=== PATIENT | female | born 1970 | race Caucasian/White ===

== ENCOUNTER 2020-04-10 09:51 | Observation (INO) | payer OTHER, SELFPAY ==
[2020-04-10] VITALS (22 sets, daily range): BP systolic 90–115; BP diastolic 65–93; PULSE 82–98; RESP 13–25; TEMP 36.5–37; O2SAT 92–99; BMI 32.5
--- NOTE | ~2020-04-10 | MR_ITS ---
EXAMINATION: MR brain/brain stem wo con DATE: 04/11/2020 10:01 INDICATION: Dizziness. TECHNIQUE: Magnetic resonance imaging (MRI) of the brain and brainstem was performed without intraven ous contrast. Sequences included sagittal and axial T1-weighted FSE, axial diffusion-weighted FS EPI, axial T2*-weighted GRE, axial T2-weighted FLAIR Propeller, and axial T2-weighted Propeller. Apparent diffusion coefficient (ADC) maps were created. COMPARISON: Head CT 04/10/2020 FINDINGS: There are scattered areas of nonspecific increased T2-weighted signal intensity in the cere bral white matter, which is within normal limits for the patient's age. There is no intracranial hemo rrhage, acute infarction, or abnormal intracranial mass lesion. The ventricles are normal in size. Th e orbits are normal. The paranasal sinuses are clear. The mastoid air cells are normal. IMPRESSION: 1. Normal brain. Reviewed, dictated and finalized at location A. IMPRESSION: 1. Normal brain.
--- NOTE | ~2020-04-10 | CT_ITS ---
EXAMINATION: CT brain wo con EXAM DATE: 04/10/2020 11:26 INDICATION: Dizziness. Nausea and vomiting. TECHNIQUE: Spiral CT of the head was performed without contrast. Axial, coronal and sagittal images were reviewed. The dose-length product (DLP) for this examination was 605.33 mGy-cm. The exposure w as tailored according to patient size, and iterative reconstruction (ASIR) was used as additional dos e reduction technique. Comparison is made to prior examination from 12/28/2014. FINDINGS: There is no acute intraparenchymal hemorrhage. No evidence of intraparenchymal brain mass lesion. No evidence of acute infarction. There is no mass effect or midline shift. The ventricles are normal in size. There are no extra-axial collections. There are no acute calvarial fractures. T he orbits are unremarkable. Soft tissue is unremarkable. The visualized sinuses and mastoid air selena ls are well aerated. IMPRESSION: 1. No acute intracranial findings. Reviewed, dictated and finalized at location A.
--- NOTE | ~2020-04-10 | US_ITS ---
EXAMINATION: US carotid duplex BI DATE: 04/11/2020 11:11 INDICATION: Vertigo TECHNIQUE: Grayscale, color Doppler, and pulsed Doppler images of the cervical carotid arteries were obtained. The degree of vessel stenosis is placed in one of the following categories: normal, <50%, 5 0-69%, >=70% but less than near-occlusion, near-occlusion, or total occlusion. Note that percent sten osis relative to normal distal artery lumen diameter is indirectly measured from velocity measurement s as described by Jamie, et al. Radiology 2003; 229:340-346. Notes: Normal: Peak systolic velocity <125 centimeters/sec and no plaque <50%. Peak systolic velocity <125 ( EDV <40; ICA/CCA PSV ratio <2.0; used these factors only a tandem lesions or low cardiac output or co ntralateral disease) 50-69 %: PSV 125-230 (EDV 40-100; ratio 2-4) >= 70% but less than near occlusion: PSV greater than 230 (EDV > 100; ratio> 4.0) Near Occlusion: PSV that is variable; markedly narrowed lumen Occlusion: Absent flow on color/spectral Doppler and no lumen on lan scale. COMPARISON: None. FINDINGS: RIGHT: The right common carotid artery (CCA) peak systolic velocity (PSV) is 109 cm/s. The right internal ca rotid artery (ICA) PSV is 59 cm/s. The right ICA end-diastolic velocity (EDV) is 16 cm/s. The right I CA/CCA PSV ratio is 0.5. The external carotid artery (ECA) PSV is 105 cm/s. There is antegrade flow i n the right vertebral artery. LEFT: The left CCA PSV is 114 cm/s. The left ICA PSV is 137 cm/s. The left ICA EDV is 30 cm/s. The left ICA /CCA PSV ratio is 1.2. The ECA PSV is 93 cm/s. There is antegrade flow in the left vertebral artery. IMPRESSION: 1. Less than 50% stenosis in the right internal carotid artery by sonographic criteria. 2. 50-69% stenosis in the left internal carotid artery by sonographic criteria. Reviewed, dictated and finalized at location A. IMPRESSION: 1. Less than 50% stenosis in the right internal carotid artery by sonographic c riteria. 2. 50-69% stenosis in the left internal carotid artery by sonographic criteria.
--- NOTE | 2020-04-10 10:36 | ECG_ITS ---
Measurements Intervals [place] Rate: 86 P: 44 OH: 183 QRS: 36 QRSD: 108 T: 15 QT: 385 QTc: 462 Interpretive Statements SINUS RHYTHM POSSIBLE LEFT ATRIAL ENLARGEMENT INCOMPLETE RIGHT BUNDLE BRANCH BLOCK BORDERLINE T WAVE ABNORMALITY- ANT/INF LEADS BASELINE ARTIFACT- I, III, AVL BORDERLINE ECG Electronically Signed On 04-10-2020 10:43:58 CDT by Tony Man D.O.
--- NOTE | 2020-04-10 10:47 | PC.NURSE ---
Pt asked if she could take her medications for epilepsy as she had vomited immediately after taking them this am. Explained as pt had just c/o nausea to wait until nausea had subsided and the physician could examine.
--- NOTE | 2020-04-10 10:52 | PC.NURSE ---
Pt heard to be wretching violently in room. On arrival, asked pt if she took her medications and she said she was trying to. Medications and water moved out of patients' reach and patient again told not to take anything po until nausea had passed and permission from [facility]. Dr. Hatch at bedside for exam.
[2020-04-10 10:53] LABS: Basophils Percent Auto 0.7 % (0.2-1.2); Eosinophils Percent Auto 0.9 % (0-4.4); Hematocrit 38.3 % (37.0-47.0); Hemoglobin 13.1 g/dL (12.0-15.0); Immature Granulocyte Absolute 0.02 K/mm3 (0.00-0.031); Immature Granulocyte Percent A 0.4 % (0-0.5); Lymphocytes Absolute Auto 0.87 K/mm3 (0.9-3.2); Lymphocytes Percent Auto 19.1 % (18.3-44.2); Mean Corpuscular HGB Conc 34.2 g/dl (32-36); Mean Corpuscular Hemoglobin 35.4 pg (26-34); Mean Corpuscular Volume 103.5 fl (80-100); Mean Platelet Volume 9.4 fl (7.4-10.4); Monocytes Absolute Auto 0.4 K/mm3 (0.1-0.6); Monocytes Percent Auto 8.1 % (2.6-8.5); Neutrophils Absolute Auto 3.2 K/mm3 (1.3-6.7); Neutrophils Percent Auto 70.8 % (45.5-73.1); Platelet Count Result 265 k/mm3 (150-375); Red Cell Distribution Width 13.5 % (11.5-14.5); White Blood Count 4.6 K/mm3 (4.5-10.0)
[2020-04-10 11:04] LABS: Blood Urea Nitrogen 14 mg/dL (7-17); Calcium 7.9 mg/dL (8.4-10.2); Carbon Dioxide 27 mmol/L (22-30); Chloride 104 mmol/L (98-107); Estimated CRCL calculation 122 ml/min; Estimated Glomerular Filt Rate > 60; Glucose 109 mg/dL (65-105); Sodium 136 mmol/L (137-145)
[2020-04-10] MEDS: PROMETHAZINE HCL 25 MG/ML AMPUL 12.5 MG IV PUSH (11:12)
[2020-04-10] MEDS: SODIUM CHLORIDE 0.9% IV 1,000 ML 999 ML IV CONT (11:13)
[2020-04-10] MEDS: LORAZEPAM INJ 2 MG/ML VIAL 0.5 MG IV PUSH (11:14)
--- NOTE | 2020-04-10 11:43 | PC.NURSE ---
Pt sleeping soundly on stretcher, arouses to shaking patient. Pt not able to safely participate in orthostatic readings at this time.
[2020-04-10] MEDS: LACTATED RINGERS 1,000 ML 999 ML IV CONT (13:04)
[2020-04-10 13:06] LABS: Add Urine Microscopic? YES; Appearance Urine Clear (Clear); Bilirubin Urine Negative (Negative); Blood Urine Negative (Negative); Color Urine Yellow (Yellow); Glucose Urine UA Negative (Negative); Ketones Urine Negative (Negative); Leukocyte Esterase Ur Negative LEU/UL (Negative); Mucus Urine Rare /lpf; Nitrate Urine Positive (Negative); Protein Urine Negative (Negative); RBC Urine 0-2 /hpf (0-2); Specific Grav Ur 1.016 (1.001-1.035); Squamous Epithelial Cell Urine Occasional /hpf (Few); Urobilinogen Urine Negative mg/dL (<2.0); WBC Urine 0-3 /hpf
--- NOTE | 2020-04-10 13:49 | PC.NURSE ---
States is feeling a little better at present. Appears more alert than prior assessments. IVF continue to infuse.
--- NOTE | 2020-04-10 13:52 | ED.DIZZY ---
HPI - Dizziness General Chief Complaint: Dizziness Stated Complaint: N/V Time Seen by Provider: 04/10/20 10:47 Source: patient Mode of arrival: EMS History of Present Illness HPI Narrative: This patient is a 49 year old female who presents with c/o dizziness. PAtient states she woke up this morning with dizziness. She states she has had this dizziness in the past but it has never been this severe. She describes her dizziness as spinning and it is associated with nausea, vomiting. She denies headaches, sinus drainage, ear ache or fever. She denies focal weakness. She does report double vision. She was given zofran 8 mg IV by EMS. She continues to have severe nausea, vomiting and dizziness. She also attempted to take her vertigo medication but she had emesis. MD elicited complaint: dizziness Pertinent past history: inner ear problems Related Data Home Medications Medication Instructions Recorded Confirmed cetirizine 10 mg PO DAILY 04/10/20 04/10/20 citalopram [Celexa] 40 mg PO DAILY 04/10/20 04/10/20 lamotrigine [Lamictal] 200 mg PO QID 04/10/20 04/10/20 levetiracetam [Keppra] 750 mg PO BID 04/10/20 04/10/20 lorazepam 0.5 mg PO BID PRN 04/10/20 04/10/20 primidone [Mysoline] 1.5 mg PO BID 04/10/20 04/10/20 Allergies Allergy/AdvReac Type Severity Reaction Status Date / Time divalproex sodium Allergy Unknown Unknown Verified 04/10/20 10:18 phenytoin Allergy Unknown Other Verified 04/10/20 10:18 Review of Systems Review of Systems: All systems reviewed & are unremarkable except as noted in HPI and below Constitutional: Constitutional: Denies chills and Denies fever(s) Eyes: Eyes: Reports diplopia ENT: Reports dizziness, Denies epistaxis and Denies nasal congestion Cardiovascular: Cardiovascular: Denies chest pain, Denies rapid heart rate and Denies radiating jaw, neck or arm pain Respiratory: Respiratory: Denies cough and Denies dyspnea Gastrointestinal: Gastrointestinal: Denies abdominal pain, Reports nausea and Reports vomiting Neurologic: Reports vertigo, Reports dizziness, Denies syncope, Denies headache(s), Denies focal weakness and Denies numbness [facility] Past Medical History Medical History (Updated 04/10/20 @ 19:49 by Isha Hatch MD) Generalized anxiety disorder Seizure disorder Patient is on Keppra and primidone Traumatic brain injury Causing seizure disorder at the age of 14 Vertigo Surgical History Surgical History (Updated 04/10/20 @ 19:21 by Joana Lawler NP) No history of previous surgery Family History Family History (Updated 04/10/20 @ 19:26 by Joana Lawler NP) Sibling Gunshot wound Mother Cancer Father Diabetes mellitus Atrial fibrillation Hyperlipidemia Social History Social History Years smoked: 33 Smoking status: Current every day smoker Tobacco type: cigarettes Alcohol intake: current Drinks per week: 6 Substance use: never Gender identity (if verbalized by the patient): Female Spiritual care concerns: No Exam Const: General: alert Orientation/consciousness: patient oriented x3 Other: patient is actively vomiting HENMT: Head: normocephalic and atraumatic Ears: hearing grossly normal bilaterally, external ears normal and TM's normal bilaterally General nose exam: Normal external nose present and Normal nares present Face and sinus: face symmetric Mouth: Yes Normal oral and palatal mucosa present, Yes lip normal and Yes oropharynx normal Eyes: Conjunctivae: conjunctivae normal Sclera: sclerae normal Pupils: Equal, round and reactive pupils present EOM: EOMs intact bilaterally Chest: Chest palpation & inspection: normal inspection of the chest Resp: Effort & Inspection: normal respiratory effort Auscultation: clear to auscultation bilaterally Cardio: Rate: regular rate Rhythm: regular rhythm Heart sounds: no murmurs GI: Inspection: non-distended Auscultation: normal bowel sounds Other: nontender Skin:
--- NOTE | 2020-04-10 15:00 | PC.NURSE ---
Call to [facility]nd medical, nurse unavailable and will call back. Pt eating turkey box.
--- NOTE | 2020-04-10 15:01 | PC.NURSE ---
Pt was assisted to BR via SUYAPA Slater per wheelchair. Pt denies increase in dizziness.
[2020-04-10] MEDS: MECLIZINE HCL 12.5 MG TABLET PO ×2 (17:27→20:10)
[2020-04-10] MEDS: LACTATED RINGERS 1,000 ML 125 ML IV CONT (17:36)
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
[2020-04-10] MEDS: lamoTRIgine 100 MG TABLET 200 MG PO (20:10)
[2020-04-10] MEDS: PRIMIDONE 250 MG TABLET PO (22:21)
[2020-04-10] MEDS: PRIMIDONE 125 MG TABLET PO (22:21)
[2020-04-11] VITALS (11 sets, daily range): BP systolic 106–128; BP diastolic 70–91; PULSE 80–96; RESP 15–22; TEMP 36.4–36.8; O2SAT 95
--- NOTE | 2020-04-11 | ECHO_ITS ---
Patient Info Name: Kaylie Hughes Age: 49 years : 1970 Gender: Female Ht: 64 in Wt: 190 lbs BSA: 2.01 m2 HR: 82 bpm BP: 128 / 79 mmHg Heart Rhythm: Sinus Rhythm Technical Quality: Good Exam Date: 04/11/2020 10:41 AM Exam Location: [facility] Pulmonary Patient Status: Inpatient Admit Date: 04/10/2020 Staff Ordering Physician: Joana Lawler NP [employer]: Roque Pérez RDCS Attending Provider: Tamar Diaz PA-C Referring Physician: Bucky BACH; Exam Type: CA echo doppler color flow Study Info Indications R42 - Dizziness and giddiness Complete two-dimensional, color flow and Doppler transthoracic echocardiogram is performed. History/Risk Factors Dizziness. Summary 1. Left ventricular systolic function is normal, estimated at 55-60%. 2. The left ventricular diastolic function is normal. 3. There is no increased left ventricular wall thickness. 4. Right atrial chamber dimension is upper limits of normal. 5. There is trace mitral valve regurgitation. 6. Unable to estimate PA systolic pressure due to poor spectral resolution of tricuspid regurgitant jet velocity. 7. There is trace tricuspid valve regurgitation. Left Ventricle Left ventricular chamber dimension is normal. Left ventricular systolic function is normal, estimated at 55-60%. There is no increased left ventricular wall thickness. The left ventricular diastolic function is normal. Right Ventricle Right ventricular chamber dimension is normal. Right ventricular systolic function is normal. Left Atria Left atrial chamber dimension is normal. Right Atria Right atrial chamber dimension is upper limits of normal. Aortic Valve The aortic valve is not well visualized. There is no aortic valve stenosis. There is no aortic valve regurgitation. Pulmonic Valve The pulmonic valve is not well visualized. There is trace pulmonic regurgitation. Mitral Valve The mitral valve has normal leaflets. There is trace mitral valve regurgitation. Tricuspid Valve The tricuspid valve leaflets are normal. There is trace tricuspid valve regurgitation. Unable to estimate PA systolic pressure due to poor spectral resolution of tricuspid regurgitant jet velocity. Pericardium/Pleural The pericardium appears normal. There is no pericardial effusion. Inferior Vena Cava Normal inferior vena cava with >50% collapse upon inspiration consistent with normal right atrial pressure, 5 mmHg. Aorta The aortic root size at the sinus of Valsalva is normal. Left Ventricular Outflow Tract Name Value Normal LVOT 2D LVOT Diameter 1.9 cm LVOT Doppler LVOT Peak Gradient 6 mmHg LVOT Mean Gradient 3 mmHg LVOT VTI 25 cm LVOT VTI/AV VTI Ratio 0.8 LVOT Stroke Volume 71 ml LVOT CO 5.5 l/min LVOT CI 2.7 l/min/m2 Mitral Valve Name
[2020-04-11] MEDS: LACTATED RINGERS 1,000 ML 125 ML IV CONT (02:02)
[2020-04-11 05:23] LABS: Basophils Percent Auto 0.7 % (0.2-1.2); Eosinophils Absolute Auto 0.1 K/mm3 (0-0.3); Eosinophils Percent Auto 1.1 % (0-4.4); Hematocrit 39.4 % (37.0-47.0); Hemoglobin 13.3 g/dL (12.0-15.0); Immature Granulocyte Absolute 0.01 K/mm3 (0.00-0.031); Immature Granulocyte Percent A 0.2 % (0-0.5); Lymphocytes Absolute Auto 1.38 K/mm3 (0.9-3.2); Mean Corpuscular HGB Conc 33.8 g/dl (32-36); Mean Corpuscular Hemoglobin 35.4 pg (26-34); Mean Corpuscular Volume 104.8 fl (80-100); Mean Platelet Volume 9.4 fl (7.4-10.4); Monocytes Absolute Auto 0.5 K/mm3 (0.1-0.6); Monocytes Percent Auto 10.1 % (2.6-8.5); Neutrophils Absolute Auto 2.5 K/mm3 (1.3-6.7); Neutrophils Percent Auto 56.9 % (45.5-73.1); Platelet Count Result 267 k/mm3 (150-375); Red Blood Count 3.76 M/mm3 (4.2-5.4); Red Cell Distribution Width 13.5 % (11.5-14.5); White Blood Count 4.5 K/mm3 (4.5-10.0)
[2020-04-11] MEDS: LORAZEPAM 0.5 MG TABLET PO (05:31)
[2020-04-11 05:37] LABS: CRP < 0.5 mg/dL (<1.0); Magnesium 1.9 mg/dL (1.6-2.3)
[2020-04-11] MEDS: levETIRAcetam 250 MG TABLET 750 MG PO (08:03)
[2020-04-11] MEDS: PRIMIDONE 250 MG TABLET PO (08:04)
[2020-04-11] MEDS: MECLIZINE HCL 12.5 MG TABLET PO ×2 (08:04→13:24)
[2020-04-11] MEDS: lamoTRIgine 100 MG TABLET 200 MG PO ×2 (08:04→13:24)
[2020-04-11] MEDS: PRIMIDONE 125 MG TABLET PO (08:04)
[2020-04-11] MEDS: CITALOPRAM HYDROBROMIDE 20 MG TABLET 40 MG PO (08:04)
--- NOTE | 2020-04-11 10:34 | PC.NURSE ---
Found patient walking in the hallway after she returned from radiology. Instructed patient that she is a fall risk and needs to call for assistance to get out of bed. She states Oh but I feel fine, yet complains of dizziness. Will continue to monitor, and the bed alarm will remain.
--- NOTE | 2020-04-11 12:09 | PC.NURSE ---
Patient is upset and stating I don't know what meds you gave me this morning but they weren't right, you didn't give me something. During 0900 medication administration, medication names and doses were read to the patient and she stated she understood. I reviewed each medication again and compared them with her medication bag from home. Patient states she takes Lamictal TID not QID as prescribed and written on the medication bottle. I explained to the patient that she should take her medication as prescribed and not change doses. Patient is agreeable.
--- NOTE | 2020-04-11 13:42 | PC.NURSE ---
Pt called to use the restroom. RAILROAD CAR CLEANER found the patient already in the bathroom. Instructed patient to call and wait for staff to assist her to the bathroom. Pt agreeable. Will continue to monitor.
[2020-04-11 14:07] LABS: Alanine Aminotransferase 15 U/L (4-35); Alkaline Phosphatase 74 U/L (38-126); Aspartate Amino Transferase 41 U/L (14-36); Bilirubin,Total 0.4 mg/dL (0.2-1.3); Blood Urea Nitrogen 10 mg/dL (7-17); Carbon Dioxide 29 mmol/L (22-30); Chloride 104 mmol/L (98-107); Cholesterol 222 mg/dL (0-200); Estimated CRCL calculation 103 ml/min; Estimated Glomerular Filt Rate > 60; Glucose 113 mg/dL (65-105); HDL Direct 95 mg/dL; Potassium 3.8 mmol/L (3.4-5.0); Sodium 138 mmol/L (137-145); Triglycerides 239 mg/dL (<150)
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
[2020-04-11 14:18] LABS: LDL Cholesterol Direct 115 mg/dL
--- NOTE | 2020-04-11 14:55 | PM.DS ---
DS: Admitting Diagnosis Admitting Diagnosis Admitting Diagnosis: Dizziness and giddiness DS: Discharge Diagnosis Discharge Diagnosis (1) Vertigo: Code(s): R42 - Dizziness and giddiness Status: Chronic Assessment and Plan: Patient presented with sudden dizziness upon waking up prior to arrival. Normal orthostatic blood pressures She had a CT of the brain which was negative. MRI of the brain showed normal aging brain She did have carotid ultrasound which showed moderate left-sided carotid stenosis 50-69%, right has less than 50% stenosis. She has been walking around without any issues today. She denies any dizziness at this time. Neurology evaluated the patient and states that she has right vestibular neuronitis with her rightward nystagmus. Will continue meclizine as needed, instructed her to drink plenty of fluids, and follow-up with her primary care provider for further evaluation Patient understands and agrees with the plan all questions answered. (2) Intractable nausea and vomiting: Code(s): R11.2 - Nausea with vomiting, unspecified Status: Acute Assessment and Plan: Resolved at this time with treatment of her vertigo. Will give her some oral Zofran as needed for nausea. (3) Generalized anxiety disorder: Code(s): F41.1 - Generalized anxiety disorder Status: Chronic Assessment and Plan: Continue with her lorazepam. (4) Seizure disorder: Code(s): G40.909 - Epilepsy, unspecified, not intractable, without status epilepticus Status: Chronic Assessment and Plan: Her lamotrigine and Keppra levels are currently pending. Will have her continue her home medications as prescribed, Lamictal, Keppra and primidone. She will follow-up with Dr. Harris as an outpatient for further evaluation and adjustments to her medications if necessary. (5) Left carotid stenosis: Code(s): I65.22 - Occlusion and stenosis of left carotid artery Status: Acute Assessment and Plan: She did have carotid ultrasound which showed moderate left-sided carotid stenosis 50-69%, right has less than 50% stenosis. At this time will have the patient start a baby aspirin 81 mg a day and atorvastatin 40 mg a day to try and prevent further stenosis of her carotids. Will have her follow-up with her primary care provider for further evaluation (6) Hyperlipidemia: Code(s): E78.5 - Hyperlipidemia, unspecified Status: Acute Assessment and Plan: Her cholesterol was checked but it was not fasting and could be slightly inaccurate. Her triglycerides were elevated at 239, total cholesterol was elevated at 222, her LDL was 115 but now that we know she has carotid stenosis her LDL needs to be less than 70 for better control, her HDL is 95 and normal. I will start her on atorvastatin 40 mg for better cholesterol control Will have the patient followed her primary care provider within 1 week for further evaluation and she will need to recheck her fasting lipid panel in 3 months. DS: Summary Hospital Course Reason for hospitalization: Patient is a 49-year-old woman with a history of TBI and seizure disorder, who presented to the emergency room with dizziness and associated nausea and vomiting. Initial vitals showed temperature of 98.6?, blood pressure 115/93, heart rate 89, respiratory rate 13, oxygen saturation 95% on room air. Initial labs showed normal CBC with differential, BMP showed slight hyponatremia 136, otherwise normal. Urinalysis showed positive nitrates but otherwise negative. She is not having any urinary symptoms. CT head showed no acute intracranial findings. Patient was admitted i
[2020-04-13 10:41] LABS: Levetiracetam Keppra 12.7 mcg/mL (12.0-46.0)
[2020-04-14 00:25] LABS: Lamotrigine Lamictal 12.1 mcg/mL (4.0-18.0)
== END 2020-04-11 15:54 | disposition home or self-care (01) ==
LOC: ANHED 13:59 → ANH2MED 16:54
PROVIDERS: Nurse Practitioner; Admitting Provider Family Medicine; Emergency Provider General Practice; Visit Provider Physician Assistant
DX: H81.21 Vestibular neuronitis, right ear (principal); R11.2 Nausea with vomiting, unspecified; F41.1 Generalized anxiety disorder; G40.909 Epilepsy, unspecified, not intractable, without status epilepticus; I65.22 Occlusion and stenosis of left carotid artery; E78.5 Hyperlipidemia, unspecified; F17.210 Nicotine dependence, cigarettes, uncomplicated; Z79.899 Other long term (current) drug therapy; Z87.820 Personal history of traumatic brain injury; Z88.8 Allergy status to other drugs, medicaments and biological substances
CPT/HCPCS: 36415; 51701; 70450; 70551; 80048; 80053; 80061; 80175; 80177; 81001; 81025; 83605; 83735; 84443; 85025; 86140; 93005; 93306; 93880; 96360; 96361; 96374; 96375; 99285; A9270; G0378; G0379; J2060; J2550; J7030; J7120

== ENCOUNTER 2020-04-25 09:00 | Observation (INO) | payer OTHER, SELFPAY ==
[2020-04-25] VITALS (13 sets, daily range): BP systolic 92–135; BP diastolic 51–89; PULSE 74–93; RESP 16–20; TEMP 35.9–36.9; O2SAT 95–100; BMI 27.4; BMI 30.1
--- NOTE | ~2020-04-25 | XR_ITS ---
EXAMINATION: XR chest 1V portable 04/25/2020 09:59 INDICATION: Chest pain after fall. Seizures. PROCEDURE: AP portable chest COMPARISON: Comparison to multiple prior studies sequentially, with oldest reviewed study dated 02/2015. FINDINGS: The lungs are clear. The cardiomediastinal silhouette is within normal limits. There are no pleural effusions. There is no pneumothorax suspected. IMPRESSION: 1: NO ACUTE CARDIOPULMONARY DISEASE. Reviewed, dictated and finalized at location A.
--- NOTE | ~2020-04-25 | CT_ITS ---
EXAMINATION: CT brain wo con DATE: 04/25/2020 09:41 INDICATION: Seizure. Recent falls. Confusion. TECHNIQUE: Computed tomography (CT) of the head was performed without intravenous contrast. Sagittal and coronal reconstructions were performed. The mA was adjusted according to patient size. Iterative reconstruction technique was employed. The dose-length product was 605.33 mGy-cm. COMPARISON: Brain MR dated 04/11/2020 FINDINGS: No fracture. No acute intracranial hemorrhage, acute infarction or abnormal extra axial fluid collect ion. Ventricles are normal and symmetric. No mass/mass effect. The orbits, paranasal sinuses and mast oid air cells are normal. IMPRESSION: 1. Normal head CT. Reviewed, dictated and finalized at location A. IMPRESSION: 1. Normal head CT.
--- NOTE | 2020-04-25 09:11 | ECG_ITS ---
Measurements Intervals [place] Rate: 86 P: 47 AK: 169 QRS: 44 QRSD: 102 T: 29 QT: 369 QTc: 442 Interpretive Statements SINUS RHYTHM POSSIBLE LEFT ATRIAL ENLARGEMENT INCOMPLETE RIGHT BUNDLE BRANCH BLOCK BASELINE WANDER- V2 BORDERLINE ECG Electronically Signed On 04-25-2020 9:19:17 CDT by Tony Man D.O.
[2020-04-25] MEDS: SODIUM CHLORIDE 0.9% IV 1,000 ML 999 ML IV CONT (09:22)
--- NOTE | 2020-04-25 09:25 | ED.SEIZURE ---
HPI - Seizure General Chief Complaint: Seizure Stated Complaint: SEIZURES/FALLS Source: RN notes reviewed and old records reviewed History of Present Illness HPI Narrative: Patient presents to emergency department from home via EMS for seizures. Patient states that she has been having intermittent seizures over the past week. She states that she will have twitching and jerking of her extremities which are consistent with her previous her seizures. She states she is followed by Dr. Head for her seizures. She states she has been taking her seizure medication as prescribed which includes primidone and Keppra. Patient also states that she has been having intermittent dizziness with difficulty ambulating and frequent falls secondary to her recurrent seizures.. Patient states she was admitted to the hospital last week for vertigo. She denies any fevers or chills headache chest pain shortness of breath numbness or tingling in extremities or any other symptoms of concern Seizure History: Yes (epilepsy) Related Data Home Medications Medication Instructions Recorded Confirmed cetirizine 10 mg PO DAILY 04/10/20 04/10/20 citalopram [Celexa] 40 mg PO DAILY 04/10/20 04/10/20 lamotrigine [Lamictal] 200 mg PO QID 04/10/20 04/10/20 levetiracetam [Keppra] 750 mg PO BID 04/10/20 04/10/20 lorazepam 0.5 mg PO BID PRN 04/10/20 04/10/20 primidone [Mysoline] See Rx Instructions .ROUTE .COMPLEX 04/10/20 04/10/20 Allergies Allergy/AdvReac Type Severity Reaction Status Date / Time divalproex sodium Allergy Unknown Unknown Verified 04/10/20 10:18 phenytoin Allergy Unknown Other Verified 04/10/20 10:18 Review of Systems Review of Systems: Narrative: Gen.: Denies fevers or chills Eyes: Denies eye pain or visual change ENT: Denies congestion Respiratory: Denies shortness of breath or cough CV: Denies chest pain or palpitations GI: Denies abdominal pain nausea, emesis or diarrhea denies burning, urgency, frequency or hematuria Musculoskeletal: Denies back pain or muscle pain Neuro: See HPI Skin: Denies rash Except as documented, all other systems reviewed and negative PMFSH Past Medical History Medical History Generalized anxiety disorder Seizure disorder Patient is on Keppra and primidone Traumatic brain injury Causing seizure disorder at the age of 14 Vertigo Surgical History Surgical History (Updated 04/10/20 @ 19:21 by Joana Lawler NP) No history of previous surgery Family History Family History (Updated 04/10/20 @ 19:26 by Joana Lawler NP) Sibling Gunshot wound Mother Cancer Father Diabetes mellitus Atrial fibrillation Hyperlipidemia Social History Social History Years smoked: 33 Smoking status: Current every day smoker Tobacco type: cigarettes Alcohol intake: current Drinks per week: 6 Substance use: never Gender identity (if verbalized by the patient): Female Spiritual care concerns: No Exam Narrative: Exam Narrative: APPEARANCE: No acute distress, nontoxic, resting in bed HEENT: Normocephalic, atraumatic, OMM, TMs clear bilaterally EYES: PERRL, EOMI NECK: Supple, nontender, full range of motion without pain, no meningismus RESPIRATORY: No respiratory distress, clear to auscultation bilaterally with no rhonchi wheezing or rales CARDIOVASCULAR: RRR s murmur ABDOMINAL: Soft, nontender, nondistended MUSCULOSKELETAL: Moves all extremities. No clubbing, cyanosis or edema. Intermittent ecchymosis over the bilateral upper and lower extremities in different phases of healing NEURO: A and O ?3, following commands, speech normal, cranial nerves II through XII grossly intact,muscle strength 5 out of 5 bilateral upper and lower extremities SKIN:: Warm, dry. Normal Color PSYCHIATRIC: Normal affect/mood Course Course Emergency Course: Discussed with Dr. Harris for neurology. Agrees
--- NOTE | 2020-04-25 09:32 | PC.NURSE ---
unable to draw labs patient went to CT
[2020-04-25 10:01] LABS: Basophils Percent Auto 0.9 % (0.2-1.2); Eosinophils Absolute Auto 0.1 K/mm3 (0-0.3); Eosinophils Percent Auto 1.9 % (0-4.4); Hematocrit 41.9 % (37.0-47.0); Hemoglobin 14.2 g/dL (12.0-15.0); Immature Granulocyte Absolute 0.01 K/mm3 (0.00-0.031); Immature Granulocyte Percent A 0.3 % (0-0.5); Lymphocytes Absolute Auto 1.21 K/mm3 (0.9-3.2); Lymphocytes Percent Auto 37.8 % (18.3-44.2); Mean Corpuscular HGB Conc 33.9 g/dl (32-36); Mean Corpuscular Hemoglobin 35.6 pg (26-34); Mean Platelet Volume 9.7 fl (7.4-10.4); Monocytes Absolute Auto 0.3 K/mm3 (0.1-0.6); Monocytes Percent Auto 10.6 % (2.6-8.5); Neutrophils Absolute Auto 1.6 K/mm3 (1.3-6.7); Neutrophils Percent Auto 48.5 % (45.5-73.1); Platelet Count Result 246 k/mm3 (150-375); Red Blood Count 3.99 M/mm3 (4.2-5.4); Red Cell Distribution Width 13.4 % (11.5-14.5); White Blood Count 3.2 K/mm3 (4.5-10.0)
[2020-04-25 10:12] LABS: Prothrombin Time 13.3 Seconds (11.1-14.7)
[2020-04-25 10:13] LABS: Partial Thromboplastin Time 30.2 SECONDS (22.3-36.8)
[2020-04-25 10:14] LABS: Alanine Aminotransferase 41 U/L (4-35); Albumin Level 4.2 g/dL (3.5-5.1); Alkaline Phosphatase 143 U/L (38-126); Aspartate Amino Transferase 75 U/L (14-36); Bilirubin,Total 0.5 mg/dL (0.2-1.3); Blood Urea Nitrogen 5 mg/dL (7-17); Calcium 8.3 mg/dL (8.4-10.2); Carbon Dioxide 27 mmol/L (22-30); Chloride 105 mmol/L (98-107); Estimated CRCL calculation 82 ml/min; Estimated Glomerular Filt Rate > 60; Glucose 93 mg/dL (65-105); Potassium 3.7 mmol/L (3.4-5.0); Sodium 136 mmol/L (137-145)
[2020-04-25 10:20] LABS: Ethanol < 10 mg/dL (<10)
[2020-04-25 10:23] LABS: Add Urine Microscopic? YES; Appearance Urine Clear (Clear); Bacteria Urine Trace /hpf; Bilirubin Urine Negative (Negative); Blood Urine Negative (Negative); Color Urine Yellow (Yellow); Glucose Urine UA Negative (Negative); Ketones Urine Negative (Negative); Leukocyte Esterase Ur 1+ LEU/UL (Negative); Mucus Urine Rare /lpf; Nitrate Urine Positive (Negative); Protein Urine Negative (Negative); Squamous Epithelial Cell Urine Moderate /hpf (Few); Urobilinogen Urine Negative mg/dL (<2.0)
[2020-04-25 10:26] LABS: Troponin I < 0.012 ng/mL (0.000-0.034)
[2020-04-25 10:36] LABS: Amphetamine Screen Urine Negative (Negative); Barbiturate Screen Urine Positive (Negative); Benzodiazepines Screen Urine Negative (Negative); Cannabinoid Screen Urine Negative (Negative); Cocaine Screen Urine Negative (Negative); Methadone Screen Urine Negative (Negative); Opiate Screen Urine Negative (Negative); Phencyclidine Screen Urine Negative (Negative)
--- NOTE | 2020-04-25 11:57 | PC.NURSE ---
1148 pt took her home meds okayed by dr mariscal [id number] Nurse to Nurse pt report given
--- NOTE | 2020-04-25 12:56 | PM.IMHP ---
H&P: HPI History of Present Illness Chief complaint: seizure recurrent/frequent falls Narrative: Kaylie Hughes is a 50 year old female who presents with multiple complains, she states that she keeps getting dizzy when she moves around, she also refers having seizures, no LOC, she explains that she feels that her extremities shake that is when she thinks she is having a seizure. She also refers an unsteady gait , occasional vision changes, difficulty finding words. She also refers nausea and vomiting, no abdominal pain, no urinary symptoms, no fever, diarrhea or constipation. Denies chest pain. Review of Systems Review of Systems: All systems reviewed & are unremarkable except as noted in HPI and below PMFSH Past Medical History Medical History Generalized anxiety disorder Seizure disorder Patient is on Keppra and primidone Traumatic brain injury Causing seizure disorder at the age of 14 Vertigo Surgical History Surgical History No history of previous surgery Family History Family History Sibling Gunshot wound Mother Cancer Father Diabetes mellitus Atrial fibrillation Hyperlipidemia Social History Social History Years smoked: 33 Smoking status: Current every day smoker Tobacco type: cigarettes Alcohol intake: current Drinks per week: 2 Substance use: never Gender identity (if verbalized by the patient): Female Spiritual care concerns: No Meds Home Medications and Allergies Home Medications Medication Instructions Recorded Confirmed Type cetirizine 10 mg PO DAILY 04/10/20 04/25/20 History citalopram [Celexa] 40 mg PO DAILY 04/10/20 04/25/20 History lamotrigine [Lamictal] 200 mg PO QID 04/10/20 04/25/20 History levetiracetam [Keppra] 750 mg PO BID 04/10/20 04/25/20 History lorazepam 0.5 mg PO BID PRN 04/10/20 04/25/20 History primidone [Mysoline] See Rx Instructions .ROUTE .COMPLEX 04/10/20 04/25/20 History aspirin 81 mg PO DAILY #30 tablet 04/11/20 04/25/20 Rx atorvastatin 40 mg PO HS 30 Days #30 tablet 04/11/20 04/25/20 Rx meclizine 12.5 mg PO QID #30 tablet 04/11/20 04/25/20 Rx ondansetron HCl [Zofran] 4 mg PO Q8H PRN #10 tablet 04/11/20 04/25/20 Rx fluticasone propionate [Allergy 1 spray INTRANASAL BID 04/25/20 04/25/20 History Relief (fluticasone)] Allergies Allergy/AdvReac Type Severity Reaction Status Date / Time divalproex sodium Allergy Unknown Unknown Verified 04/25/20 13:05 phenytoin Allergy Unknown Other Verified 04/25/20 13:05 Vital Signs Vital Signs - 24 hr 04/25/20 08:59 04/25/20 09:06 04/25/20 09:32 Temperature 98.4 F Pulse Rate 93 88 80 Respiratory Rate 18 Blood Pressure 135/83 125/80 Pulse Oximetry 98 04/25/20 09:33 04/25/20 10:17 04/25/20 11:20 Temperature Pulse Rate 91 79 79 Respiratory Rate 18 20 Blood Pressure 135/85 134/88 121/87 Pulse Oximetry 95 98 04/25/20 12:27 Temperature Pulse Rate 80 Respiratory Rate 20 Blood Pressure Pulse Oximetry 98 Exam Const: General: no acute distress Eyes: Pupils: Equal, round and reactive pupils present EOM: Nystagmus present (Left eye horizontal nystagmus) Neck: Neck: supple and no JVD Resp: Effort & Inspection: normal respiratory effort Auscultation: clear to auscultation bilaterally Cardio: Rate: regular rate Rhythm: regular rhythm Other: No bradycardia ro tachycardia GI: GI Palp: Yes Soft to palpation Percussion: Yes normal to percussion Auscultation: normal bowel sounds Skin: General skin exam: normal color Other: Small ecchymosis over her legs Neuro: Cranial nerves: Yes Nystagmus present Cognition (Neuro): normal cognition Speech: normal speech Sensory Exam: normal sensation Other: No focal deficits Extrem: General: no
--- NOTE | 2020-04-25 13:05 | ADMGEN ---
This patient, Kaylie Hughes, was admitted to Medical Room 345-01. Patient/family oriented to hospital policies and general routines including ID bracelet, bed and alarms, visiting hours, pain management, procedures, bathroom and other care routines, personal items, smoking policy, room service/diet, and visiting hours. Valuables list has been completed. Information on how to activate the Rapid Response Team has been discussed. Patient/Family are encouraged to report perceived risks to care and to ask questions if they do not understand what they are told or what they should do.
--- NOTE | 2020-04-25 13:05 | PC.NURSE ---
Patient not entirely sure of medication allergies. States it was from her teens.
[2020-04-25] MEDS: CITALOPRAM HYDROBROMIDE 20 MG TABLET 40 MG PO (16:58)
[2020-04-25] MEDS: FLUTICASONE PROPIONATE 0.05% NA SPR 16 GM BTL (*BKC) 1 SPRAY NASAL (16:59)
[2020-04-25] MEDS: lamoTRIgine 100 MG TABLET 200 MG PO ×2 (16:59→20:05)
--- NOTE | 2020-04-25 17:03 | PC.NURSE ---
Patient does not want primidone until night time med pass.
[2020-04-25] MEDS: levETIRAcetam 250 MG TABLET 750 MG PO (20:04)
[2020-04-25] MEDS: ATORVASTATIN 40 MG TABLET PO (20:04)
[2020-04-25] MEDS: PRIMIDONE 125 MG TABLET PO (20:05)
[2020-04-25] MEDS: PRIMIDONE 250 MG TABLET BY MOUTH (20:05)
[2020-04-26] VITALS: PULSE 79
[2020-04-26 04:00] VITALS: PULSE 73
[2020-04-26 05:38] VITALS: BP 108/63; PULSE 71; RESP 16; TEMP 36.7; O2SAT 96
[2020-04-26 06:13] LABS: Basophils Percent Auto 1.1 % (0.2-1.2); Eosinophils Absolute Auto 0.1 K/mm3 (0-0.3); Eosinophils Percent Auto 1.9 % (0-4.4); Hematocrit 40.7 % (37.0-47.0); Hemoglobin 13.5 g/dL (12.0-15.0); Immature Granulocyte Absolute 0.01 K/mm3 (0.00-0.031); Immature Granulocyte Percent A 0.3 % (0-0.5); Lymphocytes Absolute Auto 1.51 K/mm3 (0.9-3.2); Lymphocytes Percent Auto 40.7 % (18.3-44.2); Mean Corpuscular HGB Conc 33.2 g/dl (32-36); Mean Corpuscular Hemoglobin 35.1 pg (26-34); Mean Corpuscular Volume 105.7 fl (80-100); Mean Platelet Volume 9.6 fl (7.4-10.4); Monocytes Absolute Auto 0.5 K/mm3 (0.1-0.6); Monocytes Percent Auto 12.4 % (2.6-8.5); Neutrophils Absolute Auto 1.6 K/mm3 (1.3-6.7); Neutrophils Percent Auto 43.6 % (45.5-73.1); Platelet Count Result 235 k/mm3 (150-375); Red Blood Count 3.85 M/mm3 (4.2-5.4); Red Cell Distribution Width 13.2 % (11.5-14.5); White Blood Count 3.7 K/mm3 (4.5-10.0)
[2020-04-26 06:25] LABS: Alanine Aminotransferase 36 U/L (4-35); Albumin Level 3.8 g/dL (3.5-5.1); Alkaline Phosphatase 125 U/L (38-126); Aspartate Amino Transferase 84 U/L (14-36); Bilirubin,Total 0.4 mg/dL (0.2-1.3); Blood Urea Nitrogen 7 mg/dL (7-17); Calcium 8.2 mg/dL (8.4-10.2); Carbon Dioxide 28 mmol/L (22-30); Chloride 105 mmol/L (98-107); Estimated CRCL calculation 98 ml/min; Estimated Glomerular Filt Rate > 60; Glucose 93 mg/dL (65-105); Potassium 3.7 mmol/L (3.4-5.0); Sodium 135 mmol/L (137-145)
--- NOTE | 2020-04-26 08:00 | NEURO_ITS ---
TEST: ELECTROENCEPHALOGRAM DIAGNOSIS: SEIZURE PATIENT NUMBER: [id number] EEG NUMBER: [id number] RECORDING DATE: 04/26/20 CLINICAL HISTORY: Patient reports she has been having vertigo for couple of weeks and medication for it has been making her shake and feel funny. She has history of epilepsy. Patient reported to the Electroencephalographer that she felt like she was having ?little seizures? throughout the tracing. CONDITION OF RECORDING: Awake, drowsy and sleep EEG DESCRIPTION: Basic resting occipital frequency consists of small amount of poorly organized low voltage 8-9hz alpha mixed with low to medium voltage 5-7hz theta particularly during drowsiness. Bilateral symmetrical sleep activity is seen during sleep. Multiple muscle and movement artifacts are noted. Hyperventilation and photic stimulation were not done. Nonparoxysmal. Nonfocal. Nonlateralizing. IMPRESSION: Probably normal record but considering excessive amount of theta activity during drowsiness the possibility of seizure cannot be diffidently ruled out. Clinical correlation recommended. [facility]
[2020-04-26 08:01] VITALS: PULSE 76
[2020-04-26] MEDS: FLUTICASONE PROPIONATE 0.05% NA SPR 16 GM BTL (*BKC) 1 SPRAY NASAL (09:27)
[2020-04-26] MEDS: ENOXAPARIN 40 MG/0.4 ML SYRINGE SUB-Q (09:27)
[2020-04-26] MEDS: levETIRAcetam 250 MG TABLET 750 MG PO (09:28)
[2020-04-26] MEDS: ASPIRIN 81 MG ENTERIC TABLET PO (09:28)
[2020-04-26] MEDS: PRIMIDONE 250 MG TABLET BY MOUTH (09:28)
[2020-04-26] MEDS: PRIMIDONE 125 MG TABLET PO (09:29)
[2020-04-26] MEDS: lamoTRIgine 100 MG TABLET 200 MG PO (09:29)
[2020-04-26] MEDS: CITALOPRAM HYDROBROMIDE 20 MG TABLET 40 MG PO (09:29)
--- NOTE | 2020-04-26 10:42 | PM.DS ---
DS: Admitting Diagnosis Admitting Diagnosis Admitting Diagnosis: Epilepsy, unspecified, not intractable, without status epilepticus DS: Discharge Diagnosis Discharge Diagnosis (1) Seizure disorder: Code(s): G40.909 - Epilepsy, unspecified, not intractable, without status epilepticus Status: Chronic (2) Generalized anxiety disorder: Code(s): F41.1 - Generalized anxiety disorder Status: Chronic (3) Vertigo: Code(s): R42 - Dizziness and giddiness Status: Chronic (4) Left carotid stenosis: Code(s): I65.22 - Occlusion and stenosis of left carotid artery Status: Chronic (5) Hyperlipidemia: Code(s): E78.5 - Hyperlipidemia, unspecified Status: Acute (6) Falls frequently: Code(s): R29.6 - Repeated falls Status: Acute (7) Polypharmacy: Code(s): Z79.899 - Other usp (current) drug therapy Status: Acute DS: Summary Hospital Course Reason for hospitalization: Possible seizure, frequent falls Hospital Course: 50 yo who presented with several complains, questionable seizures and frequent calls. She was seen by neurology and had an EEG ( final reading still pending) . She did not have any seizure activity while in the hospital. It is not clear wether or not she is having pseudoseizures. I spoke with Dr. Harris from neurology, he is ok with her going home, no changes on her seizure medications. Of notice she had a mild elevation of her liver enzymes. Her enzymes will be followed as outpatient by neurology and if going up they might consider modifying or stopping her lamotrigine, as of now Dr. Harris did not recommend to change the dose. Some of her multiple complains could be due to polypharmacy, I discussed this with the patient. She was advised to stop the citerizine, zofran and meclizine. At this time she denies vertigo, nausea or any other related symptoms. For her generalized anxiety disorder she might benefit from behavioral therapy, should continue her citalopram. Status at Discharge Functional status at discharge: independent ambulation Overall status at discharge: patient is back to baseline Time Spent with Patient Time attestation: Total time spent providing and/or coordinating discharge services: Time spent: Greater than 30 minutes Exam Const: General: comfortable and no acute distress Eyes: Pupils: Equal, round and reactive pupils present Neck: Neck: supple and no JVD Resp: Effort & Inspection: normal respiratory effort Auscultation: clear to auscultation bilaterally Cardio: Rate: regular rate Rhythm: regular rhythm GI: GI Palp: Yes Soft to palpation Auscultation: normal bowel sounds Skin: General skin exam: normal color and no rashes or lesions noted Neuro: Motor exam (neuro): 5/5 motor strength present throughout and Normal motor muscle tone present throughout Sensory Exam: normal sensation Extrem: General: normal to inspection Psych: Affect: Anxious affect present DS: Data Data Completed and Pending Labs on day of discharge: Labs from last 24 hours 04/26/20 04/26/20 04/25/20 05:54 05:54 09:54 WBC 3.7 L RBC 3.85 L Hgb 13.5 Hct 40.7 MCV 105.7 H MCH 35.1 H MCHC 33.2 RDW 13.2 Plt Count 235 MPV 9.6 Immature Gran % (Auto) 0.3 Neut % (Auto) 43.6 L Lymph % (Auto) 40.7 [place] % (Auto) 12.4 H Eos % (Auto) 1.9 Baso % (Auto) 1.1 Lymph # (Auto) 1.51 [place] # (Auto) 0.5 Eos # (Auto) 0.1 Baso # (Auto) 0.0 Abs Immat Gran (auto) 0.01 Absolute Neuts (auto) 1.6 Absolute Nucleated RBC 0.0 Nucleated RBC % 0.0 Sodium 135 L Potassium 3.7 Chloride 105 Carbon Dioxide 28 BUN 7 Creatinine 0.60 L Estim Creat Clear Calc 98 Estimated GFR > 60 Glucose 93 Calcium 8.2 L Total Bilirubin 0.4 AST 84 H ALT 36 H Alkaline Phosphatase 125 Total Protein 7.0 Albumin 3.8 Vitamin B12 477.0 Discharge P
--- NOTE | 2020-04-26 15:09 | CONS_ITS ---
DATE OF CONSULTATION: HISTORY OF PRESENT ILLNESS: A 50-year-old right-handed female has been admitted to the hospital through the emergency room for the complaints of recurrent seizure and recurrent fall. In addition to the complaint of unsteady gait, she also carries the ongoing diagnosis of generalized anxiety disorder, seizure disorder, for which she has been taking Keppra and primidone, in addition to history of traumatic brain injury at the age of 14, resulting in the seizure disorder. She has history of smoking, years 33. Current alcohol drinker, never substance abuse. MEDICATIONS: At the time of admission to the hospital, she has been takin. Cetirizine 10 mg daily. 2. Citalopram 40 mg daily. 3. Lamotrigine 200 mg q.i.d. 4. Keppra 750 mg b.i.d. 5. Lorazepam p.r.n. 6. Primidone. 7. Aspirin 81 mg daily. 8. Atorvastatin 40 mg h.s. 9. Meclizine 12.5 q.i.d. 10. Zofran 4 mg q.8 hours p.r.n. 11. Fluticasone nasal spray. ALLERGIES: ON INITIAL EVALUATION, IT WAS DOCUMENTED THAT SHE IS ALLERGIC TO DIVALPROEX AND ALSO PHENYTOIN. PHYSICAL EXAMINATION: VITAL SIGNS: Stable with temp of 98.4, pulse 93, respirations 18, blood pressure 135/83. GENERAL: Examination revealed her to be awake, alert, cooperative, in no obvious acute distress. HEENT: Head normocephalic with no cranial bruit. Ear, nose, throat examination normal. NECK: Supple with no cervical bruit. No thyromegaly. No lymphadenopathy. HEART: Regular with no murmur. LUNGS: Clear to auscultation. ABDOMEN: Soft with no organomegaly. NEUROLOGICAL: She was awake, alert, and oriented x3. Speech not dysphasic, not dysarthric, not dysphonic. Pupils round, regular. Robert of vision full. Extraocular movements full. Face symmetrical. Tongue midline. Motor examination revealed her to have normal strength and reflexes were symmetrical. Plantars downgoing. There was no evidence of gross sensory or cerebellar deficit. LABORATORY DATA: Initial evaluation includes a CBC with WBC 3.2, hemoglobin 14.2, platelet count 246. Normal basic metabolic panel, troponin less than 0.012. Hepatic enzymes elevated with AST 75, ALT 41, alkaline phos 143, albumin 4.2. UA negative. The patient had been in the hospital in March also with the same complaint of vertigo, dizziness and generalized anxiety disorder, in addition to history of the seizure disorder. At that time, she was found to have occlusion and stenosis of the left carotid artery for which she was suggested to follow up with the primary care physician. At this stage, she is being discharged with instruction to return to the office for the followup in the office so further recommendation can be made. She needs to have the anticonvulsant adjusted, for which she needs to come to the office. RONEN WATSON M.D. [facility] D [place] MT: Araceli
== END 2020-04-26 12:10 | disposition home or self-care (01) ==
LOC: ANHED 11:35 → ANH3MED 11:48
PROVIDERS: Admitting Provider Internal Medicine; Emergency Provider Emergency Medicine; Visit Provider Hospitalist
DX: G40.909 Epilepsy, unspecified, not intractable, without status epilepticus (principal); F41.1 Generalized anxiety disorder; R42 Dizziness and giddiness; I65.22 Occlusion and stenosis of left carotid artery; E78.5 Hyperlipidemia, unspecified; R29.6 Repeated falls; R74.8 Abnormal levels of other serum enzymes; F17.210 Nicotine dependence, cigarettes, uncomplicated; Z79.899 Other long term (current) drug therapy; Z87.820 Personal history of traumatic brain injury
CPT/HCPCS: 36415; 70450; 71045; 80053; 80307; 81001; 81025; 82607; 84484; 85025; 85610; 85730; 93005; 95816; 96361; 96365; 96372; 97161; 99285; A9270; G0378; J0696; J1650; J7030

== ENCOUNTER 2020-07-14 06:57 | Emergency (ER) | payer OTHER, SELFPAY ==
--- NOTE | ~2020-07-14 | XR_ITS ---
EXAMINATION: XR ankle LT min 3V, XR tibia fibula LT 2V, XR foot LT min 3V EXAM DATE: 07/14/2020 07:41 INDICATION: Initial encounter following injury, with pain of the left foot, ankle, tibia/fibula. TECHNIQUE: Left foot dorsoplantar, lateral and oblique projections obtained and reviewed. Left ankle frontal, lateral and oblique projections obtained and reviewed. Frontal and lateral projections lef t tibia and fibula. There are no prior studies for comparison. FINDINGS: Left metatarsal bones unremarkable. There is acute closed posttraumatic transverse fractur e through the mid aspect of the left malleolus, fracture fragment measuring about 1.5 cm in length fr om the tip of the fibula. There is about 3 mm lateral displacement. The medial aspect of the mortise relationship appears to be intact. This injury will likely need orthopedic surgical fixation. There i s overlying soft tissue swelling. There is also acute closed posttraumatic oblique fracture through the shaft of the left 5th metatarsa l bone with about 3 mm of displacement. Minimal comminution. No angulation. There is overlying soft t issue swelling. This will also likely need orthopedic intervention. The diaphyses of the tibia and f ibula are unremarkable and there is no evidence of knee joint effusion. IMPRESSION: 1. Transverse fracture through mid aspect of left malleolus, mild lateral displacement. 2. Left 5th metatarsal shaft fracture, mild displacement. 3. Orthopedic consult. Reviewed, dictated and finalized at location A. IMPRESSION: 1. Transverse fracture through mid aspect of left malleolus, mild lateral disp lacement. 2. Left 5th metatarsal shaft fracture, mild displacement. 3. Orthopedic consult. IMPRESSION: 1. Transverse fracture through mid aspect of left malleolus, mild lateral disp lacement. 2. Left 5th metatarsal shaft fracture, mild displacement. 3. Orthopedic consult.
[2020-07-14 06:57] VITALS: BP 119/81; PULSE 104; RESP 20; TEMP 36.9; O2SAT 97
--- NOTE | 2020-07-14 07:22 | ED.LOWEXIN ---
HPI - Extremity Injury (Lower) General Chief Complaint: Extremity Injury, Lower Stated Complaint: fall, foot and ankle pain Time Seen by Provider: 07/14/20 07:01 Source: RN notes reviewed History of Present Illness HPI Narrative: Patient presents emergency department via EMS for left ankle pain. Patient states that approximately 3:00 yesterday she tripped and fell spraining her left ankle. Patient states that since that time she is had increased swelling and bruising in the left lateral ankle going down into her foot. She notes diffuse pain across the lateral ankle and foot up into the lower leg. Patient denies any numbness or tingling or any other symptoms. States she is taken no pain medication this morning Related Data Home Medications Medication Instructions Recorded Confirmed citalopram [Celexa] 40 mg PO DAILY 04/10/20 04/25/20 lamotrigine [Lamictal] 200 mg PO QID 04/10/20 04/25/20 levetiracetam [Keppra] 750 mg PO BID 04/10/20 04/25/20 lorazepam 0.5 mg PO BID PRN 04/10/20 04/25/20 primidone [Mysoline] See Rx Instructions .ROUTE .COMPLEX 04/10/20 04/25/20 fluticasone propionate [Allergy 1 spray INTRANASAL BID 04/25/20 04/25/20 Relief (fluticasone)] Allergies Allergy/AdvReac Type Severity Reaction Status Date / Time divalproex sodium Allergy Unknown Unknown Verified 07/14/20 07:18 phenytoin Allergy Unknown Other Verified 07/14/20 07:18 Review of Systems Review of Systems: Narrative: Gen.: Denies fevers or chills Musculoskeletal: See HPI Neuro: Denies numbness, tingling, weakness Skin: Denies rash Endo: Denies DM PMFSH Past Medical History Medical History Generalized anxiety disorder Seizure disorder Patient is on Keppra and primidone Traumatic brain injury Causing seizure disorder at the age of 14 Vertigo Social History Social History Years smoked: 33 Smoking status: Current every day smoker Tobacco type: cigarettes Alcohol intake: current Drinks per week: 2 Substance use: never Gender identity (if verbalized by the patient): Female Spiritual care concerns: No Exam Narrative: Exam Narrative: APPEARANCE: No acute distress, nontoxic, resting in bed Eyes: EOMI HEENT: Normocephalic, atraumatic, RESPIRATORY: No respiratory distress MUSCULOSKELETAl: Tender palpation of the left lateral ankle with swelling and ecchymosis present tender to palpation of the base of the fifth metatarsal as well as the proximal left fibula, no tenderness over the anterior medial ankle, dorsalis pedis pulse 2+, neurovascular intact NEURO: Awake and alert. Following commands, speech normal, no focal deficits SKIN:: Warm, dry. Normal Color no rash or lesions Course Course Emergency Course: Discussed Dr. Ace presentation work-up. Agrees with plan for posterior short leg splint with discharge and follow-up as an outpatient Discussed with patient results of workup and diagnosis. Discussed need for follow-up with primary care, proper use of medication, and reasons to return to the emergency department. Patient understands and agrees to current treatment plan Vital Signs Vital signs: Vital Signs Temperature 98.5 F 07/14/20 06:57 Pulse Rate 104 H 07/14/20 06:57 Respiratory Rate 07/14/20 06:57 Blood Pressure 119/81 07/14/20 06:57 Pulse Oximetry 97 07/14/20 06:57 Temperature 98.5 F 07/14/20 06:57 Pulse Rate 104 H 07/14/20 06:57 Respiratory Rate 20 07/14/20 06:57 Blood Pressure 119/81 07/14/20 06:57 Pulse Oximetry 97 07/14/20 06:57 Procedures Orthopedic Splinting/Casting Injury #1: Additional Comments: A posterior short leg splint was placed by ED histopathology technician. The patient was examined pre-and post procedure by myself with normal neurovascular exam MDM - Extremity Injury (Lower) Imaging Data Radiologist's impression: ITS Impressions Ankle X-Ray
[2020-07-14] MEDS: IBUPROFEN 600 MG TABLET PO (08:53)
[2020-07-14 10:30] VITALS: BP 120/76; PULSE 89; RESP 18; O2SAT 98
== END 2020-07-14 10:31 | disposition home or self-care (01) ==
PROVIDERS: Emergency Provider Emergency Medicine; PCP Nurse Practitioner Family
DX: S82.62XA Displaced fracture of lateral malleolus of left fibula, initial encounter for closed fracture (principal); S92.352A Displaced fracture of fifth metatarsal bone, left foot, initial encounter for closed fracture; F41.1 Generalized anxiety disorder; F17.210 Nicotine dependence, cigarettes, uncomplicated; G40.802 Other epilepsy, not intractable, without status epilepticus; W01.0XXA Fall on same level from slipping, tripping and stumbling without subsequent striking against object, initial encounter
CPT/HCPCS: 29515; 73590; 73610; 73630; 99284; A9270

== ENCOUNTER 2020-10-24 10:44 | Outpatient (CLI) | payer OTHER, SELFPAY ==
--- NOTE | ~2020-10-24 | MR_ITS ---
EXAMINATION: MR shoulder RT wo con DATE: 10/24/2020 11:39 INDICATION: Right shoulder pain TECHNIQUE: Magnetic resonance imaging (MRI) of the right shoulder was performed without intravenous c ontrast. Sequences included axial PD-weighted FS FSE, coronal oblique PD-weighted FS FSE, coronal obl ique T2-weighted FS FSE, sagittal PD-weighted FS FSE, and sagittal T1-weighted SE. COMPARISON: None. FINDINGS: Coracoacromial arch: The acromion undersurface is curved in morphology (type I-II). The coracoacromial ligament is normal. Mild acromioclavicular osteoarthritis. Rotator cuff: Mild supraspinatus tendinopathy without discrete tear. The infraspinatus, teres minor and subscapular is tendons are normal. Normal rotator cuff muscle bulk and signal. Biceps tendon, glenoid labrum and glenohumeral cartilage: Long head of the biceps tendon is normal. Superior, anterior to posterior tear of the glenoid labrum (SLAP tear) beginning at the 12:00 position and extending posteriorly to at least the 11:00 position, likely to the 10:00 position associated with a 10 x 3 x 4 mm paralabral cyst positioned along the 10 :00-11:00 position of the labrum. Glenohumeral cartilage is normal. Fluid: Physiologic amount of fluid in the glenohumeral joint and biceps tendon sheath. No loose osteochondra l bodies. Small amount of fluid in the subacromial/subdeltoid bursa consistent with mild bursitis. Bones: Normal marrow signal with no fracture or pathologic marrow replacing process. IMPRESSION: 1. SLAP tear with associated para labral cyst at the superior to posterior superior glenoid labrum. L ine 2. Mild supraspinatus tendinopathy without discrete tear. Reviewed, dictated and finalized at location A. DINGS PAINTER IMPRESSION: 1. SLAP tear with associated para labral cyst at the superior to posterior supe rior glenoid labrum. Line 2. Mild supraspinatus tendinopathy without discrete tear.
== END 2020-10-24 10:45 | disposition home or self-care (01) ==
PROVIDERS: PCP Nurse Practitioner Family; Visit Provider Nurse Practitioner Family
DX: S43.431A Superior glenoid labrum lesion of right shoulder, initial encounter (principal); X58.XXXA Exposure to other specified factors, initial encounter
CPT/HCPCS: 73221

== ENCOUNTER 2021-02-02 08:38 | Emergency (ER) | payer OTHER, SELFPAY ==
--- NOTE | ~2021-02-02 | XR_ITS ---
EXAMINATION: XR foot LT min 3V DATE: 02/02/2021 09:02 INDICATION: Left foot injury and pain. TECHNIQUE: 4 views of left foot were obtained. COMPARISON: Left foot radiographs 07/14/2020 FINDINGS: There is moderate hallux valgus. There is an avulsion fracture of medial base of first prox imal phalanx with 2 mm distraction. There is an old healed fracture of diaphysis of fifth metatarsal. There is worsened flattening of head of second metatarsal, consistent with osteonecrosis (Freiberg's infraction). There is mild osteoarthritis of first metatarsophalangeal joint. IMPRESSION: 1. Acute avulsion fracture of medial base of fifth proximal phalanx. 2. Worsened flattening of head of second metatarsal, consistent with osteonecrosis (Freiberg's infrac tion). 3. Moderate hallux valgus. 4. Mild osteoarthritis of first metatarsophalangeal joint. Reviewed, dictated and finalized at location A. IMPRESSION: 1. Acute avulsion fracture of medial base of fifth proximal phalanx. 2. Worsened flattening of head of second metatarsal, consistent with osteonecro sis (Freiberg's infraction). 3. Moderate hallux valgus. 4. Mild osteoarthritis of first metatarsophalangeal joint.
--- NOTE | ~2021-02-02 | XR_ITS ---
EXAMINATION: XR ankle LT min 3V DATE: 02/02/2021 09:02 INDICATION: Left foot injury and pain. TECHNIQUE: 4 views of left ankle were obtained. COMPARISON: Left ankle radiographs 07/14/2020 FINDINGS: There is an acute fracture of medial base of first proximal phalanx. There is a healed frac ture of lateral malleolus. The ankle joint space is normal. There is ankle soft tissue swelling. IMPRESSION: 1. Acute fracture of medial base of first proximal phalanx. Reviewed, dictated and finalized at location A.
[2021-02-02 08:37] VITALS: BP 133/94; PULSE 100; RESP 20; TEMP 36.7; O2SAT 98
[2021-02-02] MEDS: MORPHINE SULFATE (*CRX) 4 MG/ML INJ IV PUSH (08:59)
--- NOTE | 2021-02-02 09:35 | ED.LOWEXIN ---
HPI - Extremity Injury (Lower) General Chief Complaint: Extremity Injury, Lower Stated Complaint: FALL, ankle injury Time Seen by Provider: 02/02/21 08:41 History of Present Illness HPI Narrative: Patient is a 50-year-old female who presents ER with left great toe pain and ankle pain. Patient suffers from vertigo and last night had an episode that caused her to fall forwards. She had sudden onset of pain. Reports that she is unable to bear weight today. She has significant bruising across the base of her first toe. No numbness or tingling. Did not strike her head or lose consciousness last night when she fell. Related Data Home Medications Medication Instructions Recorded Confirmed citalopram [Celexa] 40 mg PO DAILY 04/10/20 10/10/20 lamotrigine [Lamictal] 200 mg PO QID 04/10/20 10/10/20 levetiracetam [Keppra] 750 mg PO BID 04/10/20 10/10/20 lorazepam 0.5 mg PO BID PRN 04/10/20 10/10/20 primidone [Mysoline] See Rx Instructions .ROUTE .COMPLEX 04/10/20 10/10/20 fluticasone propionate [Allergy 1 spray INTRANASAL BID 04/25/20 10/10/20 Relief (fluticasone)] cetirizine PO 07/19/20 10/10/20 Allergies Allergy/AdvReac Type Severity Reaction Status Date / Time divalproex sodium Allergy Unknown Unknown Verified 01/04/21 09:30 phenytoin Allergy Unknown Other Verified 01/04/21 09:30 Review of Systems ENT: Reports dizziness Musculoskeletal: Musculoskeletal: Reports arthralgias and Reports joint swelling Neurologic: Denies syncope, Denies focal weakness and Denies numbness [facility] Past Medical History Medical History (Updated 02/02/21 @ 09:44 by Ricardo Charlton MD) Anxiety Arthritis Depression Dizziness Generalized anxiety disorder Rotator cuff tendonitis Seasonal allergies Seizure disorder Patient is on Keppra and primidone Shortness of breath SLAP tear of shoulder Traumatic brain injury Causing seizure disorder at the age of 14 Trochanteric bursitis, right hip Urinary frequency Vertigo Vision abnormalities Surgical History Surgical History No history of previous surgery Family History Family History Sibling Gunshot wound Mother Malignant neoplasm Father Diabetes mellitus Atrial fibrillation Hyperlipidemia Other Arthritis Hypertension Social History Social History Smoking packs per day: 0.5 Smoking cigarettes per day: 10.0 Years smoked: 20 Smoking pack-years: 10.00 Smoking status: Current every day smoker Tobacco type: cigarettes Alcohol intake: current Drinks per week: 2 Substance use: never Gender identity (if verbalized by the patient): Female Spiritual care concerns: No Exam Narrative: Exam Narrative: GENERAL: Well-appearing, well-nourished, and in no acute distress. HEAD: Normocephalic, atraumatic. HEART: Regular rate and rhythm. No murmur heard. Normal peripheral pulses. ABDOMEN: Soft, nontender, nondistended. EXTREMITIES: Focused exam of the left foot reveal his bruising and swelling at the first MTP with limited range of motion at the toe due to pain. Sensation intact. Normal dorsalis pedis and posterior tibial pulses. Mild tenderness over the base of the left lateral malleolus without swelling or evidence of injury. SKIN: Warm, dry, no rash. NEURO: No focal deficits. Alert and oriented x3. PSYCH: Normal mood and affect. Course Course Emergency Course: Patient informed of results. Discussed with Dr. Yao who feels patient can use any hard soled shoe with crutches. Patient reports she seen Dr. Ace in the past and she may use them. Will provide her with both phone numbers. Vital Signs Vital signs: Vital Signs Temperature 98.1 F 02/02/21 08:37 Pulse Rate 100 02/02/21 08:37 Respiratory Rate 20 02/02/21 08:37 Blood Pressure 133/94 H 02/02/21 08:37 Pulse Oximetry 98 02/02/21 08:37
[2021-02-02 10:20] VITALS: BP 124/70; PULSE 98; RESP 12; O2SAT 99
== END 2021-02-02 10:25 | disposition home or self-care (01) ==
PROVIDERS: Emergency Provider Emergency Medicine; PCP Nurse Practitioner Family
DX: S92.412A Displaced fracture of proximal phalanx of left great toe, initial encounter for closed fracture (principal); F32.9 Major depressive disorder, single episode, unspecified; F41.1 Generalized anxiety disorder; F17.210 Nicotine dependence, cigarettes, uncomplicated; M19.072 Primary osteoarthritis, left ankle and foot; M20.12 Hallux valgus (acquired), left foot; R93.6 Abnormal findings on diagnostic imaging of limbs; W18.39XA Other fall on same level, initial encounter
CPT/HCPCS: 73610; 73630; 96374; 99284; J2270

== ENCOUNTER 2021-07-02 22:47 | Emergency (ER) | payer OTHER, SELFPAY ==
[2021-07-02 22:50] VITALS: BP 125/85; PULSE 77; RESP 13; TEMP 36.7; O2SAT 100
--- NOTE | 2021-07-02 23:07 | PC.NURSE ---
patient eloped at this time. PD notified.
--- NOTE | 2021-07-02 23:08 | PC.NURSE ---
This RN was notified that the patient ran out of the er. This RN attempted to locate the patient. Patient observed running across the parking lot toward [facility]. Charge nurse called flaco lara. they will send a chief of police to look for patient.
--- NOTE | 2021-07-02 23:15 | ECG_ITS ---
Measurements Intervals [place] Rate: 75 P: 53 MA: 185 QRS: 47 QRSD: 103 T: 44 QT: 403 QTc: 450 Interpretive Statements SINUS RHYTHM INCOMPLETE RIGHT BUNDLE BRANCH BLOCK BORDERLINE T WAVE ABNORMALITY- ANTERIOR LEADS BASELINE WANDER- I, II, V3-V6 BORDERLINE ECG Electronically Signed On 07-03-2021 5:24:51 CDT by Tony Man D.O.
--- NOTE | 2021-07-02 23:20 | PC.NURSE ---
pt returned to ED by PD at this time.
--- NOTE | 2021-07-02 23:38 | ED.GENADULT ---
HPI - General Adult General Chief complaint: Psychiatric Symptoms <Chris Morelos MD - Last Filed: 07/03/21 07:21> Stated complaint: etoh si <Chris Morelos MD - Last Filed: 07/03/21 07:21> Time Seen by Provider: 07/02/21 22:59 <Chris Morelos MD - Last Filed: 07/03/21 07:21> History of Present Illness HPI narrative: Patient 51-year-old female presents the emergency department with chief complaint of needs mental health evaluation. Patient reports that she had a rough day at work and had a few drinks and was having a discussion with one of her friends and had made some comments that she says were in a joking contact but reported that she possibly wanted to harm herself. The patient states that she then was leaving her stepbrother's house and made a U-turn on the street and was pulled over by the police department. The patient was brought to the emergency department for a mental health evaluation currently the patient reports that she is not having active suicidal or homicidal thoughts patient does report that she has been out of her antidepressant for about 3 days and reports that she had a few drinks this evening. The patient reports she has no plan to harm herself, the patient reports she has not tried to harm herself in the past. <Chris Morelos MD - Last Filed: 07/03/21 07:21> Related Data Home medications: Home Medications Medication Instructions Recorded Confirmed levetiracetam [Keppra] 750 mg PO BID 04/10/20 05/02/21 lorazepam 0.5 mg PO BID PRN 04/10/20 05/02/21 fluticasone propionate [Allergy 1 spray INTRANASAL BID 04/25/20 05/02/21 Relief (fluticasone)] cetirizine PO 07/19/20 05/02/21 alprazolam 0.5 mg tablet 0.5 mg PO QHS PRN 05/02/21 05/02/21 <Chris Morelos MD - Last Filed: 07/03/21 07:21> Allergies/adverse reactions: Allergies Allergy/AdvReac Type Severity Reaction Status Date / Time divalproex sodium Allergy Unknown Unknown Verified 07/02/21 23:26 phenytoin Allergy Unknown Other Verified 07/02/21 23:26 <Chris Morelos MD - Last Filed: 07/03/21 07:21> Review of Systems Review of Systems: A 10 system review of systems was completed on the patient and is negative except for what is stated in the HPI. Nursing and ancillary documentation was reviewed. <Chris Morelos MD - Last Filed: 07/03/21 07:21> PMFSH Past Medical History Medical History: Medical History Anxiety Arthritis Depression Dizziness Generalized anxiety disorder Labral tear of right hip joint Left shoulder pain Right hip pain Rotator cuff tendonitis Rotator cuff tendonitis Seasonal allergies Seizure disorder Patient is on Keppra and primidone Shortness of breath SLAP tear of shoulder Strain of hip flexor Toe fracture, left Traumatic brain injury Causing seizure disorder at the age of 14 Trochanteric bursitis, right hip Urinary frequency Vertigo Vision abnormalities <Chris Morelos MD - Last Filed: 07/03/21 07:21> Surgical History Surgical History: Surgical History No history of previous surgery <Chris Morelos MD - Last Filed: 07/03/21 07:21> Family History Family History: Family History Sibling Gunshot wound Mother Malignant neoplasm Father Diabetes mellitus Atrial fibrillation Hyperlipidemia Other Arthritis Hypertension <Chris Morelos MD - Last Filed: 07/03/21 07:21> Social History Social History: Social History Smoking packs per day: 0.5 Smoking cigarettes per day: 10.0 Years smoked: 20 Smoking pack-years: 10.00 Smoking status: Current every day smoker Tobacco type: cigarettes Alcohol i
[2021-07-03 00:04] LABS: Basophils Absolute Auto 0.1 K/mm3 (0.0-0.1); Eosinophils Absolute Auto 0.1 K/mm3 (0-0.3); Eosinophils Percent Auto 1.2 % (0-4.4); Hematocrit 44.6 % (37.0-47.0); Hemoglobin 14.9 g/dL (12.0-15.0); Immature Granulocyte Absolute 0.02 K/mm3 (0.00-0.031); Immature Granulocyte Percent A 0.4 % (0-0.5); Lymphocytes Absolute Auto 2.38 K/mm3 (0.9-3.2); Lymphocytes Percent Auto 46.7 % (18.3-44.2); Mean Corpuscular HGB Conc 33.4 g/dl (32-36); Mean Corpuscular Hemoglobin 34.3 pg (26-34); Mean Corpuscular Volume 102.5 fl (80-100); Mean Platelet Volume 9.6 fl (7.4-10.4); Monocytes Absolute Auto 0.5 K/mm3 (0.1-0.6); Monocytes Percent Auto 9.2 % (2.6-8.5); Neutrophils Absolute Auto 2.1 K/mm3 (1.3-6.7); Neutrophils Percent Auto 41.5 % (45.5-73.1); Platelet Count Result 274 k/mm3 (150-375); Red Blood Count 4.35 M/mm3 (4.2-5.4); Red Cell Distribution Width 13.5 % (11.5-14.5); White Blood Count 5.1 K/mm3 (4.5-10.0)
[2021-07-03 00:24] LABS: Alanine Aminotransferase 62 U/L (4-35); Albumin Level 4.8 g/dL (3.5-5.1); Alkaline Phosphatase 142 U/L (38-126); Anion Gap 4 mmol/L (8-16); Aspartate Amino Transferase 127 U/L (14-36); Bilirubin,Total 0.7 mg/dL (0.2-1.3); Blood Urea Nitrogen 12 mg/dL (7-17); Calcium 9.7 mg/dL (8.4-10.2); Carbon Dioxide 34 mmol/L (22-30); Chloride 99 mmol/L (98-107); Estimated CRCL calculation 93 ml/min; Estimated Glomerular Filt Rate > 60; Glucose 86 mg/dL (65-110); Potassium 4.1 mmol/L (3.4-5.0); Sodium 137 mmol/L (137-145)
[2021-07-03 00:29] LABS: Salicylate < 1.0 mg/dL (2-20)
[2021-07-03 00:34] LABS: Acetaminophen < 10 ug/mL (10-30); Ethanol 222 mg/dL (<10)
--- NOTE | 2021-07-03 02:31 | PC.NURSE ---
pt yelling out stating why is she still here. told pt that she had to sober up before crisis could evaluate her. pt concerned about her epilepsy medication. told her I would ask Dr. Morelos. EDP said that was fine. pt is resting at this time and will give pt medicine we she wakes up. pt not able to give us a urine sample at this time.
[2021-07-03 06:12] VITALS: BP 100/71; PULSE 75; RESP 16; O2SAT 99
[2021-07-03 06:49] LABS: Ethanol 65 mg/dL (<10)
[2021-07-03 06:52] LABS: Amphetamine Screen Urine Negative (Negative); Barbiturate Screen Urine Positive (Negative); Benzodiazepines Screen Urine Negative (Negative); Cannabinoid Screen Urine Negative (Negative); Cocaine Screen Urine Negative (Negative); Methadone Screen Urine Negative (Negative); Opiate Screen Urine Negative (Negative); Phencyclidine Screen Urine Negative (Negative)
[2021-07-03 06:53] LABS: Add Urine Microscopic? YES; Appearance Urine Cloudy (Clear); Bilirubin Urine Negative (Negative); Blood Urine 3+ (Negative); Color Urine Yellow (Yellow); Glucose Urine UA Negative (Negative); Ketones Urine Negative (Negative); Leukocyte Esterase Ur Negative LEU/UL (Negative); Mucus Urine Rare /lpf; Nitrate Urine Negative (Negative); Protein Urine 1+ mg/dL (Negative); RBC Urine 0-2 /hpf (0-2); Specific Grav Ur 1.016 (1.001-1.035); Squamous Epithelial Cell Urine Many /hpf (Few); Urobilinogen Urine Negative mg/dL (<2.0)
[2021-07-03] MEDS: lamoTRIgine 100 MG TABLET 200 MG PO (09:32)
[2021-07-03] MEDS: levETIRAcetam Tablet 250 MG, levETIRAcetam Tablet 500 MG 750 MG PO (09:33)
[2021-07-03 10:05] VITALS: BP 114/88; PULSE 84; RESP 16; O2SAT 100
[2021-07-03] MEDS: PRIMIDONE 250 MG TABLET 375 MG PO (10:50)
[2021-07-03] MEDS: CITALOPRAM HYDROBROMIDE 20 MG TABLET 40 MG PO (10:51)
== END 2021-07-03 02:31 | disposition home or self-care (01) ==
PROVIDERS: Emergency Medicine; Emergency Provider Emergency Medicine; PCP Nurse Practitioner Family
DX: F32.9 Major depressive disorder, single episode, unspecified (principal); F10.920 Alcohol use, unspecified with intoxication, uncomplicated; G40.909 Epilepsy, unspecified, not intractable, without status epilepticus; F41.1 Generalized anxiety disorder; Z87.820 Personal history of traumatic brain injury; F17.210 Nicotine dependence, cigarettes, uncomplicated; Y90.7 Blood alcohol level of 200-239 mg/100 ml; I45.10 Unspecified right bundle-branch block; R94.31 Abnormal electrocardiogram [ECG] [EKG]
CPT/HCPCS: 36415; 80053; 80307; 81001; 81025; 84443; 85025; 87077; 87086; 87088; 87186; 93005; 99284; A9270

== ENCOUNTER 2022-01-14 13:45 | Emergency (ER) | payer OTHER, SELFPAY ==
[2022-01-14] VITALS (10 sets, daily range): BP systolic 103–138; BP diastolic 62–91; PULSE 75–82; RESP 15–20; TEMP 36.6; O2SAT 96–100
--- NOTE | ~2022-01-14 | XR_ITS ---
EXAMINATION: XR chest 2V EXAM DATE: 01/14/2022 14:17 INDICATION: chest pain . TECHNIQUE: Frontal and lateral projections of the chest obtained and reviewed. Comparison is made to prior examination from 04/25/2020. FINDINGS: The lungs are clear. There are no pleural effusions. The cardiomediastinal silhouette is within normal limits. There is no pneumothorax suspected. The bones and soft tissues are unremarkab le. IMPRESSION: No acute cardiopulmonary findings. Reviewed, dictated and finalized at location B. HOLOGICAL OPERATIONS
--- NOTE | 2022-01-14 13:48 | ECG_ITS ---
Measurements Intervals [place] Rate: 82 P: 47 [place]: 173 QRS: 30 QRSD: 99 T: 12 QT: 378 QTc: 443 Interpretive Statements SINUS RHYTHM INCOMPLETE RIGHT BUNDLE BRANCH BLOCK BORDERLINE T WAVE ABNORMALITY- ANTERIOR LEADS BASELINE ARTIFACT- I, II, III, AVR, AVL, AVF BORDERLINE ECG Electronically Signed On 01-14-2022 14:27:51 DRAWING INSTRUCTOR by Tony Man D.O.
[2022-01-14 14:04] LABS: Basophils Percent Auto 0.5 % (0.2-1.2); Eosinophils Absolute Auto 0.1 K/mm3 (0-0.3); Eosinophils Percent Auto 0.9 % (0-4.4); Hematocrit 41.6 % (37.0-47.0); Hemoglobin 14.2 g/dL (12.0-15.0); Immature Granulocyte Absolute 0.01 K/mm3 (0.00-0.031); Immature Granulocyte Percent A 0.2 % (0-0.5); Lymphocytes Absolute Auto 2.04 K/mm3 (0.9-3.2); Lymphocytes Percent Auto 35.1 % (18.3-44.2); Mean Corpuscular HGB Conc 34.1 g/dl (32-36); Mean Corpuscular Hemoglobin 35.1 pg (26-34); Mean Platelet Volume 9.5 fl (7.4-10.4); Monocytes Absolute Auto 0.7 K/mm3 (0.1-0.6); Neutrophils Percent Auto 51.3 % (45.5-73.1); Platelet Count Result 232 k/mm3 (150-375); Red Blood Count 4.04 M/mm3 (4.2-5.4); Red Cell Distribution Width 13.3 % (11.5-14.5); White Blood Count 5.8 K/mm3 (4.5-10.0)
[2022-01-14 14:16] LABS: Alanine Aminotransferase 24 U/L (4-35); Albumin Level 4.6 g/dL (3.5-5.1); Alkaline Phosphatase 113 U/L (38-126); Anion Gap 5 mmol/L (8-16); Aspartate Amino Transferase 47 U/L (14-36); Bilirubin,Total 0.5 mg/dL (0.2-1.3); Blood Urea Nitrogen 14 mg/dL (7-17); Carbon Dioxide 27 mmol/L (22-30); Chloride 100 mmol/L (98-107); Estimated CRCL calculation 99 ml/min; Estimated Glomerular Filt Rate > 60; Glucose 95 mg/dL (65-110); Lipase 365 U/L (23-300); Potassium 3.3 mmol/L (3.4-5.0); Sodium 132 mmol/L (137-145)
[2022-01-14 14:17] LABS: Prothrombin Time 12.4 Seconds (11.1-14.7)
[2022-01-14 14:18] LABS: Partial Thromboplastin Time 30.4 SECONDS (22.3-36.8)
[2022-01-14 14:28] LABS: Troponin I < 0.012 ng/mL (0.000-0.034)
[2022-01-14] MEDS: ASPIRIN 81 MG CHEWABLE TABLET 324 MG PO (14:40)
--- NOTE | 2022-01-14 14:47 | PC.NURSE ---
Pt given 3 tabs baby aspirin by ems en route to ED. Pt given 1 tab 81mg aspirin for complete dose of 324mg.
[2022-01-14] MEDS: LORazepam INJ (*CRX) 2 MG/ML VIAL 1 MG IV PUSH (16:27)
--- NOTE | 2022-01-14 16:57 | ED.CHESTPAIN ---
HPI - Chest Pain General Chief Complaint: Chest Pain Stated Complaint: chest pain Time Seen by Provider: 01/14/22 15:25 Source: patient and RN notes reviewed History of Present Illness HPI narrative: 51-year-old female presenting the emergency department for evaluation of intermittent chest pain. Patient states she has been under increased life stresses as of recently. Patient denies any prior history of coronary disease. Patient does have a history of high cholesterol and hypertension. Patient states that she has had increased life stresses due to her daughter. Patient did have a stressful event this morning and when she was at work she did have onset of chest pain. Patient describes the pain as in her anterior chest. Patient had 2 episodes of intense chest pain. Patient did call EMS and was treated with nitro. Patient states that the nitro did not affect her pain at all. On initial evaluation patient states that she does have some anxiety currently but is denying any chest pain at this time. Patient was very tearful when describing her life stresses. Patient declined to speak to a crisis counselor. Related Data Home Medications Medication Instructions Recorded Confirmed lorazepam 0.5 mg PO BID PRN 04/10/20 05/02/21 fluticasone propionate [Allergy 1 spray INTRANASAL BID 04/25/20 05/02/21 Relief (fluticasone)] cetirizine PO 07/19/20 05/02/21 alprazolam 0.5 mg tablet 0.5 mg PO QHS PRN 05/02/21 05/02/21 Allergies Allergy/AdvReac Type Severity Reaction Status Date / Time divalproex sodium Allergy Unknown Unknown Verified 07/02/21 23:26 phenytoin Allergy Unknown Other Verified 07/02/21 23:26 Review of Systems Review of Systems: CONSTITUTIONAL: Denies fever, chills, or sweats. EYES: Denies visual changes, redness, or discharge. ENT: Denies rhinorrhea, congestion, sore throat, or otalgia. CARDIOVASCULAR: Chest pain currently resolved RESPIRATORY: Denies cough or dyspnea. GASTROINTESTINAL: Denies abdominal pain, nausea, vomiting, or diarrhea. GENITOURINARY: Denies dysuria or hematuria. SKIN: Denies rash or itching. MUSCULOSKELETAL: Denies back pain, joint pain, or myalgia. NEUROLOGIC: Denies headache, numbness, or weakness. PSYCHIATRIC: Does report increased life stresses related to family, does report anxiety PMFSH Past Medical History Medical History Anxiety Arthritis Depression Dizziness Generalized anxiety disorder Labral tear of right hip joint Left shoulder pain Right hip pain Rotator cuff tendonitis Rotator cuff tendonitis Seasonal allergies Seizure disorder Patient is on Keppra and primidone Shortness of breath SLAP tear of shoulder Strain of hip flexor Toe fracture, left Traumatic brain injury Causing seizure disorder at the age of 14 Trochanteric bursitis, right hip Urinary frequency Vertigo Vision abnormalities Surgical History Surgical History No history of previous surgery Family History Family History Sibling Gunshot wound Mother Malignant neoplasm Father Diabetes mellitus Atrial fibrillation Hyperlipidemia Other Arthritis Hypertension Social History Social History Smoking packs per day: 0.5 Smoking cigarettes per day: 10.0 Years smoked: 20 Smoking pack-years: 10.00 Smoking status: Current every day smoker Tobacco type: cigarettes Alcohol intake: current Drinks per week: 2 Substance use: never Substance use type: does not use Gender identity (if verbalized by the patient): Female Spiritual care concerns: No Exam Narrative: APPEARANCE: Well appearing, no pain, no distress, well-nourished. HEAD: normocephalic, atraumatic. EYES: PERRLA/EOMI, conjunctivae clear. NOSE: Normal no drainage RESPIRATORY:
[2022-01-14 17:11] LABS: Troponin I < 0.012 ng/mL (0.000-0.034)
== END 2022-01-14 17:40 | disposition home or self-care (01) ==
PROVIDERS: Emergency Medicine; Emergency Provider Emergency Medicine; PCP Nurse Practitioner Family
DX: R07.9 Chest pain, unspecified (principal); E78.00 Pure hypercholesterolemia, unspecified; I10 Essential (primary) hypertension; F32.A Depression, unspecified; F41.1 Generalized anxiety disorder; G40.909 Epilepsy, unspecified, not intractable, without status epilepticus; Z87.820 Personal history of traumatic brain injury; F17.210 Nicotine dependence, cigarettes, uncomplicated; I45.10 Unspecified right bundle-branch block; R94.31 Abnormal electrocardiogram [ECG] [EKG]
CPT/HCPCS: 36415; 71046; 80053; 83690; 84484; 85025; 85610; 85730; 93005; 96374; 99284; A9270; J2060

== ENCOUNTER 2022-04-03 10:04 | Emergency (ER) | payer OTHER, SELFPAY ==
--- NOTE | ~2022-04-03 | XR_ITS ---
XR wrist LT min 3V 04/03/2022 10:57 Indication: Left wrist pain after fall Procedure: 4 views left wrist Comparison: No prior studies for comparison. Findings: There is an oblique lucency proximal aspect of the fourth metacarpal without definite corti chris disruption, likely benign vascular channel. Correlate for point tenderness. Mild osteoarthritis of the first carpometacarpal joint. Normal mineralization. No significant soft ti ssue abnormality. Impression: 1: Oblique lucency base of the fourth metacarpal, likely normal variant. Correlate for point tenderne ss. If there is concern for subtle nondisplaced fracture at this location, consider correlation with CT. Reviewed, dictated and finalized at location A. Impression: 1: Oblique lucency base of the fourth metacarpal, likely normal variant. Correl ate for point tenderness. If there is concern for subtle nondisplaced fracture at this location, consider correlation with CT.
--- NOTE | ~2022-04-03 | XR_ITS ---
EXAMINATION: XR hand LT min 3V DATE: 04/03/2022 10:56 INDICATION: Left hand pain. Fall. TECHNIQUE: 3 views of left hand were obtained. COMPARISON: None. FINDINGS: Bone alignment is normal. No acute fracture. There is mild osteoarthritis of first carpomet acarpal joint, first metacarpophalangeal joint, and first interphalangeal joint. There is an old heal ed fracture of fourth distal phalanx with malunion and mild posttraumatic osteoarthritis. There is mi ld osteoarthritis of fifth distal interphalangeal joint. IMPRESSION: 1. Polyarticular osteoarthritis. Reviewed, dictated and finalized at location B.
--- NOTE | ~2022-04-03 | XR_ITS ---
[[id number] ] INDICATION: Left rib pain after fall TECHNIQUE: Frontal projection of the upper left ribs, frontal projection of the lower left ribs, obli que projection of all the left ribs, frontal inspiratory chest x-ray for interpretation. FINDINGS: There are no displaced rib fractures identified. There are no soft tissue abnormality see n. The lungs are clear. IMPRESSION: 1:No acute displaced rib fractures. Reviewed, dictated and finalized at location A.
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
[2022-04-03 10:34] VITALS: BP 139/89; PULSE 97; RESP 18; TEMP 36.4; O2SAT 96
== END 2022-04-03 11:30 | disposition home or self-care (01) ==
PROVIDERS: Emergency Provider Registered Nurse; PCP Nurse Practitioner Family
DX: S63.92XA Sprain of unspecified part of left wrist and hand, initial encounter (principal); S66.912A Strain of unspecified muscle, fascia and tendon at wrist and hand level, left hand, initial encounter; W19.XXXA Unspecified fall, initial encounter; S20.212A Contusion of left front wall of thorax, initial encounter; F17.210 Nicotine dependence, cigarettes, uncomplicated; G40.909 Epilepsy, unspecified, not intractable, without status epilepticus; F32.A Depression, unspecified; F41.1 Generalized anxiety disorder
CPT/HCPCS: 71101; 73110; 73130; 99214; G0463

== ENCOUNTER 2022-04-05 08:34 | Emergency (ER) | payer OTHER, SELFPAY ==
[2022-04-05] VITALS (17 sets, daily range): BP systolic 117–150; BP diastolic 79–112; PULSE 75–89; RESP 10–28; TEMP 36.8; O2SAT 89–97
--- NOTE | ~2022-04-05 | CT_ITS ---
EXAMINATION: CT chest abdomen pelvis w con DATE: 04/05/2022 09:42 INDICATION: Left rib and abdominal pain post fall 3 days prior. TECHNIQUE: Computed tomography (CT) of the chest, abdomen, and pelvis was performed with 75 mL Omnipa que-300 intravenous contrast. Automated exposure control and iterative reconstruction technique were employed. The dose-length product was 609.51 mGy-cm. COMPARISON: None FINDINGS: CHEST CT: Acute nondisplaced anterior left fourth and fifth and minimally displaced left anterolateral sixth, s eventh and eighth rib fractures. Age-indeterminate nondisplaced anterior right fourth rib fracture. V marizol small left pleural effusion. No pneumothorax. Mild dependent atelectasis in the bilateral lower l obes. No pneumonia or pulmonary edema. Heart size is normal. No pericardial effusion. Thoracic aorta is normal in caliber with no dissection. No pathologically enlarged thoracic lymphadenopathy. ABDOMEN/PELVIS CT: Liver, gallbladder, spleen, pancreas and bilateral adrenal glands are normal. Bilateral nonobstructin g 3 mm stones at the lower pole of the left kidney and interpolar region of the right kidney. No uret eral stones or hydronephrosis. Bowels including the appendix are normal. Bladder, uterus and bilatera l adnexa are unremarkable. No free intraperitoneal gas or fluid. No pathologically enlarged abdominal or pelvic lymphadenopathy. Mild to moderate lumbar spondylosis. No acute osseous abnormality in the spine or pelvis. IMPRESSION: 1. Acute left fourth-eighth rib fractures and age-indeterminate right anterior fourth rib fracture. 2. Small left pleural effusion. No pneumothorax. 3. No acute intra-abdominal/pelvic process. 4. Nonobstructing bilateral nephrolithiasis. Reviewed, dictated and finalized at location A.
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
[2022-04-05 08:53] LABS: Basophils Absolute Auto 0.1 K/mm3 (0.0-0.1); Basophils Percent Auto 1.1 % (0.2-1.2); Eosinophils Absolute Auto 0.1 K/mm3 (0-0.3); Hematocrit 48.4 % (37.0-47.0); Hemoglobin 15.6 g/dL (12.0-15.0); Immature Granulocyte Absolute 0.01 K/mm3 (0.00-0.031); Immature Granulocyte Percent A 0.2 % (0-0.5); Lymphocytes Absolute Auto 1.76 K/mm3 (0.9-3.2); Lymphocytes Percent Auto 38.4 % (18.3-44.2); Mean Corpuscular HGB Conc 32.2 g/dl (32-36); Mean Corpuscular Hemoglobin 34.1 pg (26-34); Mean Corpuscular Volume 105.7 fl (80-100); Mean Platelet Volume 9.7 fl (7.4-10.4); Monocytes Absolute Auto 0.6 K/mm3 (0.1-0.6); Monocytes Percent Auto 13.8 % (2.6-8.5); Neutrophils Percent Auto 44.5 % (45.5-73.1); Platelet Count Result 234 k/mm3 (150-375); Red Blood Count 4.58 M/mm3 (4.2-5.4); Red Cell Distribution Width 13.9 % (11.5-14.5); White Blood Count 4.6 K/mm3 (4.5-10.0)
[2022-04-05] MEDS: SODIUM CHLORIDE 0.9% IV 1,000 ML 999 ML IV CONT (08:57)
[2022-04-05] MEDS: HYDROmorphone HCL INJ (*CRX) 1 MG/ML SYR 0.5 MG IV PUSH ×2 (08:57→11:15)
[2022-04-05] MEDS: ONDANSETRON INJ 4 MG/2 ML VIAL IV PUSH (08:58)
[2022-04-05 09:01] LABS: Alanine Aminotransferase 32 U/L (6-35); Alkaline Phosphatase 197 U/L (38-126); Anion Gap 7 mmol/L (8-16); Aspartate Amino Transferase 139 U/L (14-36); Bilirubin,Total 0.6 mg/dL (0.2-1.3); Blood Urea Nitrogen 6 mg/dL (7-17); Calcium 9.5 mg/dL (8.4-10.2); Carbon Dioxide 28 mmol/L (22-30); Chloride 100 mmol/L (98-107); Estimated Glomerular Filt Rate > 60; Glucose 150 mg/dL (65-110); Lipase 252 U/L (23-300); Sodium 135 mmol/L (137-145)
[2022-04-05 09:31] LABS: Add Urine Microscopic? YES; Appearance Urine Slightly Cloudy (Clear); Bilirubin Urine Negative (Negative); Blood Urine Negative (Negative); Color Urine Yellow (Yellow); Glucose Urine UA Negative (Negative); Ketones Urine Negative (Negative); Leukocyte Esterase Ur 1+ LEU/UL (Negative); Nitrate Urine Negative (Negative); Protein Urine Negative (Negative); Specific Grav Ur 1.015 (1.001-1.035); Urobilinogen Urine 0.2 mg/dL (<2.0)
--- NOTE | 2022-04-05 09:41 | PC.NURSE ---
Called to room. Pt asking if she is going to get any pain med. When nurse tells her she got some already pt asks if she can have a larger dose.
[2022-04-05 09:42] LABS: Mucus Urine Rare /lpf; RBC Urine 0-2 /hpf (0-2); Squamous Epithelial Cell Urine Few /hpf (Few)
== END 2022-04-05 11:49 | disposition home or self-care (01) ==
PROVIDERS: Emergency Provider Emergency Medicine; PCP Nurse Practitioner Family
DX: S22.42XA Multiple fractures of ribs, left side, initial encounter for closed fracture (principal); G40.909 Epilepsy, unspecified, not intractable, without status epilepticus; M19.90 Unspecified osteoarthritis, unspecified site; F32.A Depression, unspecified; F41.1 Generalized anxiety disorder; Z87.820 Personal history of traumatic brain injury; F17.210 Nicotine dependence, cigarettes, uncomplicated; N20.0 Calculus of kidney; W01.198A Fall on same level from slipping, tripping and stumbling with subsequent striking against other object, initial encounter
CPT/HCPCS: 36415; 71260; 74177; 80053; 81001; 81025; 83690; 85025; 87086; 87088; 96361; 96374; 96375; 96376; 99284; J1170; J2405; J7030; Q9967

== ENCOUNTER 2022-04-06 04:19 | Emergency (ER) | payer OTHER, SELFPAY ==
[2022-04-06 04:22] VITALS: BP 115/56; PULSE 117; RESP 28; TEMP 36.6; O2SAT 92
[2022-04-06 05:13] LABS: Basophils Percent Auto 0.5 % (0.2-1.2); Eosinophils Percent Auto 0.2 % (0-4.4); Immature Granulocyte Absolute 0.01 K/mm3 (0.00-0.031); Immature Granulocyte Percent A 0.2 % (0-0.5); Lymphocytes Absolute Auto 0.65 K/mm3 (0.9-3.2); Mean Corpuscular HGB Conc 33.3 g/dl (32-36); Mean Corpuscular Hemoglobin 34.3 pg (26-34); Mean Platelet Volume 10.1 fl (7.4-10.4); Monocytes Absolute Auto 0.5 K/mm3 (0.1-0.6); Monocytes Percent Auto 12.8 % (2.6-8.5); Neutrophils Absolute Auto 2.9 K/mm3 (1.3-6.7); Neutrophils Percent Auto 70.3 % (45.5-73.1); Platelet Count Result 222 k/mm3 (150-375); Red Blood Count 4.37 M/mm3 (4.2-5.4); Red Cell Distribution Width 13.7 % (11.5-14.5); White Blood Count 4.1 K/mm3 (4.5-10.0)
[2022-04-06 05:22] LABS: Alanine Aminotransferase 25 U/L (6-35); Albumin Level 4.8 g/dL (3.5-5.1); Alkaline Phosphatase 179 U/L (38-126); Anion Gap 6 mmol/L (8-16); Aspartate Amino Transferase 82 U/L (14-36); Bilirubin,Total 0.4 mg/dL (0.2-1.3); Blood Urea Nitrogen 8 mg/dL (7-17); Calcium 9.7 mg/dL (8.4-10.2); Carbon Dioxide 31 mmol/L (22-30); Chloride 96 mmol/L (98-107); Estimated CRCL calculation 113 ml/min; Estimated Glomerular Filt Rate > 60; Glucose 134 mg/dL (65-110); Potassium 3.7 mmol/L (3.4-5.0); Sodium 133 mmol/L (137-145)
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
[2022-04-06 05:59] VITALS: BP 115/75; PULSE 82; RESP 16; O2SAT 96
== END 2022-04-06 06:20 | disposition home or self-care (01) ==
PROVIDERS: Emergency Provider Emergency Medicine; PCP Nurse Practitioner Family
DX: G40.909 Epilepsy, unspecified, not intractable, without status epilepticus (principal); M19.90 Unspecified osteoarthritis, unspecified site; F32.A Depression, unspecified; F41.1 Generalized anxiety disorder; Z87.820 Personal history of traumatic brain injury; F17.210 Nicotine dependence, cigarettes, uncomplicated
CPT/HCPCS: 36415; 80053; 85025; 99283

== ENCOUNTER 2022-04-23 18:29 | Emergency (ER) | payer OTHER, SELFPAY ==
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
[2022-04-23 18:31] VITALS: BP 116/83; PULSE 108; RESP 20; TEMP 37.1; O2SAT 94
--- NOTE | 2022-04-23 18:43 | PC.NURSE ---
Aubrey Redd and Lt. Riojas present at this time. patient refused blood work to office
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
--- NOTE | 2022-04-23 20:12 | PC.NURSE ---
tickets given to patient with discharge instructions.
--- NOTE | 2022-04-23 20:31 | PC.NURSE ---
patient's son notified and will be coming to pick patient up
== END 2022-04-23 21:28 | disposition home or self-care (01) ==
PROVIDERS: Emergency Provider Emergency Medicine; PCP Nurse Practitioner Family
DX: F10.129 Alcohol abuse with intoxication, unspecified (principal); F32.A Depression, unspecified; F41.1 Generalized anxiety disorder; Y90.9 Presence of alcohol in blood, level not specified; G40.909 Epilepsy, unspecified, not intractable, without status epilepticus; Z87.820 Personal history of traumatic brain injury; F17.210 Nicotine dependence, cigarettes, uncomplicated; V43.02XA Car driver injured in collision with other type car in nontraffic accident, initial encounter
CPT/HCPCS: 70450; 71045; 72125; 99284

== ENCOUNTER 2022-06-09 07:47 | Emergency (ER) | payer OTHER, SELFPAY ==
--- NOTE | ~2022-06-09 | XR_ITS ---
EXAMINATION: XR chest 2V 06/09/2022 08:20 INDICATION: Cough and chest pain. Shortness of breath. PROCEDURE: 2 view chest COMPARISON: Comparison to multiple prior studies sequentially, with oldest reviewed study dated 12/02. FINDINGS: The lungs are clear. The cardiomediastinal silhouette is within normal limits. There are no pleural effusions. There is no pneumothorax suspected. IMPRESSION: 1: NO ACUTE CARDIOPULMONARY DISEASE. Reviewed, dictated and finalized at location A.
[2022-06-09 07:51] VITALS: BP 135/103; PULSE 92; RESP 18; TEMP 36.5; O2SAT 99
--- NOTE | 2022-06-09 08:04 | ED.URI ---
HPI - URI/Sore Throat General Chief Complaint: Upper Respiratory Infection Stated Complaint: COUGH FOR 2 WEEKS Time Seen by Provider: 06/09/22 07:50 History of Present Illness HPI Narrative: 52-year-old female who was diagnosed with COVID 2 weeks ago presents because she is still having a lingering cough, she states that the cough wakes her up sometimes from sleep, it did improve after her doctor gave her a course of steroids and medication that she cannot recall, she is symptoms come back after she was off steroids. No swelling in her legs, no prior history of blood clots, she does have some pain in her left ribs with deep breaths because they were broken. She has otherwise not taking any medication including any cough medication and pain medication at home. Related Data Home Medications Medication Instructions Recorded Confirmed atorvastatin 40 mg tablet 40 mg PO DAILY 04/03/22 04/03/22 cetirizine 10 mg tablet 10 mg PO DAILY 04/03/22 04/03/22 citalopram 40 mg tablet 40 mg PO DAILY 04/03/22 04/03/22 lamotrigine 200 mg tablet 200 mg PO QID 04/03/22 04/03/22 levetiracetam 750 mg tablet 750 mg PO BID 04/03/22 04/03/22 omeprazole 40 mg capsule,delayed 40 mg PO DAILY 04/03/22 04/03/22 release primidone 250 mg tablet 375 mg PO DAILY 04/03/22 04/03/22 Allergies Allergy/AdvReac Type Severity Reaction Status Date / Time divalproex sodium Allergy Unknown Unknown Verified 04/05/22 08:58 phenytoin Allergy Unknown Other Verified 04/05/22 08:58 Review of Systems Review of Systems: CONST: No fever. HEENT: No sore throat C/V: Left rib pain with coughing RESP: Cough GI: No abdominal pain : No dysuria. M/S: No lower extremity pain or swelling SKIN: No rash. NEURO: [No headache or focal numbness or weakness] PSYCH: [No depression] [facility] Past Medical History Medical History Anxiety Arthritis Depression Dizziness Generalized anxiety disorder Labral tear of right hip joint Left shoulder pain Right hip pain Rotator cuff tendonitis Rotator cuff tendonitis Seasonal allergies Seizure disorder Patient is on Keppra and primidone Shortness of breath SLAP tear of shoulder Strain of hip flexor Toe fracture, left Traumatic brain injury Causing seizure disorder at the age of 14 Trochanteric bursitis, right hip Urinary frequency Vertigo Vision abnormalities Surgical History Surgical History H/O left knee surgery Family History Family History Sibling Gunshot wound Mother Malignant neoplasm Father Diabetes mellitus Atrial fibrillation Hyperlipidemia Other Arthritis Hypertension Social History Social History Smoking packs per day: 0.5 Smoking cigarettes per day: 10.0 Years smoked: 20 Smoking pack-years: 10.00 Smoking status: Current every day smoker Tobacco type: cigarettes Alcohol intake: current Drinks per week: 2 Substance use: never Substance use type: does not use Gender identity (if verbalized by the patient): Female Spiritual care concerns: No Exam Narrative: EXAMINATION OF ORGAN SYSTEMS/BODY AREAS: Constitutional: Vital signs per nursing GENERAL: Resting comfortably in the bed HEAD: Normal with no signs of head trauma. EYES: EOMI, conjunctiva normal ENT: Hearing grossly intact LUNGS: Nonlabored breathing. Prolonged end expiratory phase HEART: [Regular rate and rhythm] ABD: [Soft], [nontender to palpation] EXT: Normal range of motion, negative Homans' sign, no swelling of his lower extremities SKIN: [No rashes or lesions.] NEURO: [Alert and oriented x 3. No gross focal sensory or strength deficits.] PSYCH: Normal affect Course Vital Signs Vital signs: Vital Signs Temperature 97.7 F 06/09/22 07:51 Pulse Rate 92 06/09/22 07:51 Respiratory Rate 18 /
[2022-06-09] MEDS: ALBUTEROL SULFATE (*SP) INHALER 4 PUFF INHALATION (08:06)
[2022-06-09] MEDS: predniSONE 20 MG TABLET 40 MG PO (08:30)
[2022-06-09] MEDS: IBUPROFEN 400 MG TABLET PO (08:31)
[2022-06-09] MEDS: BENZONATATE 100 MG CAPSULE PO (08:31)
== END 2022-06-09 09:13 | disposition home or self-care (01) ==
PROVIDERS: Emergency Provider Emergency Medicine; PCP Nurse Practitioner Family
DX: U07.1 COVID-19 (principal); J20.8 Acute bronchitis due to other specified organisms; M19.90 Unspecified osteoarthritis, unspecified site; G40.909 Epilepsy, unspecified, not intractable, without status epilepticus; Z87.820 Personal history of traumatic brain injury; F17.210 Nicotine dependence, cigarettes, uncomplicated
CPT/HCPCS: 71046; 99283; A9270; J7512

== ENCOUNTER 2022-06-15 12:59 | Emergency (ER) | payer OTHER, SELFPAY ==
--- NOTE | ~2022-06-15 | XR_ITS ---
EXAMINATION: XR chest 2V DATE: 06/15/2022 13:40 INDICATION: Cough post-COVID TECHNIQUE: PA and lateral views of the chest were obtained. COMPARISON: Chest radiograph dated 06/09/2022 FINDINGS: The lungs remain clear with no focal airspace opacities, pulmonary edema, pleural effusion or pneumot horax. The cardiomediastinal silhouette is normal. Visualized bones and soft tissues are unremarkable . IMPRESSION: 1. No acute cardiopulmonary disease. Reviewed, dictated and finalized at location A.
--- NOTE | ~2022-06-15 | XR_ITS ---
EXAMINATION: XR knee LT min 4V DATE: 06/15/2022 13:44 INDICATION: Woke up with left knee pain TECHNIQUE: Anteroposterior, 2 oblique and crosstable lateral views of the left knee were obtained COMPARISON: None. FINDINGS: Alignment is normal. No fracture. Joint spaces appear normal on nonweightbearing imaging. No joint e ffusion/layering lipohemarthrosis. Soft tissues are unremarkable. IMPRESSION: 1. Negative left knee radiographs. Reviewed, dictated and finalized at location A.
[2022-06-15 13:07] VITALS: BP 125/83; PULSE 109; RESP 20; TEMP 36.8; O2SAT 95
--- NOTE | 2022-06-15 13:14 | ED.URI ---
HPI - URI/Sore Throat General Chief Complaint: Upper Respiratory Infection Stated Complaint: Cough, Lt Knee Pain History of Present Illness HPI Narrative: Corrine Hughes is a 52 yo femlae PMH of high cholesterol, seasonal allergies, bipolar disorder, seizure disorder, GERD, comes to [facility] with complaints of left knee pain that just started this morning when she woke up and continual coughing. She was diagnosed with COVID at the emergency room on 06/10 and was given prednisone and Tessalon Perles and albuterol inhaler there. She states she has been unable to sleep because of the constant coughing even though she has used cough lozenges or and has been drinking plenty of fluids and warm soup Related Data Home Medications Medication Instructions Recorded Confirmed atorvastatin 40 mg tablet 40 mg PO DAILY 04/03/22 06/15/22 cetirizine 10 mg tablet 10 mg PO DAILY 04/03/22 06/15/22 citalopram 40 mg tablet 40 mg PO DAILY 04/03/22 06/15/22 lamotrigine 200 mg tablet 200 mg PO QID 04/03/22 06/15/22 levetiracetam 750 mg tablet 750 mg PO BID 04/03/22 06/15/22 omeprazole 40 mg capsule,delayed 40 mg PO DAILY 04/03/22 06/15/22 release primidone 250 mg tablet 375 mg PO DAILY 04/03/22 06/15/22 Allergies Allergy/AdvReac Type Severity Reaction Status Date / Time divalproex sodium Allergy Unknown Unknown Verified 06/15/22 13:05 phenytoin Allergy Unknown Other Verified 06/15/22 13:05 Review of Systems Review of Systems: CONSTITUTIONAL: Denies fever, chills, sweats. EYES: Denies visual changes, redness, discharge. ENT: Denies rhinorrhea, feels congestion, sore throat, otalgia. CARDIOVASCULAR: Denies chest pain, palpitations, edema. RESPIRATORY: Denies dyspnea, wheezing, has cough GASTROINTESTINAL: Denies abdominal pain, nausea, vomiting, diarrhea. GENITOURINARY: Denies dysuria, hematuria, abnormal discharge SKIN: Denies rash or itching. NEUROLOGIC: Denies numbness, or focal weakness. PSYCHIATRIC: Denies anxiety or depression. Left knee pain PMFSH Past Medical History Medical History Anxiety Arthritis Depression Dizziness Generalized anxiety disorder Labral tear of right hip joint Left shoulder pain Right hip pain Rotator cuff tendonitis Rotator cuff tendonitis Seasonal allergies Seizure disorder Patient is on Keppra and primidone Shortness of breath SLAP tear of shoulder Strain of hip flexor Toe fracture, left Traumatic brain injury Causing seizure disorder at the age of 14 Trochanteric bursitis, right hip Urinary frequency Vertigo Vision abnormalities Surgical History Surgical History H/O left knee surgery Family History Family History Sibling Gunshot wound Mother Malignant neoplasm Father Diabetes mellitus Atrial fibrillation Hyperlipidemia Other Arthritis Hypertension Social History Social History Smoking packs per day: 0.5 Smoking cigarettes per day: 10.0 Years smoked: 20 Smoking pack-years: 10.00 Smoking status: Current every day smoker Tobacco type: cigarettes Alcohol intake: current Drinks per week: 2 Substance use: never Substance use type: does not use Gender identity (if verbalized by the patient): Female Spiritual care concerns: No Comments At time of signature, I agree with nursing past medical, surgical, social and family history. There is no relevant family history pertinent to the presenting complaint. Exam Narrative: GENERAL: This is a well-nourished, well-developed patient, in mild distress. HEAD: normocephalic, atraumatic. EYES: Sclera clear/white. Vision is grossly intact. EARS: External ears normal, . Hearing grossly intact. NOSE: External nose normal without nasal discharge, nares without redness, no rhinorrhea. THRO
[2022-06-15] MEDS: FAMOTIDINE 20 MG TABLET PO (13:57)
[2022-06-15] MEDS: ONDANSETRON HCL ODT 4 MG TABLET PO (13:57)
== END 2022-06-15 14:16 | disposition home or self-care (01) ==
PROVIDERS: Emergency Provider Nurse Practitioner; PCP Nurse Practitioner Family
DX: R05.3 Chronic cough (principal); U09.9 Post COVID-19 condition, unspecified; M25.562 Pain in left knee; F17.210 Nicotine dependence, cigarettes, uncomplicated; G40.909 Epilepsy, unspecified, not intractable, without status epilepticus; Z87.820 Personal history of traumatic brain injury; F41.9 Anxiety disorder, unspecified; F32.A Depression, unspecified
CPT/HCPCS: 71046; 73564; 99214; A9270; G0463

== ENCOUNTER 2022-09-08 10:04 | Emergency (ER) | payer OTHER, SELFPAY ==
--- NOTE | ~2022-09-08 | XR_ITS ---
EXAMINATION: XR knee RT min 4V DATE: 09/08/2022 11:00 INDICATION: Posterior right knee pain post fall TECHNIQUE: Anteroposterior, 2 oblique and crosstable lateral views of the right knee were obtained COMPARISON: None. FINDINGS: Alignment is normal. No fracture. Spaces appear normal on nonweightbearing imaging. No joint effusio n/layering lipohemarthrosis. Soft tissues are unremarkable. IMPRESSION: 1. No right knee joint effusion or acute osseous abnormality. Reviewed, dictated and finalized at location A.
--- NOTE | ~2022-09-08 | XR_ITS ---
EXAMINATION: XR lumbar spine 2-3V DATE: 09/08/2022 11:01 INDICATION: Low back pain radiating to the right post fall 2 days prior TECHNIQUE: Anteroposterior and lateral views of the lumbar spine, and cone-down lateral view of the l umbosacral junction were obtained. COMPARISON: CT abdomen and pelvis dated 04/05/2022 FINDINGS: Minimal lumbar levocurvature. 3 mm retrolisthesis L5 on S1. Vertebral body heights are normal. No fra ctures identified. Mild disc height loss with degenerative endplate changes at L2-L3, L3-L4, T8-T9 an d T9-T10. Mild polyarticular osteoarthritis at the lumbar facet and bilateral hip and sacroiliac join ts. Visualized posterior lung bases are clear with no pleural effusions. IMPRESSION: 1. Mild lumbar spondylosis. No evident acute osseous abnormality. Reviewed, dictated and finalized at location A.
[2022-09-08 10:21] VITALS: BP 121/74; PULSE 90; RESP 20; TEMP 36.7; O2SAT 100
--- NOTE | 2022-09-08 10:27 | ED.UPPEXIN ---
HPI - Extremity Injury (Upper) General Chief Complaint: Extremity Injury, Upper Stated Complaint: rt knee/elbow/hip inj Time Seen by Provider: 09/08/22 10:27 Source: patient Mode of arrival: ambulatory Limitations: no limitations History of Present Illness HPI narrative: 52-year-old female presents with complaint of right groin, right knee pain. He reports this is working with states she slipped on wet floor that was popped by another employee. Reports that her co-worker helped her get up. After falling she continued to work as she is experiencing alot of pain. 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 She is ambulatory with steady gait. Has not taken any pain medication prior to arrival. Denies hitting head. noLOC. all systems reviewed and negative except as noted above. Related Data Home Medications Medication Instructions Recorded Confirmed atorvastatin 40 mg tablet 40 mg PO DAILY 04/03/22 09/08/22 cetirizine 10 mg tablet 10 mg PO DAILY 04/03/22 09/08/22 citalopram 40 mg tablet 40 mg PO DAILY 04/03/22 09/08/22 lamotrigine 200 mg tablet 200 mg PO QID 04/03/22 09/08/22 levetiracetam 750 mg tablet 750 mg PO BID 04/03/22 09/08/22 omeprazole 40 mg capsule,delayed 40 mg PO DAILY 04/03/22 09/08/22 release primidone 250 mg tablet 375 mg PO DAILY 04/03/22 09/08/22 Allergies Allergy/AdvReac Type Severity Reaction Status Date / Time divalproex sodium Allergy Unknown Unknown Verified 09/10/22 06:02 phenytoin Allergy Unknown Other Verified 09/10/22 06:02 Review of Systems Review of Systems: CONSTITUTIONAL: Denies fever, chills, or sweats. EYES: Denies visual changes, redness, or discharge. ENT: Denies rhinorrhea, congestion, sore throat, or otalgia. CARDIOVASCULAR: Denies chest pain, palpitations, or edema. RESPIRATORY: Denies cough or dyspnea. GASTROINTESTINAL: Denies abdominal pain, nausea, vomiting, or diarrhea. GENITOURINARY: Denies dysuria or hematuria. SKIN: Denies rash or itching. MUSCULOSKELETAL: Reports right groin, right knee, lower back and right shoulder pain. NEUROLOGIC: Denies headache, numbness, or weakness. PSYCHIATRIC: Denies anxiety or depression. All other systems reviewed are negative, except as documented in HPI. [facility] Past Medical History Medical History Anxiety Arthritis Depression Dizziness Generalized anxiety disorder Labral tear of right hip joint Left shoulder pain Right hip pain Rotator cuff tendonitis Rotator cuff tendonitis Seasonal allergies Seizure disorder Patient is on Keppra and primidone Shortness of breath SLAP tear of shoulder Strain of hip flexor Toe fracture, left Traumatic brain injury Causing seizure disorder at the age of 14 Trochanteric bursitis, right hip Urinary frequency Vertigo Vision abnormalities Surgical History Surgical History H/O left knee surgery Family History Family History Sibling Gunshot wound Mother Malignant neoplasm Father Diabetes mellitus Atrial fibrillation Hyperlipidemia Other Arthritis Hypertension Social History Social History Smoking packs per day: 0.5 Smoking cigarettes per day: 10.0 Years smoked: 20 Smoking pack-years: 10.00 Smoking status: Current every day smoker Tobacco type: cigarettes Alcohol intake: current Drinks per week: 2 Substance use: never Substance use type: does not use Gender identity (if verbalized by the patient): Female Spiritual care concerns: No Comments At time of signature, agree with nursing past medical, surgical, social and family history. There is no relevant family history pertinent to the presenting complaint. Exam Narrative: GENERAL: This is a well-nourished, well-developed patient, in no apparent distress. HEAD: normocephalic, a
== END 2022-09-08 11:30 | disposition home or self-care (01) ==
PROVIDERS: Emergency Provider Nurse Practitioner Family; PCP Nurse Practitioner Family
DX: S39.011A Strain of muscle, fascia and tendon of abdomen, initial encounter (principal); S39.012A Strain of muscle, fascia and tendon of lower back, initial encounter; S46.911A Strain of unspecified muscle, fascia and tendon at shoulder and upper arm level, right arm, initial encounter; W01.0XXA Fall on same level from slipping, tripping and stumbling without subsequent striking against object, initial encounter; Y99.0 Civilian activity done for income or pay; M19.90 Unspecified osteoarthritis, unspecified site; G40.909 Epilepsy, unspecified, not intractable, without status epilepticus; F17.210 Nicotine dependence, cigarettes, uncomplicated; F32.A Depression, unspecified; F41.1 Generalized anxiety disorder
CPT/HCPCS: 72100; 73564; 99214; G0463

== ENCOUNTER 2022-09-10 05:55 | Emergency (ER) | payer OTHER, SELFPAY ==
--- NOTE | ~2022-09-10 | XR_ITS ---
EXAMINATION: XR knee RT min 4V DATE: 09/10/2022 07:43 INDICATION: Generalized right knee pain post fall TECHNIQUE: Anteroposterior, 2 oblique and crosstable lateral views of the right knee were obtained COMPARISON: 09/08/2022 FINDINGS: Alignment is normal. No fracture.. Joint spaces appear normal but joint space could be underestimate d nonweightbearing imaging. No joint effusion/layering lipohemarthrosis. Soft tissues are unremarkabl e. IMPRESSION: 1. Negative right knee radiographs. Reviewed, dictated and finalized at location A.
[2022-09-10 06:02] VITALS: BP 126/85; PULSE 83; RESP 16; TEMP 35.9; O2SAT 98
--- NOTE | 2022-09-10 07:23 | ED.GENADULT ---
HPI - General Adult General Chief complaint: Extremity Injury, Lower Stated complaint: right knee pain Time Seen by Provider: 09/10/22 07:06 History of Present Illness HPI narrative: 52-year-old female presenting to the emergency department for evaluation of right knee pain. Patient had a knee injury at the and did have outpatient x-rays. Patient states she was getting out of bed this morning and had increased knee pain. Patient feels that she does have a tendon injury. Patient states that her knee is [id number] . Patient does have follow-up with Dr. Ace. Patient was informed that she would not be able to get an MRI in the emergency department. This would need to be done through her outpatient physicians. Related Data Home Medications Medication Instructions Recorded Confirmed atorvastatin 40 mg tablet 40 mg PO DAILY 04/03/22 09/08/22 cetirizine 10 mg tablet 10 mg PO DAILY 04/03/22 09/08/22 citalopram 40 mg tablet 40 mg PO DAILY 04/03/22 09/08/22 lamotrigine 200 mg tablet 200 mg PO QID 04/03/22 09/08/22 levetiracetam 750 mg tablet 750 mg PO BID 04/03/22 09/08/22 omeprazole 40 mg capsule,delayed 40 mg PO DAILY 04/03/22 09/08/22 release primidone 250 mg tablet 375 mg PO DAILY 04/03/22 09/08/22 Allergies Allergy/AdvReac Type Severity Reaction Status Date / Time divalproex sodium Allergy Unknown Unknown Verified 09/10/22 06:02 phenytoin Allergy Unknown Other Verified 09/10/22 06:02 Review of Systems Review of Systems: CONSTITUTIONAL: Denies fever, chills, or sweats. EYES: Denies visual changes, redness, or discharge. ENT: Denies rhinorrhea, congestion, sore throat, or otalgia. CARDIOVASCULAR: Denies chest pain, palpitations, or edema. RESPIRATORY: Denies cough or dyspnea. GASTROINTESTINAL: Denies abdominal pain, nausea, vomiting, or diarrhea. GENITOURINARY: Denies dysuria or hematuria. SKIN: Denies rash or itching. MUSCULOSKELETAL: Right knee injury NEUROLOGIC: Denies headache, numbness, or weakness. [facility] Past Medical History Medical History Anxiety Arthritis Depression Dizziness Generalized anxiety disorder Labral tear of right hip joint Left shoulder pain Right hip pain Rotator cuff tendonitis Rotator cuff tendonitis Seasonal allergies Seizure disorder Patient is on Keppra and primidone Shortness of breath SLAP tear of shoulder Strain of hip flexor Toe fracture, left Traumatic brain injury Causing seizure disorder at the age of 14 Trochanteric bursitis, right hip Urinary frequency Vertigo Vision abnormalities Surgical History Surgical History H/O left knee surgery Family History Family History Sibling Gunshot wound Mother Malignant neoplasm Father Diabetes mellitus Atrial fibrillation Hyperlipidemia Other Arthritis Hypertension Social History Social History Smoking packs per day: 0.5 Smoking cigarettes per day: 10.0 Years smoked: 20 Smoking pack-years: 10.00 Smoking status: Current every day smoker Tobacco type: cigarettes Alcohol intake: current Drinks per week: 2 Substance use: never Substance use type: does not use Gender identity (if verbalized by the patient): Female Spiritual care concerns: No Exam Narrative: APPEARANCE: Well appearing, no pain, no distress, well-nourished. HEAD: normocephalic, atraumatic. EYES: PERRLA/EOMI, conjunctivae clear. NOSE: Normal no drainage NECK: Supple. No adenopathy, no masses. RESPIRATORY: Airway patent, respirations nonlabored. Clear to auscultation bilaterally, no rales, rhonchi, wheezing. CARDIOVASCULAR: Regular rate and rhythm without murmurs rubs or gallops. ABDOMINAL: Soft, nontender, nondistended, normal bowel sounds MUSCULOSKELETAL: Normal range of motion of the affe
[2022-09-10] MEDS: ACETAMINOPHEN 325 MG TABLET 650 MG PO (08:05)
== END 2022-09-10 08:29 | disposition home or self-care (01) ==
PROVIDERS: Emergency Provider Emergency Medicine; PCP Nurse Practitioner Family
DX: S89.91XA Unspecified injury of right lower leg, initial encounter (principal); G40.901 Epilepsy, unspecified, not intractable, with status epilepticus; F32.A Depression, unspecified; F41.1 Generalized anxiety disorder; M19.90 Unspecified osteoarthritis, unspecified site; F17.210 Nicotine dependence, cigarettes, uncomplicated; Z87.820 Personal history of traumatic brain injury; X58.XXXA Exposure to other specified factors, initial encounter
CPT/HCPCS: 73564; 99283; A9270

== ENCOUNTER 2022-09-17 12:32 | Emergency (ER) | payer OTHER, SELFPAY ==
[2022-09-17 12:44] VITALS: BP 129/85; PULSE 96; RESP 20; TEMP 36.6; O2SAT 97
--- NOTE | 2022-09-17 12:55 | ED.URI ---
HPI - URI/Sore Throat General Chief Complaint: Upper Respiratory Infection Stated Complaint: Cough Time Seen by Provider: 09/17/22 12:55 Source: patient and RN notes reviewed Mode of arrival: ambulatory Limitations: no limitations History of Present Illness HPI Narrative: 52-year-old female presents with concern for 5 day history of cough, fatigue, intermittent shortness of. She denies fever. Reports body aches. She reports nasal congestion, rhinorrhea and sore throat. She denies taking any medications for her symptoms. MD elicited complaint: cough Related Data Home Medications Medication Instructions Recorded Confirmed atorvastatin 40 mg tablet 40 mg PO DAILY 04/03/22 09/08/22 cetirizine 10 mg tablet 10 mg PO DAILY 04/03/22 09/08/22 citalopram 40 mg tablet 40 mg PO DAILY 04/03/22 09/08/22 lamotrigine 200 mg tablet 200 mg PO QID 04/03/22 09/08/22 levetiracetam 750 mg tablet 750 mg PO BID 04/03/22 09/08/22 omeprazole 40 mg capsule,delayed 40 mg PO DAILY 04/03/22 09/08/22 release primidone 250 mg tablet 375 mg PO DAILY 04/03/22 09/08/22 Allergies Allergy/AdvReac Type Severity Reaction Status Date / Time divalproex sodium Allergy Unknown Unknown Verified 09/17/22 12:47 phenytoin Allergy Unknown Other Verified 09/17/22 12:47 Review of Systems Review of Systems: CONSTITUTIONAL: Reports malaise, fatigue EYES: Denies visual changes, redness, or discharge. ENT: Reports rhinorrhea, congestion, and sore throat. CARDIOVASCULAR: Denies chest pain, palpitations, or edema. RESPIRATORY: Reports cough. Reports occasional dyspnea. GASTROINTESTINAL: Denies abdominal pain, nausea, vomiting, diarrhea SKIN: Denies rash or itching. MUSCULOSKELETAL: Reports myalgia. NEUROLOGIC: Denies headache. All systems reviewed & are unremarkable except as noted in HPI and below PMFSH Past Medical History Medical History Anxiety Arthritis Depression Dizziness Generalized anxiety disorder Labral tear of right hip joint Left shoulder pain Right hip pain Rotator cuff tendonitis Rotator cuff tendonitis Seasonal allergies Seizure disorder Patient is on Keppra and primidone Shortness of breath SLAP tear of shoulder Strain of hip flexor Toe fracture, left Traumatic brain injury Causing seizure disorder at the age of 14 Trochanteric bursitis, right hip Urinary frequency Vertigo Vision abnormalities Surgical History Surgical History H/O left knee surgery Family History Family History Sibling Gunshot wound Mother Malignant neoplasm Father Diabetes mellitus Atrial fibrillation Hyperlipidemia Other Arthritis Hypertension Social History Social History Smoking packs per day: 0.5 Smoking cigarettes per day: 10.0 Years smoked: 20 Smoking pack-years: 10.00 Smoking status: Current every day smoker Tobacco type: cigarettes Alcohol intake: current Drinks per week: 2 Substance use: never Substance use type: does not use Gender identity (if verbalized by the patient): Female Spiritual care concerns: No Comments At time of signature, agree with nursing past medical, surgical, social and family history. There is no relevant family history pertinent to the presenting complaint Exam Narrative: GENERAL: Nontoxic-appearing and in no acute distress. HEAD: Normocephalic EYES: PERRLA, conjunctivae clear ENT: Nares clear, clear discharge. Mucous membranes moist. TM pearly lan with sharp light reflex bilaterally; no tragal tenderness. Oropharynx erythematous without lesions. Tonsils not enlarged and without exudate, no drooling, no hoarseness, no trismus, uvula midline. NECK: Supple. No lymphadenopathy CHEST: Clear to auscultation, breath sounds equal. No wheezing, rhonchi, rales, or s
== END 2022-09-17 13:25 | disposition home or self-care (01) ==
PROVIDERS: Emergency Provider Nurse Practitioner; PCP Nurse Practitioner Family
DX: B34.9 Viral infection, unspecified (principal); Z20.822 Contact with and (suspected) exposure to COVID-19; F17.219 Nicotine dependence, cigarettes, with unspecified nicotine-induced disorders; M19.90 Unspecified osteoarthritis, unspecified site; G40.909 Epilepsy, unspecified, not intractable, without status epilepticus; F41.9 Anxiety disorder, unspecified; F32.A Depression, unspecified
CPT/HCPCS: 87081; 87426; 87804; 87880; 99213; C9803; G0463

== ENCOUNTER 2022-12-09 11:21 | Emergency (ER) | payer OTHER, SELFPAY ==
--- NOTE | ~2022-12-09 | XR_ITS ---
Left Shoulder Technique: AP and scapular Y views were obtained. Clinical History: Pain Findings: No fracture or dislocation is seen. Osseous alignment is anatomic. The glenohumeral and acr omioclavicular joint spaces are preserved. Soft tissues are unremarkable. Impression: Unremarkable left shoulder radiographs. Reviewed, dictated and finalized at [facility]. STICS SPECIALIST Impression: Unremarkable left shoulder radiographs.
[2022-12-09 11:38] VITALS: BP 147/94; PULSE 89; RESP 16; TEMP 36.6; O2SAT 98
[2022-12-09] MEDS: CYCLOBENZAPRINE HCL 10 MG TABLET PO (13:10)
--- NOTE | 2022-12-09 13:20 | ED.GENADULT ---
HPI - General Adult General Chief complaint: Extremity Injury, Upper Stated complaint: left shoulder injury Time Seen by Provider: 12/09/22 12:25 History of Present Illness HPI narrative: This 52 year old female patient presents to the ER with complaints of rolling out of bed two nights ago and landing on her left shoulder. She has had pain ever since that is made worse by movement. She has taken one dose of Ibuprofen without any relief of her symptoms. She states she occasionally has some tingling in her fingers but otherwise no other complaints. Onset (ago): day(s) (2) Location: upper extremity (left shoulder) Radiation: non-radiation Severity: moderate Quality: aching Relieving factors: none Exacerbating factors: movement Associated symptoms: other (occasional tingling in the left hand.) Related Data Home Medications Medication Instructions Recorded Confirmed atorvastatin 40 mg tablet 40 mg PO DAILY 04/03/22 09/08/22 cetirizine 10 mg tablet 10 mg PO DAILY 04/03/22 09/08/22 citalopram 40 mg tablet 40 mg PO DAILY 04/03/22 09/08/22 lamotrigine 200 mg tablet 200 mg PO QID 04/03/22 09/08/22 levetiracetam 750 mg tablet 750 mg PO BID 04/03/22 09/08/22 omeprazole 40 mg capsule,delayed 40 mg PO DAILY 04/03/22 09/08/22 release primidone 250 mg tablet 375 mg PO DAILY 04/03/22 09/08/22 Allergies Allergy/AdvReac Type Severity Reaction Status Date / Time divalproex sodium Allergy Unknown Unknown Verified 09/17/22 12:47 phenytoin Allergy Unknown Other Verified 09/17/22 12:47 Review of Systems Review of Systems: All systems reviewed & are unremarkable except as noted in HPI and below PMFSH Past Medical History Medical History Anxiety Arthritis Depression Dizziness Generalized anxiety disorder Labral tear of right hip joint Left shoulder pain Right hip pain Rotator cuff tendonitis Rotator cuff tendonitis Seasonal allergies Seizure disorder Patient is on Keppra and primidone Shortness of breath SLAP tear of shoulder Strain of hip flexor Toe fracture, left Traumatic brain injury Causing seizure disorder at the age of 14 Trochanteric bursitis, right hip Urinary frequency Vertigo Vision abnormalities Surgical History Surgical History H/O left knee surgery Family History Family History Sibling Gunshot wound Mother Malignant neoplasm Father Diabetes mellitus Atrial fibrillation Hyperlipidemia Other Arthritis Hypertension Social History Social History Smoking packs per day: 0.5 Smoking cigarettes per day: 10.0 Years smoked: 20 Smoking pack-years: 10.00 Smoking status: Current every day smoker Tobacco type: cigarettes Alcohol intake: current Drinks per week: 2 Substance use: never Substance use type: does not use Gender identity (if verbalized by the patient): Female Spiritual care concerns: No Exam Const: General: healthy appearing and no acute distress Nutritional Appearance: well nourished Orientation/consciousness: patient oriented x3 Limitations: no limitations HENMT: Head: normal to inspection Mouth: Yes Normal oral and palatal mucosa present Eyes: Conjunctivae: conjunctivae normal Neck: Neck: normal visual inspection and no lymphadenopathy Other: moves in a supple manner. Chest: Other: non tender Resp: Effort & Inspection: normal respiratory effort Auscultation: clear to auscultation bilaterally Cardio: Rate: regular rate Rhythm: regular rhythm Heart sounds: no murmurs GI: Inspection: non-distended GI Palp: Yes Soft to palpation and No Tenderness to palpation present (GI) Auscultation: normal bowel sounds Back/Spine/Pelvis: Back: no CVA tenderness Skin: General skin exam: normal color Rashes: no rashe
== END 2022-12-09 13:32 | disposition home or self-care (01) ==
PROVIDERS: Emergency Provider Nurse Practitioner Adult Health; PCP Orthopaedic Surgery
DX: S49.92XA Unspecified injury of left shoulder and upper arm, initial encounter (principal); G40.909 Epilepsy, unspecified, not intractable, without status epilepticus; M19.90 Unspecified osteoarthritis, unspecified site; F41.1 Generalized anxiety disorder; F32.A Depression, unspecified; Z87.820 Personal history of traumatic brain injury; F17.210 Nicotine dependence, cigarettes, uncomplicated; W06.XXXA Fall from bed, initial encounter
CPT/HCPCS: 73030; 96372; 99283; A4565; A9270; J1100

== ENCOUNTER 2023-01-30 17:01 | Observation (INO) | payer OTHER, SELFPAY ==
[2023-01-30] VITALS (15 sets, daily range): BP systolic 115–134; BP diastolic 71–101; PULSE 83–105; RESP 13–27; TEMP 36.9–37.2; O2SAT 95–98
--- NOTE | ~2023-01-30 | CT_ITS ---
EXAMINATION: CT brain wo con DATE: 01/30/2023 18:00 INDICATION: Altered mental status. TECHNIQUE: Computed tomography (CT) of the head was performed without intravenous contrast. The dose- length product was 1059.33 mGy-cm. Automated exposure control and iterative reconstruction technique were employed. COMPARISON: CT dated 04/23/2022 FINDINGS: Brain parenchymal volume is normal for age. No ventriculomegaly or midline shift. Basilar c isterns are patent. No acute intracranial hemorrhage, infarction, mass or mass effect. Paranasal sinu ses and mastoids are pneumatized. No depressed skull fractures. IMPRESSION: 1. No acute intracranial abnormality. Reviewed, dictated and finalized at location A.
--- NOTE | ~2023-01-30 | MR_ITS ---
EXAMINATION: MR brain/brain stem wo/w con DATE: 01/31/2023 11:07 INDICATION: Altered mental status. Ataxia. TECHNIQUE: Magnetic resonance imaging (MRI) of the brain and brainstem was performed without and with 17 mL MultiHance intravenous contrast. COMPARISON: Brain MRI 04/11/2020, head CT 01/30/2023 FINDINGS: There is no intracranial hemorrhage, acute infarction, or abnormal intracranial mass lesion . There are a few scattered areas of nonspecific increased T2-weighted signal intensity in the cerebr al white matter, which is within normal limits for the patient's age. The ventricles are normal in si ze. The paranasal sinuses are clear. The orbits are normal. The mastoid air cells are normal. IMPRESSION: 1. Normal brain. Reviewed, dictated and finalized at location A. IMPRESSION: 1. Normal brain.
[2023-01-30 17:16] LABS: Glucose Point of Care 165 mg/dl (65-105)
--- NOTE | 2023-01-30 17:33 | ECG_ITS ---
Measurements Intervals [place] Rate: 94 P: 63 WI: 160 QRS: 45 QRSD: 100 T: 40 QT: 374 QTc: 469 Interpretive Statements SINUS RHYTHM INCOMPLETE RIGHT BUNDLE BRANCH BLOCK NONSPECIFIC T-WAVE ABNORMALITY- ANTERIOR LEADS BORDERLINE ECG COMPARED TO ECG 01/14/2022 13:54:00 NO SIGNIFICANT CHANGES Electronically Signed On 01-30-2023 21:22:10 CDT by Tony Man D.O.
--- NOTE | 2023-01-30 17:46 | ED.AMS ---
HPI - Altered Mental Status General Chief Complaint: Altered Mental Status <Lucy Vance PA-C - Last Filed: 01/31/23 03:05> Stated Complaint: hurting everywhere <Lucy Vance PA-C - Last Filed: 01/31/23 03:05> Time Seen by Provider: 01/30/23 17:32 <DIMITRY Merchant Last Filed: 01/31/23 03:05> Source: patient and old records reviewed <DIMITRY Merchant Last Filed: 01/31/23 03:05> Mode of arrival: ambulatory <DIMITRY Merchant Last Filed: 01/31/23 03:05> Limitations: clinical condition <DIMITRY Merchant Last Filed: 01/31/23 03:05> History of Present Illness HPI narrative: Patient is a 52-year-old female who presents to the ED with report of altered mental status. Patient was dropped off at the hospital by a friend. Patient reports over the last 2 to 3 weeks, she has had intermittent episodes of difficulty ambulating, issues with her speech and vision, and twitching of her muscles. She states her entire body and muscles will twitch and tighten. She also complains of her brain hurting and feeling like it is being squeezed. Patient is unable to describe her symptoms any further. She seems to become very frustrated when trying to explain her symptoms. She states the episodes occur at random. Patient does have history of seizure disorder and takes Keppra and primidone. She is also on Lamotrigine. She sees Dr. Harris. She denies missing any doses of her medications. Patient does also have history of anxiety. She reports having vomiting associated with panic attacks. She denies any weakness, recent fevers, cough or cold symptoms, abdominal pain, chest pain, difficulty breathing. Patient seems convinced that her brain is controlling the rest of her body and speech. She does not believe she is having seizures. She has expressed concern for diabetes and brain cancer. Blood sugar was checked upon arrival to be 168. Patient admits to smoking half a pack a day, occasional ETOH use, no daily drinking. Denies any other drugs. <DIMITRY Merchant Last Filed: 01/31/23 03:05> Related Data Home Medications: Home Medications Medication Instructions Recorded Confirmed atorvastatin 40 mg tablet 40 mg PO QHS 04/03/22 01/31/23 cetirizine 10 mg tablet 10 mg PO DAILY 04/03/22 01/31/23 citalopram 40 mg tablet 40 mg PO DAILY 04/03/22 01/31/23 lamotrigine 200 mg tablet 200 mg PO BID 04/03/22 01/31/23 levetiracetam 750 mg tablet 750 mg PO BID 04/03/22 01/31/23 omeprazole 40 mg capsule,delayed 40 mg PO DAILY 04/03/22 01/31/23 release primidone 250 mg tablet 375 mg PO BID 04/03/22 01/31/23 <DIMITRY Merchant Last Filed: 01/31/23 03:05> Allergies/Adverse Reactions: Allergies Allergy/AdvReac Type Severity Reaction Status Date / Time divalproex sodium Allergy Unknown Unknown Verified 01/30/23 18:31 phenytoin Allergy Unknown Other Verified 01/30/23 18:31 <DIMITRY Merchant Last Filed: 01/31/23 03:05> Review of Systems Review of Systems: CONSTITUTIONAL: Denies fever, chills, or sweats. EYES: See HPI. ENT: Denies rhinorrhea, congestion, sore throat. CARDIOVASCULAR: Denies chest pain, palpitations, or edema. RESPIRATORY: Denies cough or dyspnea. GASTROINTESTINAL: See HPI. GENITOURINARY: Denies dysuria or hematuria. MUSCULOSKELETAL: See HPI. NEUROLOGIC: See HPI. PSYCHIATRIC: See HPI. <DIMITRY Merchant Last Filed: 01/31/23 03:05> All systems reviewed & are unremarkable except as noted in HPI and below <DIMITRY Merchant Last Filed: 01/31/23 03:05> PMFSH Past Medical History Medical History: Medical History Anxiety Arthritis Depression Dizziness Generalized anxiety disorder Labral tear of right hip joint Left shoulder pain Right hip pain Rotator cuff tendonitis Rotator cuff tendonitis Seasonal allergies Seiz
[2023-01-30 18:07] LABS: Basophils Absolute Auto 0.1 K/mm3 (0.0-0.1); Basophils Percent Auto 1.1 % (0.2-1.2); Eosinophils Percent Auto 0.9 % (0-4.4); Hematocrit 42.3 % (37.0-47.0); Hemoglobin 14.8 g/dL (12.0-15.0); Immature Granulocyte Absolute 0.01 K/mm3 (0.00-0.031); Immature Granulocyte Percent A 0.2 % (0-0.5); Mean Corpuscular Hemoglobin 34.4 pg (26-34); Mean Corpuscular Volume 98.4 fl (80-100); Mean Platelet Volume 9.9 fl (7.4-10.4); Monocytes Absolute Auto 0.6 K/mm3 (0.1-0.6); Monocytes Percent Auto 13.7 % (2.6-8.5); Neutrophils Absolute Auto 2.3 K/mm3 (1.3-6.7); Neutrophils Percent Auto 51.1 % (45.5-73.1); Platelet Count Result 215 k/mm3 (150-375); Red Cell Distribution Width 13.1 % (11.5-14.5); White Blood Count 4.5 K/mm3 (4.5-10.0)
[2023-01-30] MEDS: levETIRAcetam 1000MG/NACL100ML 1,000 MG/100 ML BAG 400 MG IVPB (18:11)
[2023-01-30] MEDS: SODIUM CHLORIDE 0.9% IV 1,000 ML 999 ML IV CONT ×2 (18:11→19:52)
[2023-01-30 18:18] LABS: Acetaminophen < 10 ug/mL (10-30); Ethanol < 10 mg/dL (<10); Salicylate < 1.0 mg/dL (2-20)
[2023-01-30 18:23] LABS: Lactic Acid Reflex 3.2 mmol/L (0.7-2.0)
[2023-01-30 18:29] LABS: Alanine Aminotransferase 44 U/L (6-35); Albumin Level 4.5 g/dL (3.5-5.1); Alkaline Phosphatase 134 U/L (38-126); Anion Gap 7 mmol/L (8-16); Aspartate Amino Transferase 159 U/L (14-36); Bilirubin,Total 0.6 mg/dL (0.2-1.3); Blood Urea Nitrogen 7 mg/dL (7-17); Calcium 8.7 mg/dL (8.4-10.2); Carbon Dioxide 27 mmol/L (22-30); Chloride 100 mmol/L (98-107); Estimated Glomerular Filt Rate > 60; Glucose 118 mg/dL (65-110); Potassium 3.4 mmol/L (3.4-5.0); Sodium 134 mmol/L (137-145)
[2023-01-30] MEDS: LORazepam INJ (*CRX) 2 MG/ML VIAL 1 MG IV PUSH (18:34)
[2023-01-30 18:59] LABS: Thyroid Stimulating Hormone 0.623 uIU/mL (0.465-4.680)
[2023-01-30 19:06] LABS: Appearance Urine Cloudy (Clear); Bacteria Urine 4+ /hpf; Bilirubin Urine Negative (Negative); Blood Urine Negative (Negative); Color Urine Yellow (Yellow); Glucose Urine UA Negative (Negative); Ketones Urine Negative (Negative); Leukocyte Esterase Ur 2+ LEU/UL (Negative); Nitrate Urine Negative (Negative); Non Pathogenic Casts 0-2; Protein Urine Negative (Negative); RBC Urine 0-2 /hpf (0-2); Specific Grav Ur 1.012 (1.001-1.035); Squamous Epithelial Cell Urine Few /hpf (Few); Urobilinogen Urine 0.2 mg/dL (<2.0); WBC Urine 21-50 /hpf
[2023-01-30 19:10] LABS: Creatine Kinase 61 U/L (30-135)
[2023-01-30 19:10] LABS: Add Urine Microscopic? YES
[2023-01-30 19:26] LABS: Amphetamine Screen Urine Negative (Negative); Barbiturate Screen Urine Positive (Negative); Benzodiazepines Screen Urine Negative (Negative); Cannabinoid Screen Urine Negative (Negative); Cocaine Screen Urine Negative (Negative); Methadone Screen Urine Negative (Negative); Opiate Screen Urine Negative (Negative); Phencyclidine Screen Urine Negative (Negative)
[2023-01-30 19:42] LABS: Hepatitis B Surface Antigen Negative (Negative)
[2023-01-30 19:47] LABS: HAV RESULT Negative (Negative); Hepatitis B Core IgM Result Negative (Negative)
[2023-01-30 19:59] LABS: Hepatitis C Virus Antibody Negative (Negative)
[2023-01-30 20:05] LABS: Influenza A QL RT-PCR Negative (Negative); Influenza B QL RT-PCR Negative (Negative); SARS-CoV-2 RNA PCR Negative
[2023-01-30 21:12] LABS: Reflex Lactic Acid Yes or No Add Lactic
[2023-01-31] VITALS (8 sets, daily range): BP systolic 103–131; BP diastolic 36–80; PULSE 77–95; RESP 14–18; TEMP 36.1–36.6; O2SAT 95–99; BMI 31.3
--- NOTE | 2023-01-31 04:38 | PC.NURSE ---
Pt admitted to 332-1 from ER at 2353 Pt alert, cooperative, disheveled , lives with 13 year old daughter. States has a job. High school graduate. Applied tele monitor- SR , explained plan of care, fall/safety precautions. Pt states took meds she is supposed to take ,but now is out of the meds. Pt with difficulty following conversation. Forgot she was on the heart monitor after being told 2 hours earlier. Instructed to call for help, need assistance to ambulate. Pt witnessed getting out of the bed, stated, I didn't know I had to call. This nurse walked pt to the bathroom, unsteady, Told to pull cord on wall when done. This nurse waited outside pt room. Pt walked out bathroom without using call light. When ambulated down the cuenca, pt states has double vision. Pt states muscles twitching, and brain hurts. States fell out of bed during the night at home. Tolerated food and liquids at bedside. No coughing, choking. Instructed on MRI of brain in morning. Bed alarm business transformation consultant light reviewed
--- NOTE | 2023-01-31 09:02 | PM.IMHP ---
H&P: HPI History of Present Illness Date/Time: 01/31/23 09:02 Chief Complaint: Ataxia and vision changes Narrative: 52yo female with seizure and TATYANA here for feeling off balance and diplopia. Patient states that she developed double vision with difficulty walking over the past few months. She has not had any falls. She states her head shakes when she walks. New medications are cetirizine and atorvastatin that was started 1 year ago. She drinks 4 alcoholic drinks per week. She denies drug use. She smokes cigarettes at half a pack a day. No new vuig-ydu-luewvyq medications. She denies any fever or chills. She has occasional night sweats but was told this is from perimenopause. Periods are irregular. She has been having a headache associated with the above symptoms over the past few months but headache was much worse yesterday. She does state that she fell out of bed 3 weeks ago but this is not uncommon for the patient. She injured her left shoulder. She does have left hand tingling that she notices when she wakes up but this is been going on for years. No weakness in her arms or legs. No odynophagia or dysphagia. She has chronic tinnitus. No chest pain or palpitations. She has a cough but is related to smoking she states. She does have some shortness of breath when she is active but this resolves when she keeps going . She does have chronic joint pain including hips, knees and ankles. No nausea or vomiting. No diarrhea or constipation issues. No dysuria or hematuria. She has chronic low back and lower abdominal pain. She does not drive. No seizures. She has not missed any doses of her medications. She does have TATYANA with panic attacks frequently (not able to quantify). Overall, the history she provides is extremely vague. Patient was dropped off at the hospital by a friend. In the ED, blood pressure slightly elevated 132/101 the pulse 105. COVID and influenza were negative. Lactic acid was 3.2 but on repeat was normal. Head CT showed no acute findings. EKG reviewed personally which shows incomplete right bundle-branch block and nonspecific T-wave changes but no significant change from prior EKG 1 year ago. CBC was essentially normal. Sodium was 134 and glucose 165 otherwise basic metabolic panels normal. LFTs are elevated with an AST 159 and ALT of 44. LFTs have been noted to be elevated in the past. TSH is normal. Urinalysis was cloudy with 2+ leukocyte esterase and 4+ bacteria. Urine drug screen was positive for barbiturates. Hepatitis panel was negative. She was given a dose of IV Keppra and IV Ativan. She given 1 dose of Rocephin and IV fluids. She was admitted for further care. Review of Systems Review of Systems: All systems reviewed & are unremarkable except as noted in HPI and below PMFSH Past Medical History Medical History Anxiety Arthritis Depression Dizziness Generalized anxiety disorder Labral tear of right hip joint Left shoulder pain Right hip pain Rotator cuff tendonitis Rotator cuff tendonitis Seasonal allergies Seizure disorder Patient is on Keppra and primidone Shortness of breath SLAP tear of shoulder Strain of hip flexor Toe fracture, left Traumatic brain injury Causing seizure disorder at the age of 14 Trochanteric bursitis, right hip Urinary frequency Vertigo Vision abnormalities Surgical History Surgical History H/O left knee surgery Family History Family History Sibling Gunshot wound Mother Malignant neoplasm Father Diabetes mellitus Atrial fibrillation Hyperlipidemia Other Arthritis Hypertension Social History Social History (Updated 01/31/23 @ 09:15 by Chris Wheeler MD) Social History: Lives at home with her 13-year-old daughter. She is single. She is a full code. She nominates
[2023-01-31 10:16] LABS: Hemoglobin A1C 5.1 % (<5.7); SPREG INTERNAL CONTROL Positive; Serum Qual hCG Negative
[2023-01-31 10:17] LABS: Alanine Aminotransferase 37 U/L (6-35); Albumin Level 4.1 g/dL (3.5-5.1); Alkaline Phosphatase 111 U/L (38-126); Anion Gap 8 mmol/L (8-16); Aspartate Amino Transferase 126 U/L (14-36); Bilirubin,Total 0.5 mg/dL (0.2-1.3); Blood Urea Nitrogen 6 mg/dL (7-17); Calcium 8.2 mg/dL (8.4-10.2); Carbon Dioxide 24 mmol/L (22-30); Chloride 105 mmol/L (98-107); Estimated CRCL calculation 116 ml/min; Estimated Glomerular Filt Rate > 60; Glucose 118 mg/dL (65-110); Potassium 3.5 mmol/L (3.4-5.0); Sodium 137 mmol/L (137-145)
[2023-01-31] MEDS: lamoTRIgine 100 MG TABLET 200 MG PO (10:22)
[2023-01-31] MEDS: CITALOPRAM HYDROBROMIDE 20 MG TABLET 40 MG PO (10:22)
[2023-01-31] MEDS: FOLIC ACID 1 MG TABLET PO (10:23)
[2023-01-31] MEDS: PANTOPRAZOLE 40 MG TABLET PO (10:23)
[2023-01-31] MEDS: levETIRAcetam 250 MG TABLET 750 MG PO (10:23)
[2023-01-31] MEDS: PRIMIDONE 250 MG TABLET PO (10:23)
[2023-01-31] MEDS: PRIMIDONE 125 MG TABLET PO (10:23)
[2023-01-31] MEDS: THIAMINE HCL 100 MG TABLET PO (10:23)
--- NOTE | 2023-01-31 10:36 | WPDNEURCNPN ---
Assessment and Plan Assessment and plan (1) Altered mental status: Qualifiers: Altered mental status type: unspecified Qualified Code(s): R41.82 - Altered mental status, unspecified Code(s): R41.82 - Altered mental status, unspecified Status: Acute (2) History of seizure disorder: Code(s): Z86.69 - Personal history of other diseases of the nervous system and sense organs Status: Acute (3) Generalized anxiety disorder: Code(s): F41.1 - Generalized anxiety disorder Status: Chronic Plan Kaylie Hughes is a 52 year old female with a history of TBI resulting in seizures, anxiety, depression presenting due to concerns of unsteadiness, episodes of shaking, and changes in mental status. MRI of the brain is normal. 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 She is under stress due to family issues. - No changes to seizure-medications indicated. - Follow-up with Dr. Harris Consult date: 01/31/23 Reason for consult: Encephalopathy HPI: Kaylie Hughes is a 52 year old female with a history of TBI resulting in seizures, anxiety, depression presenting due to concerns of unsteadiness, episodes of shaking, and changes in mental status. For the past 2-3 weeks, patient reports that her balance has been off and she has been having double vision and changes in her speech. She also reports twitching movements of her muscles, but does note that this is different that her typical seizures. Patient was brought to [place] ED yesterday for evaluation. CT head was normal. UA concerning for UTI. UDS was positive for barbiturates but patient is on primidone. She was given a dose of ativan and loading dose of Keppra in the ED. She was given fluids and also started on Rocephin for possible UTI. Per ED note, patient was able to successfully walk to and from the bathroom, as her symptoms seemed to somewhat improve. For her seizures she follows with Dr. Harris and takes Keppra 750mg BID, Primidone 375mg daily, and Lamictal 200mg BID. She reports good compliance with her medications. Based on Dr. Harris's office visit notes, seizures seem to be overall well-controlled. Patient mentioned her last true seizure was in 2019. She described the recent twitching as full body shaking, involving both sides of her body, but with complete preservation of awareness. She has complete recollection of these episodes. Patient has a lot of stressors at baseline. She has other non-specific complaints such as feeling like her body is being torn on the inside when she stands up. She is convinced that there is something new going on with her brain that is causing a disconnect between her brain and the rest of her body. Patient does not drive. MRI brain done this morning which is normal. Review of Systems Constitutional: Constitutional: Reports no additional constitutional complaints Eyes: Eyes: Reports blurry vision ENT: Reports system reviewed and no additional complaints, except as documented Cardiovascular: Cardiovascular: Reports chest pain Respiratory: Respiratory: Reports dyspnea Gastrointestinal: Gastrointestinal: Reports abdominal pain Genitourinary: Genitourinary: Reports no additional female genitourinary complaints Musculoskeletal: Musculoskeletal: Reports arthralgias Integumentary/Breasts: Skin/Breast: Reports system reviewed and no additional complaints, except as docu Neurologic: Reports as per HPI Psychiatric: Psychiatric: Reports anxiety and Reports depression [facility] Past Medical History Medical History Anxiety Arthritis Depression Dizziness Generalized anxiety disorder Labral tear of right hip joint Left shoulder pain Right hip pain Rotator cuff tendonitis Rotator cuff tendonitis Seasonal allergies Seizure disorder Patient is on Keppra and primidone Shortness of breath SLAP tear of shoulder Strain of hip
[2023-01-31 11:20] LABS: Folic Acid 11.8 ng/mL (2.76->20)
--- NOTE | 2023-01-31 12:20 | PC.NURSE ---
Spoke with ultrasound and keeping patient NPO until ultrasound is complete
--- NOTE | 2023-01-31 15:50 | PM.DS ---
DS: Admitting Diagnosis Discharge Date 01/31/23 Admitting Diagnosis Ataxia and vision changes DS: Discharge Diagnosis Discharge Diagnosis (1) Ataxia: Code(s): R27.0 - Ataxia, unspecified Status: Acute (2) Lactic acid increased: Code(s): E87.20 - Acidosis, unspecified Status: Acute (3) UTI (urinary tract infection): Qualifiers: Hematuria presence: without hematuria Urinary tract infection type: acute cystitis Qualified Code(s): N30.00 - Acute cystitis without hematuria Code(s): N39.0 - Urinary tract infection, site not specified Status: Acute (4) LFT elevation: Code(s): R79.89 - Other specified abnormal findings of blood chemistry Status: Acute (5) Hyperglycemia: Code(s): R73.9 - Hyperglycemia, unspecified Status: Acute (6) Seizure disorder: Code(s): G40.909 - Epilepsy, unspecified, not intractable, without status epilepticus Status: Chronic (7) Generalized anxiety disorder: Code(s): F41.1 - Generalized anxiety disorder Status: Chronic (8) Tobacco abuse: Code(s): Z72.0 - Tobacco use Status: Acute DS: Summary Hospital Course Reason for hospitalization: 52yo female with seizure and TATYANA here for feeling off balance and diplopia.? Please see H&P for details. Hospital Course: Patient was admitted to medical floor on telemetry. CT of the brain showed no acute findings. MRI brain also showing no acute findings. TSH, B12 and folate were normal. Urine test negative. Lactic acid level increased but felt related to poor sampling. Repeat was normal. A1c 5.1. LFTs elevated but this has been noted before. Repeat levels trended down. Hepatitis panelw as negative. She was educated but abstain from alcohol and tobacco use. Neurology consulted but felt the patient's symptoms were non-neurologic and more likely related to stress. Discussed at length about techniques of stress relief. She overall did well and was able to be discharged home on 01/31/23. Status at Discharge Cognitive/behavioral status at discharge: stable Time Spent with Patient Time attestation: Total time spent providing and/or coordinating discharge services: 45 minutes Time spent: Greater than 30 minutes Exam Narrative: AF 97.0 108/72 81 16 95% ra Gen - well-nourished, well-developed female in no acute respiratory distress who is nontoxic-appearing lying semi recumbent in bed HEENT - normocephalic. Atraumatic. Pupils equal round and reactive. Extraocular motions intact. Sclera clear and anicteric. Nares patent. Oropharynx was clear. No oral lesions. Moist mucous membranes. Tongue was midline. Palate sawyer symmetrically. No facial asymmetry. Neck - neck was supple. No dominant adenopathy, thyromegaly or masses. 2+ carotid upstrokes without bruits. Chest - lungs are clear to auscultation bilaterally. No wheezes or crackles. Breast exam was deferred. CV - heart was regular rate and rhythm. S1-S2. No murmurs gallops or rubs. Abd - abdomen was soft. Nontender. Nondistended. Positive bowel sounds. No organomegaly or masses. Ext - no clubbing, cyanosis or edema. 2+ DP pulses bilaterally. Neuro - patient is alert and oriented. Strength is 5/5 in both upper and lower extremities. Cranial nerves 2-12 are intact. Speech is clear. Difficulty with finger->nose bilaterally with overshooting. Heel->garcia okay. Rapid alternating movements poor with right hand. Able to heel and toe walk. Mildly ataxic when walking to the door. Psych - anxious mood and affect. Skin - warm and dry. No rashes noted. DS: Data Data Completed and Pending Labs on day of discharge: Labs from last 24 hours 01/31/23 01/31/23 01/31/23 09:42 09:42 09:42 WBC RBC Hgb Hct MCV MCH MCHC RDW Plt Count MPV Immature Gran % (Auto) Neut % (Auto) Lymph % (Auto) [place] % (Auto) Eos % (Auto) Bas
[2023-02-01 13:22] LABS: Rapid Plasma Reagin Non-Reactive (NonReactive)
== END 2023-01-31 16:30 | disposition home or self-care (01) ==
LOC: ANHED 17:56 → ANH3MEDSUR 01-31 03:04
PROVIDERS: Admitting Provider Internal Medicine; Emergency Provider Physician Assistant; Visit Provider Internal Medicine
DX: R41.82 Altered mental status, unspecified (principal); R27.0 Ataxia, unspecified; R47.9 Unspecified speech disturbances; H53.9 Unspecified visual disturbance; M19.90 Unspecified osteoarthritis, unspecified site; Z20.822 Contact with and (suspected) exposure to COVID-19; G40.909 Epilepsy, unspecified, not intractable, without status epilepticus; I45.10 Unspecified right bundle-branch block; R00.0 Tachycardia, unspecified; R06.02 Shortness of breath; G89.29 Other chronic pain; M54.50 Low back pain, unspecified; R10.9 Unspecified abdominal pain; F41.9 Anxiety disorder, unspecified; F32.A Depression, unspecified; R73.9 Hyperglycemia, unspecified; F10.90 Alcohol use, unspecified, uncomplicated; Y90.0 Blood alcohol level of less than 20 mg/100 ml; F17.210 Nicotine dependence, cigarettes, uncomplicated; Z87.820 Personal history of traumatic brain injury; Z79.899 Other long term (current) drug therapy; Z82.61 Family history of arthritis
CPT/HCPCS: 36415; 70450; 70553; 80053; 80074; 80307; 81001; 82550; 82607; 82746; 82948; 83036; 83605; 84443; 84703; 85025; 86592; 87086; 87147; 87181; 87186; 87636; 93005; 96361; 96365; 96366; 96367; 96375; 99285; A9270; A9577; G0378; G0379; J0696; J1953; J2060; J7030

== ENCOUNTER 2023-02-06 13:55 | Emergency (ER) | payer OTHER, SELFPAY ==
--- NOTE | ~2023-02-06 | XR_ITS ---
EXAMINATION: XR foot RT min 3V DATE: 02/06/2023 14:25 INDICATION: Right foot pain, initial encounter TECHNIQUE: Dorsoplantar, lateral, and 2 oblique views of the right foot were obtained. COMPARISON: 08/12/2017 FINDINGS: There is an acute fracture of the medial cuneiform. Surgical changes are noted in the dista l aspect of the first metatarsal and the first proximal phalanx. The joint spaces are normal. There i s soft tissue swelling of the midfoot. No additional acute osseous abnormality is identified. IMPRESSION: 1. Acute fracture of the medial cuneiform. Reviewed, dictated and finalized at location L.
--- NOTE | 2023-02-06 14:16 | ED.LOWEXIN ---
HPI - Extremity Injury (Lower) General Chief Complaint: Extremity Injury, Lower Stated Complaint: fall - RIGHT foot pain Time Seen by Provider: 02/06/23 13:56 History of Present Illness HPI Narrative: Patient is a 52-year-old female here via EMS for evaluation of right foot pain after a fall yesterday. Patient states that she was walking in her household in the dark when she tripped on a rug, falling forward and striking her knee and foot against the ground. Patient has been unable to bear weight on the foot since the accident. She did not attempt any medicine for pain at home. Received 8 mg of morphine IV by EMS which did improve her pain. She denies any numbness or tingling in the foot. No head injury or loss of consciousness. Related Data Home Medications Medication Instructions Recorded Confirmed atorvastatin 40 mg tablet 40 mg PO QHS 04/03/22 01/31/23 cetirizine 10 mg tablet 10 mg PO DAILY 04/03/22 01/31/23 citalopram 40 mg tablet 40 mg PO DAILY 04/03/22 01/31/23 lamotrigine 200 mg tablet 200 mg PO BID 04/03/22 01/31/23 levetiracetam 750 mg tablet 750 mg PO BID 04/03/22 01/31/23 omeprazole 40 mg capsule,delayed 40 mg PO DAILY 04/03/22 01/31/23 release primidone 250 mg tablet 375 mg PO BID 04/03/22 01/31/23 Allergies Allergy/AdvReac Type Severity Reaction Status Date / Time divalproex sodium Allergy Unknown Unknown Verified 01/30/23 18:31 phenytoin Allergy Unknown Other Verified 01/30/23 18:31 Review of Systems Review of Systems: Gen.: Denies fevers or chills Eyes: Denies eye pain or visual change ENT: Denies congestion Respiratory: Denies shortness of breath or cough CV: Denies chest pain or palpitations GI: Denies abdominal pain nausea, emesis or diarrhea denies burning, urgency, frequency or hematuria Musculoskeletal: Reports right foot pain Neuro: Denies numbness, tingling, weakness or focal weakness Skin: Denies rash Except as documented, all other systems reviewed and negative PMFSH Past Medical History Medical History Anxiety Arthritis Depression Dizziness Generalized anxiety disorder Labral tear of right hip joint Left shoulder pain Right hip pain Rotator cuff tendonitis Rotator cuff tendonitis Seasonal allergies Seizure disorder Patient is on Keppra and primidone Shortness of breath SLAP tear of shoulder Strain of hip flexor Toe fracture, left Traumatic brain injury Causing seizure disorder at the age of 14 Trochanteric bursitis, right hip Urinary frequency Vertigo Vision abnormalities Surgical History Surgical History H/O left knee surgery Family History Family History Sibling Gunshot wound Mother Malignant neoplasm Father Diabetes mellitus Atrial fibrillation Hyperlipidemia Other Arthritis Hypertension Social History Social History Social History: Lives at home with her 13-year-old daughter. She is single. She is a full code. She nominates her son Efraín to be the individual who would make medical decisions for her if she is unable. Smoking packs per day: 0.50 Smoking cigarettes per day: 10.0 Years smoked: 30 Smoking pack-years: 15.00 Smoking status: Current every day smoker Tobacco type: cigarettes Second hand tobacco smoke exposure: No Alcohol intake: current Drinks per week: 2 Substance use: never Substance use type: does not use Lack of Transportation: No Lack of Food: Never True Current Housing: I Have Housing Concerned About Future Housing: No Difficulty Paying Gas/Electric Bills: No Difficulty Paying for Meds: No Currently Unemployed: No Education: High School Diploma/GED Difficulty w/ Childcare or Family Care: No Gender identity (if verbalized by the patient): Female Spiritual
[2023-02-06 15:00] VITALS: BP 124/80; PULSE 94; RESP 14; TEMP 37.1; O2SAT 94
[2023-02-06] MEDS: KETOROLAC 30 MG/ML VIAL (*BKC) (15:00)
[2023-02-06 15:27] VITALS: BP 116/76; PULSE 80; RESP 12; O2SAT 98
[2023-02-06 16:01] VITALS: BP 116/80; PULSE 80; RESP 12; O2SAT 98
--- NOTE | 2023-02-06 16:01 | PC.NURSE ---
Pt. given crutches. Pt. refused to give return demonstration stating she already knows how to use crutches and has some at home.
== END 2023-02-06 16:02 | disposition home or self-care (01) ==
PROVIDERS: Emergency Provider Physician Assistant; PCP Nurse Practitioner Family
DX: S92.241A Displaced fracture of medial cuneiform of right foot, initial encounter for closed fracture (principal); F17.210 Nicotine dependence, cigarettes, uncomplicated; F41.9 Anxiety disorder, unspecified; M19.90 Unspecified osteoarthritis, unspecified site; F32.A Depression, unspecified; W01.0XXA Fall on same level from slipping, tripping and stumbling without subsequent striking against object, initial encounter
CPT/HCPCS: 29515; 73562; 73630; 96374; 99284; J1885

== ENCOUNTER 2023-02-12 02:04 | Emergency (ER) | payer OTHER, SELFPAY ==
--- NOTE | ~2023-02-12 | XR_ITS ---
Right foot Technique: AP, oblique, and lateral views were obtained. Clinical History: Pain COMPARISON: 02/06/2023 Findings:. Noted is an oblique, essentially nondisplaced fracture of the medial cuneiform. Stable pos toperative changes of the first metatarsal and first proximal phalanx.. Joint spaces are preserved wi thout erosive or degenerative change. Soft tissues are unremarkable. Impression: Oblique, nondisplaced fracture of the medial cuneiform, unchanged from recent prior exam. Stable postoperative changes of the first metatarsal and first proximal phalanx. Reviewed, dictated and finalized at location . Impression: Oblique, nondisplaced fracture of the medial cuneiform, unchanged from recent p rior exam. Stable postoperative changes of the first metatarsal and first proximal phalanx .
[2023-02-12 02:08] VITALS: BP 132/80; PULSE 90; RESP 16; TEMP 36.4; O2SAT 98
--- NOTE | 2023-02-12 03:14 | ED.GENADULT ---
HPI - General Adult General Chief complaint: Extremity Injury, Lower Stated complaint: right foot pain Time Seen by Provider: 02/12/23 03:07 History of Present Illness HPI narrative: Patient 52-year-old female who presents the emergency department with chief complaint of right foot pain the patient was seen in the emergency department recently diagnosed with a midfoot fracture. The patient took off her splint and placed a old walking boot on but then subsequently took it off and came to the emergency department without the boot on patient reports the pain is worse with walking reports that she has an appointment at 9:30 AM with her primary care provider to make sure that she has a referral to cardiology Related Data Home Medications Medication Instructions Recorded Confirmed atorvastatin 40 mg tablet 40 mg PO QHS 04/03/22 01/31/23 cetirizine 10 mg tablet 10 mg PO DAILY 04/03/22 01/31/23 citalopram 40 mg tablet 40 mg PO DAILY 04/03/22 01/31/23 lamotrigine 200 mg tablet 200 mg PO BID 04/03/22 01/31/23 levetiracetam 750 mg tablet 750 mg PO BID 04/03/22 01/31/23 omeprazole 40 mg capsule,delayed 40 mg PO DAILY 04/03/22 01/31/23 release primidone 250 mg tablet 375 mg PO BID 04/03/22 01/31/23 Allergies Allergy/AdvReac Type Severity Reaction Status Date / Time divalproex sodium Allergy Unknown Unknown Verified 02/12/23 02:12 phenytoin Allergy Unknown Other Verified 02/12/23 02:12 Review of Systems Review of Systems: A 10 system review of systems was completed on the patient and is negative except for what is stated in the HPI. Nursing and ancillary documentation was reviewed. [facility] Past Medical History Medical History Anxiety Arthritis Depression Dizziness Generalized anxiety disorder Labral tear of right hip joint Left shoulder pain Right hip pain Rotator cuff tendonitis Rotator cuff tendonitis Seasonal allergies Seizure disorder Patient is on Keppra and primidone Shortness of breath SLAP tear of shoulder Strain of hip flexor Toe fracture, left Traumatic brain injury Causing seizure disorder at the age of 14 Trochanteric bursitis, right hip Urinary frequency Vertigo Vision abnormalities Surgical History Surgical History H/O left knee surgery Family History Family History Sibling Gunshot wound Mother Malignant neoplasm Father Diabetes mellitus Atrial fibrillation Hyperlipidemia Other Arthritis Hypertension Social History Social History Social History: Lives at home with her 13-year-old daughter. She is single. She is a full code. She nominates her son Efraín to be the individual who would make medical decisions for her if she is unable. Smoking packs per day: 0.50 Smoking cigarettes per day: 10.0 Years smoked: 30 Smoking pack-years: 15.00 Smoking status: Current every day smoker Tobacco type: cigarettes Second hand tobacco smoke exposure: No Alcohol intake: current Drinks per week: 2 Substance use: never Substance use type: does not use Lack of Transportation: No Lack of Food: Never True Current Housing: I Have Housing Concerned About Future Housing: No Difficulty Paying Gas/Electric Bills: No Difficulty Paying for Meds: No Currently Unemployed: No Education: High School Diploma/GED Difficulty w/ Childcare or Family Care: No Gender identity (if verbalized by the patient): Female Spiritual care concerns: No Exam Narrative: GENERAL: Well-appearing, well-nourished, and in no acute distress. HEAD: Normocephalic, atraumatic. EYES: PERRLA and EOMI. ENT: Nares clear, no rhinorrhea or epistaxis. Mucous membranes moist. NECK: Supple. CHEST: Clear to auscultation. No respiratory distress. HEAR
[2023-02-12] MEDS: HYDROcodone/acetaminophen (*CRX) 5-325 MG TABLET 1 TAB PO (03:32)
--- NOTE | 2023-02-12 05:19 | PC.NURSE ---
short leg posterior splint placed to right leg, checked by dr. mccoy
[2023-02-12 05:20] VITALS: PULSE 73; RESP 18; O2SAT 97
== END 2023-02-12 05:21 | disposition home or self-care (01) ==
LOC: ANHED 04:05
PROVIDERS: Emergency Provider Emergency Medicine; PCP Nurse Practitioner Family
DX: S92.241D Displaced fracture of medial cuneiform of right foot, subsequent encounter for fracture with routine healing (principal); F17.210 Nicotine dependence, cigarettes, uncomplicated; X58.XXXD Exposure to other specified factors, subsequent encounter
CPT/HCPCS: 29515; 73630; 99283; A9270

== ENCOUNTER 2023-02-24 03:30 | Emergency (ER) | payer OTHER, SELFPAY ==
--- NOTE | ~2023-02-24 | XR_ITS ---
Clinical Indication: Cough PA and lateral views of the chest: Comparison: 06/15/2022 Findings: The lungs are clear, without evidence of focal consolidation or pleural effusion. Cardiome diastinal silhouette is within normal limits. Bones and soft tissues are unremarkable. Impression: Normal chest. Reviewed, dictated and finalized at location . Impression: Normal chest.
[2023-02-24 03:28] VITALS: BP 118/94; PULSE 85; RESP 18; TEMP 36.7; O2SAT 97
[2023-02-24 04:25] LABS: Influenza A QL RT-PCR Negative (Negative); Influenza B QL RT-PCR Negative (Negative); SARS-CoV-2 RNA PCR Negative
[2023-02-24] MEDS: guaiFENesin/DEXTROMETHORPHAN 10 ML UDC PO (05:00)
[2023-02-24] MEDS: IBUPROFEN 400 MG TABLET 800 MG PO (05:01)
[2023-02-24] MEDS: ACETAMINOPHEN 500 MG TABLET 1000 MG PO (05:02)
--- NOTE | 2023-02-24 05:24 | ED.GENADULT ---
HPI - General Adult General Chief complaint: Upper Respiratory Infection Stated complaint: cough Time Seen by Provider: 02/24/23 03:39 History of Present Illness HPI narrative: This is a 52-year-old female presenting ED with a chief complaint of URI symptoms times days. Patient says this started with sore throat and headache. Now she is having subjective fevers, nausea and congestion. Her main complaint is a persistent cough. She has been using an inhaler. She has also taken some unnamed cough medicine. Patient is here seeking symptomatic relief of her cough and cold symptoms. She has taken amoxicillin for a UTI. Related Data Home Medications Medication Instructions Recorded Confirmed atorvastatin 40 mg tablet 40 mg PO QHS 04/03/22 02/17/23 cetirizine 10 mg tablet 10 mg PO DAILY 04/03/22 02/17/23 citalopram 40 mg tablet 40 mg PO DAILY 04/03/22 02/17/23 lamotrigine 200 mg tablet 200 mg PO BID 04/03/22 02/17/23 levetiracetam 750 mg tablet 750 mg PO BID 04/03/22 02/17/23 omeprazole 40 mg capsule,delayed 40 mg PO DAILY 04/03/22 02/17/23 release primidone 250 mg tablet 375 mg PO BID 04/03/22 02/17/23 Allergies Allergy/AdvReac Type Severity Reaction Status Date / Time divalproex sodium Allergy Unknown Unknown Verified 02/17/23 08:36 phenytoin Allergy Unknown Other Verified 02/17/23 08:36 [facility] Past Medical History Medical History (Updated 02/24/23 @ 05:34 by Zuhair Mahoney MD) Anxiety Arthritis Depression Dizziness Fracture of medial cuneiform (~02/05/23) Generalized anxiety disorder Labral tear of right hip joint Left shoulder pain Right hip pain Rotator cuff tendonitis Rotator cuff tendonitis Seasonal allergies Seizure disorder Patient is on Keppra and primidone Shortness of breath SLAP tear of shoulder Strain of hip flexor Toe fracture, left Traumatic brain injury Causing seizure disorder at the age of 14 Trochanteric bursitis, right hip Urinary frequency Vertigo Vision abnormalities Surgical History Surgical History H/O left knee surgery Family History Family History Sibling Gunshot wound Mother Malignant neoplasm Father Diabetes mellitus Atrial fibrillation Hyperlipidemia Other Arthritis Hypertension Social History Social History (Updated 02/17/23 @ 08:41 by Holly Gambino MA) Social History: Lives at home with her 13-year-old daughter. She is single. She is a full code. She nominates her son Efraín to be the individual who would make medical decisions for her if she is unable. Smoking packs per day: 0.50 Smoking cigarettes per day: 10.0 Years smoked: 30 Smoking pack-years: 15.00 Smoking status: Current every day smoker Tobacco type: cigarettes Second hand tobacco smoke exposure: No Alcohol intake: current Drinks per week: 2 Substance use: never Substance use type: does not use Lack of Transportation: YES Lack of Food: Sometimes True Current Housing: I Have Housing Concerned About Future Housing: No Difficulty Paying Gas/Electric Bills: YES Difficulty Paying for Meds: No Currently Unemployed: No Education: High School Diploma/GED Difficulty w/ Childcare or Family Care: No Gender identity (if verbalized by the patient): Female Spiritual care concerns: No Exam Narrative: APPEARANCE: No apparent distress. Head: atraumatic. EYES: EOMI, NOSE: Atraumatic NECK: Trachea midline RESPIRATORY: No increased rate of breathing, scattered expiratory wheezing, 100% on RA, Speaking in full sentences CARDIOVASCULAR: RRR, no peripheral edema ABDOMINAL: Non-distended MUSCULOSKELETAl: No obvious deformities NEURO: Alert. Moving 4/4 extremities SKIN:: Warm, dry. Normal color PSYCHIATRIC: Normal affect Course Vital Signs Vital signs: Vital Signs Temperature 98.0 F 02/24/23 03:28 Pulse Rate 8
[2023-02-24] MEDS: ALBUTEROL SULFATE NEB 2.5 MG/3 ML INH 5 MG INHALATION (05:36)
[2023-02-24] MEDS: IPRATROPIUM BR 0.02% INH SOLN 0.5 MG/2.5 ML VIAL 10 MG INHALATION (05:37)
[2023-02-24 05:41] VITALS: BP 104/75; PULSE 76; RESP 16; O2SAT 93
[2023-02-24 05:42] VITALS: PULSE 74; RESP 18
[2023-02-24 05:54] VITALS: PULSE 74; RESP 18
[2023-02-24 06:50] VITALS: BP 117/82; PULSE 88; RESP 18; O2SAT 96
== END 2023-02-24 06:52 | disposition home or self-care (01) ==
PROVIDERS: Emergency Provider Emergency Medicine; PCP Nurse Practitioner Family
DX: J40 Bronchitis, not specified as acute or chronic (principal); Z20.822 Contact with and (suspected) exposure to COVID-19; F17.210 Nicotine dependence, cigarettes, uncomplicated; M19.90 Unspecified osteoarthritis, unspecified site; F41.9 Anxiety disorder, unspecified; F32.A Depression, unspecified
CPT/HCPCS: 71046; 87636; 94640; 99283; A9270

== ENCOUNTER 2023-02-27 18:07 | Emergency (ER) | payer OTHER, SELFPAY ==
[2023-02-27] VITALS (14 sets, daily range): BP systolic 120; BP diastolic 75; PULSE 85–107; RESP 18–20; TEMP 36.8; O2SAT 92–100
--- NOTE | ~2023-02-27 | XR_ITS ---
EXAMINATION: XR chest 2V DATE: 02/27/2023 20:05 INDICATION: Cough and shortness of breath TECHNIQUE: Frontal and lateral views of the chest are obtained COMPARISON: 02/24/2023 FINDINGS: The lungs are free of acute opacities. No pleural effusion or pneumothorax. The cardiomedia stinal silhouette is normal. There is mild thoracic spondylosis. IMPRESSION: 1. No acute cardiopulmonary abnormality. Reviewed, dictated and finalized at location F.
[2023-02-27 20:18] LABS: Influenza A QL RT-PCR Negative (Negative); Influenza B QL RT-PCR Negative (Negative); RSV RNA, RT-PCR Negative (Negative); SARS-CoV-2 RNA PCR Negative
--- NOTE | 2023-02-27 21:37 | PC.NURSE ---
EDP at bedside to assess pt.
[2023-02-27] MEDS: KETOROLAC (*BKC) 60 MG/2 ML VIAL IM (21:57)
[2023-02-27] MEDS: LEVALBUTEROL NEB 1.25 MG/3 ML 2.5 MG INHALATION (22:05)
[2023-02-27] MEDS: IPRATROPIUM BR 0.02% INH SOLN 0.5 MG/2.5 ML VIAL 1.5 MG INHALATION (22:05)
--- NOTE | 2023-02-27 22:08 | PC.NURSE ---
RT at bedside to administer ordered breathing treatment.
[2023-02-27] MEDS: LORATADINE 10 MG TABLET PO (22:16)
--- NOTE | 2023-02-27 22:53 | ED.URI ---
HPI - URI/Sore Throat General Chief Complaint: Upper Respiratory Infection Stated Complaint: cough, hx bronchitis Time Seen by Provider: 02/27/23 20:49 Source: patient and old records reviewed Mode of arrival: EMS Limitations: no limitations History of Present Illness HPI Narrative: Patient is a 52-year-old female who presented to the ED via EMS with report of cough. Patient reports having a persistent dry cough for the last 2 weeks. She states the cough is so severe at times that she cannot sleep. She does also report having a headache and pain along her left-sided rib cage with coughing. Denies any recent fever, congestion, rhinorrhea, sore throat, nausea, vomiting, chest pain at rest, difficulty breathing. Patient was seen in the ED here 2 days ago and diagnosed with bronchitis. Given Rxs for inhaler, ibuprofen, tylenol, and cough medicine. Patient denies improvement. She did not fill her inhaler. She has not followed with her doctor. She also mentions she has a new cat that she may be allergic to and stopped taking her cetirizine 1 week ago. Related Data Home Medications Medication Instructions Recorded Confirmed atorvastatin 40 mg tablet 40 mg PO QHS 04/03/22 02/17/23 cetirizine 10 mg tablet 10 mg PO DAILY 04/03/22 02/17/23 citalopram 40 mg tablet 40 mg PO DAILY 04/03/22 02/17/23 lamotrigine 200 mg tablet 200 mg PO BID 04/03/22 02/17/23 levetiracetam 750 mg tablet 750 mg PO BID 04/03/22 02/17/23 omeprazole 40 mg capsule,delayed 40 mg PO DAILY 04/03/22 02/17/23 release primidone 250 mg tablet 375 mg PO BID 04/03/22 02/17/23 Allergies Allergy/AdvReac Type Severity Reaction Status Date / Time divalproex sodium Allergy Unknown Unknown Verified 02/27/23 20:25 phenytoin Allergy Unknown Other Verified 02/27/23 20:25 Review of Systems Review of Systems: CONSTITUTIONAL: Denies fever, chills, or sweats. ENT: Denies rhinorrhea, congestion, sore throat, or otalgia. CARDIOVASCULAR: Denies chest pain, palpitations, or edema. RESPIRATORY: See HPI. GASTROINTESTINAL: Denies abdominal pain, nausea, vomiting, or diarrhea. GENITOURINARY: Denies dysuria or hematuria. SKIN: Denies rash or itching. MUSCULOSKELETAL: See HPI. NEUROLOGIC: See HPI. All systems reviewed & are unremarkable except as noted in HPI and below PMFSH Past Medical History Medical History Anxiety Arthritis Depression Dizziness Fracture of medial cuneiform (~02/05/23) Generalized anxiety disorder Labral tear of right hip joint Left shoulder pain Right hip pain Rotator cuff tendonitis Rotator cuff tendonitis Seasonal allergies Seizure disorder Patient is on Keppra and primidone Shortness of breath SLAP tear of shoulder Strain of hip flexor Toe fracture, left Traumatic brain injury Causing seizure disorder at the age of 14 Trochanteric bursitis, right hip Urinary frequency Vertigo Vision abnormalities Surgical History Surgical History H/O left knee surgery Family History Family History Sibling Gunshot wound Mother Malignant neoplasm Father Diabetes mellitus Atrial fibrillation Hyperlipidemia Other Arthritis Hypertension Social History Social History Social History: Lives at home with her 13-year-old daughter. She is single. She is a full code. She nominates her son Efraín to be the individual who would make medical decisions for her if she is unable. Smoking packs per day: 0.50 Smoking cigarettes per day: 10.0 Years smoked: 30 Smoking pack-years: 15.00 Smoking status: Current every day smoker Tobacco type: cigarettes Second hand tobacco smoke exposure: No Alcohol intake: current Drinks per week: 2 Substance use: never Substance use type: does not use Lack of Transp
== END 2023-02-27 23:33 | disposition home or self-care (01) ==
PROVIDERS: Emergency Medicine; Emergency Provider Physician Assistant; PCP Nurse Practitioner Family
DX: J40 Bronchitis, not specified as acute or chronic (principal); J06.9 Acute upper respiratory infection, unspecified; Z20.822 Contact with and (suspected) exposure to COVID-19; G40.909 Epilepsy, unspecified, not intractable, without status epilepticus; F32.A Depression, unspecified; F41.1 Generalized anxiety disorder; M19.90 Unspecified osteoarthritis, unspecified site; F17.210 Nicotine dependence, cigarettes, uncomplicated; Z87.820 Personal history of traumatic brain injury
CPT/HCPCS: 71046; 87637; 94640; 96372; 99283; A9270; J1885

== ENCOUNTER 2023-05-03 08:17 | Emergency (ER) | payer OTHER, SELFPAY ==
[2023-05-03] VITALS (11 sets, daily range): BP systolic 127–141; BP diastolic 72–88; PULSE 72–86; RESP 11–25; TEMP 36.5; O2SAT 95–100
--- NOTE | ~2023-05-03 | XR_ITS ---
XR chest 2V DATE: 05/03/2023 08:47 INDICATION: Shortness of breath TECHNIQUE: PA and lateral views COMPARISON: February 27, 2023 2 view chest FINDINGS: Normal heart size. Mild aortic tortuosity. No hilar or mediastinal enlargement. No pulmonar y infiltrate or consolidation, pleural effusion or pulmonary vascular congestion or pneumothorax is d etected. IMPRESSION: No active cardiac pulmonary disease Reviewed, dictated and finalized at location A.
--- NOTE | 2023-05-03 08:31 | ECG_ITS ---
Measurements Intervals [place] Rate: 82 P: 43 IA: 178 QRS: 36 QRSD: 102 T: 39 QT: 375 QTc: 439 Interpretive Statements SINUS RHYTHM POSSIBLE LEFT ATRIAL ENLARGEMENT [-0.1mV P-WAVE IN V1/V2] INCOMPLETE RIGHT BUNDLE BRANCH BLOCK [90+ ms QRS DURATION, TERMINAL R IN V1/V2, 40+ ms S IN I/aVL/V4/V5/V6] ABNORMAL ECG COMPARED TO ECG 01/30/2023 18:18:50 NO SIGNIFICANT CHANGES Electronically Signed On 05-03-2023 9:17:52 CDT by Kenyon Brown M.D.
--- NOTE | 2023-05-03 08:35 | ED.GENADULT ---
HPI - General Adult General Chief complaint: Shortness of Breath/Dyspnea Stated complaint: SOB Time Seen by Provider: 05/03/23 08:29 History of Present Illness HPI narrative: 53-year-old female presented to the emergency department for evaluation of right paraspinal back pain that is worsened with deep inspiration. Patient reports that approximately 8:00 this morning she was laughing when she had worsening of her pain. Patient states it feels like she has a shrunken lung on that side, patient has no prior history of pneumothorax. Related Data Home Medications Medication Instructions Recorded Confirmed atorvastatin 40 mg tablet 40 mg PO QHS 04/03/22 02/17/23 cetirizine 10 mg tablet 10 mg PO DAILY 04/03/22 02/17/23 citalopram 40 mg tablet 40 mg PO DAILY 04/03/22 02/17/23 lamotrigine 200 mg tablet 200 mg PO BID 04/03/22 02/17/23 omeprazole 40 mg capsule,delayed 40 mg PO DAILY 04/03/22 02/17/23 release Allergies Allergy/AdvReac Type Severity Reaction Status Date / Time divalproex sodium Allergy Unknown Unknown Verified 04/23/23 13:41 phenytoin Allergy Unknown Other Verified 04/23/23 13:41 Review of Systems Review of Systems: All systems reviewed & are unremarkable except as noted in HPI and below PMFSH Past Medical History Medical History Anxiety Arthritis Depression Dizziness Fracture of medial cuneiform bone of right foot (~02/05/23) Generalized anxiety disorder Labral tear of right hip joint Left shoulder pain Right hip pain Rotator cuff tendonitis Rotator cuff tendonitis Seasonal allergies Seizure disorder Patient is on Keppra and primidone Shortness of breath SLAP tear of shoulder Strain of hip flexor Toe fracture, left Traumatic brain injury Causing seizure disorder at the age of 14 Trochanteric bursitis, right hip Urinary frequency Vertigo Vision abnormalities Surgical History Surgical History H/O left knee surgery Family History Family History Sibling Gunshot wound Mother Malignant neoplasm Father Diabetes mellitus Atrial fibrillation Hyperlipidemia Other Arthritis Hypertension Social History Social History Social History: Lives at home with her 13-year-old daughter. She is single. She is a full code. She nominates her son Efraín to be the individual who would make medical decisions for her if she is unable. Smoking packs per day: 0.50 Smoking cigarettes per day: 10.0 Years smoked: 30 Smoking pack-years: 15.00 Smoking status: Current every day smoker Tobacco type: cigarettes Second hand tobacco smoke exposure: No Alcohol intake: current Drinks per week: 2 Substance use: never Substance use type: does not use Lack of Transportation: YES Lack of Food: Sometimes True Current Housing: I Have Housing Concerned About Future Housing: No Difficulty Paying Gas/Electric Bills: YES Difficulty Paying for Meds: No Currently Unemployed: No Education: High School Diploma/GED Difficulty w/ Childcare or Family Care: No Gender identity (if verbalized by the patient): Female Spiritual care concerns: No Exam Narrative: APPEARANCE: Well appearing, no pain, no distress, well-nourished. HEAD: normocephalic, atraumatic. EYES: PERRLA/EOMI, conjunctivae clear. NOSE: Normal no drainage NECK: Supple. No adenopathy, no masses. RESPIRATORY: Airway patent, respirations nonlabored. Clear to auscultation bilaterally, no rales, rhonchi, wheezing. CARDIOVASCULAR: Regular rate and rhythm without murmurs rubs or gallops. ABDOMINAL: Soft, nontender, nondistended, normal bowel sounds MUSCULOSKELETAL: Reproducible muscular right-sided thoracic paraspinal tenderness NEURO: Alert. Cranial nerves II through XII intact. Good gait. Good coordination SK
[2023-05-03 08:57] LABS: Basophils Absolute Auto 0.1 K/mm3 (0.0-0.1); Eosinophils Absolute Auto 0.1 K/mm3 (0-0.3); Eosinophils Percent Auto 1.2 % (0-4.4); Hematocrit 43.3 % (37.0-47.0); Hemoglobin 14.4 g/dL (12.0-15.0); Lymphocytes Absolute Auto 1.58 K/mm3 (0.9-3.2); Lymphocytes Percent Auto 31.4 % (18.3-44.2); Mean Corpuscular HGB Conc 33.3 g/dl (32-36); Mean Corpuscular Hemoglobin 34.4 pg (26-34); Mean Corpuscular Volume 103.6 fl (80-100); Mean Platelet Volume 9.9 fl (7.4-10.4); Monocytes Absolute Auto 0.5 K/mm3 (0.1-0.6); Monocytes Percent Auto 10.7 % (2.6-8.5); Neutrophils Absolute Auto 2.8 K/mm3 (1.3-6.7); Neutrophils Percent Auto 55.7 % (45.5-73.1); Platelet Count Result 289 k/mm3 (150-375); Red Blood Count 4.18 M/mm3 (4.2-5.4); Red Cell Distribution Width 14.7 % (11.5-14.5)
[2023-05-03] MEDS: CYCLOBENZAPRINE HCL 10 MG TABLET PO (09:09)
[2023-05-03] MEDS: HYDROcodone/acetaminophen (*CRX) 5-325 MG TABLET 1 TAB PO (09:09)
[2023-05-03 09:28] LABS: Alanine Aminotransferase 20 U/L (6-35); Albumin Level 4.4 g/dL (3.5-5.1); Alkaline Phosphatase 106 U/L (38-126); Anion Gap 4 mmol/L (8-16); Aspartate Amino Transferase 51 U/L (14-36); Bilirubin,Total 0.5 mg/dL (0.2-1.3); Blood Urea Nitrogen 15 mg/dL (7-17); Calcium 9.1 mg/dL (8.4-10.2); Carbon Dioxide 33 mmol/L (22-30); Chloride 99 mmol/L (98-107); Estimated CRCL calculation 96 ml/min; Estimated Glomerular Filt Rate > 60; Glucose 106 mg/dL (65-110); Potassium 3.8 mmol/L (3.4-5.0); Sodium 136 mmol/L (137-145)
[2023-05-03] MEDS: KETOROLAC 15 MG/ML VIAL (*BKC) IV PUSH (09:37)
[2023-05-03 09:41] LABS: D Dimer < 0.27 ug/mL (<0.48)
== END 2023-05-03 10:09 | disposition home or self-care (01) ==
PROVIDERS: Emergency Provider Emergency Medicine; PCP Nurse Practitioner Family
DX: M54.9 Dorsalgia, unspecified (principal); G40.909 Epilepsy, unspecified, not intractable, without status epilepticus; M19.90 Unspecified osteoarthritis, unspecified site; F32.A Depression, unspecified; F41.1 Generalized anxiety disorder; F17.210 Nicotine dependence, cigarettes, uncomplicated; Z87.820 Personal history of traumatic brain injury
CPT/HCPCS: 36415; 71046; 80053; 85025; 85380; 93005; 96374; 99284; A9270; J1885

== ENCOUNTER 2023-05-19 09:23 | Outpatient (CLI) | payer OTHER, SELFPAY ==
--- NOTE | ~2023-05-19 | MR_ITS ---
EXAMINATION: MR brain/brain stem wo con DATE: 05/19/2023 10:27 INDICATION: Unspecified convulsions. TECHNIQUE: Magnetic resonance imaging (MRI) of the brain and brainstem was performed without intraven ous contrast. COMPARISON: Brain MRI 01/31/2023 FINDINGS: There is no intracranial hemorrhage, acute infarction, or abnormal intracranial mass lesion . The ventricles are normal in size. There is mild mucosal thickening left maxillary sinus. The masto id air cells are normal. The orbits are normal. IMPRESSION: 1. Normal brain. Reviewed, dictated and finalized at location A. IMPRESSION: 1. Normal brain.
== END 2023-05-19 09:24 | disposition home or self-care (01) ==
PROVIDERS: PCP Nurse Practitioner Family; Visit Provider Psychiatry & Neurology Neurology
DX: R56.9 Unspecified convulsions (principal)
CPT/HCPCS: 70551

== ENCOUNTER 2023-05-20 10:35 | Emergency (ER) | payer OTHER, SELFPAY ==
--- NOTE | ~2023-05-20 | XR_ITS ---
EXAMINATION: XR shoulder LT min 2V INDICATION: Left shoulder pain TECHNIQUE: Four views of the left shoulder are submitted. COMPARISON: 12/09/2022 FINDINGS: Normal alignment. No fracture. There is mild osteoarthritis of the acromioclavicular and gl enohumeral joints. Soft tissues are unremarkable. IMPRESSION: 1. No acute osseous abnormality. Reviewed, dictated and finalized at location A.
--- NOTE | ~2023-05-20 | XR_ITS ---
EXAMINATION: XR knee LT min 4V DATE: 05/20/2023 11:48 INDICATION: Left knee pain TECHNIQUE: Four views of the left knee were obtained. COMPARISON: 06/15/2022 FINDINGS: Alignment is normal. No fracture or osteochondral lesion. There is mild tricompartmental os teoarthritis characterized by tiny marginal osteophytes. No joint effusion/synovitis. Soft tissues a re unremarkable. IMPRESSION: 1. No acute osseous abnormality. Reviewed, dictated and finalized at location A.
[2023-05-20 11:11] VITALS: BP 128/91; PULSE 100; RESP 18; TEMP 36.7; O2SAT 100
--- NOTE | 2023-05-20 12:42 | ED.LOWEXIN ---
HPI - Extremity Injury (Lower) General Chief Complaint: Extremity Injury, Lower Stated Complaint: Left knee pain Time Seen by Provider: 05/20/23 11:19 Source: patient Mode of arrival: ambulatory Limitations: no limitations History of Present Illness HPI Narrative: Patient is a 53-year-old female who presents to the ED with report of left knee and left shoulder pain. Patient reports having persistent pain in her left knee since her right foot fracture that was sustained in January. She feels like she was favoring her left leg due to the injury and has since developed pain in her left medial knee. She is still able to ambulate. She has been elevating her leg and using a knee brace without much relief. She has been taking Tylenol and ibuprofen. She is unable to get into her fiscal specialist until July she reports. Patient also reports having left shoulder pain since she rolled out of bed 3 months ago. Denies any further injury. Denies numbness or tingling. Related Data Home Medications Medication Instructions Recorded Confirmed atorvastatin 40 mg tablet 40 mg PO QHS 04/03/22 02/17/23 cetirizine 10 mg tablet 10 mg PO DAILY 04/03/22 02/17/23 citalopram 40 mg tablet 40 mg PO DAILY 04/03/22 02/17/23 lamotrigine 200 mg tablet 200 mg PO BID 04/03/22 02/17/23 omeprazole 40 mg capsule,delayed 40 mg PO DAILY 04/03/22 02/17/23 release Allergies Allergy/AdvReac Type Severity Reaction Status Date / Time divalproex sodium Allergy Unknown Unknown Verified 05/20/23 10:37 phenytoin Allergy Unknown Other Verified 05/20/23 10:37 Review of Systems Review of Systems: CONSTITUTIONAL: Denies fever, chills, or sweats. CARDIOVASCULAR: Denies chest pain. RESPIRATORY: Denies dyspnea. MUSCULOSKELETAL: See HPI. NEUROLOGIC: See HPI. All systems reviewed & are unremarkable except as noted in HPI and below PMFSH Past Medical History Medical History Anxiety Arthritis Depression Dizziness Fracture of medial cuneiform bone of right foot (~02/05/23) Generalized anxiety disorder Labral tear of right hip joint Left shoulder pain Right hip pain Rotator cuff tendonitis Rotator cuff tendonitis Seasonal allergies Seizure disorder Patient is on Keppra and primidone Shortness of breath SLAP tear of shoulder Strain of hip flexor Toe fracture, left Traumatic brain injury Causing seizure disorder at the age of 14 Trochanteric bursitis, right hip Urinary frequency Vertigo Vision abnormalities Surgical History Surgical History H/O left knee surgery Family History Family History Sibling Gunshot wound Mother Malignant neoplasm Father Diabetes mellitus Atrial fibrillation Hyperlipidemia Other Arthritis Hypertension Social History Social History Social History: Lives at home with her 13-year-old daughter. She is single. She is a full code. She nominates her son Efraín to be the individual who would make medical decisions for her if she is unable. Smoking packs per day: 0.50 Smoking cigarettes per day: 10.0 Years smoked: 30 Smoking pack-years: 15.00 Smoking status: Current every day smoker Tobacco type: cigarettes Second hand tobacco smoke exposure: No Alcohol intake: current Drinks per week: 2 Substance use: never Substance use type: does not use Lack of Transportation: YES Lack of Food: Sometimes True Current Housing: I Have Housing Concerned About Future Housing: No Difficulty Paying Gas/Electric Bills: YES Difficulty Paying for Meds: No Currently Unemployed: No Education: High School Diploma/GED Difficulty w/ Childcare or Family Care: No Gender identity (if verbalized by the patient): Female Spiritual care concerns: No Exam Na
[2023-05-20 13:06] VITALS: BP 118/78; PULSE 90; RESP 16; TEMP 36.8; O2SAT 98
== END 2023-05-20 13:08 | disposition home or self-care (01) ==
PROVIDERS: Emergency Provider Physician Assistant; PCP Nurse Practitioner Family
DX: M25.562 Pain in left knee (principal); M25.512 Pain in left shoulder; G40.909 Epilepsy, unspecified, not intractable, without status epilepticus; M19.90 Unspecified osteoarthritis, unspecified site; F41.9 Anxiety disorder, unspecified; F32.A Depression, unspecified; Z87.820 Personal history of traumatic brain injury; F17.210 Nicotine dependence, cigarettes, uncomplicated
CPT/HCPCS: 73030; 73564; 99284

== ENCOUNTER 2023-08-06 05:30 | Inpatient (IN) | payer OTHER, SELFPAY ==
[2023-08-06] VITALS (18 sets, daily range): BP systolic 128–158; BP diastolic 97–110; PULSE 88–104; RESP 13–20; TEMP 36.4–36.8; O2SAT 91–99
--- NOTE | ~2023-08-06 | XR_ITS ---
XR abdomen/kub 1V DATE: 08/06/2023 18:20 INDICATION: Intractable nausea and vomiting TECHNIQUE: Portable supine AP views COMPARISON: 08/06/2023 CT abdomen pelvis FINDINGS: Nonspecific bowel gas pattern. No bowel obstruction. No visceromegaly or significant abno rmal calcification. IMPRESSION: Nonspecific abdomen Reviewed, dictated and finalized at Location [facility]. Reviewed, dictated and finalized at location A. IMPRESSION: Nonspecific abdomen
--- NOTE | ~2023-08-06 | XR_ITS ---
XR chest 1V portable 08/09/2023 13:24 Indication: Fever and shortness of breath Procedure: AP portable chest Comparison: 02/27/2023 Findings: Heart size upper normal. Elevated right diaphragm. Subtle right basilar infiltrates may rep resent atelectasis or developing pneumonia. Impression: 1: Subtle right basilar infiltrates, atelectasis versus developing pneumonia. Reviewed, dictated and finalized at location A. Impression: 1: Subtle right basilar infiltrates, atelectasis versus developing pneumonia.
--- NOTE | ~2023-08-06 | CT_ITS ---
EXAMINATION: CT brain wo con INDICATION: Altered mental status COMPARISON: 01/30/2023 TECHNIQUE: Standard unenhanced head CT. The dose-length product (DLP) was 832.33 mGy-cm. The mA was a djusted according to patient size. Iterative reconstruction technique was employed. FINDINGS: Motion artifact slightly limits the examination. No intracranial hemorrhage, acute infarcti on, or abnormal mass lesion. The ventricles are normal. No abnormal mass effect or midline shift. The lan-white matter differentiation is normal. The basal cisterns are patent. The orbits are normal. T he paranasal sinuses, mastoids and calvarium are normal. IMPRESSION: 1. No acute intracranial abnormality. Reviewed, dictated and finalized at location B.
--- NOTE | ~2023-08-06 | CT_ITS ---
EXAMINATION: CT chest abdomen pelvis w con DATE: 08/08/2023 10:42 INDICATION: Surveillance renal hematoma. TECHNIQUE: Computed tomography (CT) of the chest, abdomen, and pelvis was performed with 100 mL Omnip aque-350 intravenous contrast. Automated exposure control and iterative reconstruction technique were employed. The dose-length product was 1388.42 mGy-cm. COMPARISON: None FINDINGS: CHEST CT: Band of discoid atelectasis in the right lower lobe and discoid atelectasis in both lower lobes. No s uspicious pulmonary nodules, pneumonia, pulmonary edema or pleural effusion. Heart size is normal. No pericardial effusion. Thoracic aorta is normal in caliber with no dissection. No pathologically enla rged thoracic lymphadenopathy. Bones are unremarkable. ABDOMEN/PELVIS CT: Liver, gallbladder, spleen, pancreas and bilateral adrenal glands are normal. 2 [address] nonobstructing sto francine at the lower pole calyces of both the left and right kidneys. No evident interval change in size of a right renal subcapsular hematoma which surrounds the majority of the right kidney. No evident ac tive contrast extravasation. There is increasing right perinephric stranding. There is diffuse delay in the phase of contrast enhancement of the right kidney relative to the left suggesting relative isc hemia. In addition there is a region of absent cortical perfusion at the upper pole of the right kidn ey consistent with infarct. Indeterminate 1.8 x 0.9 cm lesion at the periphery of the interpolar anjel on of the right kidney with relatively lower attenuation within the surrounding enhancing renal paren chyma and overlying subcapsular hematoma with appearance suggestive of a collapsed cyst. Differential would include less likely other renal neoplasm or additional small infarct. Bowels including the roni endix are normal. Bladder, uterus and bilateral adnexa are normal. No free intraperitoneal gas or flu id. No pathologically enlarged abdominal or pelvic lymphadenopathy. Small fat-containing umbilical he rnia. Mild lumbar spondylosis. IMPRESSION: 1. Unchanged right renal subcapsular hematoma with increasing perinephric stranding. There is delayed phase of contrast the right kidney relative to the left consistent with secondary ischemia with infa rct of a portion of the upper pole of the right kidney. 2. 1.8 x 0.9 cm relatively low attenuation lesion along the lateral interpolar right kidney with appe arance suggesting a collapsed cyst which may account for the origin of the hematoma. Differential wou ld include other renal neoplasm or additional small infarct. Consider follow-up pre and postcontrast MRI or CT in a few months following resolution of the hematoma. 3. Millimeter nonobstructing bilateral renal stones. Reviewed, dictated and finalized at location A. IMPRESSION: 1. Unchanged right renal subcapsular hematoma with increasing perinephric stran ding. There is delayed phase of contrast the right kidney relative to the left consistent with secondary ischemia with infarct of a portion of the upper pole of the right kidney. 2. 1.8 x 0.9 cm relatively low attenuation lesion along the lateral interpolar right kidney with appearance suggesting a collapsed cyst which may account for the origin of the hematoma. Differential would include other renal neoplasm or additional small infarct. Consider follow-up pre and postcontrast MRI or CT in a few months following resolution of the hematoma. 3. Millimeter nonobstructing bilateral renal stones.
--- NOTE | ~2023-08-06 | CT_ITS ---
Non-contrast CT scan of the Abdomen and Pelvis Clinical indication: Abdominal pain Technique: 2.5 mm axial scans were obtained through the abdomen and pelvis without intravenous or or al contrast. Dose reduction technique was used on this scan by utilizing automated exposure control a nd iterative reconstruction technique. The dose-length product (DLP) was 628.94 mGy-cm. COMPARISON: 04/05/2022 Findings: Images through the lung bases reveal no abnormalities. There is a large, crescentic hyperdense collection intimately abutting the lateral margin of the righ t kidney with a smooth external margin, most consistent with moderate to large subcapsular hematoma. Small bilateral nonobstructing renal stones are present. No hydronephrosis on either side. The liver, spleen, pancreas, and adrenals appear normal. Gallbladder is distended, but otherwise unre markable. There is no aortic aneurysm. There is no evidence of bowel obstruction. Small fat-containing of umbilical hernia noted. Normal roni endix. Images through the pelvis were performed. There is no evidence of ascites or lymphadenopathy. Urinary bladder unremarkable. No adnexal mass evident. Impression: Moderate to large acute right renal subcapsular hemorrhage/hematoma. Small bilateral nonobstructing renal stones. Small fat-containing umbilical hernia. Case discussed with Dr. Mccollum at the time of this reading. Reviewed, dictated and finalized at [facility]. Impression: Moderate to large acute right renal subcapsular hemorrhage/hematoma. Small bilateral nonobstructing renal stones. Small fat-containing umbilical hernia. Case discussed with Dr. Mccollum at the time of this reading.
--- NOTE | 2023-08-06 05:42 | ED.NAVMDI ---
HPI - Nausea/Vomiting/Diarrhea General Chief complaint: Nausea/Vomiting/Diarrhea <Cele Mccollum MD - Last Filed: 08/06/23 07:55> Stated complaint: RIGHT SIDE PAIN, N/V <Cele Mccollum MD - Last Filed: 08/06/23 07:55> Time Seen by Provider: 08/06/23 05:37 <Cele Mccollum MD - Last Filed: 08/06/23 07:55> History of Present Illness HPI Narrative: Patient brought to the emergency department by EMS from home. She states she has had right sided abdominal pain that started 2 hours ago. She is also had nausea and vomiting. Received Zofran from EMS without improvement of symptoms. Patient appears very uncomfortable. Has difficulty talking due to pain. <Cele Mccollum MD - Last Filed: 08/06/23 07:55> Related Data Home medications: Home Medications Medication Instructions Recorded Confirmed atorvastatin 40 mg tablet 40 mg PO QHS 04/03/22 08/06/23 cetirizine 10 mg tablet 10 mg PO DAILY 04/03/22 08/06/23 omeprazole 40 mg capsule,delayed 40 mg PO DAILY 04/03/22 08/06/23 release albuterol sulfate 90 mcg/actuation 2 puff inhalation QID PRN Wheezing 08/06/23 08/06/23 aerosol inhaler <Cele Mccollum MD - Last Filed: 08/06/23 07:55> Allergies/Adverse reactions: Allergies Allergy/AdvReac Type Severity Reaction Status Date / Time divalproex sodium Allergy Unknown Unknown Verified 08/05/23 13:52 phenytoin Allergy Unknown Other Verified 08/05/23 13:52 <Cele Mccollum MD - Last Filed: 08/06/23 07:55> Review of Systems Review of Systems: Review of systems negative except what is documented in the HPI <Cele Mccollum MD - Last Filed: 08/06/23 07:55> [facility] Past Medical History Medical History: Medical History Anxiety Arthritis Depression Fracture of medial cuneiform bone of right foot (02/05/23) Generalized anxiety disorder Hyperlipidemia Kidney stones Seasonal allergies Seizure disorder On Keppra and primidone. Traumatic brain injury At age 14. <Cele Mccollum MD - Last Filed: 08/06/23 07:55> Surgical History Surgical History: Surgical History History of arthroscopy of left knee History of lithotripsy <Cele Mccollum MD - Last Filed: 08/06/23 07:55> Family History Family History: Family History Sibling Gunshot wound Mother Malignant neoplasm Lupus Father Diabetes mellitus Atrial fibrillation Hyperlipidemia Lung cancer Other Arthritis Hypertension <Cele Mccollum MD - Last Filed: 08/06/23 07:55> Social History Social History: Social History Social History: Surrogate medical decision maker: Efraín Hughes, krysten. Code status: Full code. Smoking packs per day: 0.50 Smoking cigarettes per day: 10.0 Years smoked: 30 Smoking pack-years: 15.00 Smoking status: Current every day smoker Tobacco type: cigarettes Second hand tobacco smoke exposure: No Alcohol intake: current Drinks per week: 2 Substance use: current Substance use type: does not use Lack of Transportation: No Lack of Food: Never True Current Housing: I Have Housing Concerned About Future Housing: No Difficulty Paying Gas/Electric Bills: No Difficulty Paying for Meds: No Currently Unemployed: No Education: Decline to Answer Difficulty w/ Childcare or Family Care: No Living arrangements: with family Occupation/Education: unemployed Spiritual care concerns: No <Cele Mccollum MD - Last Filed: 08/06/23 07:55> Exam Narrative: GENERAL: Well-appearing, well-nourished, and in no acute distress. Appears very uncomfortable HEAD: Normocephalic, atraumatic. EYES: PERRLA and EOMI. ENT: Nares clear, no rhinorrhea or epistaxis. Mucous me
[2023-08-06] MEDS: METOCLOPRAMIDE HCL INJ 10 MG/2 ML VIAL IV PUSH (06:03)
[2023-08-06] MEDS: HYDROmorphone HCL INJ (*CRX) 1 MG/ML SYR IV PUSH ×2 (06:03→06:41)
[2023-08-06] MEDS: SODIUM CHLORIDE 0.9% IV 1,000 ML 999 ML IV CONT (06:04)
[2023-08-06 06:18] LABS: Basophils Absolute Auto 0.1 K/mm3 (0.0-0.1); Eosinophils Absolute Auto 0.1 K/mm3 (0-0.3); Eosinophils Percent Auto 2.2 % (0-4.4); Hemoglobin 14.3 g/dL (12.0-15.0); Immature Granulocyte Absolute 0.01 K/mm3 (0.00-0.031); Immature Granulocyte Percent A 0.2 % (0-0.5); Lymphocytes Absolute Auto 1.87 K/mm3 (0.9-3.2); Lymphocytes Percent Auto 38.2 % (18.3-44.2); Mean Corpuscular HGB Conc 34.9 g/dl (32-36); Mean Corpuscular Hemoglobin 36.5 pg (26-34); Mean Corpuscular Volume 104.6 fl (80-100); Monocytes Absolute Auto 0.7 K/mm3 (0.1-0.6); Monocytes Percent Auto 13.3 % (2.6-8.5); Neutrophils Absolute Auto 2.2 K/mm3 (1.3-6.7); Neutrophils Percent Auto 45.1 % (45.5-73.1); Platelet Count Result 228 k/mm3 (150-375); Red Blood Count 3.92 M/mm3 (4.2-5.4); Red Cell Distribution Width 14.6 % (11.5-14.5); White Blood Count 4.9 K/mm3 (4.5-10.0)
[2023-08-06 06:24] LABS: Appearance Urine Clear (Clear); Bacteria Urine None Seen /hpf; Bilirubin Urine Negative (Negative); Blood Urine 2+ (Negative); Color Urine Yellow (Yellow); Glucose Urine UA Negative (Negative); Ketones Urine Negative (Negative); Leukocyte Esterase Ur Trace LEU/UL (Negative); Nitrate Urine Negative (Negative); Non Pathogenic Casts 0-2; Protein Urine 1+ mg/dL (Negative); RBC Urine 0-2 /hpf (0-2); Specific Grav Ur 1.006 (1.001-1.035); Squamous Epithelial Cell Urine Few /hpf (Few); Urobilinogen Urine 0.2 mg/dL (<2.0)
[2023-08-06 06:29] LABS: Add Urine Microscopic? YES
[2023-08-06 06:30] LABS: Alanine Aminotransferase 24 U/L (6-35); Albumin Level 4.7 g/dL (3.5-5.1); Alkaline Phosphatase 129 U/L (38-126); Anion Gap 8 mmol/L (8-16); Aspartate Amino Transferase 121 U/L (14-36); Bilirubin,Total 0.8 mg/dL (0.2-1.3); Blood Urea Nitrogen 7 mg/dL (7-17); Calcium 8.9 mg/dL (8.4-10.2); Carbon Dioxide 29 mmol/L (22-30); Chloride 98 mmol/L (98-107); Estimated CRCL calculation 82 ml/min; Estimated Glomerular Filt Rate > 60; Glucose 114 mg/dL (65-110); Lipase 248 U/L (23-300); Lipase 255 U/L (23-300); Potassium 3.3 mmol/L (3.4-5.0); Sodium 135 mmol/L (137-145)
[2023-08-06] MEDS: LORazepam INJ (*CRX) 2 MG/ML VIAL 0.5 MG IV PUSH (06:46)
--- NOTE | 2023-08-06 07:12 | PC.NURSE ---
assumed care of pt, pt is resting - alert to verbal stimuli, pt on tele monitor, on 2 L NC O2, discussed POC
[2023-08-06 08:29] LABS: Basophils Absolute Auto 0.1 K/mm3 (0.0-0.1); Basophils Percent Auto 0.7 % (0.2-1.2); Eosinophils Percent Auto 0.3 % (0-4.4); Hematocrit 42.2 % (37.0-47.0); Hemoglobin 14.5 g/dL (12.0-15.0); Immature Granulocyte Absolute 0.02 K/mm3 (0.00-0.031); Immature Granulocyte Percent A 0.3 % (0-0.5); Lymphocytes Absolute Auto 0.78 K/mm3 (0.9-3.2); Lymphocytes Percent Auto 10.9 % (18.3-44.2); Mean Corpuscular HGB Conc 34.4 g/dl (32-36); Mean Corpuscular Hemoglobin 36.3 pg (26-34); Mean Corpuscular Volume 105.5 fl (80-100); Mean Platelet Volume 9.5 fl (7.4-10.4); Monocytes Absolute Auto 0.7 K/mm3 (0.1-0.6); Monocytes Percent Auto 9.7 % (2.6-8.5); Neutrophils Absolute Auto 5.6 K/mm3 (1.3-6.7); Neutrophils Percent Auto 78.1 % (45.5-73.1); Platelet Count Result 215 k/mm3 (150-375); Red Cell Distribution Width 14.5 % (11.5-14.5); White Blood Count 7.2 K/mm3 (4.5-10.0)
[2023-08-06 08:52] LABS: Alanine Aminotransferase 23 U/L (6-35); Albumin Level 4.5 g/dL (3.5-5.1); Alkaline Phosphatase 136 U/L (38-126); Anion Gap 7 mmol/L (8-16); Aspartate Amino Transferase 101 U/L (14-36); Bilirubin,Total 0.7 mg/dL (0.2-1.3); Blood Urea Nitrogen 8 mg/dL (7-17); Calcium 8.4 mg/dL (8.4-10.2); Carbon Dioxide 30 mmol/L (22-30); Chloride 100 mmol/L (98-107); Estimated CRCL calculation 73 ml/min; Estimated Glomerular Filt Rate > 60; Glucose 108 mg/dL (65-110); Potassium 3.8 mmol/L (3.4-5.0); Sodium 137 mmol/L (137-145)
--- NOTE | 2023-08-06 10:43 | PC.NURSE ---
This patient, Kaylie Hughes, was admitted to IMU Room 205-02. Patient/family oriented to hospital policies and general routines including ID bracelet, bed and alarms, visiting hours, pain management, procedures, bathroom and other care routines, personal items, smoking policy, room service/diet, and visiting hours. Information on how to activate the Rapid Response Team has been discussed. Patient/Family are encouraged to report perceived risks to care and to ask questions if they do not understand what they are told or what they should do.
[2023-08-06] MEDS: ONDANSETRON INJ 4 MG/2 ML VIAL IV PUSH ×3 (10:45→23:52)
[2023-08-06] MEDS: HYDROmorphone HCL INJ (*CRX) 1 MG/ML SYR 0.5 MG IV PUSH ×2 (10:46→17:07)
[2023-08-06 10:56] LABS: Hematocrit 41.4 % (37.0-47.0); Hemoglobin 14.3 g/dL (12.0-15.0)
[2023-08-06] MEDS: levETIRAcetam Tablet 250 MG, levETIRAcetam Tablet 500 MG 750 MG PO ×2 (12:34→20:18)
[2023-08-06] MEDS: PRIMIDONE 250 MG TABLET PO (13:09)
--- NOTE | 2023-08-06 14:21 | PM.IMHP ---
H&P: HPI History of Present Illness Date/Time: 08/06/23 14:20 Chief Complaint: Right-sided abdominal pain. Narrative: This is a 53-year-old female with history of kidney stones, urinary tract infections, traumatic brain injury, seizures, hyperlipidemia, and gastroesophageal reflux disease who presented to the emergency department via EMS from home for evaluation of right-sided abdominal pain. The patient provides the following history. Last the she tripped over a pile of clothes which caused her to fall onto her right side on the arm of the sofa. Over the next couple of hours she developed increasing pain in the right side and right mid to lower back and it became severe by the parts and service manager hours. She has been continuously nauseated and she has vomited several times. She denies head trauma and loss of consciousness in the fall. She denies dysuria and hematuria. In the ED: She was afebrile on arrival to the ED. blood pressure was 141/110 and it has been pretty consistent since that time. Intermittently she is in a sinus tachycardia with rates in the very low 100s. Labs were significant for a WBC count of 4.9, hemoglobin 14.3, MCV 104.6, platelet 228, sodium 135, potassium 3.3, glucose 114, AST 121, ALT 129, lipase 255. Urine was positive for 1+ protein, 2+ blood, trace leukocyte esterase, 0 to 2 RBC, [address] of the abdomen and pelvis showed a moderate to large acute right renal subcapsular hemorrhage/hematoma and small bilateral nonobstructing renal stones. She is being admitted in this setting for close monitoring and urology consultation. Review of Systems Review of Systems: Twelve systems were reviewed and are negative except for as per HPI. [facility] Past Medical History Medical History Anxiety Arthritis Depression Fracture of medial cuneiform bone of right foot (02/05/23) Generalized anxiety disorder Hyperlipidemia Kidney stones Seasonal allergies Seizure disorder On Keppra and primidone. Traumatic brain injury At age 14. Surgical History Surgical History History of arthroscopy of left knee History of lithotripsy Family History Family History Sibling Gunshot wound Mother Malignant neoplasm Lupus Father Diabetes mellitus Atrial fibrillation Hyperlipidemia Lung cancer Other Arthritis Hypertension Social History Social History (Updated 08/06/23 @ 21:19 by Corina Yañez PA-C) Social History: Surrogate medical decision maker: Efraín Hughes, krysten. Code status: Full code. Smoking packs per day: 0.50 Smoking cigarettes per day: 10.0 Years smoked: 30 Smoking pack-years: 15.00 Smoking status: Current every day smoker Tobacco type: cigarettes Second hand tobacco smoke exposure: No Alcohol intake: current Drinks per week: 14 Alcohol use details: Two tall boys a day. Substance use: current Substance use type: does not use Lack of Transportation: No Lack of Food: Never True Current Housing: I Have Housing Concerned About Future Housing: No Difficulty Paying Gas/Electric Bills: No Difficulty Paying for Meds: No Currently Unemployed: No Education: Decline to Answer Difficulty w/ Childcare or Family Care: No Living arrangements: with family Occupation/Education: unemployed Spiritual care concerns: No Meds Home Medications and Allergies Home Medications Medication Instructions Recorded Confirmed Type atorvastatin 40 mg tablet 40 mg PO QHS 04/03/22 08/06/23 History cetirizine 10 mg tablet 10 mg PO DAILY 04/03/22 08/06/23 History omeprazole 40 mg capsule,delayed 40 mg PO DAILY 04/03/22 08/06/23 History release levetiracetam 750 mg tablet See Rx Instructions .Route 06/17/23 08/06/23 Rx .COMPLEX #60 tabs primidone 250 mg tablet See Rx Instructions .Route
--- NOTE | 2023-08-06 15:50 | WPDURCON ---
Assessment and Plan Assessment and plan (1) Hematoma of kidney: Code(s): S37.019A - Minor contusion of unspecified kidney, initial encounter Status: Acute Assessment and Plan: Patient to be treated for pain and nausea associated with hematoma. Repeat a CT scan in 48 hours to ensure improving hematoma. This will take 6-8 weeks to resolve. Will ultimately need a CT scan in 8 weeks to note resolution. (2) UTI (urinary tract infection): Qualifiers: Hematuria presence: without hematuria Urinary tract infection type: acute cystitis Qualified Code(s): N30.00 - Acute cystitis without hematuria Code(s): N39.0 - Urinary tract infection, site not specified Status: Acute Assessment and Plan: Urine culture pending, tailor antibiotics to culture results. Urology Consult Note HPI Date Seen: 08/06/23 Time Seen: 15:50 Requesting Physician: Severiano Peraza MD Primary Care Provider: Bethany Cannon, INK MAKER-BC Consult Narrative Reason for consult: Subcapsular Hematoma Narrative: Kaylie Hughes is a 53 year old female who presented by EMS to the ER for acute onset of right flank pain that radiates to the abdomen accompanied by nausea and vomiting. She has a history of UTI's and kidney stones. She is afebrile, has a WBC of 7.2 and creatinine of 0.80, UA is suggestive of a UTI, urine culture is pending. She had a CT upon arrival d/t severe abdominal pain and it shows a moderate to large acute right renal subcapsular hemorrhage/hematoma and small bilateral non obstructive renal stones. She states she fell on her couch last night hitting her right flank. Review of Systems Cardiovascular: Cardiovascular: Denies chest pain Respiratory: Respiratory: Reports no additional respiratory complaints Gastrointestinal: Gastrointestinal: Reports abdominal pain, Reports nausea and Reports vomiting Genitourinary: Genitourinary: Denies hematuria, Denies nocturia, Denies dysuria, Denies pelvic pain, Reports flank pain, Denies urinary incontinence, Denies urinary hesitancy and Denies urinary urgency [facility] Past Medical History Medical History Anxiety Arthritis Depression Fracture of medial cuneiform bone of right foot (02/05/23) Generalized anxiety disorder Hyperlipidemia Kidney stones Seasonal allergies Seizure disorder On Keppra and primidone. Traumatic brain injury At age 14. Surgical History Surgical History History of arthroscopy of left knee History of lithotripsy Family History Family History Sibling Gunshot wound Mother Malignant neoplasm Lupus Father Diabetes mellitus Atrial fibrillation Hyperlipidemia Lung cancer Other Arthritis Hypertension Social History Social History Social History: Surrogate medical decision maker: Efraín Hughes, krysten. Code status: Full code. Smoking packs per day: 0.50 Smoking cigarettes per day: 10.0 Years smoked: 30 Smoking pack-years: 15.00 Smoking status: Current every day smoker Tobacco type: cigarettes Second hand tobacco smoke exposure: No Alcohol intake: current Drinks per week: 2 Substance use: current Substance use type: does not use Lack of Transportation: No Lack of Food: Never True Current Housing: I Have Housing Concerned About Future Housing: No Difficulty Paying Gas/Electric Bills: No Difficulty Paying for Meds: No Currently Unemployed: No Education: Decline to Answer Difficulty w/ Childcare or Family Care: No Living arrangements: with family Occupation/Education: unemployed Spiritual care concerns: No Meds Home Medications and Allergies Home Medications Medication Instructions Recorded Confirmed Type atorvastatin 40 mg tab
[2023-08-06 16:11] LABS: Hematocrit 42.4 % (37.0-47.0); Hemoglobin 14.5 g/dL (12.0-15.0)
[2023-08-06 16:44] LABS: Magnesium 1.7 mg/dL (1.6-2.3)
[2023-08-06 16:58] LABS: Hepatitis B Surface Antigen Negative (Negative)
[2023-08-06 17:04] LABS: HAV RESULT Negative (Negative); Hepatitis B Core IgM Result Negative (Negative)
[2023-08-06 17:15] LABS: Hepatitis C Virus Antibody Negative (Negative)
[2023-08-06] MEDS: PROMETHAZINE HCL 25 MG/ML AMPUL 12.5 MG IV PUSH (18:30)
[2023-08-06 19:30] LABS: Iron 124 ug/dL (37-170)
[2023-08-06 19:40] LABS: Percent Iron Saturation 47 % (20-50)
[2023-08-06 20:03] LABS: Thyroid Stimulating Hormone Reflex 0.937 uIU/mL (0.465-4.68)
[2023-08-06] MEDS: PANTOPRAZOLE 40 MG TABLET PO (20:18)
[2023-08-06] MEDS: PRIMIDONE 250 MG TABLET BY MOUTH (20:19)
[2023-08-06] MEDS: HYDROcodone/acetaminophen (*CRX) 5-325 MG TABLET 1 TAB PO (20:19)
[2023-08-06] MEDS: PRIMIDONE 125 MG TABLET BY MOUTH (20:19)
[2023-08-06 22:06] LABS: Hemoglobin 14.3 g/dL (12.0-15.0)
[2023-08-07] VITALS (10 sets, daily range): BP systolic 109–151; BP diastolic 76–96; PULSE 85–120; RESP 16–24; TEMP 36.2–37.4; O2SAT 92–95
[2023-08-07] MEDS: HYDROcodone/acetaminophen (*CRX) 5-325 MG TABLET 1 TAB PO ×4 (00:56→15:56)
[2023-08-07] MEDS: ONDANSETRON INJ 4 MG/2 ML VIAL IV PUSH (05:34)
[2023-08-07 05:58] LABS: Hemoglobin 13.6 g/dL (12.0-15.0); Mean Corpuscular HGB Conc 34.9 g/dl (32-36); Mean Corpuscular Hemoglobin 36.1 pg (26-34); Mean Corpuscular Volume 103.4 fl (80-100); Platelet Count Result 200 k/mm3 (150-375); Red Blood Count 3.77 M/mm3 (4.2-5.4); Red Cell Distribution Width 13.9 % (11.5-14.5); White Blood Count 9.4 K/mm3 (4.5-10.0)
[2023-08-07 06:22] LABS: Alanine Aminotransferase 25 U/L (6-35); Albumin Level 4.3 g/dL (3.5-5.1); Alkaline Phosphatase 123 U/L (38-126); Anion Gap 3 mmol/L (8-16); Aspartate Amino Transferase 87 U/L (14-36); Bilirubin,Total 0.8 mg/dL (0.2-1.3); Blood Urea Nitrogen 11 mg/dL (7-17); Carbon Dioxide 35 mmol/L (22-30); Chloride 95 mmol/L (98-107); Estimated CRCL calculation 66 ml/min; Estimated Glomerular Filt Rate > 60; Glucose 122 mg/dL (65-110); Magnesium 2.1 mg/dL (1.6-2.3); Potassium 3.6 mmol/L (3.4-5.0); Sodium 133 mmol/L (137-145)
[2023-08-07 09:32] LABS: Hematocrit 39.1 % (37.0-47.0); Hemoglobin 13.4 g/dL (12.0-15.0)
[2023-08-07] MEDS: PRIMIDONE 250 MG TABLET BY MOUTH ×2 (09:54→22:21)
[2023-08-07] MEDS: levETIRAcetam Tablet 250 MG, levETIRAcetam Tablet 500 MG 750 MG PO ×2 (09:54→22:21)
[2023-08-07] MEDS: PRIMIDONE 125 MG TABLET BY MOUTH ×2 (09:55→22:22)
[2023-08-07] MEDS: PANTOPRAZOLE 40 MG TABLET PO ×2 (09:55→22:21)
--- NOTE | 2023-08-07 10:40 | PM.IMPN ---
Progress Note: A&P Assessment and Plan (1) Hematoma of right kidney: Code(s): S37.011A - Minor contusion of right kidney, initial encounter Status: Acute Assessment and Plan: repeat CT tomorrow expected 8 weeks for resolution. (2) Seizure disorder: Code(s): G40.909 - Epilepsy, unspecified, not intractable, without status epilepticus Status: Chronic Assessment and Plan: Stable seizure (3) Elevated MCV: Code(s): R71.8 - Other abnormality of red blood cells Status: Acute (4) Elevated LFTs: Code(s): R79.89 - Other specified abnormal findings of blood chemistry Status: Acute (5) Hyperlipidemia: Code(s): E78.5 - Hyperlipidemia, unspecified Status: Acute Plan repeat CT tomorrow, transfer out of IMU, private room preferred due to hostile patient behavior informed patient that racial slurs and disrespect will not be tolerated Time Spent With Patient Time with patient: 25 - 35 minutes Subjective Date/time seen: 08/07/23 10:40 Interval history: Patient was arguing with nursing staff about her food availability using racial slurs cleaning she was collected. Patient she very aggressive staff very upset that we were not any surgery on her. Patient complaining of bilateral knee pain for which she has been seen Orthopedics he as well the foot pain from a prior fracture. Patient complaining of flank pain from current fall. Review of Systems Review of Systems: Twelve systems were reviewed and are negative except for as per HPI. Exam Narrative: General: Well-developed, nontoxic-appearing female sitting up in bed in moderate amount of pain. Weight: 80.2 kg. BMI: 30.3. HEENT: PERRL, EOMI. Sclera anicteric. Tacky mucous membranes. Neck: Supple. Respiratory: Lungs are clear to auscultation bilaterally. Cardiovascular: Regular rate and rhythm with S1-S2. Gastrointestinal: Abdomen is soft, nontender, and nondistended with positive bowel sounds. Positive right-sided CVA tenderness. Skin: Warm and dry. Extremities: No cyanosis, clubbing, or edema. Radial and pedal pulses intact. Spine: No midline vertebral tenderness. No bruising or swelling over the right side of the back or flank. Neurological: Alert. Cranial nerves 2-12 are grossly intact. No gross focal deficits to casual conversation. 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 Objective Data Vital Signs Vital Signs: Vital Signs - 24 hr 08/06/23 11:33 08/06/23 12:00 08/06/23 14:54 Temperature 36.4 C Pulse Rate 102 H 104 H Respiratory Rate 18 Blood Pressure 137/101 H Pulse Oximetry 93 94 Oxygen Delivery Room Air 08/06/23 14:00 08/06/23 16:00 08/06/23 16:00 Temperature 36.4 C Pulse Rate 101 H 93 97 Respiratory Rate 20 Blood Pressure 155/101 H Pulse Oximetry 91 Oxygen Delivery 08/06/23 16:00 08/06/23 18:00 08/06/23 19:51 Temperature 36.7 C Pulse Rate 90 91 Respiratory Rate 20 Blood Pressure 158/98 H Pulse Oximetry 99 Oxygen Delivery Room Air 08/06/23 20:00 08/06/23 22:00 08/06/23 23:00 Temperature 36.8 C Pulse Rate 99 98 94 Respiratory Rate 20 Blood Pressure 152/97 H Pulse Oximetry 98 Oxygen Delivery 08/07/23 00:00 08/07/23 02:00 08/07/23 04:00 Temperature Pulse Rate 87 85 100 Respiratory Rate Blood Pressure Pulse Oximetry Oxygen Delivery 08/07/23 04:00 08/07/23 06:00 08/07/23 08:00 Temperature 36.2 C L 37.4 C Pulse Rate 88 91 90 Respiratory Rate 20 16 Blood Pressure 142/91 H 144/91 H Pulse Oximetry 95 92 Oxygen Delivery Intake/Output Intake/Output: Intake & Output 08/04/23 08/05/23 08/06/23 08/07/23 23:59 23:59 23:59 23:59 Intake Total 1020 1020 Output Total 1999 400 Balance -980 620 Meds/Results Medications: Active Medications Generic Name Dose Route Start Last Admin Trade Name Freq PRN
--- NOTE | 2023-08-07 11:28 | PC.NURSE ---
On 08/07/23, the student, Major CORTES [facility], provided care and completed [employer] documentation on this patient. I have reviewed the student's documentation and agree with the findings.
[2023-08-07] MEDS: LORazepam INJ (*CRX) 2 MG/ML VIAL 1 MG IM (16:01)
[2023-08-07] MEDS: OLANZapine 10 MG, WATER, STERILE FOR INJECTION 2.1 ML IM (16:02)
--- NOTE | 2023-08-07 16:19 | PC.NURSE ---
On 08/07/23, the student, Major CORTES [facility], provided care and completed [employer] documentation on this patient. I have reviewed the student's documentation and agree with the findings.
[2023-08-07] MEDS: LORazepam INJ (*CRX) 2 MG/ML VIAL IV PUSH (19:05)
--- NOTE | 2023-08-07 19:49 | PC.NURSE ---
Patient belongings locked in closet in room
[2023-08-08 01:13] LABS: Amphetamine Screen Urine Negative (Negative); Barbiturate Screen Urine Positive (Negative); Benzodiazepines Screen Urine Negative (Negative); Cannabinoid Screen Urine Negative (Negative); Cocaine Screen Urine Negative (Negative); Methadone Screen Urine Negative (Negative); Opiate Screen Urine Positive (Negative); Phencyclidine Screen Urine Negative (Negative)
[2023-08-08 03:22] VITALS: BP 127/93; RESP 113; TEMP 36.8; O2SAT 96
[2023-08-08] MEDS: chlordiazePOXIDE (*CRX) 25 MG CAPSULE PO ×2 (05:41→17:05)
[2023-08-08] MEDS: LORazepam INJ (*CRX) 2 MG/ML VIAL 1 MG IV PUSH ×3 (05:41→17:05)
[2023-08-08 07:46] VITALS: BP 129/86; PULSE 100; RESP 20; TEMP 36.8; O2SAT 100
[2023-08-08] MEDS: levETIRAcetam Tablet 250 MG, levETIRAcetam Tablet 500 MG 750 MG PO ×2 (09:10→20:49)
[2023-08-08] MEDS: PANTOPRAZOLE 40 MG TABLET PO ×2 (09:10→20:49)
[2023-08-08] MEDS: PRIMIDONE 125 MG TABLET BY MOUTH ×2 (09:10→20:49)
[2023-08-08] MEDS: LORATADINE 10 MG TABLET PO (09:10)
[2023-08-08] MEDS: PRIMIDONE 250 MG TABLET BY MOUTH ×2 (09:10→20:49)
--- NOTE | 2023-08-08 11:59 | PM.DS ---
DS: Admitting Diagnosis Discharge Date August 08, 2023 Admitting Diagnosis Subcapsular hematoma of the kidney DS: Discharge Diagnosis Discharge Diagnosis (1) Hematoma of right kidney: Code(s): S37.011A - Minor contusion of right kidney, initial encounter Status: Acute Assessment and Plan: repeat CT tomorrow expected 8 weeks for resolution. (2) Seizure disorder: Code(s): G40.909 - Epilepsy, unspecified, not intractable, without status epilepticus Status: Chronic Assessment and Plan: Stable seizure (3) Elevated MCV: Code(s): R71.8 - Other abnormality of red blood cells Status: Acute (4) Elevated LFTs: Code(s): R79.89 - Other specified abnormal findings of blood chemistry Status: Acute (5) Hyperlipidemia: Code(s): E78.5 - Hyperlipidemia, unspecified Status: Acute Plan repeat CT tomorrow, transfer out of IMU, private room preferred due to hostile patient behavior informed patient that racial slurs and disrespect will not be tolerated DS: Summary Hospital Course Hospital Course: 53-year-old admitted for a subcapsular hematoma of the kidney. She was monitored for 2 days and no extension was noted on his follow-up CT scan. She can be discharged. She is to avoid antiplatelets and anti coagulation for the next couple weeks. She is not on any during this hospitalization. Otherwise patient is stable can be discharged. Follow up with Urology -MRI the kidney was recommended in a few months. This was discussed with the patient. Time Spent with Patient Time attestation: Total time spent providing and/or coordinating discharge services: Exam Narrative: General: Well-developed, nontoxic-appearing female sitting up in bed in moderate amount of pain. Weight: 80.2 kg. BMI: 30.3. HEENT: PERRL, EOMI. Sclera anicteric. Tacky mucous membranes. Neck: Supple. Respiratory: Lungs are clear to auscultation bilaterally. Cardiovascular: Regular rate and rhythm with S1-S2. Gastrointestinal: Abdomen is soft, nontender, and nondistended with positive bowel sounds. Positive right-sided CVA tenderness. Skin: Warm and dry. Extremities: No cyanosis, clubbing, or edema. Radial and pedal pulses intact. Spine: No midline vertebral tenderness. No bruising or swelling over the right side of the back or flank. Neurological: Alert. Cranial nerves 2-12 are grossly intact. No gross focal deficits to casual conversation. 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 DS: Data Data Completed and Pending Labs on day of discharge: Labs from last 24 hours 08/08/23 00:44 Urine Opiates Screen Positive A Urine Methadone Screen Negative Ur Barbiturates Screen Positive A Ur Phencyclidine Scrn Negative Ur Amphetamine Screen Negative U Benzodiazepines Scrn Negative Urine Cocaine Screen Negative U Cannabinoids Screen Negative Discharge Plan Discharge Attending physician on discharge: Joao Treadwell Consulting providers: Evonne Chopra Discharging Clinician: Joao Treadwell Patient Disposition: Home, Self-Care Activity: as tolerated Diet: as tolerated Patient Instructions: Antibiotic Form, How to Stop Smoking (DC), Cigarette Smoking and Your Health (GEN) Stand Alone Forms: General Discharge Information Follow-up/Referrals: Evonne Chopra MD [Physician] - Discharge Medications: Continued atorvastatin 40 mg tablet 40 mg PO QHS cetirizine 10 mg tablet 10 mg PO DAILY omeprazole 40 mg capsule,delayed release(DR/EC) 40 mg PO DAILY albuterol sulfate 90 mcg/actuation HFA aerosol inhaler 2 puff INHALATION QID PRN (Reason: Wheezing) levetiracetam 750 mg tablet See Rx Instructions .ROUTE .COMPLEX Qty: 60 3RF Dose Instruction: TAKE 1 TABLET BY MOUTH TWICE DAILY Rx Instructions: TAKE 1 TABLET BY MOUTH TWICE DAILY primidon
--- NOTE | 2023-08-08 12:19 | PM.IMPN ---
Progress Note: A&P Assessment and Plan (1) Hematoma of right kidney: Code(s): S37.011A - Minor contusion of right kidney, initial encounter Status: Acute Assessment and Plan: repeat CT showed no change ok to dc from this standpoint fu mri in few months, fu urology (2) Seizure disorder: Code(s): G40.909 - Epilepsy, unspecified, not intractable, without status epilepticus Status: Chronic Assessment and Plan: Stable seizure (3) Elevated MCV: Code(s): R71.8 - Other abnormality of red blood cells Status: Acute (4) Elevated LFTs: Code(s): R79.89 - Other specified abnormal findings of blood chemistry Status: Acute (5) Hyperlipidemia: Code(s): E78.5 - Hyperlipidemia, unspecified Status: Acute (6) ETOH abuse: Code(s): F10.10 - Alcohol abuse, uncomplicated Status: Acute Assessment and Plan: monitor for dt has received bzd ? cuasing confusion monitor one more day and see how she does Subjective Date/time seen: 08/08/23 12:19 Interval history: no new complaints slightly confused today (? bzd) Exam Narrative: General: Well-developed, nontoxic-appearing female sitting up in bed in moderate amount of pain. Weight: 80.2 kg. BMI: 30.3. HEENT: PERRL, EOMI. Sclera anicteric. Tacky mucous membranes. Neck: Supple. Respiratory: Lungs are clear to auscultation bilaterally. Cardiovascular: Regular rate and rhythm with S1-S2. Gastrointestinal: Abdomen is soft, nontender, and nondistended with positive bowel sounds. Positive right-sided CVA tenderness. Skin: Warm and dry. Extremities: No cyanosis, clubbing, or edema. Radial and pedal pulses intact. Spine: No midline vertebral tenderness. No bruising or swelling over the right side of the back or flank. Neurological: Alert. Cranial nerves 2-12 are grossly intact. No gross focal deficits to casual conversation. 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 Objective Data Vital Signs Vital Signs: Vital Signs - 24 hr 08/07/23 15:21 08/07/23 16:00 08/07/23 19:31 Temperature 98.0 F 98.2 F Pulse Rate 90 108 H Respiratory Rate 24 H 16 Blood Pressure 109/76 114/78 Pulse Oximetry 95 94 Oxygen Delivery Room Air 08/07/23 20:00 08/07/23 23:28 08/08/23 03:22 Temperature 99.3 F 98.3 F Pulse Rate 108 H 120 H Respiratory Rate 16 20 113 H Blood Pressure 134/96 H 127/93 H Pulse Oximetry 94 94 96 Oxygen Delivery Room Air 08/08/23 07:46 08/08/23 08:00 Temperature 98.3 F Pulse Rate 100 Respiratory Rate 20 Blood Pressure 129/86 Pulse Oximetry 100 Oxygen Delivery Room Air Intake/Output Intake/Output: Intake & Output 08/05/23 08/06/23 08/07/23 08/08/23 23:59 23:59 23:59 23:59 Intake Total 1020 1540 240 Output Total 1999 400 700 Balance -980 1140 -460 Meds/Results Medications: Active Medications Generic Name Dose Route Start Last Admin Trade Name Freq PRN Reason Stop Dose Admin Acetaminophen 650 mg 08/06/23 09:23 Acetaminophen 325 Mg Tablet PO Q4H PRN Mild Pain (1-3) or Fever Hydrocodone Bitart/Acetaminophen 1 tab 08/06/23 09:23 08/07/23 15:56 Hydrocodone/Acetaminophen (*Crx) 5-325 Mg Tablet PO 1 tab Q4H PRN Administration Pain Rated 4-6 Albuterol 2 puff 08/06/23 21:24 Albuterol Sulfate (*Sp) Aerosol 1 Puff INHALATION QID PRN Wheezing Chlordiazepoxide HCl 25 mg 08/08/23 06:00 08/08/23 12:19 Chlordiazepoxide (*Crx) 25 Mg Capsule PO Not Given Q6HR HARRISON Hydromorphone HCl 0.5 mg 08/06/23 09:23 08/06/23 17:07 Hydromorphone Hcl Inj (*Crx) 1 Mg/Ml Syr IV PUSH 0.5 mg Q4H PRN Administration Pain Rated 7-10 Levetiracetam 250 mg/ 750 mg 08/06/23 12:21 08/08/23 09:10 Levetiracetam 500 mg PO 750 mg Q12HR HARRISON Administration Loratadine 10 mg 08/07/23 09:00 08/08/23 09:10 Loratadine 10 Mg Tablet PO 10
[2023-08-08 16:00] VITALS: BP 133/93; PULSE 114; RESP 18; TEMP 36.4; O2SAT 97
[2023-08-08 18:14] VITALS: BP 125/87; PULSE 80; RESP 16; TEMP 36.7; O2SAT 92
[2023-08-08 19:14] VITALS: BP 128/82; PULSE 128; RESP 17; TEMP 37.3; O2SAT 94
--- NOTE | 2023-08-08 19:22 | PC.NURSE ---
This patient, Kaylie Hughes, was transferred to [facility] on 08/08/23 at 1752. Personal belongings sent with patient. Report given to Kaitlin. Appropriate documentation sent with patient. Patient belongings locked in closet in room 304.
[2023-08-09] MEDS: chlordiazePOXIDE (*CRX) 25 MG CAPSULE PO ×3 (00:20→18:15)
[2023-08-09] MEDS: LORazepam INJ (*CRX) 2 MG/ML VIAL 1 MG IV PUSH (00:20)
[2023-08-09 05:57] VITALS: BP 128/76; PULSE 110; RESP 16; TEMP 37.3; O2SAT 92
[2023-08-09] MEDS: LORATADINE 10 MG TABLET PO (08:12)
[2023-08-09] MEDS: PANTOPRAZOLE 40 MG TABLET PO ×2 (08:12→22:58)
[2023-08-09] MEDS: levETIRAcetam Tablet 250 MG, levETIRAcetam Tablet 500 MG 750 MG PO ×2 (08:12→22:57)
[2023-08-09] MEDS: PRIMIDONE 250 MG TABLET BY MOUTH ×2 (08:14→22:58)
[2023-08-09] MEDS: PRIMIDONE 125 MG TABLET BY MOUTH ×2 (08:14→22:58)
[2023-08-09 08:51] LABS: Anion Gap 10 mmol/L (8-16); Blood Urea Nitrogen 14 mg/dL (7-17); Calcium 9.2 mg/dL (8.4-10.2); Carbon Dioxide 25 mmol/L (22-30); Chloride 95 mmol/L (98-107); Estimated CRCL calculation 71 ml/min; Estimated Glomerular Filt Rate > 60; Glucose 112 mg/dL (65-110); Potassium 3.6 mmol/L (3.4-5.0); Sodium 130 mmol/L (137-145)
--- NOTE | 2023-08-09 09:26 | PCOTNOTE ---
Attempted OT evaluation at 9:19. Patient sound asleep and unarousable. Will follow.
--- NOTE | 2023-08-09 11:22 | PM.IMPN ---
Progress Note: A&P Assessment and Plan (1) Hematoma of right kidney: Code(s): S37.011A - Minor contusion of right kidney, initial encounter Status: Acute Assessment and Plan: repeat CT showed no change ok to dc from this standpoint fu mri in few months, fu urology (2) Seizure disorder: Code(s): G40.909 - Epilepsy, unspecified, not intractable, without status epilepticus Status: Chronic Assessment and Plan: Stable seizure (3) Elevated MCV: Code(s): R71.8 - Other abnormality of red blood cells Status: Acute (4) Elevated LFTs: Code(s): R79.89 - Other specified abnormal findings of blood chemistry Status: Acute (5) Hyperlipidemia: Code(s): E78.5 - Hyperlipidemia, unspecified Status: Acute (6) ETOH abuse: Code(s): F10.10 - Alcohol abuse, uncomplicated Status: Acute Assessment and Plan: monitor for dt has received bzd ? cuasing confusion monitor one more day and see how she does (7) Alcohol withdrawal: Code(s): F10.939 - Alcohol use, unspecified with withdrawal, unspecified Status: Acute Assessment and Plan: Continue CIWA protocol (8) Fever: Code(s): R50.9 - Fever, unspecified Status: Acute Assessment and Plan: Likely from hematoma, will check urine and chest x-ray Subjective Date/time seen: 08/09/23 11:22 Interval history: Patient was sleeping this morning. She does wake up and answers ?basic questions. Vital signs stable. Low-grade temp over Exam Narrative: General: Well-developed, nontoxic-appearing female sitting up in bed in moderate amount of pain. Weight: 80.2 kg. BMI: 30.3. HEENT: PERRL, EOMI. Sclera anicteric. Tacky mucous membranes. Neck: Supple. Respiratory: Lungs are clear to auscultation bilaterally. Cardiovascular: Regular rate and rhythm with S1-S2. Gastrointestinal: Abdomen is soft, nontender, and nondistended with positive bowel sounds. Positive right-sided CVA tenderness. Skin: Warm and dry. Extremities: No cyanosis, clubbing, or edema. Radial and pedal pulses intact. Spine: No midline vertebral tenderness. No bruising or swelling over the right side of the back or flank. Neurological: Alert. Cranial nerves 2-12 are grossly intact. No gross focal deficits to casual conversation. 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 Objective Data Vital Signs Vital Signs: Vital Signs - 24 hr 08/08/23 16:00 08/08/23 18:14 08/08/23 19:14 Temperature 97.6 F 98.1 F 99.1 F Pulse Rate 114 H 80 128 H Respiratory Rate 18 16 17 Blood Pressure 133/93 H 125/87 128/82 Pulse Oximetry 97 92 94 Oxygen Delivery 08/09/23 05:57 08/09/23 08:10 Temperature 99.2 F Pulse Rate 110 H Respiratory Rate 16 Blood Pressure 128/76 Pulse Oximetry 92 Oxygen Delivery Room Air Intake/Output Intake/Output: Intake & Output 08/06/23 08/07/23 08/08/23 08/09/23 23:59 23:59 23:59 23:59 Intake Total 1020 1540 240 300 Output Total 2000 400 900 Balance -980 1140 -660 300 Meds/Results Medications: Active Medications Generic Name Dose Route Start Last Admin Trade Name Freq PRN Reason Stop Dose Admin Acetaminophen 650 mg 08/06/23 09:23 Acetaminophen 325 Mg Tablet PO Q4H PRN Mild Pain (1-3) or Fever Hydrocodone Bitart/Acetaminophen 1 tab 08/06/23 09:23 08/07/23 15:56 Hydrocodone/Acetaminophen (*Crx) 5-325 Mg Tablet PO 1 tab Q4H PRN Administration Pain Rated 4-6 Albuterol 2 puff 08/06/23 21:24 Albuterol Sulfate (*Sp) Aerosol 1 Puff INHALATION QID PRN Wheezing Chlordiazepoxide HCl 25 mg 08/08/23 06:00 08/09/23 05:18 Chlordiazepoxide (*Crx) 25 Mg Capsule PO 25 mg Q6HR HARRISON Administration Hydromorphone HCl 0.5 mg 08/06/23 09:23 08/06/23 17:07 Hydromorphone Hcl Inj (*Crx) 1 Mg/Ml Syr IV PUSH 0.5 mg Q4H PRN Administration Pain
[2023-08-09 13:31] VITALS: BP 124/85; PULSE 106; RESP 20; TEMP 37.2; O2SAT 90
[2023-08-09 19:05] LABS: Appearance Urine Turbid (Clear); Bacteria Urine 4+ /hpf; Bilirubin Urine 1+ (Negative); Blood Urine 3+ (Negative); Color Urine Dark Yellow (Yellow); Glucose Urine UA 1+ mg/dL (Negative); Ketones Urine 1+ mg/dL (Negative); Leukocyte Esterase Ur 1+ LEU/UL (Negative); Mucus Urine Present /lpf; Need Manual Microscopic Reviewed; Nitrate Urine Negative (Negative); Non Pathogenic Casts >20; Protein Urine 3+ mg/dL (Negative); Specific Grav Ur 1.025 (1.001-1.035); Squamous Epithelial Cell Urine Moderate /hpf (Few); WBC Urine 21-50 /hpf
[2023-08-09 19:06] LABS: Add Urine Microscopic? YES
[2023-08-09 21:45] VITALS: BP 116/74; PULSE 105; RESP 20; TEMP 37.1; O2SAT 91
[2023-08-10 04:58] VITALS: BP 127/72; PULSE 96; RESP 18; TEMP 38.2; O2SAT 93
[2023-08-10] MEDS: chlordiazePOXIDE (*CRX) 25 MG CAPSULE PO ×4 (06:32→23:26)
[2023-08-10] MEDS: PRIMIDONE 125 MG TABLET BY MOUTH ×2 (08:23→20:57)
[2023-08-10] MEDS: levETIRAcetam Tablet 250 MG, levETIRAcetam Tablet 500 MG 750 MG PO ×2 (08:23→20:57)
[2023-08-10] MEDS: LORATADINE 10 MG TABLET PO (08:24)
[2023-08-10] MEDS: PRIMIDONE 250 MG TABLET BY MOUTH ×2 (08:24→20:57)
[2023-08-10] MEDS: PANTOPRAZOLE 40 MG TABLET PO ×2 (08:24→20:57)
[2023-08-10 09:02] LABS: Basophils Percent Auto 0.5 % (0.2-1.2); Eosinophils Absolute Auto 0.1 K/mm3 (0-0.3); Eosinophils Percent Auto 1.9 % (0-4.4); Hematocrit 39.6 % (37.0-47.0); Hemoglobin 13.5 g/dL (12.0-15.0); Immature Granulocyte Absolute 0.02 K/mm3 (0.00-0.031); Immature Granulocyte Percent A 0.3 % (0-0.5); Lymphocytes Absolute Auto 0.97 K/mm3 (0.9-3.2); Lymphocytes Percent Auto 15.2 % (18.3-44.2); Mean Corpuscular HGB Conc 34.1 g/dl (32-36); Mean Corpuscular Hemoglobin 36.1 pg (26-34); Mean Corpuscular Volume 105.9 fl (80-100); Mean Platelet Volume 10.4 fl (7.4-10.4); Monocytes Percent Auto 15.7 % (2.6-8.5); Neutrophils Absolute Auto 4.2 K/mm3 (1.3-6.7); Neutrophils Percent Auto 66.4 % (45.5-73.1); Platelet Count Result 228 k/mm3 (150-375); Red Blood Count 3.74 M/mm3 (4.2-5.4); Red Cell Distribution Width 13.5 % (11.5-14.5); White Blood Count 6.4 K/mm3 (4.5-10.0)
[2023-08-10 09:14] LABS: Anion Gap 11 mmol/L (8-16); Blood Urea Nitrogen 12 mg/dL (7-17); Calcium 9.8 mg/dL (8.4-10.2); Carbon Dioxide 31 mmol/L (22-30); Chloride 92 mmol/L (98-107); Estimated CRCL calculation 70 ml/min; Estimated Glomerular Filt Rate > 60; Glucose 158 mg/dL (65-110); Potassium 3.2 mmol/L (3.4-5.0); Sodium 134 mmol/L (137-145)
--- NOTE | 2023-08-10 11:43 | PM.IMPN ---
Progress Note: A&P Assessment and Plan (1) Hematoma of right kidney: Code(s): S37.011A - Minor contusion of right kidney, initial encounter Status: Acute Assessment and Plan: repeat CT showed no change ok to dc from this standpoint fu mri in few months, fu urology (2) Seizure disorder: Code(s): G40.909 - Epilepsy, unspecified, not intractable, without status epilepticus Status: Chronic Assessment and Plan: Stable seizure (3) Elevated MCV: Code(s): R71.8 - Other abnormality of red blood cells Status: Acute (4) Elevated LFTs: Code(s): R79.89 - Other specified abnormal findings of blood chemistry Status: Acute (5) Hyperlipidemia: Code(s): E78.5 - Hyperlipidemia, unspecified Status: Acute (6) ETOH abuse: Code(s): F10.10 - Alcohol abuse, uncomplicated Status: Acute Assessment and Plan: monitor for dt has received bzd ? cuasing confusion monitor one more day and see how she does (7) Alcohol withdrawal: Code(s): F10.939 - Alcohol use, unspecified with withdrawal, unspecified Status: Acute Assessment and Plan: Continue CIWA protocol (8) Fever: Code(s): R50.9 - Fever, unspecified Status: Acute Assessment and Plan: Likely from hematoma, will check urine and chest x-ray Subjective Date/time seen: 08/10/23 11:43 Interval history: no complaints more alert Exam Narrative: General: Well-developed, nontoxic-appearing female sitting up in bed in moderate amount of pain. Weight: 80.2 kg. BMI: 30.3. HEENT: PERRL, EOMI. Sclera anicteric. Tacky mucous membranes. Neck: Supple. Respiratory: Lungs are clear to auscultation bilaterally. Cardiovascular: Regular rate and rhythm with S1-S2. Gastrointestinal: Abdomen is soft, nontender, and nondistended with positive bowel sounds. Positive right-sided CVA tenderness. Skin: Warm and dry. Extremities: No cyanosis, clubbing, or edema. Radial and pedal pulses intact. Spine: No midline vertebral tenderness. No bruising or swelling over the right side of the back or flank. Neurological: Alert. Cranial nerves 2-12 are grossly intact. No gross focal deficits to casual conversation. 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 Objective Data Vital Signs Vital Signs: Vital Signs - 24 hr 08/09/23 13:31 08/09/23 21:45 08/10/23 04:58 Temperature 99.0 F 98.8 F 100.8 F H Pulse Rate 106 H 105 H 96 Respiratory Rate 20 20 18 Blood Pressure 124/85 116/74 127/72 Pulse Oximetry 90 91 93 Oxygen Delivery 08/10/23 09:18 08/10/23 08:25 Temperature Pulse Rate Respiratory Rate Blood Pressure Pulse Oximetry Oxygen Delivery Room Air Room Air Intake/Output Intake/Output: Intake & Output 08/07/23 08/08/23 08/09/23 08/10/23 23:59 23:59 23:59 23:59 Intake Total 1540 656 947 9086 Output Total 400 900 Balance 1140 -734 113 2814 Meds/Results Medications: Active Medications Generic Name Dose Route Start Last Admin Trade Name Freq PRN Reason Stop Dose Admin Acetaminophen 650 mg 08/06/23 09:23 Acetaminophen 325 Mg Tablet PO Q4H PRN Mild Pain (1-3) or Fever Hydrocodone Bitart/Acetaminophen 1 tab 08/06/23 09:23 08/07/23 15:56 Hydrocodone/Acetaminophen (*Crx) 5-325 Mg Tablet PO 1 tab Q4H PRN Administration Pain Rated 4-6 Albuterol 2 puff 08/06/23 21:24 Albuterol Sulfate (*Sp) Aerosol 1 Puff INHALATION QID PRN Wheezing Chlordiazepoxide HCl 25 mg 08/08/23 06:00 08/10/23 06:32 Chlordiazepoxide (*Crx) 25 Mg Capsule PO 25 mg Q6HR HARRISON Administration Hydromorphone HCl 0.5 mg 08/06/23 09:23 08/06/23 17:07 Hydromorphone Hcl Inj (*Crx) 1 Mg/Ml Syr IV PUSH 0.5 mg Q4H PRN Administration Pain Rated 7-10 Ceftriaxone Sodium 1 gm in 50 mls @ 100 mls/hr 08/10/23 09:00 08/10/23 10:12 Rocephin 1 Gm/Ns 50
[2023-08-10] MEDS: NICOTINE (*PBKC) 14 MG PATCH 1 PATCH TRANSDERM (11:56)
--- NOTE | 2023-08-10 13:07 | WPDNEURCNPN ---
Assessment and Plan Assessment and plan (1) Seizure disorder: Code(s): G40.909 - Epilepsy, unspecified, not intractable, without status epilepticus Status: Chronic Plan 1. Seizure disorder for which she is being treated with 2 anticonvulsants treatment will be continued as such and can be followed in the office as an outpatient in 6 to 12 months Consult date: 08/10/23 HPI: Kaylie Hughes is a 53 year old female Admitted to the hospital through the emergency room with the complaints of nausea vomiting and diarrhea in addition to the right-sided pain and history of taking medications such as atorvastatin 40 mg at night omeprazole 40 mg daily albuterol inhaler and reportedly allergic to divalproex sodium and phenytoin in addition to the history of anxiety with depression, seizure disorder for which patient has been on Keppra and primidone with history of traumatic brain injury she does have a history of smoking pack years 15 with years smoked 30 and currently everyday smoker in addition to 2 drinks per week of alcohol. Initial exam in the emergency room was documented as nonfocal vital signs were normal except blood pressure 141/110 repeat 155/101 CBC normal routine lab normal UA with hematuria and admitted to the hospital for the renal problem. During the hospitalization had a CT of the head which was negative also she has had MRI of the brain in May of 2023 which was normal. She has been documented to have the hematoma of the right kidney, consult was obtained because of the history of seizure disorder Review of Systems Review of Systems: All systems reviewed & are unremarkable except as noted in HPI and below PMFSH Past Medical History Medical History Anxiety Arthritis Depression Fracture of medial cuneiform bone of right foot (02/05/23) Generalized anxiety disorder Hyperlipidemia Kidney stones Seasonal allergies Seizure disorder On Keppra and primidone. Traumatic brain injury At age 14. Surgical History Surgical History History of arthroscopy of left knee History of lithotripsy Family History Family History Sibling Gunshot wound Mother Malignant neoplasm Lupus Father Diabetes mellitus Atrial fibrillation Hyperlipidemia Lung cancer Other Arthritis Hypertension Social History Social History (Updated 08/06/23 @ 21:19 by Corina Yañez PA-C) Social History: Surrogate medical decision maker: Efraín Hughes, krysten. Code status: Full code. Smoking packs per day: 0.50 Smoking cigarettes per day: 10.0 Years smoked: 30 Smoking pack-years: 15.00 Smoking status: Current every day smoker Tobacco type: cigarettes Second hand tobacco smoke exposure: No Alcohol intake: current Drinks per week: 14 Alcohol use details: Two tall boys a day. Substance use: current Substance use type: does not use Lack of Transportation: No Lack of Food: Never True Current Housing: I Have Housing Concerned About Future Housing: No Difficulty Paying Gas/Electric Bills: No Difficulty Paying for Meds: No Currently Unemployed: No Education: Decline to Answer Difficulty w/ Childcare or Family Care: No Living arrangements: with family Occupation/Education: unemployed Spiritual care concerns: No Meds Home Medications and Allergies Home Medications Medication Instructions Recorded Confirmed Type atorvastatin 40 mg tablet 40 mg PO QHS 04/03/22 08/06/23 History cetirizine 10 mg tablet 10 mg PO DAILY 04/03/22 08/06/23 History omeprazole 40 mg capsule,delayed 40 mg PO DAILY 04/03/22 08/06/23 History release levetiracetam 750 mg tablet See Rx Instructions .Route 06/17/23 08/06/23 Rx .COMPLEX #60 tabs primidone 250 mg tablet See Rx Instructions .Route 07/01/23 08/06/23 Rx .COMPLEX #
[2023-08-10 14:00] VITALS: BP 120/83; PULSE 102; RESP 20; TEMP 37.4; O2SAT 96
--- NOTE | 2023-08-10 19:34 | PC.NURSE ---
pt daughter states med shaving purse at home
[2023-08-10 19:45] VITALS: O2SAT 96
[2023-08-10 21:05] VITALS: BP 130/88; PULSE 93; RESP 16; TEMP 36.4; O2SAT 94
[2023-08-10 21:51] VITALS: BP 130/88
[2023-08-11 03:38] VITALS: BP 130/88
[2023-08-11 04:55] VITALS: BP 122/81; PULSE 91; RESP 16; TEMP 36.6; O2SAT 93
[2023-08-11] MEDS: chlordiazePOXIDE (*CRX) 25 MG CAPSULE PO (05:00)
[2023-08-11] MEDS: NICOTINE (*PBKC) 14 MG PATCH 1 PATCH TRANSDERM (09:15)
[2023-08-11] MEDS: PRIMIDONE 125 MG TABLET BY MOUTH (09:16)
[2023-08-11] MEDS: PANTOPRAZOLE 40 MG TABLET PO (09:16)
[2023-08-11] MEDS: LORATADINE 10 MG TABLET PO (09:16)
[2023-08-11] MEDS: PRIMIDONE 250 MG TABLET BY MOUTH (09:16)
[2023-08-11] MEDS: levETIRAcetam Tablet 250 MG, levETIRAcetam Tablet 500 MG 750 MG PO (09:16)
--- NOTE | 2023-08-11 11:33 | PM.DS ---
DS: Admitting Diagnosis Discharge Date August 11, 2023 Admitting Diagnosis Subcapsular hematoma of the kidney DS: Discharge Diagnosis Discharge Diagnosis (1) Hematoma of right kidney: Code(s): S37.011A - Minor contusion of right kidney, initial encounter Status: Acute Assessment and Plan: repeat CT showed no change ok to dc from this standpoint fu mri in few months, fu urology (2) Seizure disorder: Code(s): G40.909 - Epilepsy, unspecified, not intractable, without status epilepticus Status: Chronic Assessment and Plan: Stable seizure (3) Elevated MCV: Code(s): R71.8 - Other abnormality of red blood cells Status: Acute (4) Elevated LFTs: Code(s): R79.89 - Other specified abnormal findings of blood chemistry Status: Acute (5) Hyperlipidemia: Code(s): E78.5 - Hyperlipidemia, unspecified Status: Acute (6) ETOH abuse: Code(s): F10.10 - Alcohol abuse, uncomplicated Status: Acute Assessment and Plan: monitor for dt has received bzd ? cuasing confusion monitor one more day and see how she does (7) Alcohol withdrawal: Code(s): F10.939 - Alcohol use, unspecified with withdrawal, unspecified Status: Acute Assessment and Plan: Continue CIWA protocol (8) Fever: Code(s): R50.9 - Fever, unspecified Status: Acute Assessment and Plan: Likely from hematoma, will check urine and chest x-ray DS: Summary Hospital Course Hospital Course: 53-year-old admitted for a subcapsular hematoma of the kidney.? She was monitored for 2 days and no extension was noted on his follow-up CT scan.? She can be discharged.? She is to avoid antiplatelets and anti coagulation for the next couple weeks.? She is not on any during this hospitalization.? Otherwise patient is stable can be discharged.? Follow up with Urology -MRI the kidney was recommended in a few months.? This was discussed with the patient. Time Spent with Patient Time attestation: Total time spent providing and/or coordinating discharge services: Exam Narrative: General: Well-developed, nontoxic-appearing female sitting up in bed in moderate amount of pain. Weight: 80.2 kg. BMI: 30.3. HEENT: PERRL, EOMI. Sclera anicteric. Tacky mucous membranes. Neck: Supple. Respiratory: Lungs are clear to auscultation bilaterally. Cardiovascular: Regular rate and rhythm with S1-S2. Gastrointestinal: Abdomen is soft, nontender, and nondistended with positive bowel sounds. Positive right-sided CVA tenderness. Skin: Warm and dry. Extremities: No cyanosis, clubbing, or edema. Radial and pedal pulses intact. Spine: No midline vertebral tenderness. No bruising or swelling over the right side of the back or flank. Neurological: Alert. Cranial nerves 2-12 are grossly intact. No gross focal deficits to casual conversation. 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 Discharge Plan Discharge Attending physician on discharge: Joao Treadwell Consulting providers: Evonne Chopra; Marcia Nunn Discharging Clinician: Joao Treadwell Patient Disposition: Home, Self-Care Activity: as tolerated Diet: as tolerated Patient Instructions: How to Stop Smoking (DC), Cigarette Smoking and Your Health (GEN) Stand Alone Forms: General Discharge Information Follow-up/Referrals: Evonne Chopra MD [Physician] - Discharge Medications: Continued atorvastatin 40 mg tablet 40 mg PO QHS cetirizine 10 mg tablet 10 mg PO DAILY omeprazole 40 mg capsule,delayed release(DR/EC) 40 mg PO DAILY albuterol sulfate 90 mcg/actuation HFA aerosol inhaler 2 puff INHALATION QID PRN (Reason: Wheezing) levetiracetam 750 mg tablet See Rx Instructions .ROUTE .COMPLEX Qty: 60 3RF Dose Instruction: TAKE 1 TABLET BY MOUTH TWICE DAILY Rx Instructions: TAKE 1 TABLET B
== END 2023-08-11 13:15 | disposition home or self-care (01) | DRG 468 ==
LOC: ANHED 09:27 → ANHIMU 09:48 → ANH3MEDSUR 08-08 17:52
PROVIDERS: Emergency Medicine; Nurse Practitioner; Physician Assistant; Admitting Provider Internal Medicine; Emergency Provider Emergency Medicine; PCP Nurse Practitioner Family; Visit Provider Chiropractor
DX: S37.011A Minor contusion of right kidney, initial encounter (principal); W01.190A Fall on same level from slipping, tripping and stumbling with subsequent striking against furniture, initial encounter; E78.5 Hyperlipidemia, unspecified; F10.139 Alcohol abuse with withdrawal, unspecified; F41.9 Anxiety disorder, unspecified; F32.A Depression, unspecified; F17.210 Nicotine dependence, cigarettes, uncomplicated; G40.909 Epilepsy, unspecified, not intractable, without status epilepticus; K21.9 Gastro-esophageal reflux disease without esophagitis; M19.90 Unspecified osteoarthritis, unspecified site; N30.00 Acute cystitis without hematuria; R79.89 Other specified abnormal findings of blood chemistry; R71.8 Other abnormality of red blood cells; R50.9 Fever, unspecified; Z87.442 Personal history of urinary calculi; Z87.820 Personal history of traumatic brain injury
CPT/HCPCS: 36415; 70450; 71045; 71260; 74018; 74176; 74177; 80048; 80053; 80074; 80307; 81001; 81025; 82607; 82728; 82746; 83540; 83550; 83690; 83735; 84443; 85014; 85018; 85025; 85027; 86850; 86900; 86901; 87086; 87088; 96361; 96372; 96374; 96375; 96376; 97161; 97165; 97530; 97535; 99285; A9270; G0378; G0379; J0696; J1170; J2060; J2405; J2550; J2765; J7030; Q9967

== ENCOUNTER 2023-11-27 16:05 | Emergency (ER) | payer OTHER, SELFPAY ==
[2023-11-27] VITALS (8 sets, daily range): BP systolic 111–146; BP diastolic 71–80; PULSE 89–99; RESP 15–18; TEMP 36.4–36.6; O2SAT 93–100
--- NOTE | ~2023-11-27 | XR_ITS ---
EXAMINATION: XR knee LT 3V DATE: 11/27/2023 18:45 INDICATION: Left knee pain TECHNIQUE: Anteroposterior, oblique and crosstable lateral views of the affected knee were obtained COMPARISON: 05/20/2023 FINDINGS: Alignment is normal. No fracture. Small marginal osteophytes at the patella. Joint spaces appear nor mal on nonweightbearing imaging. No joint effusion/layering lipohemarthrosis. Soft tissues are unrema rkable. IMPRESSION: 1. Mild left patellofemoral osteoarthritis. Reviewed, dictated and finalized at location A. 4TH GRADE TEACHER
--- NOTE | ~2023-11-27 | CT_ITS ---
EXAMINATION: CT abdomen pelvis w con DATE: 11/27/2023 18:54 INDICATION: Right lower quadrant abdominal pain and flank pain. TECHNIQUE: Computed tomography (CT) of the abdomen and pelvis was performed with 100 mL Omnipaque-350 intravenous contrast. Automated exposure control and iterative reconstruction technique were employe d. The dose-length product was 712.52 mGy-cm. COMPARISON: 08/08/2023 FINDINGS: Mild dependent atelectasis in the bilateral lower lobes. Heart size is normal. No pericardial or pleu ral effusion. Liver, gallbladder, spleen, pancreas and bilateral adrenal glands are normal. Bilateral 2 mm nonobstructing renal stones at the lower poles of both kidneys. There are few regions of cortic al scarring at the upper pole of the right kidney likely sequela prior infection or infarct. Normal a ppendix. No bowel obstruction. Bladder, uterus and left adnexa are normal. 1.5 cm right ovarian cyst/ follicle. Small fat-containing umbilical hernia. No free intraperitoneal gas or fluid. No pathologica lly enlarged abdominal or pelvic lymphadenopathy. Mild lumbar spondylosis. IMPRESSION: 1. No acute intra-abdominal/pelvic process. Specifically the appendix and gallbladder are normal. 2. Resolution of prior right perinephric hematoma with small region of residual cortical scarring at the upper pole likely sequela of prior infarct or infection. 3. Bilateral nonobstructing nephrolithiasis. Reviewed, dictated and finalized at location A. TEACHER IMPRESSION: 1. No acute intra-abdominal/pelvic process. Specifically the appendix and gallb ladder are normal. 2. Resolution of prior right perinephric hematoma with small region of residual cortical scarring at the upper pole likely sequela of prior infarct or infecti on. 3. Bilateral nonobstructing nephrolithiasis.
--- NOTE | ~2023-11-27 | CT_ITS ---
EXAMINATION: CT brain wo con DATE: 11/27/2023 17:41 INDICATION: Altered mental status TECHNIQUE: Computed tomography (CT) of the head was performed without intravenous contrast. Sagittal and coronal reconstructions were performed. The mA was adjusted according to patient size. Iterative reconstruction technique was employed. The dose-length product was 681.00 mGy-cm. COMPARISON: head CT dated 08/08/2023 FINDINGS: No acute intracranial hemorrhage, acute infarction or abnormal extra axial fluid collection. There is mild periventricular predominant scattered white matter hypoattenuation consistent with chronic smal l vessel ischemic disease. Ventricles are normal and symmetric. No mass/mass effect. The orbits, par anasal sinuses and mastoid air cells are normal. IMPRESSION: 1. Mild periventricular predominant white matter hypoattenuation consistent with chronic small vessel ischemic disease. No acute intracranial process. Reviewed, dictated and finalized at location A. URE MANAGER IMPRESSION: 1. Mild periventricular predominant white matter hypoattenuation consistent wit h chronic small vessel ischemic disease. No acute intracranial process.
--- NOTE | ~2023-11-27 | XR_ITS ---
EXAMINATION: XR knee RT 3V DATE: 11/27/2023 18:45 INDICATION: Right knee pain TECHNIQUE: Anteroposterior, oblique and crosstable lateral views of the right knee were obtained COMPARISON: 02/06/2023 FINDINGS: Alignment is normal. No fracture. Joint spaces appear normal on nonweightbearing imaging. No joint e ffusion/layering lipohemarthrosis. Soft tissues are unremarkable. IMPRESSION: 1. Negative right knee radiographs. Reviewed, dictated and finalized at location A. RNOON NANNY
--- NOTE | ~2023-11-27 | XR_ITS ---
EXAMINATION: XR shoulder LT min 2V DATE: 11/27/2023 18:45 INDICATION: Left shoulder pain TECHNIQUE: AP internally and externally rotated and transscapular Y views of the left shoulder were o btained. COMPARISON: None FINDINGS: Normal alignment. No fracture. Glenohumeral joint is normal. Acromioclavicular joint is normal. Soft tissues are unremarkable. Left lung is clear. IMPRESSION: Negative left shoulder radiographs. Reviewed, dictated and finalized at location A. DESK ANALYST
--- NOTE | ~2023-11-27 | XR_ITS ---
EXAMINATION: XR shoulder RT min 2V DATE: 11/27/2023 18:45 INDICATION: Right shoulder pain TECHNIQUE: AP internally and externally rotated and transscapular Y views of the right shoulder were obtained. COMPARISON: 08/29/2020 FINDINGS: Normal alignment. No fracture. Glenohumeral joint is normal. Acromioclavicular joint is normal. Soft tissues are unremarkable. Right lung is clear with no pleural effusion or pneumothorax. IMPRESSION: Negative right shoulder radiographs. Reviewed, dictated and finalized at location A. NDER WORKER HELPER
--- NOTE | ~2023-11-27 | XR_ITS ---
EXAMINATION: XR chest 1V DATE: 11/27/2023 18:45 INDICATION: Altered mental status TECHNIQUE: frontal view of the chest was obtained. COMPARISON: Chest radiograph dated 08/09/2023 FINDINGS: The lungs are clear with no focal airspace opacities, pulmonary edema, pleural effusion or pneumothor ax. The cardiomediastinal silhouette is normal. Visualized bones and soft tissues are unremarkable. IMPRESSION: 1. No acute cardiopulmonary disease. Reviewed, dictated and finalized at location A. E OIL PUMPER
--- NOTE | 2023-11-27 16:10 | ECG_ITS ---
Measurements Intervals [place] Rate: 95 P: 62 NM: 164 QRS: 60 QRSD: 101 T: 51 QT: 371 QTc: 468 Interpretive Statements SINUS RHYTHM INCOMPLETE RIGHT BUNDLE BRANCH BLOCK BORDERLINE T WAVE ABNORMALITY- ANTERIOR LEADS BORDERLINE ECG COMPARED TO ECG 05/03/2023 08:33:10 NO SIGNIFICANT CHANGES Electronically Signed On 11-27-2023 19:07:02 CANVAS BASTER JUMPBASTING by Tony Man D.O.
[2023-11-27 16:27] LABS: Basophils Absolute Auto 0.1 K/mm3 (0.0-0.1); Basophils Percent Auto 1.8 % (0.2-1.2); Eosinophils Absolute Auto 0.1 K/mm3 (0-0.3); Eosinophils Percent Auto 1.5 % (0-4.4); Hematocrit 42.3 % (37.0-47.0); Hemoglobin 13.9 g/dL (12.0-15.0); Immature Granulocyte Absolute 0.01 K/mm3 (0.00-0.031); Immature Granulocyte Percent A 0.3 % (0-0.5); Lymphocytes Absolute Auto 1.54 K/mm3 (0.9-3.2); Lymphocytes Percent Auto 46.1 % (18.3-44.2); Mean Corpuscular HGB Conc 32.9 g/dl (32-36); Mean Corpuscular Hemoglobin 35.2 pg (26-34); Mean Corpuscular Volume 107.1 fl (80-100); Mean Platelet Volume 9.7 fl (7.4-10.4); Monocytes Absolute Auto 0.4 K/mm3 (0.1-0.6); Monocytes Percent Auto 12.6 % (2.6-8.5); Neutrophils Absolute Auto 1.3 K/mm3 (1.3-6.7); Neutrophils Percent Auto 37.7 % (45.5-73.1); Platelet Count Result 241 k/mm3 (150-375); Red Blood Count 3.95 M/mm3 (4.2-5.4); Red Cell Distribution Width 15.1 % (11.5-14.5); White Blood Count 3.3 K/mm3 (4.5-10.0)
[2023-11-27 16:40] LABS: Ethanol 92 mg/dL (<10); Platelet Estimate Adequate (Adequate); Schistocytes None Seen (NORMAL); Stomatocytes 1+ (NORMAL)
[2023-11-27 16:42] LABS: Alanine Aminotransferase 37 U/L (6-35); Albumin Level 4.3 g/dL (3.5-5.1); Alkaline Phosphatase 137 U/L (38-126); Anion Gap 10 mmol/L (8-16); Aspartate Amino Transferase 167 U/L (14-36); Bilirubin,Total 0.7 mg/dL (0.2-1.3); Blood Urea Nitrogen 10 mg/dL (7-17); Calcium 8.9 mg/dL (8.4-10.2); Carbon Dioxide 26 mmol/L (22-30); Chloride 101 mmol/L (98-107); Estimated CRCL calculation 117 ml/min; Estimated Glomerular Filt Rate > 60; Glucose 97 mg/dL (65-110); Potassium 4.3 mmol/L (3.4-5.0); Sodium 137 mmol/L (137-145)
[2023-11-27 16:50] LABS: Appearance Urine Clear (Clear); Bilirubin Urine Negative (Negative); Blood Urine Negative (Negative); Color Urine Yellow (Yellow); Glucose Urine UA Negative (Negative); Ketones Urine Negative (Negative); Leukocyte Esterase Ur Negative LEU/UL (Negative); Nitrate Urine Negative (Negative); Protein Urine Negative (Negative); Specific Grav Ur 1.004 (1.001-1.035); Urobilinogen Urine 0.2 mg/dL (<2.0); pH Urine 6.5 (5.0-9.0)
[2023-11-27 16:56] LABS: Amphetamine Screen Urine Negative (Negative); Barbiturate Screen Urine Positive (Negative); Benzodiazepines Screen Urine Negative (Negative); Cannabinoid Screen Urine Negative (Negative); Cocaine Screen Urine Negative (Negative); Methadone Screen Urine Negative (Negative); Opiate Screen Urine Negative (Negative); Phencyclidine Screen Urine Negative (Negative)
[2023-11-27 16:58] LABS: Add Urine Microscopic? NO
--- NOTE | 2023-11-27 17:10 | ED.ALCOHOL ---
HPI - Alcohol General Chief Complaint: Alcohol Stated Complaint: slurred speech, increased weakness Time Seen by Provider: 11/27/23 17:10 Source: patient Mode of arrival: EMS Limitations: altered mental status History of Present Illness HPI narrative: This is a 53 year old female that presents to the ER for altered mental status. Patient's daughter called 911 due to her mother being confused. Patient has history of alcohol abuse and had been drinking today. Patient reporting arthralgias in her knees, shoulders. Otherwise has no focal complaints. Related Data Home Medications Medication Instructions Recorded Confirmed atorvastatin 40 mg tablet 40 mg PO QHS 04/03/22 08/06/23 cetirizine 10 mg tablet 10 mg PO DAILY 04/03/22 08/06/23 omeprazole 40 mg capsule,delayed 40 mg PO DAILY 04/03/22 08/06/23 release albuterol sulfate 90 mcg/actuation 2 puff inhalation QID PRN Wheezing 08/06/23 08/06/23 aerosol inhaler Allergies Allergy/AdvReac Type Severity Reaction Status Date / Time divalproex sodium Allergy Unknown Unknown Verified 08/05/23 13:52 phenytoin Allergy Unknown Other Verified 08/05/23 13:52 Review of Systems Review of Systems: CONSTITUTIONAL: Denies fever EYES: Denies visual changes CARDIOVASCULAR: Denies chest pain RESPIRATORY: Denies dyspnea. GASTROINTESTINAL: Denies vomiting MUSCULOSKELETAL: Reports joint pain, and myalgia. NEUROLOGIC: Denies numbness, or weakness. All systems reviewed & are unremarkable except as noted in HPI and below PMFSH Past Medical History Medical History Anxiety Arthritis Depression Fracture of medial cuneiform bone of right foot (02/05/23) Generalized anxiety disorder Hyperlipidemia Kidney stones Seasonal allergies Seizure disorder On Keppra and primidone. Traumatic brain injury At age 14. Surgical History Surgical History History of arthroscopy of left knee History of lithotripsy Family History Family History Sibling Gunshot wound Mother Malignant neoplasm Lupus Father Diabetes mellitus Atrial fibrillation Hyperlipidemia Lung cancer Other Arthritis Hypertension Social History Social History (Updated 08/06/23 @ 21:19 by JOSE Bell Social History: Surrogate medical decision maker: Efraín Hughes, krysten. Code status: Full code. Smoking packs per day: 0.50 Smoking cigarettes per day: 10.0 Years smoked: 30 Smoking pack-years: 15.00 Smoking status: Current every day smoker Tobacco type: cigarettes Second hand tobacco smoke exposure: No Alcohol intake: current Drinks per week: 14 Alcohol use details: Two tall boys a day. Substance use: current Substance use type: does not use Lack of Transportation: No Lack of Food: Never True Current Housing: I Have Housing Concerned About Future Housing: No Difficulty Paying Gas/Electric Bills: No Difficulty Paying for Meds: No Currently Unemployed: No Education: Decline to Answer Difficulty w/ Childcare or Family Care: No Living arrangements: with family Occupation/Education: unemployed Spiritual care concerns: No Exam Narrative: GENERAL: Well-appearing, well-nourished, and in no acute distress. HEAD: Normocephalic, atraumatic. EYES: PERRLA and EOMI. ENT: Nares clear, no rhinorrhea or epistaxis. Mucous membranes moist. Oropharynx without tonsillar hypertrophy exudate or other lesions. Bilateral TMs pearly lan non-bulging NECK: Supple. No adenopathy or masses. CHEST: Clear to auscultation. No respiratory distress. No wheezes rales or rhonchi HEART: Regular rate and rhythm. No murmur heard. Normal peripheral pulses. ABDOMEN: Soft, nontender, nondistended, normal active bowel sounds. EXTREMITIES: Normal range of motion. No edema. Strength equal in bilateral upper a
[2023-11-27] MEDS: SODIUM CHLORIDE 0.9% IV 1,000 ML 999 ML IV CONT (19:08)
[2023-11-27 19:13] LABS: Influenza A QL RT-PCR Negative (Negative); Influenza B QL RT-PCR Negative (Negative); RSV RNA, RT-PCR Negative (Negative); SARS-CoV-2 RNA PCR Negative (Negative)
[2023-11-27 20:58] LABS: Lactic Acid Reflex 2.1 mmol/L (0.7-2.0)
[2023-11-27 21:02] LABS: CRP < 0.5 mg/dL (<1.0)
[2023-11-27 23:27] LABS: Reflex Lactic Acid Yes or No Add Lactic
== END 2023-11-27 22:46 | disposition home or self-care (01) ==
PROVIDERS: Emergency Medicine; Emergency Provider Physician Assistant; PCP Nurse Practitioner Family
DX: F10.10 Alcohol abuse, uncomplicated (principal); Y90.4 Blood alcohol level of 80-99 mg/100 ml; M25.512 Pain in left shoulder; M25.511 Pain in right shoulder; M25.562 Pain in left knee; M25.561 Pain in right knee; Z11.52 Encounter for screening for COVID-19; G40.909 Epilepsy, unspecified, not intractable, without status epilepticus; E78.5 Hyperlipidemia, unspecified; M17.12 Unilateral primary osteoarthritis, left knee; F17.210 Nicotine dependence, cigarettes, uncomplicated; Z87.442 Personal history of urinary calculi; Z87.820 Personal history of traumatic brain injury; I45.10 Unspecified right bundle-branch block; R94.31 Abnormal electrocardiogram [ECG] [EKG]; N20.0 Calculus of kidney
CPT/HCPCS: 36415; 70450; 71045; 73030; 73562; 74177; 80053; 80307; 81003; 83605; 83735; 85025; 86140; 87040; 87637; 93005; 96360; 99284; J7030; Q9967

== ENCOUNTER 2024-01-29 18:00 | Emergency (ER) | payer OTHER, SELFPAY ==
--- NOTE | ~2024-01-29 | CT_ITS ---
EXAMINATION: CT brain wo con DATE: 01/29/2024 19:49 INDICATION: Seizures TECHNIQUE: Computed tomography (CT) of the head was performed without intravenous contrast. The dose- length product was 832.33 mGy-cm. Automated exposure control and iterative reconstruction technique w ere employed. COMPARISON: CT dated 11/27/2023 FINDINGS: Generalized atrophy. There are scattered mild periventricular and subcortical white matter changes, most likely related to small vessel ischemic disease (microangiopathy). No acute infarction, hemorrhage, mass or mass effect. No ventriculomegaly or midline shift. Paranasal sinuses and mastoid s are pneumatized. No depressed skull fractures. IMPRESSION: 1. No acute intracranial abnormality. Reviewed, dictated and finalized at location A.
[2024-01-29 18:25] VITALS: BP 141/102; PULSE 88; RESP 16; TEMP 36.4; O2SAT 98
[2024-01-29 19:20] VITALS: BP 141/81; PULSE 78; RESP 16; O2SAT 98
[2024-01-29 19:21] VITALS: PULSE 89; RESP 20; O2SAT 98
--- NOTE | 2024-01-29 19:29 | ECG_ITS ---
Measurements Intervals [place] Rate: 123 P: 35 VT: 127 QRS: 49 QRSD: 102 T: 12 QT: 337 QTc: 483 Interpretive Statements SINUS TACHYCARDIA INCOMPLETE RIGHT BUNDLE BRANCH BLOCK DELAYED PRECORDIAL R/S TRANSITION ST-T WAVE ABNORMALITY IN ANTERIOR LEADS- CONSIDER ISCHEMIA BASELINE ARTIFACT- I, III, AVL, V1-V3 ABNORMAL ECG COMPARED TO ECG 11/27/2023 16:30:46 [address]IN[address]CARDIA NOW PRESENT ST-T WAVE ABNORMALITY NOW PRESENT Electronically Signed On 01-29-2024 19:52:04 CDT by Tony Man D.O.
[2024-01-29] MEDS: LORazepam INJ (*CRX) 2 MG/ML VIAL 1 MG IV PUSH (19:30)
--- NOTE | 2024-01-29 19:33 | ED.SEIZURE ---
HPI - Seizure General Chief Complaint: Seizure Stated Complaint: seizure Time Seen by Provider: 01/29/24 19:28 History of Present Illness HPI Narrative: Patient is a 53 year old female with history of alcohol use, epilepsy here with seizure. Patient actively seizing during exam, provides no history. Additional history obtained. Patient states that she has a history of alcohol abuse, she last drink 4-5 days ago. She then checked in the next day to [facility]. She was there for 1 day and someone came to talk to her about who is with her child. At that time she signed out of the hospital and went to be home with her daughter. She does note that they advised her to stop taking her Lamictal which she has been on for many years for her epilepsy. Today she notes that she had several small episodic seizures at home during which she did not lose consciousness. She describes him as a jolting sensation which is brief not associated with tongue biting or urinary incontinence. She has not taken her Lamictal for 3-4 days. She follows with Dr. Pickett for neurology. Seizure History: Yes (epilepsy) Related Data Home Medications Medication Instructions Recorded Confirmed atorvastatin 40 mg tablet 40 mg PO QHS 04/03/22 08/06/23 cetirizine 10 mg tablet 10 mg PO DAILY 04/03/22 08/06/23 omeprazole 40 mg capsule,delayed 40 mg PO DAILY 04/03/22 08/06/23 release albuterol sulfate 90 mcg/actuation 2 puff inhalation QID PRN Wheezing 08/06/23 08/06/23 aerosol inhaler Allergies Allergy/AdvReac Type Severity Reaction Status Date / Time divalproex sodium Allergy Unknown Unknown Verified 01/29/24 19:19 phenytoin Allergy Unknown Other Verified 01/29/24 19:19 Review of Systems Review of Systems: All systems reviewed & are unremarkable except as noted in HPI and below PMFSH Past Medical History Medical History Anxiety Arthritis Depression Fracture of medial cuneiform bone of right foot (02/05/23) Generalized anxiety disorder Hyperlipidemia Kidney stones Seasonal allergies Seizure disorder On Keppra and primidone. Traumatic brain injury At age 14. Surgical History Surgical History History of arthroscopy of left knee History of lithotripsy Family History Family History Sibling Gunshot wound Mother Malignant neoplasm Lupus Father Diabetes mellitus Atrial fibrillation Hyperlipidemia Lung cancer Other Arthritis Hypertension Social History Social History (Updated 08/06/23 @ 21:19 by Corina Yañez PA-C) Social History: Surrogate medical decision maker: Efraín Hughes, krysten. Code status: Full code. Smoking packs per day: 0.50 Smoking cigarettes per day: 10.0 Years smoked: 30 Smoking pack-years: 15.00 Smoking status: Current every day smoker Tobacco type: cigarettes Second hand tobacco smoke exposure: No Alcohol intake: current Drinks per week: 14 Alcohol use details: Two tall boys a day. Substance use: current Substance use type: does not use Lack of Transportation: No Lack of Food: Never True Current Housing: I Have Housing Concerned About Future Housing: No Difficulty Paying Gas/Electric Bills: No Difficulty Paying for Meds: No Currently Unemployed: No Education: Decline to Answer Difficulty w/ Childcare or Family Care: No Living arrangements: with family Occupation/Education: unemployed Spiritual care concerns: No Exam Narrative: GENERAL: actively seizing, appears to be in distress. HEAD: Normocephalic, atraumatic. EYES: PERRLA and EOMI. ENT: Nares clear. Mucous membranes moist. NECK: Supple. CHEST: Clear to auscultation. No respiratory distress. HEART: Tachycardic. Normal peripheral pulses. ABDOMEN: Soft, nontender, nondistended. EXTREMITIES: Normal ra
--- NOTE | 2024-01-29 19:33 | PC.NURSE ---
Patient began seizing while registration was at bedside. This RN went into room and helped roll patient on side and got suction and oxygen set up. Dr Charlton and Dr Negro came to bedside giving verbal order for 1mg ativan. seizure lasted about 45 seconds.
--- NOTE | 2024-01-29 19:50 | PC.NURSE ---
Patient remained postictal for about 3 minutes then was able to speak and became very emotional.
[2024-01-29 20:05] LABS: Basophils Percent Auto 0.9 % (0.2-1.2); Eosinophils Absolute Auto 0.1 K/mm3 (0-0.3); Eosinophils Percent Auto 1.8 % (0-4.4); Hematocrit 43.8 % (37.0-47.0); Hemoglobin 14.5 g/dL (12.0-15.0); Lymphocytes Absolute Auto 2.08 K/mm3 (0.9-3.2); Mean Corpuscular HGB Conc 33.1 g/dl (32-36); Mean Corpuscular Hemoglobin 36.2 pg (26-34); Mean Corpuscular Volume 109.2 fl (80-100); Mean Platelet Volume 10.5 fl (7.4-10.4); Monocytes Absolute Auto 0.6 K/mm3 (0.1-0.6); Monocytes Percent Auto 14.8 % (2.6-8.5); Neutrophils Absolute Auto 1.5 K/mm3 (1.3-6.7); Neutrophils Percent Auto 34.5 % (45.5-73.1); Platelet Count Result 221 k/mm3 (150-375); Red Blood Count 4.01 M/mm3 (4.2-5.4); Red Cell Distribution Width 13.8 % (11.5-14.5); White Blood Count 4.3 K/mm3 (4.5-10.0)
[2024-01-29 20:13] LABS: Ethanol < 10 mg/dL (<10)
[2024-01-29 20:16] LABS: Alanine Aminotransferase 32 U/L (6-35); Albumin Level 4.6 g/dL (3.5-5.1); Alkaline Phosphatase 106 U/L (38-126); Anion Gap 6 mmol/L (8-16); Aspartate Amino Transferase 100 U/L (14-36); Bilirubin,Total 0.4 mg/dL (0.2-1.3); Blood Urea Nitrogen 10 mg/dL (7-17); Calcium 9.8 mg/dL (8.4-10.2); Carbon Dioxide 30 mmol/L (22-30); Chloride 101 mmol/L (98-107); Estimated CRCL calculation 91 ml/min; Estimated Glomerular Filt Rate > 60; Glucose 92 mg/dL (65-110); Potassium 3.7 mmol/L (3.4-5.0); Sodium 137 mmol/L (137-145)
[2024-01-29 20:24] LABS: Creatine Kinase 115 U/L (30-135)
[2024-01-29 20:33] LABS: Platelet Estimate Adequate (Adequate)
[2024-01-29 20:34] LABS: Anisocytosis 1+; Schistocytes None Seen
[2024-01-29 20:42] VITALS: BP 127/94; PULSE 91; RESP 20
[2024-01-29] MEDS: chlordiazePOXIDE (*CRX) 25 MG CAPSULE 50 MG PO (21:08)
--- NOTE | 2024-01-29 21:10 | PC.NURSE ---
Patient states she wants to leave AMA. Patient back to baseline A&Ox4 and provider spoke with patient about the risks of leaving AMA. Patient verbalized understanding and signed paperwork. patient ambulated out of department
== END 2024-01-29 21:16 | disposition left against medical advice (07) ==
PROVIDERS: Emergency Provider Student in an Organized Health Care Education/Training Program; PCP Nurse Practitioner Family
DX: G40.909 Epilepsy, unspecified, not intractable, without status epilepticus (principal); E78.5 Hyperlipidemia, unspecified; M19.90 Unspecified osteoarthritis, unspecified site; F32.A Depression, unspecified; F41.1 Generalized anxiety disorder; F17.210 Nicotine dependence, cigarettes, uncomplicated; Z87.442 Personal history of urinary calculi; Z87.820 Personal history of traumatic brain injury; R00.0 Tachycardia, unspecified; I45.10 Unspecified right bundle-branch block; R94.31 Abnormal electrocardiogram [ECG] [EKG]
CPT/HCPCS: 36415; 70450; 80053; 80307; 82550; 83735; 85025; 93005; 96365; 96375; 99284; A9270; J1953; J2060

== ENCOUNTER 2024-02-10 14:17 | Emergency (ER) | payer OTHER, SELFPAY ==
[2024-02-10 14:21] VITALS: BP 135/85; PULSE 79; RESP 20; TEMP 36.4; O2SAT 96
--- NOTE | 2024-02-10 14:25 | ECG_ITS ---
Measurements Intervals [place] Rate: 84 P: 53 [place]: 172 QRS: 54 QRSD: 96 T: 52 QT: 375 QTc: 445 Interpretive Statements SINUS RHYTHM POSSIBLE LEFT ATRIAL ENLARGEMENT INCOMPLETE RIGHT BUNDLE BRANCH BLOCK BORDERLINE T WAVE ABNORMALITY- ANTERIOR LEADS BASELINE WANDER- V3 BORDERLINE ECG COMPARED TO ECG 01/29/2024 19:34:00 SINUS RHYTHM NOW PRESENT Electronically Signed On 02-11-2024 13:23:01 CDT by Tony Man D.O.
--- NOTE | 2024-02-10 14:34 | PC.NURSE ---
Pt reports not refilling medicine since she had enough bottles. Bottles have date of machine operator hop picker at 03/12/22 & 06/14/22. Each have one year until expiration date. States did not have any seizures until Dr. Harris tried to wean pt off meds. States Dr. Nunn is new neurologist and has apt scheduled March 04 and cannot wait that long.
[2024-02-10 14:59] VITALS: BP 126/72; PULSE 75; RESP 14; O2SAT 94
[2024-02-10 15:59] VITALS: BP 112/69; PULSE 72; RESP 16; O2SAT 93
[2024-02-10 16:15] LABS: Basophils Percent Auto 0.8 % (0.2-1.2); Eosinophils Absolute Auto 0.1 K/mm3 (0-0.3); Eosinophils Percent Auto 1.7 % (0-4.4); Hematocrit 45.5 % (37.0-47.0); Hemoglobin 15.2 g/dL (12.0-15.0); Immature Granulocyte Absolute 0.01 K/mm3 (0.00-0.031); Immature Granulocyte Percent A 0.2 % (0-0.5); Lymphocytes Absolute Auto 1.93 K/mm3 (0.9-3.2); Mean Corpuscular HGB Conc 33.4 g/dl (32-36); Mean Corpuscular Hemoglobin 35.3 pg (26-34); Mean Corpuscular Volume 105.8 fl (80-100); Mean Platelet Volume 11.2 fl (7.4-10.4); Monocytes Absolute Auto 0.5 K/mm3 (0.1-0.6); Monocytes Percent Auto 10.8 % (2.6-8.5); Neutrophils Absolute Auto 2.1 K/mm3 (1.3-6.7); Neutrophils Percent Auto 45.5 % (45.5-73.1); Platelet Count Result 298 k/mm3 (150-375); Red Cell Distribution Width 13.2 % (11.5-14.5); White Blood Count 4.7 K/mm3 (4.5-10.0)
[2024-02-10 16:21] LABS: Alanine Aminotransferase 20 U/L (6-35); Albumin Level 4.6 g/dL (3.5-5.1); Alkaline Phosphatase 91 U/L (38-126); Anion Gap 6 mmol/L (4-12); Aspartate Amino Transferase 40 U/L (14-36); Bilirubin,Total 0.5 mg/dL (0.2-1.3); Blood Urea Nitrogen 17 mg/dL (7-17); Calcium 9.7 mg/dL (8.4-10.2); Carbon Dioxide 32 mmol/L (22-30); Chloride 101 mmol/L (98-107); Estimated CRCL calculation 97 ml/min; Estimated Glomerular Filt Rate > 60; Glucose 114 mg/dL (65-110); Potassium 3.4 mmol/L (3.4-5.0); Sodium 139 mmol/L (137-145)
--- NOTE | 2024-02-10 17:00 | ED.SEIZURE ---
HPI - Seizure General Chief Complaint: Seizure Stated Complaint: seizures Time Seen by Provider: 02/10/24 15:31 Source: patient Mode of arrival: ambulatory Limitations: no limitations History of Present Illness HPI Narrative: 53-year-old with a history of seizure disorder on lamotrigine 200 mg 4 times a day here with a complaint of having seizure. Patient states that she is supposed to take 4 times a day however she is being taken twice a day. She also states her medications have . She complains of headache and shoulder pain she is scheduled to see Dr. Nunn on March 04 complaint: seizure Description of Episode: tonic-clonic movement Seizure History: Yes (epilepsy) Place: home Possible Precipitating Event: none Associated symptoms: denies other symptoms Related Data Home Medications Medication Instructions Recorded Confirmed atorvastatin 40 mg tablet 40 mg PO QHS 04/03/22 08/06/23 cetirizine 10 mg tablet 10 mg PO DAILY 04/03/22 08/06/23 omeprazole 40 mg capsule,delayed 40 mg PO DAILY 04/03/22 08/06/23 release albuterol sulfate 90 mcg/actuation 2 puff inhalation QID PRN Wheezing 08/06/23 08/06/23 aerosol inhaler Allergies Allergy/AdvReac Type Severity Reaction Status Date / Time divalproex sodium Allergy Unknown Unknown Verified 01/29/24 19:19 phenytoin Allergy Unknown Other Verified 01/29/24 19:19 Review of Systems Review of Systems: All systems reviewed & are unremarkable except as noted in HPI and below Constitutional: Constitutional: Reports no additional constitutional complaints Eyes: Eyes: Reports no additional eye complaints ENT: Reports system reviewed and no additional complaints, except as documented Cardiovascular: Cardiovascular: Reports no additional cardiovascular complaints Respiratory: Respiratory: Reports no additional respiratory complaints Gastrointestinal: Gastrointestinal: Reports no additional gastrointestinal complaints Neurologic: Reports headache(s) Psychiatric: Psychiatric: Reports no additional psychiatric complaints [facility] Past Medical History Medical History Anxiety Arthritis Depression Fracture of medial cuneiform bone of right foot (02/05/23) Generalized anxiety disorder Hyperlipidemia Kidney stones Seasonal allergies Seizure disorder On Keppra and primidone. Traumatic brain injury At age 14. Surgical History Surgical History History of arthroscopy of left knee History of lithotripsy Family History Family History Sibling Gunshot wound Mother Malignant neoplasm Lupus Father Diabetes mellitus Atrial fibrillation Hyperlipidemia Lung cancer Other Arthritis Hypertension Social History Social History Social History: Surrogate medical decision maker: Efraín Hughes, krysten. Code status: Full code. Smoking packs per day: 0.50 Smoking cigarettes per day: 10.0 Years smoked: 30 Smoking pack-years: 15.00 Smoking status: Current every day smoker Tobacco type: cigarettes Second hand tobacco smoke exposure: No Alcohol intake: current Drinks per week: 14 Alcohol use details: Two tall boys a day. Substance use: current Substance use type: does not use Lack of Transportation: No Lack of Food: Never True Current Housing: I Have Housing Concerned About Future Housing: No Difficulty Paying Gas/Electric Bills: No Difficulty Paying for Meds: No Currently Unemployed: No Education: Decline to Answer Difficulty w/ Childcare or Family Care: No Living arrangements: with family Occupation/Education: unemployed Spiritual care concerns: No Exam Narrative: GENERAL: Well-appearing, well-nourished, and in no acute distress. HEAD: Normocephalic, atraumatic. EYES: PERRLA and EOMI. EN
[2024-02-10 17:21] VITALS: BP 113/71; PULSE 71; RESP 19; TEMP 36.6; O2SAT 98
== END 2024-02-10 17:23 | disposition home or self-care (01) ==
PROVIDERS: Emergency Provider Family Medicine; PCP Nurse Practitioner Family
DX: G40.909 Epilepsy, unspecified, not intractable, without status epilepticus (principal); F41.9 Anxiety disorder, unspecified; M19.90 Unspecified osteoarthritis, unspecified site; F32.A Depression, unspecified; T42.6X6A Underdosing of other antiepileptic and sedative-hypnotic drugs, initial encounter
CPT/HCPCS: 36415; 80053; 85025; 93005; 99283

== ENCOUNTER 2024-02-18 19:45 | Emergency (ER) | payer OTHER, SELFPAY ==
[2024-02-18] VITALS (10 sets, daily range): BP systolic 101–131; BP diastolic 61–86; PULSE 85–94; RESP 13–24; TEMP 36.5; O2SAT 94–98
[2024-02-18 20:18] LABS: Basophils Absolute Auto 0.1 K/mm3 (0.0-0.1); Basophils Percent Auto 1.2 % (0.2-1.2); Eosinophils Absolute Auto 0.1 K/mm3 (0-0.3); Eosinophils Percent Auto 1.8 % (0-4.4); Hematocrit 43.8 % (37.0-47.0); Hemoglobin 14.7 g/dL (12.0-15.0); Lymphocytes Absolute Auto 2.53 K/mm3 (0.9-3.2); Mean Corpuscular HGB Conc 33.6 g/dl (32-36); Mean Corpuscular Hemoglobin 34.4 pg (26-34); Mean Corpuscular Volume 102.6 fl (80-100); Mean Platelet Volume 10.2 fl (7.4-10.4); Monocytes Absolute Auto 0.5 K/mm3 (0.1-0.6); Monocytes Percent Auto 8.9 % (2.6-8.5); Neutrophils Absolute Auto 1.9 K/mm3 (1.3-6.7); Neutrophils Percent Auto 38.1 % (45.5-73.1); Platelet Count Result 237 k/mm3 (150-375); Red Blood Count 4.27 M/mm3 (4.2-5.4); Red Cell Distribution Width 13.2 % (11.5-14.5); White Blood Count 5.1 K/mm3 (4.5-10.0)
[2024-02-18 20:29] LABS: Alanine Aminotransferase 33 U/L (6-35); Albumin Level 4.6 g/dL (3.5-5.1); Alkaline Phosphatase 86 U/L (38-126); Anion Gap 8 mmol/L (4-12); Aspartate Amino Transferase 76 U/L (14-36); Bilirubin,Total 0.5 mg/dL (0.2-1.3); Blood Urea Nitrogen 17 mg/dL (7-17); Calcium 9.4 mg/dL (8.4-10.2); Carbon Dioxide 26 mmol/L (22-30); Chloride 100 mmol/L (98-107); Estimated CRCL calculation 83 ml/min; Estimated Glomerular Filt Rate > 60; Glucose 94 mg/dL (65-110); Potassium 3.9 mmol/L (3.4-5.0); Sodium 134 mmol/L (137-145)
[2024-02-18 21:07] LABS: Ethanol 34 mg/dL (<10)
--- NOTE | 2024-02-18 21:40 | ED.ALCOHOL ---
HPI - Alcohol General Chief Complaint: Alcohol Stated Complaint: cant walk Time Seen by Provider: 02/18/24 21:34 Source: patient Mode of arrival: ambulatory Limitations: no limitations History of Present Illness HPI narrative: This is a 53-year-old female that presents to the emergency department as she would like to stop drinking alcohol. Reports she drinks a couple tall boys and shots per day. She wishes to stop drinking and would like resources to do so. Has not had a complicated withdrawal in the past. Reports a mild headache and feeling shaky currently. Related Data Home Medications Medication Instructions Recorded Confirmed atorvastatin 40 mg tablet 40 mg PO QHS 04/03/22 08/06/23 cetirizine 10 mg tablet 10 mg PO DAILY 04/03/22 08/06/23 omeprazole 40 mg capsule,delayed 40 mg PO DAILY 04/03/22 08/06/23 release albuterol sulfate 90 mcg/actuation 2 puff inhalation QID PRN Wheezing 08/06/23 08/06/23 aerosol inhaler Allergies Allergy/AdvReac Type Severity Reaction Status Date / Time divalproex sodium Allergy Unknown Unknown Verified 01/29/24 19:19 phenytoin Allergy Unknown Other Verified 01/29/24 19:19 Review of Systems Review of Systems: CONSTITUTIONAL: Denies fever CARDIOVASCULAR: Denies chest pain GASTROINTESTINAL: Denies nausea, vomiting NEUROLOGIC: Reports headache. Denies numbness, or weakness. All systems reviewed & are unremarkable except as noted in HPI and below PMFSH Past Medical History Medical History Anxiety Arthritis Depression Fracture of medial cuneiform bone of right foot (02/05/23) Generalized anxiety disorder Hyperlipidemia Kidney stones Seasonal allergies Seizure disorder On Keppra and primidone. Traumatic brain injury At age 14. Surgical History Surgical History History of arthroscopy of left knee History of lithotripsy Family History Family History Sibling Gunshot wound Mother Malignant neoplasm Lupus Father Diabetes mellitus Atrial fibrillation Hyperlipidemia Lung cancer Other Arthritis Hypertension Social History Social History Social History: Surrogate medical decision maker: Efraín Hughes, son. Code status: Full code. Smoking packs per day: 0.50 Smoking cigarettes per day: 10.0 Years smoked: 30 Smoking pack-years: 15.00 Smoking status: Current every day smoker Tobacco type: cigarettes Second hand tobacco smoke exposure: No Alcohol intake: current Drinks per week: 14 Alcohol use details: Two tall boys a day. Substance use: current Substance use type: does not use Lack of Transportation: No Lack of Food: Never True Current Housing: I Have Housing Concerned About Future Housing: No Difficulty Paying Gas/Electric Bills: No Difficulty Paying for Meds: No Currently Unemployed: No Education: Decline to Answer Difficulty w/ Childcare or Family Care: No Living arrangements: with family Occupation/Education: unemployed Spiritual care concerns: No Exam Narrative: GENERAL: Well-appearing, well-nourished, and in no acute distress. HEAD: Normocephalic, atraumatic. EYES: PERRLA and EOMI. ENT: Nares clear, no rhinorrhea or epistaxis. Mucous membranes moist. Oropharynx without tonsillar hypertrophy exudate or other lesions. Bilateral TMs pearly lan non-bulging NECK: Supple. No adenopathy or masses. CHEST: Clear to auscultation. No respiratory distress. No wheezes rales or rhonchi HEART: Regular rate and rhythm. No murmur heard. Normal peripheral pulses. EXTREMITIES: Normal range of motion. No edema. Strength equal in bilateral upper and lower extremities (5/5) SKIN: Warm, dry, no rash. NEURO: No focal deficits. Alert and oriented x3. Cranial nerves 2-12 grossly intact PSYCH: Normal moo
== END 2024-02-18 22:26 | disposition home or self-care (01) ==
LOC: ANHED 21:55
PROVIDERS: Emergency Medicine; Emergency Provider Physician Assistant; PCP Nurse Practitioner Family
DX: F10.10 Alcohol abuse, uncomplicated (principal); E78.5 Hyperlipidemia, unspecified; F41.8 Other specified anxiety disorders; G40.909 Epilepsy, unspecified, not intractable, without status epilepticus; F17.210 Nicotine dependence, cigarettes, uncomplicated
CPT/HCPCS: 36415; 80053; 80307; 85025; 99283

== ENCOUNTER 2024-04-27 02:24 | Emergency (ER) | payer OTHER, SELFPAY ==
--- NOTE | ~2024-04-27 | XR_ITS ---
AP and oblique views of the right ribs, and PA chest radiograph Clinical History: Pain Findings: No rib fracture is seen. Osseous alignment is anatomic. Lungs are clear, without focal cons olidation or pleural effusion. Cardiomediastinal contour is within normal limits. Soft tissues are un remarkable. Impression: No rib fracture is seen. Clear lungs. Reviewed, dictated and finalized at [facility]. Impression: No rib fracture is seen. Clear lungs.
[2024-04-27 02:25] VITALS: BP 110/81; PULSE 83; RESP 20; TEMP 36.9; O2SAT 98
[2024-04-27 02:30] VITALS: PULSE 85
[2024-04-27 02:31] VITALS: BP 114/76; PULSE 86; RESP 20; TEMP 36.9; O2SAT 98
--- NOTE | 2024-04-27 02:32 | ECG_ITS ---
Test Date: 2024-04-27 02:33:28 Measurements Intervals [place] Rate: 84 P: 40 [place]: 185 QRS: 44 QRSD: 101 T: 31 QT: 392 QTc: 464 Interpretive Statements SINUS RHYTHM INCOMPLETE RIGHT BUNDLE BRANCH BLOCK [90+ ms QRS DURATION, TERMINAL R IN V1/V2, 40+ ms S IN I/aVL/V4/V5/V6] No previous ECG available for comparison Electronically Signed On 04-27-2024 10:53:13 CDT by James Sr M.D.
[2024-04-27 02:33] VITALS: O2SAT 96
--- NOTE | 2024-04-27 02:39 | ED.CHESTPAIN ---
HPI - Chest Pain General Chief Complaint: Chest Pain Stated Complaint: cp - thinks ribs broken Time Seen by Provider: 04/27/24 02:33 Source: patient Mode of arrival: ambulatory Limitations: no limitations History of Present Illness HPI narrative: 54-year-old female presenting for right rib injury yesterday. She tripped and fell on pavement struck her right ribs on around is having pain ever since when she takes a deep breath. No pain on the left. Pain is a lot worse when she pushes on or coughs. No shortness of breath just hurts to breathe. Related Data Home Medications Medication Instructions Recorded Confirmed atorvastatin 40 mg tablet 40 mg PO QHS 04/03/22 08/06/23 cetirizine 10 mg tablet 10 mg PO DAILY 04/03/22 08/06/23 omeprazole 40 mg capsule,delayed 40 mg PO DAILY 04/03/22 08/06/23 release albuterol sulfate 90 mcg/actuation 2 puff inhalation QID PRN Wheezing 08/06/23 08/06/23 aerosol inhaler Allergies Allergy/AdvReac Type Severity Reaction Status Date / Time divalproex sodium Allergy Unknown Unknown Verified 04/27/24 02:32 phenytoin Allergy Unknown Other Verified 04/27/24 02:32 Review of Systems Review of Systems: All systems reviewed & are unremarkable except as noted in HPI and below PMFSH Past Medical History Medical History Anxiety Arthritis Depression Fracture of medial cuneiform bone of right foot (02/05/23) Generalized anxiety disorder Hyperlipidemia Kidney stones Seasonal allergies Seizure disorder On Keppra and primidone. Traumatic brain injury At age 14. Surgical History Surgical History History of arthroscopy of left knee History of lithotripsy Family History Family History Sibling Gunshot wound Mother Malignant neoplasm Lupus Father Diabetes mellitus Atrial fibrillation Hyperlipidemia Lung cancer Other Arthritis Hypertension Social History Social History Social History: Surrogate medical decision maker: Efraín Hughes, son. Code status: Full code. Smoking packs per day: 0.50 Smoking cigarettes per day: 10.0 Years smoked: 30 Smoking pack-years: 15.00 Smoking status: Current every day smoker Tobacco type: cigarettes Second hand tobacco smoke exposure: No Alcohol intake: current Drinks per week: 14 Alcohol use details: Two tall boys a day. Substance use: current Substance use type: does not use Lack of Transportation: No Lack of Food: Never True Current Housing: I Have Housing Concerned About Future Housing: No Difficulty Paying Gas/Electric Bills: No Difficulty Paying for Meds: No Currently Unemployed: No Education: Decline to Answer Difficulty w/ Childcare or Family Care: No Living arrangements: with family Occupation/Education: unemployed Spiritual care concerns: No Exam Narrative: Constitutional: Generally well appearing, no acute distress Head: Atraumatic, no deformities. Eyes: Pupils equal, round, and reactive to light. Neck: Supple, no tracheal deviation, no JVD. ENMT: Mucous membranes moist Cardiovascular: S1, S2 auscultated. No murmurs, rubs, or gallops. No S3/S4. Normal Distal pulses. No peripheral edema. Respiratory: Lung sounds equal. No wheezes, rales, or rhonchi. Gastrointestinal: Abdomen was soft and non-tender. Non-distended. No rebound or guarding. Genitourinary: Deferred Musculoskeletal: Normal muscle tone and bulk. No obvious deformities or tenderness over extremities. She has some tenderness over the right anterior lateral upper ribs without any step-off or crepitus Skin: No rashes. Neurological: Strength 5/5 in extremities. Cranial nerves I-XII grossly intact. Distal sensation intact. Mental Status: Awake, alert and oriented x3. Follows commands
[2024-04-27] MEDS: KETOROLAC 30 MG/ML VIAL (*BKC) IM (03:03)
[2024-04-27] MEDS: HYDROcodone/acetaminophen (*CRX) 5-325 MG TABLET 1 TAB PO (03:03)
== END 2024-04-27 04:45 | disposition home or self-care (01) ==
PROVIDERS: Emergency Provider Emergency Medicine; PCP Nurse Practitioner Family
DX: S20.211A Contusion of right front wall of thorax, initial encounter (principal); G40.909 Epilepsy, unspecified, not intractable, without status epilepticus; E78.5 Hyperlipidemia, unspecified; M19.90 Unspecified osteoarthritis, unspecified site; F32.A Depression, unspecified; F41.1 Generalized anxiety disorder; Z87.820 Personal history of traumatic brain injury; Z87.442 Personal history of urinary calculi; I45.10 Unspecified right bundle-branch block; W01.0XXA Fall on same level from slipping, tripping and stumbling without subsequent striking against object, initial encounter
CPT/HCPCS: 71101; 93005; 96372; 99284; A9270; J1885

== ENCOUNTER 2024-08-05 08:57 | Outpatient (CLI) | payer OTHER, SELFPAY ==
--- NOTE | ~2024-08-05 | DEXA_ITS ---
Bone Density Report Name: ETIENNE ARMANDO Age: 54 Sex: Female Ethnicity: White Date of : 1970 Indication: postmenopausal; screening for osteoporosis; prior fracture; seizure disorder; Referring Provider: ANSLEY FUENTES Study: Bone densitometry was performed. Exam Date: August 05, 2024 Accession number: [id number] Bone Density: Region BMD T-score Z-score Classification AP Spine(L1-L4) 0.965 -0.7 0.2 Normal Femoral Neck (Left) 0.652 -1.8 -0.8 Osteopenia Total Hip (Left) 0.818 -1.0 -0.4 Normal Femoral Neck (Right) 0.690 -1.4 -0.5 Osteopenia Total Hip (Right) 0.840 -0.8 -0.2 Normal Total Hip Mean 0.829 -0.9 -0.3 Normal World Health Organization criteria for BMD impression classify patients as: Normal (T-score at or above -1.0), Osteopenia (T-score between -1.0 and -2.5), or Osteoporosis (T-score at or below -2.5). 10-year Fracture Risk(1): Major Osteoporotic Fracture 11% Hip Fracture 1.9% Reported Risk Factors: [place] (), Neck BMD=0.652, BMI=31.4, previous fracture, smoking (1) FRAX(R) Version 3.08. Fracture probability calculated for an untreated patient. Fracture probability may be lower if the patient has received treatment. Clinical Information Provided by Patient: Has had a low trauma fracture Smokes Has the following medical conditions: Any Seizure Disorders Patient maximum height was 64 No regular weight bearing exercise Onset of menses at age 14 Number of children 2 Impression: The patient has low bone mass, based on the Left Femoral Neck T-score. The patient has an estimated ten-year risk of hip fracture of 1.9% and an estimated ten-year risk of major fracture of 11%, based on the WHO FRAX algorithm. The patient has risk factors, including: smoking, previous fracture. Discussion: BONE DENSITY IS LOW AT ONE OR MORE SKELETAL SITES. This patient's lowest T-score is low at one or more skeletal sites. It meets the World Health Organization's (WHO) criteria for ?low bone mass? (T-score between -1.0 and -2.5). The patient's 10-year risk of fracture as calculated by FRAX is less than the threshold where pharmacological therapy is recommended by the National Osteoporosis Foundation (NOF). However, all treatment decisions require clinical judgment and consideration of individual patient factors, including patient preferences, comorbidities, previous drug use, risk factors not captured in the FRAX model (e.g., frailty, falls, vitamin D deficiency, increased bone turnover, interval significant decline in bone density) and possible under or overestimation of fracture risk by FRAX. The patient should follow a healthful lifestyle (good nutrition with adequate calcium and vitamin D, and appropriate weight-bearing exercise). Follow-Up: Consider repeating this s
== END 2024-08-05 08:58 | disposition home or self-care (01) ==
LOC: ANHIMG 08:58
PROVIDERS: PCP Nurse Practitioner Family; Visit Provider Psychiatry & Neurology Neurology
DX: M85.89 Other specified disorders of bone density and structure, multiple sites (principal); M81.0 Age-related osteoporosis without current pathological fracture; G25.0 Essential tremor; G40.909 Epilepsy, unspecified, not intractable, without status epilepticus
CPT/HCPCS: 77080

== ENCOUNTER 2024-08-18 16:15 | Emergency (ER) | payer OTHER, SELFPAY ==
--- NOTE | ~2024-08-18 | XR_ITS ---
EXAMINATION: XR knee RT 3V DATE: 08/18/2024 17:42 INDICATION: Right prepatellar laceration. TECHNIQUE: 3 views of right knee were obtained. COMPARISON: None. FINDINGS: Bone alignment is normal. No fracture. There is mild osteoarthritis of medial and patellofe moral compartments. No knee joint effusion. There is a prepatellar laceration. IMPRESSION: 1. Mild right knee osteoarthritis. Reviewed, dictated and finalized at location A.
[2024-08-18 16:36] VITALS: BP 133/69; PULSE 95; RESP 15; TEMP 36.6; O2SAT 98
[2024-08-18 16:54] VITALS: BP 132/93; PULSE 99; RESP 16; O2SAT 100
[2024-08-18] MEDS: TETANUS,DIPHTHERIA,AC PERTUSSIS ADULT (0.5 ML) BOOSTRIX IM (17:43)
[2024-08-18] MEDS: ceFAZolin SODIUM 1 GM VIAL IM (17:48)
--- NOTE | 2024-08-18 18:44 | ED.GENADULT ---
HPI - General Adult General Chief complaint: Fall Stated complaint: fall Time Seen by Provider: 08/18/24 16:57 History of Present Illness HPI narrative: This is a 54-year-old female presenting after a fall. Per the patient she got into a ?German standoff with her daughter on who is going to take out the trash first? The patient says she lost and while taking out the garbage she fell sustaining a laceration to her right knee. This occurred 11:00 p.m. last night. Today she is having increasing pain in her leg. No other injuries. No head trauma or loss of consciousness. Related Data Home Medications Medication Instructions Recorded Confirmed atorvastatin 40 mg tablet 40 mg PO QHS 04/03/22 06/09/24 cetirizine 10 mg tablet 10 mg PO DAILY 04/03/22 06/09/24 omeprazole 40 mg capsule,delayed 40 mg PO DAILY 04/03/22 06/09/24 release albuterol sulfate 90 mcg/actuation 2 puff inhalation QID PRN Wheezing 08/06/23 06/09/24 aerosol inhaler citalopram 40 mg tablet 40 mg PO DAILY 06/09/24 06/09/24 Allergies Allergy/AdvReac Type Severity Reaction Status Date / Time divalproex sodium Allergy Unknown Unknown Verified 08/18/24 16:20 phenytoin Allergy Unknown Other Verified 08/18/24 16:20 PMFSH Past Medical History Medical History Anxiety Arthritis Benign essential tremor Depression Fracture of medial cuneiform bone of right foot (02/05/23) Generalized anxiety disorder Hyperlipidemia Kidney stones Seasonal allergies Seizure disorder On Keppra and primidone. Traumatic brain injury At age 14. Surgical History Surgical History History of arthroscopy of left knee History of lithotripsy Family History Family History Sibling Gunshot wound Mother Malignant neoplasm Lupus Father Diabetes mellitus Atrial fibrillation Hyperlipidemia Lung cancer Other Arthritis Hypertension Social History Social History Social History: Surrogate medical decision maker: Efraín Hughes, son. Code status: Full code. Smoking packs per day: 0.50 Smoking cigarettes per day: 10.0 Years smoked: 30 Smoking pack-years: 15.00 Smoking status: Current every day smoker Tobacco type: cigarettes Second hand tobacco smoke exposure: No Alcohol intake: current Drinks per week: 14 Alcohol use details: Two tall boys a day. Substance use: current Substance use type: does not use Lack of Transportation: No Lack of Food: Never True Current Housing: I Have Housing Concerned About Future Housing: No Difficulty Paying Gas/Electric Bills: No Difficulty Paying for Meds: No Currently Unemployed: No Education: Decline to Answer Difficulty w/ Childcare or Family Care: No Living arrangements: with family Occupation/Education: unemployed Spiritual care concerns: No Exam Narrative: APPEARANCE: No apparent distress. Head: atraumatic. EYES: EOMI, NOSE: Atraumatic NECK: Trachea midline RESPIRATORY: No increased rate of breathing CARDIOVASCULAR: RRR, ABDOMINAL: Non-distended MUSCULOSKELETAl: No obvious deformities NEURO: Alert. Moving 4/4 extremities SKIN:: 2 cm laceration to the right knee x2, no foreign bodies noted, no injuries to deeper structures PSYCHIATRIC: Normal affect Course Vital Signs Vital signs: Vital Signs Temperature 97.8 F 08/18/24 16:36 Pulse Rate 95 08/18/24 16:36 Respiratory Rate 15 08/18/24 16:36 Blood Pressure 133/69 08/18/24 16:36 Pulse Oximetry 98 08/18/24 16:36 Temperature 97.8 F 08/18/24 16:36 Pulse Rate 99 08/18/24 16:54 Respiratory Rate 16 08/18/24 16:54 Blood Pressure 132/93 H 08/18/24 16:54 Pulse Oximetry 100 08/18/24 16:54 Medical Decision Making [facility] Narrative Medical decision making narrativ
[2024-08-18 18:52] VITALS: BP 121/68; PULSE 88; RESP 14; TEMP 36.8; O2SAT 100
== END 2024-08-18 18:59 | disposition home or self-care (01) ==
PROVIDERS: Emergency Provider Emergency Medicine; PCP Nurse Practitioner Family
DX: S81.011A Laceration without foreign body, right knee, initial encounter (principal); Z23 Encounter for immunization; G40.909 Epilepsy, unspecified, not intractable, without status epilepticus; E78.5 Hyperlipidemia, unspecified; M19.90 Unspecified osteoarthritis, unspecified site; F41.1 Generalized anxiety disorder; F32.A Depression, unspecified; F17.210 Nicotine dependence, cigarettes, uncomplicated; Z87.442 Personal history of urinary calculi; Z87.820 Personal history of traumatic brain injury; Z79.899 Other long term (current) drug therapy; W18.30XA Fall on same level, unspecified, initial encounter
CPT/HCPCS: 12001; 12002; 73562; 90471; 90715; 96372; 99283; J0690

== ENCOUNTER 2024-10-03 07:21 | Emergency (ER) | payer OTHER, SELFPAY ==
--- NOTE | ~2024-10-03 | CT_ITS ---
CT of the Abdomen and Pelvis: Indication: Right abdominal pain Technique: 2.5 mm axial scans were obtained through the abdomen and pelvis following intravenous adm inistration of 100 cc of Omnipaque 350. Dose reduction technique was used on this scan by utilizing a utomated exposure control and iterative reconstruction technique. The dose-length product (DLP) was 5 20.46 mGy-cm. COMPARISON: 11/27/2023 Findings: Scans through the lung bases demonstrate mild chronic interstitial change or atelectatic c hange at the left lung base. The liver, spleen, pancreas, gallbladder, adrenals and kidneys are within normal limits. No evidence of aortic aneurysm. No lymphadenopathy. No bowel obstruction or bowel wall thickening. There is no evidence to suggest acute appendicitis. Sm all fat-containing abdominal hernia. Images through the pelvis were performed. Urinary bladder unremarkable. No pelvic mass seen. No ascit es. Impression: No acute abnormalities. Small fat-containing umbilical hernia. Reviewed, dictated and finalized at location . DISPLAYS ANALYST Impression: No acute abnormalities. Small fat-containing umbilical hernia.
[2024-10-03 07:28] VITALS: BP 127/64; PULSE 77; RESP 20; TEMP 36.6; O2SAT 96
--- NOTE | 2024-10-03 08:53 | PC.NURSE ---
Pt. able to able with a steady gait independently to the restroom and return to bed.
[2024-10-03 09:11] LABS: Add Urine Microscopic? YES; Appearance Urine Clear (Clear); Bacteria Urine None Seen /hpf; Bilirubin Urine Negative (Negative); Blood Urine Negative (Negative); Color Urine Yellow (Yellow); Glucose Urine UA Negative (Negative); Ketones Urine Negative (Negative); Leukocyte Esterase Ur 1+ LEU/UL (Negative); Nitrate Urine Negative (Negative); Non Pathogenic Casts 0-2; Protein Urine Negative (Negative); RBC Urine 0-2 /hpf (0-2); Squamous Epithelial Cell Urine Few /hpf (Few); Urobilinogen Urine 0.2 mg/dL (<2.0); pH Urine 5.5 (5.0-9.0)
[2024-10-03 09:26] LABS: Basophils Percent Auto 0.8 % (0.2-1.2); Eosinophils Absolute Auto 0.1 K/mm3 (0-0.3); Eosinophils Percent Auto 1.4 % (0-4.4); Hematocrit 44.1 % (37.0-47.0); Hemoglobin 14.7 g/dL (12.0-15.0); Immature Granulocyte Absolute 0.01 K/mm3 (0.00-0.031); Immature Granulocyte Percent A 0.2 % (0-0.5); Lymphocytes Absolute Auto 1.38 K/mm3 (0.9-3.2); Lymphocytes Percent Auto 28.5 % (18.3-44.2); Mean Corpuscular HGB Conc 33.3 g/dl (32-36); Mean Platelet Volume 10.3 fl (7.4-10.4); Monocytes Absolute Auto 0.5 K/mm3 (0.1-0.6); Monocytes Percent Auto 11.2 % (2.6-8.5); Neutrophils Absolute Auto 2.8 K/mm3 (1.3-6.7); Neutrophils Percent Auto 57.9 % (45.5-73.1); Platelet Count Result 249 k/mm3 (150-375); Red Cell Distribution Width 13.1 % (11.5-14.5); White Blood Count 4.8 K/mm3 (4.5-10.0)
[2024-10-03 09:35] LABS: Alanine Aminotransferase 22 U/L (6-35); Albumin Level 4.3 g/dL (3.5-5.1); Alkaline Phosphatase 90 U/L (38-126); Anion Gap 5 mmol/L (4-12); Aspartate Amino Transferase 45 U/L (14-36); Bilirubin,Total 0.4 mg/dL (0.2-1.3); Blood Urea Nitrogen 15 mg/dL (7-17); Calcium 9.3 mg/dL (8.4-10.2); Carbon Dioxide 31 mmol/L (22-30); Chloride 101 mmol/L (98-107); Estimated CRCL calculation 96 ml/min; Estimated Glomerular Filt Rate > 60; Glucose 81 mg/dL (65-110); Lipase 256 U/L (23-300); Potassium 4.1 mmol/L (3.4-5.0); Sodium 137 mmol/L (137-145)
--- NOTE | 2024-10-03 10:17 | ED_ITS ---
HPI - General Adult General Chief complaint: Back Pain/Injury Stated complaint: R flank pain x 3 days Time Seen by Provider: 10/03/24 09:52 History of Present Illness HPI narrative: This is a 54 year female w/ hx of etoh abuse, epilepsy and frequent musculoskeletal pain presenting with right-sided flank abdominal and hip pain. Patient says the pain started 4 days ago. There were no preceding traumatic events. She describes it as a cramping hard pain in her right flank, right lower abdomen and down her right leg. She says she has never had pain like this before. She took 1 Motrin yesterday no relief. She is denying fevers chills chest pain difficulty breathing nausea vomiting or diarrhea. No urinary symptoms. hx of kidney stones. Related Data Home Medications Medication Instructions Recorded Confirmed atorvastatin 40 mg tablet 40 mg PO QHS 04/03/22 06/09/24 cetirizine 10 mg tablet 10 mg PO DAILY 04/03/22 06/09/24 omeprazole 40 mg capsule,delayed 40 mg PO DAILY 04/03/22 06/09/24 release albuterol sulfate 90 mcg/actuation 2 puff inhalation QID PRN Wheezing 08/06/23 06/09/24 aerosol inhaler citalopram 40 mg tablet 40 mg PO DAILY 06/09/24 06/09/24 Allergies Allergy/AdvReac Type Severity Reaction Status Date / Time divalproex sodium Allergy Unknown Unknown Verified 10/03/24 07:32 phenytoin Allergy Unknown Other Verified 10/03/24 07:32 [facility] Past Medical History Medical History Anxiety Arthritis Benign essential tremor Depression Fracture of medial cuneiform bone of right foot (02/05/23) Generalized anxiety disorder Hyperlipidemia Kidney stones Seasonal allergies Seizure disorder On Keppra and primidone. Traumatic brain injury At age 14. Surgical History Surgical History History of arthroscopy of left knee History of lithotripsy Family History Family History Sibling Gunshot wound Mother Malignant neoplasm Lupus Father Diabetes mellitus Atrial fibrillation Hyperlipidemia Lung cancer Other Arthritis Hypertension Social History Social History Social History: Surrogate medical decision maker: krysten Das. Code status: Full code. Smoking packs per day: 0.50 Smoking cigarettes per day: 10.0 Years smoked: 30 Smoking pack-years: 15.00 Smoking status: Current every day smoker Tobacco type: cigarettes Second hand tobacco smoke exposure: No Alcohol intake: current Drinks per week: 14 Alcohol use details: Two tall boys a day. Substance use: current Substance use type: does not use Lack of Transportation: No Lack of Food: Never True Current Housing: I Have Housing Concerned About Future Housing: No Difficulty Paying Gas/Electric Bills: No Difficulty Paying for Meds: No Currently Unemployed: No Education: Decline to Answer Difficulty w/ Childcare or Family Care: No Living arrangements: with family Occupation/Education: unemployed Spiritual care concerns: No Exam Narrative: APPEARANCE: No apparent distress. Head: atraumatic. EYES: EOMI, NOSE: Atraumatic NECK: Trachea midline RESPIRATORY: No increased rate of breathing CTAB CARDIOVASCULAR: RRR, lower extremities are warm strong pulses ABDOMINAL: Tenderness palpation without rebound or guarding in the right lower quadrant. No CVA tenderness. MUSCULOSKELETAl: No obvious deformities or overlying skin changes on the right hip and thigh. Tenderness to palpation over the lateral thigh. NEURO: Alert. Moving 4/4 extremities SKIN:: Warm, dry. Normal color PSYCHIATRIC: Normal affect Course Vital Signs Vital signs: Vital Signs Temperature 97.9 F 10/03/24 07:28 Pulse Rate 77 10/03/24 07:28 Respiratory Rate 20 10/03/24 07:28 Blood Pressure 127/64 10/03/24 07:28 Pulse Oximetry 96 10/03/24 07:28 Oxygen Delivery Room Air 10/03/24 07:28 Temperature 97.9 F 10/03/24 07:28 Pulse Rate 74 10/03/24 10:40 Respiratory Rate 14 10/03/24 10:40 Blood Pressure 107/69 10/03/24 10:40 Pulse Oximetry 97 10/03/24 10:40 Oxygen Delivery Room Air 10/03/24 07:28 Medical Decision Making MDM Narrative Medical decision making narrative: -Course: 54-year-old female presenting with right-sided flank, abdomen, thigh pain. Laboratory studies within acceptable limits. CT abdomen pelvis without a definitive cause of her pain. Urine did show 6-10 white blood cells patient notes increased urinary frequency. I do not think her hip pain is caused by UTI but she would like to be treated. Patient's presentation most consistent with musculoskeletal pain. We will trial her on a course of NSAIDs and muscle relaxers. Primary care follow-up. Given precautions for worsening pain, weakness to her legs or fevers. -DDX includes but is not limited to: Musculoskeletal strain -Co-morbidities complicating care: Alcohol abuse seizure disorder, MSK pain -Social determinants of health: Alcohol abuse -External Chart Review: Review of the EMR shows history of strain of hip flexor, labral tear of the right hip joint, multiple MSK pain diagnoses. Also has a history of frequent falls and alcohol abuse. -Independent interpretation of studies: Labs reviewed MCV [address] normal hemoglobin AST elevated CT abdomen pelvis unremarkable Urine with 6-10 white blood cells and +1 esterase -Interventions: 15 mg Toradol, 5 mg Valium -Shared decision making / Disposition: Discharged -RX Motrin Tylenol Robaxin lidocaine patch, Keflex Vital Signs Vital Signs: Vital Signs Temperature 97.9 F 10/03/24 07:28 Pulse Rate 77 10/03/24 07:28 Respiratory Rate 20 10/03/24 07:28 Blood Pressure 127/64 10/03/24 07:28 Pulse Oximetry 96 10/03/24 07:28 Oxygen Delivery Room Air 10/03/24 07:28 Temperature 97.9 F 10/03/24 07:28 Pulse Rate 74 10/03/24 10:40 Respiratory Rate 14 10/03/24 10:40 Blood Pressure 107/69 10/03/24 10:40 Pulse Oximetry 97 10/03/24 10:40 Oxygen Delivery Room Air 10/03/24 07:28 Lab Data 10/03/24 09:19 10/03/24 09:19 Labs: Lab Results 10/03/24 10/03/24 Range/Units 08:54 09:19 WBC 4.8 (4.5-10.0) K/mm3 RBC 4.20 (4.2-5.4) M/mm3 Hgb 14.7 (12.0-15.0) g/dL Hct 44.1 (37.0-47.0) % MCV 105.0 H (80-100) fl MCH 35.0 H (26-34) pg MCHC 33.3 (32-36) g/dl RDW 13.1 (11.5-14.5) % Plt Count 249 (150-375) k/mm3 MPV 10.3 (7.4-10.4) fl Immature Gran % (Auto) 0.2 (0-0.5) % Neut % (Auto) 57.9 (45.5-73.1) % Lymph % (Auto) 28.5 (18.3-44.2) % [place] % (Auto) 11.2 H (2.6-8.5) % Eos % (Auto) 1.4 (0-4.4) % Baso % (Auto) 0.8 (0.2-1.2) % Lymph # (Auto) 1.38 (0.9-3.2) K/mm3 [place] # (Auto) 0.5 (0.1-0.6) K/mm3 Eos # (Auto) 0.1 (0-0.3) K/mm3 Baso # (Auto) 0.0 (0.0-0.1) K/mm3 Abs Immat Gran (auto) 0.01 (0.00-0.031) K/mm3 Absolute Neuts (auto) 2.8 (1.3-6.7) K/mm3 Absolute Nucleated RBC 0.000 (0.0-0.012) K/mm3 Nucleated RBC % 0.0 (0.0-0.2) % Sodium 137 (137-145) mmol/L Potassium 4.1 (3.4-5.0) mmol/L Chloride 101 (98-107) mmol/L Carbon Dioxide 31 H (22-30) mmol/L Anion Gap 5 (4-12) mmol/L BUN 15 (7-17) mg/dL Creatinine 0.60 L (0.7-1.0) mg/dL Estim Creat Clear Calc 96 ml/min Estimated GFR > 60 (59 - ) Glucose 81 (65-110) mg/dL Calcium 9.3 (8.4-10.2) mg/dL Total Bilirubin 0.4 (0.2-1.3) mg/dL AST 45 H (14-36) U/L ALT 22 (6-35) U/L Alkaline Phosphatase 90 (38-126) U/L Total Protein 8.0 (6.3-8.2) g/dL Albumin 4.3 (3.5-5.1) g/dL Lipase 256 (23-300) U/L Urine Color Yellow (Yellow) Urine Appearance Clear (Clear) Urine pH 5.5 (5.0-9.0) Ur Specific [place] 1.010 (1.001-1.035) Urine Protein Negative (Negative) mg/dL Urine Glucose (UA) Negative (Negative) mg/dL Urine Ketones Negative (Negative) mg/dL Ur Blood (Man) Negative (Negative) Urine Nitrate Negative (Negative) Urine Bilirubin Negative (Negative) Urine Urobilinogen 0.2 (<2.0) mg/dL Leukocyte Esterase Rfl 1+ H (Negative) LOLA/UL Urine RBC 0-2 (0-2) /hpf Urine WBC 6-10 H (0-3) /hpf Ur Squamous Epith Cells Few (Few) /hpf Urine Bacteria None seen /hpf Urine Casts 0-2 Urine Opiates Screen Negative (Negative) Urine Methadone Screen Negative (Negative) Ur Barbiturates Screen Positive A (Negative) Ur Phencyclidine Scrn Negative (Negative) Ur Amphetamine Screen Negative (Negative) U Benzodiazepines Scrn Negative (Negative) Urine Cocaine Screen Negative (Negative) U Cannabinoids Screen Negative (Negative) Ethyl Alcohol < 10 (<10) mg/dL Discharge Plan Discharge Clinical Impression: Acute hip pain, UTI (urinary tract infection) Patient Disposition: Home, Self-Care Condition: Stable Instructions: Antibiotic Form, Hip Pain (ED) Additional Instructions: Please take the prescribed medications as directed. Develops severe pain leg, fevers or you develop any new symptoms. Please follow-up primary care physician Prescriptions: New ibuprofen 800 mg tablet 800 mg PO TID PRN (Reason: pain) 7 Days Qty: 21 0RF acetaminophen 500 mg tablet 1,000 mg PO TID PRN (Reason: sylvester) 7 Days Qty: 42 0RF methocarbamol 750 mg tablet 1,500 mg PO TID Qty: 30 0RF lidocaine 5 % adhesive patch,medicated 1 patch topical DAILY Qty: 15 0RF Rx Instructions: leave on most painful area for up to 12 hrs cephalexin 500 mg capsule 500 mg PO Q12H Qty: 10 0RF No Action atorvastatin 40 mg tablet 40 mg PO QHS cetirizine 10 mg tablet 10 mg PO DAILY omeprazole 40 mg capsule,delayed release(DR/EC) 40 mg PO DAILY lamotrigine 200 mg tablet 200 mg PO BID Qty: 180 3RF levetiracetam 750 mg tablet See Rx Instructions .ROUTE .COMPLEX Qty: 180 3RF Dose Instruction: TAKE 1 TABLET BY MOUTH TWICE DAILY Rx Instructions: TAKE 1 TABLET BY MOUTH TWICE DAILY primidone 250 mg tablet See Rx Instructions .ROUTE .COMPLEX Qty: 90 6RF Dose Instruction: TAKE 1 AND ONE-HALF TABLETS IN THE MORNING AND EVENING Rx Instructions: TAKE 1 AND ONE-HALF TABLETS IN THE MORNING AND EVENING citalopram 40 mg tablet 40 mg PO DAILY Patient Comments: PCP chlordiazepoxide HCl 25 mg capsule 25 mg PO Q8-12H Qty: 15 0RF Rx Instructions: Day 1: 50mg q6h Day 2: 25mg q6h Day 3: 25mg q12h Day 4: 25mg at night (Rx fifteen 25mg tabs) chlordiazepoxide HCl 25 mg capsule 25 mg PO BID PRN (Reason: alcohol withdrawal) Qty: 14 0RF Rx Instructions: Day 1: 50mg every 6 hours as needed. Day 2: 50mg every 8 hours as needed. Day 3: 50mg every 12 hours as needed. Day 4: 25mg every 12-24 hours as needed, then discontinue albuterol sulfate 90 mcg/actuation HFA aerosol inhaler 2 puff INHALATION QID PRN (Reason: Wheezing) acetaminophen [Pain Reliever (acetaminophen)] 325 mg tablet 650 mg PO ONCE PRN (Reason: pain) Qty: 20 0RF naproxen 500 mg tablet 500 mg PO BID PRN (Reason: pain) Qty: 20 0RF ibuprofen 800 mg tablet 800 mg PO TID PRN (Reason: pain) 7 Days Qty: 21 0RF acetaminophen 500 mg tablet 1,000 mg PO TID PRN (Reason: sylvester) 7 Days Qty: 42 0RF cephalexin 500 mg capsule 500 mg PO Q12H Qty: 14 0RF Follow-up/Referrals: Bethany Cannon APRN [Primary Care Provider] -
[2024-10-03 10:40] VITALS: BP 107/69; PULSE 74; RESP 14; O2SAT 97
[2024-10-03] MEDS: diazePAM INJ (*CRX) 10 MG/2 ML SYRINGE 5 MG IV PUSH (10:41)
[2024-10-03] MEDS: KETOROLAC 15 MG/ML VIAL (*BKC) IV PUSH (10:41)
--- NOTE | 2024-10-03 10:48 | PC.NURSE ---
Lab called to add on ETOH and UDS.
[2024-10-03 10:56] LABS: Ethanol < 10 mg/dL (<10)
[2024-10-03 11:08] LABS: Amphetamine Screen Urine Negative (Negative); Barbiturate Screen Urine Positive (Negative); Benzodiazepines Screen Urine Negative (Negative); Cannabinoid Screen Urine Negative (Negative); Cocaine Screen Urine Negative (Negative); Methadone Screen Urine Negative (Negative); Opiate Screen Urine Negative (Negative); Phencyclidine Screen Urine Negative (Negative)
[2024-10-03 12:01] VITALS: BP 99/60; PULSE 70; RESP 16; O2SAT 98
[2024-10-04 10:04] LABS: BEDSIDEPREGUCG Negative (Negative)
== END 2024-10-03 12:06 | disposition home or self-care (01) ==
PROVIDERS: General Practice; Emergency Provider Emergency Medicine; PCP Nurse Practitioner Family
DX: M25.551 Pain in right hip (principal); N39.0 Urinary tract infection, site not specified; F41.8 Other specified anxiety disorders; E78.5 Hyperlipidemia, unspecified; G40.909 Epilepsy, unspecified, not intractable, without status epilepticus; F17.210 Nicotine dependence, cigarettes, uncomplicated
CPT/HCPCS: 36415; 74177; 80053; 80307; 81001; 81025; 82077; 83690; 85025; 87086; 96374; 96375; 99284; J1885; J3360; Q9967

== ENCOUNTER 2024-10-25 07:37 | Outpatient (CLI) | payer OTHER, SELFPAY ==
--- NOTE | ~2024-10-25 | XR_ITS ---
Right Shoulder Technique: AP and scapular Y views were obtained. Clinical History: Pain Findings: No fracture or dislocation is seen. Osseous alignment is anatomic. The glenohumeral and acr omioclavicular joint spaces are preserved. Soft tissues are unremarkable. Impression: Unremarkable right shoulder radiographs. Reviewed, dictated and finalized at [facility]. NT TECHNICAL PROFESSIONAL Impression: Unremarkable right shoulder radiographs.
--- NOTE | ~2024-10-25 | XR_ITS ---
Left Shoulder Technique: AP and scapular Y views were obtained. Clinical History: Pain Findings: No fracture or dislocation is seen. Osseous alignment is anatomic. The glenohumeral and acr omioclavicular joint spaces are preserved. Soft tissues are unremarkable. Impression: Unremarkable left shoulder radiographs. Reviewed, dictated and finalized at [facility]. OLOGY SERVICES MANAGER Impression: Unremarkable left shoulder radiographs.
--- NOTE | ~2024-10-25 | XR_ITS ---
Right Knee Technique: AP, lateral, and sunrise views were obtained. Clinical History: Pain Findings: No fracture or dislocation is seen. Osseous alignment is anatomic. Joint spaces are preserv ed without degenerative or erosive change. Soft tissues are unremarkable. No joint effusion is seen. Impression: Unremarkable right knee radiographs. Reviewed, dictated and finalized at location . RTISING DISPLAY ROTATOR Impression: Unremarkable right knee radiographs.
--- NOTE | ~2024-10-25 | XR_ITS ---
Left Knee Technique: AP, lateral, and sunrise views were obtained. Clinical History: Pain Findings: No fracture or dislocation is seen. Osseous alignment is anatomic. There is minimal spurrin g at the lateral joint line and patella. Soft tissues are unremarkable. No joint effusion is seen. Impression: Minimal degenerative spurring, as above. Reviewed, dictated and finalized at location M. DER Impression: Minimal degenerative spurring, as above.
[2024-10-25 08:03] LABS: Basophils Percent Auto 0.9 % (0.2-1.2); Eosinophils Absolute Auto 0.1 K/mm3 (0-0.3); Eosinophils Percent Auto 1.8 % (0-4.4); Hematocrit 43.4 % (37.0-47.0); Hemoglobin 14.7 g/dL (12.0-15.0); Immature Granulocyte Absolute 0.01 K/mm3 (0.00-0.031); Immature Granulocyte Percent A 0.2 % (0-0.5); Lymphocytes Absolute Auto 1.44 K/mm3 (0.9-3.2); Lymphocytes Percent Auto 32.5 % (18.3-44.2); Mean Corpuscular HGB Conc 33.9 g/dl (32-36); Mean Corpuscular Hemoglobin 34.6 pg (26-34); Mean Corpuscular Volume 102.1 fl (80-100); Mean Platelet Volume 9.8 fl (7.4-10.4); Monocytes Absolute Auto 0.5 K/mm3 (0.1-0.6); Monocytes Percent Auto 10.8 % (2.6-8.5); Neutrophils Absolute Auto 2.4 K/mm3 (1.3-6.7); Neutrophils Percent Auto 53.8 % (45.5-73.1); Platelet Count Result 282 k/mm3 (150-375); Red Blood Count 4.25 M/mm3 (4.2-5.4); Red Cell Distribution Width 13.1 % (11.5-14.5); White Blood Count 4.4 K/mm3 (4.5-10.0)
[2024-10-25 08:19] LABS: Alanine Aminotransferase 39 U/L (6-35); Albumin Level 4.3 g/dL (3.5-5.1); Alkaline Phosphatase 87 U/L (38-126); Anion Gap 3 mmol/L (4-12); Aspartate Amino Transferase 89 U/L (14-36); Bilirubin,Total 0.6 mg/dL (0.2-1.3); Blood Urea Nitrogen 12 mg/dL (7-17); Calcium 9.8 mg/dL (8.4-10.2); Carbon Dioxide 33 mmol/L (22-30); Chloride 102 mmol/L (98-107); Estimated Glomerular Filt Rate > 60; Glucose 96 mg/dL (65-110); Potassium 4.1 mmol/L (3.4-5.0); Sodium 138 mmol/L (137-145)
--- NOTE | 2024-10-26 09:03 | WPDNEUROLOGY ---
Neurology EEG Report General Information Date of Study: 10/25/24 TEST Eeg DIAGNOSIS epilepsy CONDITION OF RECORDING awake, drowsy and asleep. EEG NUMBER [id number] CLINICAL HISTORY Patient reports he has been epileptic since she was 13 years old. Her seizures are very well controlled with medication. EEG DESCRIPTION Basic resting occipital frequency consists of low to medium voltage 9 to 11 hertz per 2nd alpha admixed with low-voltage 15 to 18 hertz per 2nd beta. Posterior alpha rhythm is symmetrically blocked with opening of the eyes. Photic stimulation produced normal drive. Hyperventilation produced a normal and symmetrical buildup. Low-voltage beta activity and alpha and theta activity are seen during drowsiness evolving into bilateral symmetrical spindles. Non paroxysmal. Nonfocal. Nonlateralizing. IMPRESSION Normal record during wakefulness drowsiness and sleep. Clinical correlation recommended.
[2024-10-26 09:14] LABS: Levetiracetam Keppra 29.6 mcg/mL (6.0-46.0)
[2024-10-26 17:13] LABS: Red Blood Cell Folate 493 ng/mL RBC (>280)
[2024-10-28 07:24] LABS: Methylmalonic Acid 204 nmol/L (55-335)
[2024-10-28 11:14] LABS: Lamotrigine Lamictal 11.8 mcg/mL (2.5-15.0)
[2024-10-28 14:19] LABS: Vitamin D 1,25 (OH)2 Total 22 pg/mL (18-72); Vitamin D2 1,25 (OH)2 <8 pg/mL; Vitamin D3 1,25 (OH)2 22 pg/mL
== END 2024-10-25 07:38 | disposition home or self-care (01) ==
PROVIDERS: Visit Provider Psychiatry & Neurology Neurology
DX: G25.0 Essential tremor (principal); G40.909 Epilepsy, unspecified, not intractable, without status epilepticus; M25.562 Pain in left knee; M25.561 Pain in right knee; M25.512 Pain in left shoulder; M25.511 Pain in right shoulder
CPT/HCPCS: 36415; 73030; 73564; 80053; 80175; 80177; 80184; 80188; 82607; 82652; 82747; 83921; 84443; 85025; 95816

== ENCOUNTER 2024-11-30 03:00 | Emergency (ER) | payer OTHER, SELFPAY ==
--- NOTE | ~2024-11-30 | XR_ITS ---
AP and lateral views of the right tibia/fibula Clinical History: Trauma Findings: No acute fracture or dislocation is seen. Osseous alignment is anatomic. Joint spaces are p reserved without significant erosive or degenerative change. Soft tissues are unremarkable. Impression: Unremarkable right tib-fib radiographs. Reviewed, dictated and finalized at [facility]. ISLAND ATTENDANT Impression: Unremarkable right tib-fib radiographs.
--- NOTE | ~2024-11-30 | CT_ITS ---
Noncontrast CT scan of the cervical spine Technique: Multiple contiguous axial [address] images of the cervical spine were obtained and rec onstructed in 2D sagittal and coronal planes on the acquisition scanner. Dose reduction technique was used on this scan by utilizing automated exposure control, adjustment of the mA and/or kV according to patient size. The dose-length product (DLP) was 555.38 mGy-cm. Clinical History: Pain COMPARISON: 04/23/2022 Findings: No fractures or dislocations. There is reversal of the normal cervical lordosis. Intervert ebral disc spaces are relatively well-preserved. Mild scattered facet joint degenerative changes are present. No prevertebral soft tissue swelling. Impression: No fracture or subluxation of the cervical spine. Reviewed, dictated and finalized at [facility]. SECRETARY Impression: No fracture or subluxation of the cervical spine.
--- NOTE | ~2024-11-30 | CT_ITS ---
Noncontrast CT scan of the thoracolumbar spine CLINICAL HISTORY: Trauma TECHNIQUE: Axial noncontrast imaging of the thoracolumbar spine was performed. Sagittal and coronal r eformatted images were constructed. Dose reduction technique was used on this scan by utilizing autom ated exposure control and iterative reconstruction technique. The dose-length product (DLP) was 1095. 37 mGy-cm. FINDINGS: There is no fracture or subluxation of the thoracic spine. Vertebral bodies maintain normal height and alignment. Intervertebral disc spaces are relatively well-preserved. No significant disc bulge or herniation seen in the thoracic spine. No spinal canal stenosis or cord compression evident in the thoracic spine. Neural foramina are preserved throughout the thoracic spine. There is no fracture or subluxation of the lumbar spine. Vertebral bodies maintain normal height. Int ervertebral disc spaces are relatively well-preserved. There are minimal disc bulges at L2-L3, L3-L4, and L4-L5. No jennifer canal stenosis identified. There is moderate bilateral neural foraminal narrowin g at L4-L5. Probable mild bilateral neural foraminal narrowing at L2-L3. Paravertebral soft tissues are unremarkable. Impression: No acute posttraumatic abnormality. Mild degenerative change in the lumbar spine, as above. Reviewed, dictated and finalized at [facility]. MY RN Impression: No acute posttraumatic abnormality. Mild degenerative change in the lumbar spine, as above.
--- NOTE | ~2024-11-30 | CT_ITS ---
Non-contrast Head CT History: Trauma COMPARISON: 01/29/2024 Technique: Axial non-contrast imaging of the brain was performed. Dose reduction technique was used on this scan by utilizing automated exposure control and iterative reconstruction technique. The dose -length product (DLP) was 756.67 mGy-cm. Findings: There is no evidence of intracranial hemorrhage, mass lesion, or acute infarct. Brain par enchyma appears normal. The ventricles and subarachnoid spaces are normal in size. The calvarium ap pears normal. The visualized paranasal sinuses and mastoid air cells are clear. Impression: No significant abnormality seen. Reviewed, dictated and finalized at [facility]. Y LIQUEFIER Impression: No significant abnormality seen.
--- NOTE | ~2024-11-30 | XR_ITS ---
Right ankle Technique: AP, oblique, and lateral views were obtained. Clinical History: Pain Findings: No acute fracture or dislocation is seen. Osseous alignment is anatomic. Ankle mortise and other visualized joint spaces are preserved. Soft tissues are otherwise unremarkable. Impression: Unremarkable right ankle. Reviewed, dictated and finalized at location . E SHOOTER Impression: Unremarkable right ankle.
[2024-11-30 02:55] VITALS: BP 130/87; PULSE 92; RESP 16; TEMP 36.6; O2SAT 100
--- NOTE | 2024-11-30 03:45 | ED_ITS ---
HPI - Fall General Chief Complaint: Fall Stated Complaint: fall History of Present Illness HPI Narrative: Patient is a 54-year-old female who presents to the emergency department with multiple complaints. Patient states that approximately 1 week ago on November 24 she slipped outside her home on ice and landed on her back hitting the back of her head, tailbone and right lower extremity on the ground. Patient states that she has been waiting it out at homeFor this patient encounter, I reviewed the BUSINESS SUPPORT MANAGER or PA documentation, treatment plan, and medical decision making and had [id number] time with this patient. I performed all aspects of the MDM as documented. Her right lower extremity has some bruising and she continues to have pain mainly along her distal tib-fib and right ankle. Patient finally decided to come to the emergency department for further evaluation. Denies any loss of consciousness during the fall and denies any blood thinner use. No additional symptoms or concerns at this time. Related Data Home Medications ?Medication ?Instructions ?Recorded ?Confirmed ?Last Taken ?Type atorvastatin 40 mg tablet 40 mg PO QHS 04/03/22 06/09/24 01/30/23 15:00 History cetirizine 10 mg tablet 10 mg PO DAILY 04/03/22 06/09/24 01/30/23 History 0800 omeprazole 40 mg capsule,delayed 40 mg PO DAILY 04/03/22 06/09/24 01/30/23 08:00 History release albuterol sulfate 90 mcg/actuation 2 puff inhalation QID PRN Wheezing 08/06/23 06/09/24 Unknown History aerosol inhaler citalopram 40 mg tablet 40 mg PO DAILY 06/09/24 06/09/24 Unknown History Allergies Allergy/AdvReac Type Severity Reaction Status Date / Time divalproex sodium Allergy Unknown Unknown Verified 11/30/24 03:05 phenytoin Allergy Unknown Other Verified 11/30/24 03:05 Review of Systems Review of Systems: All systems are reviewed and are negative unless stated otherwise in the HPI. [facility] Past Medical History Medical History Benign essential tremor Hyperlipidemia Kidney stones Fracture of medial cuneiform bone of right foot (02/05/23) Seasonal allergies Arthritis Anxiety Depression Traumatic brain injury At age 14. Generalized anxiety disorder Seizure disorder On Keppra and primidone. Surgical History Surgical History History of arthroscopy of left knee History of lithotripsy Family History Family History Sibling Gunshot wound Mother Malignant neoplasm Lupus Father Diabetes mellitus Atrial fibrillation Hyperlipidemia Lung cancer Other Arthritis Hypertension Social History Social History Social History: Surrogate medical decision maker: krysten Das. Code status: Full code. Smoking packs per day: 0.50 Smoking cigarettes per day: 10.0 Years smoked: 30 Smoking pack-years: 15.00 Smoking status: Current every day smoker Tobacco type: cigarettes Second hand tobacco smoke exposure: No Alcohol intake: current Drinks per week: 14 Alcohol use details: Two tall boys a day. Substance use: current Substance use type: does not use Lack of Transportation: No Lack of Food: Never True Current Housing: I Have Housing Concerned About Future Housing: No Difficulty Paying Gas/Electric Bills: No Difficulty Paying for Meds: No Currently Unemployed: No Education: Decline to Answer Difficulty w/ Childcare or Family Care: No Living arrangements: with family Occupation/Education: unemployed Spiritual care concerns: No Exam Narrative: General: Alert, awake, afebrile, in no acute distress. HEENT: PERRL, no rhinorrhea, no post nasal drip, oropharynx clear. Neck: Trachea midline, no JVD, no lymphadenopathy. Cardiovascular: Regular rate and rhythm, no murmurs, rubs or gallops, no peripheral edema. Respiratory: Clear to auscultation bilaterally, no tachypnea, no wheezing, no rhonchi, no rubs, no respiratory distress. Abdomen: Soft, nontender, nondistended, no rebound, no guarding, no peritoneal signs. Musculoskeletal: No joint swelling or deformity, normal muscle tone, minimal swelling to the right lateral malleoli, ecchymosis noted along the right lower extremity over the calf region, moving all 4 extremities spontaneously with intact bilateral hip flexion knee extension. Back: Tenderness to palpation over the lower cervical/upper thoracic spine, no step-offs or deformities. Skin: No rashes or petechia, no signs of infection. Psychiatric: Alert and oriented, normal behavior and judgment for situation. Neurological: Alert and oriented to person, place, and time. Follows all commands. No focal deficits, speech is clear and fluent. Course Vital Signs Vital signs: Vital Signs Temperature 97.9 F 11/30/24 02:55 Pulse Rate 92 11/30/24 02:55 Respiratory Rate 16 11/30/24 02:55 Blood Pressure 130/87 11/30/24 02:55 Pulse Oximetry 100 11/30/24 02:55 Oxygen Delivery Room Air 11/30/24 02:55 Temperature 97.9 F 11/30/24 02:55 Pulse Rate 86 11/30/24 05:07 Respiratory Rate 15 11/30/24 05:07 Blood Pressure 107/65 11/30/24 05:07 Pulse Oximetry 100 11/30/24 05:07 Oxygen Delivery Room Air 11/30/24 02:55 MDM - Fall MDM Narrative Medical decision making narrative: The patient was evaluated by myself in the emergency department. History is obtained from patient who is an independent historian and physical exam was performed. External medical records were reviewed at this time. Patient was administered 0.5 mg of IM Dilaudid at this time and 1 g of oral Tylenol. Imaging studies obtained included CT brain, cervical, thoracic, and lumbar spine without IV contrast and x-rays of the right tib-fib and right ankle which was independently interpreted by me revealing no acute process, which is pending final radiology interpretation. Differential diagnosis considerations include fractures, dislocations, musculoskeletal strain. Comorbidities impacting this visit include none. I have evaluated and discussed social determinants of health with the patient that could potentially impact subsequent diagnosis and treatment plans. On repeat assessment of the patient, reevaluation revealed that the patient is doing well and is in no acute distress. Patient symptoms have improved since she arrived to our emergency department. Repeat vital signs were all reviewed and noted to be stable. Differential diagnosis and treatment plan were discussed with the patient at bedside. Patient agrees with discussion and after shared medical decision making agrees with discharge. All questions were answered to the patient's satisfaction. Patient will follow up with her PCP in 3-5 days. Patient was provided with strict return precautions and instructed to return to the emergency department if any new or worsening symptoms develop. The patient was discharged in stable condition. Discharge Plan Discharge Clinical Impression: Fall from ground level, Ankle sprain Patient Disposition: Home, Self-Care Condition: Improved Instructions: Antibiotic Form, Ankle Sprain (DC), Muscle Strain (ED) Additional Instructions: Please follow-up with your family doctor within the next 3-5 days. Return to the ED if any new or worsening symptoms develop. You may take ibuprofen and Tylenol alternating between the 2 for pain. Patient Language: Ecuadorean Prescriptions: No Action atorvastatin 40 mg tablet 40 mg PO QHS cetirizine 10 mg tablet 10 mg PO DAILY omeprazole 40 mg capsule,delayed release(DR/EC) 40 mg PO DAILY levetiracetam 750 mg tablet See Rx Instructions .ROUTE .COMPLEX Qty: 180 3RF Dose Instruction: TAKE 1 TABLET BY MOUTH TWICE DAILY Rx Instructions: TAKE 1 TABLET BY MOUTH TWICE DAILY primidone 250 mg tablet See Rx Instructions .ROUTE .COMPLEX Qty: 90 6RF Dose Instruction: TAKE 1 AND ONE-HALF TABLETS IN THE MORNING AND EVENING Rx Instructions: TAKE 1 AND ONE-HALF TABLETS IN THE MORNING AND EVENING citalopram 40 mg tablet 40 mg PO DAILY Patient Comments: PCP chlordiazepoxide HCl 25 mg capsule 25 mg PO Q8-12H Qty: 15 0RF Rx Instructions: Day 1: 50mg q6h Day 2: 25mg q6h Day 3: 25mg q12h Day 4: 25mg at night (Rx fifteen 25mg tabs) chlordiazepoxide HCl 25 mg capsule 25 mg PO BID PRN (Reason: alcohol withdrawal) Qty: 14 0RF Rx Instructions: Day 1: 50mg every 6 hours as needed. Day 2: 50mg every 8 hours as needed. Day 3: 50mg every 12 hours as needed. Day 4: 25mg every 12-24 hours as needed, then discontinue albuterol sulfate 90 mcg/actuation HFA aerosol inhaler 2 puff INHALATION QID PRN (Reason: Wheezing) acetaminophen [Pain Reliever (acetaminophen)] 325 mg tablet 650 mg PO ONCE PRN (Reason: pain) Qty: 20 0RF naproxen 500 mg tablet 500 mg PO BID PRN (Reason: pain) Qty: 20 0RF ibuprofen 800 mg tablet 800 mg PO TID PRN (Reason: pain) 7 Days Qty: 21 0RF acetaminophen 500 mg tablet 1,000 mg PO TID PRN (Reason: sylvester) 7 Days Qty: 42 0RF cephalexin 500 mg capsule 500 mg PO Q12H Qty: 14 0RF ibuprofen 800 mg tablet 800 mg PO TID PRN (Reason: pain) 7 Days Qty: 21 0RF acetaminophen 500 mg tablet 1,000 mg PO TID PRN (Reason: sylvester) 7 Days Qty: 42 0RF methocarbamol 750 mg tablet 1,500 mg PO TID Qty: 30 0RF lidocaine 5 % adhesive patch,medicated 1 patch topical DAILY Qty: 15 0RF Rx Instructions: leave on most painful area for up to 12 hrs cephalexin 500 mg capsule 500 mg PO Q12H Qty: 10 0RF lamotrigine 200 mg tablet 300 mg PO BID Qty: 300 3RF Follow-up/Referrals: Mary,Ksenia Burgess, PACKAGE LINE RELIEF OPERATOR [Primary Care Provider] - 3 Days Time of Disposition: 06:33
[2024-11-30] MEDS: HYDROmorphone HCL INJ (*CRX) 1 MG/ML SYR 0.5 MG IM (04:06)
[2024-11-30] MEDS: ACETAMINOPHEN 500 MG TABLET 1000 MG PO (05:06)
[2024-11-30 05:07] VITALS: BP 107/65; PULSE 86; RESP 15; O2SAT 100
== END 2024-11-30 06:50 | disposition home or self-care (01) ==
PROVIDERS: Emergency Provider Emergency Medicine
DX: S93.401A Sprain of unspecified ligament of right ankle, initial encounter (principal); F17.210 Nicotine dependence, cigarettes, uncomplicated; E78.5 Hyperlipidemia, unspecified; Z87.442 Personal history of urinary calculi; M19.90 Unspecified osteoarthritis, unspecified site; F41.9 Anxiety disorder, unspecified; F32.A Depression, unspecified; W00.0XXA Fall on same level due to ice and snow, initial encounter
CPT/HCPCS: 70450; 72125; 72128; 72131; 73590; 73610; 96372; 99284; A9270; J1171

== ENCOUNTER 2024-12-24 10:06 | Emergency (ER) | payer OTHER, SELFPAY ==
--- NOTE | ~2024-12-24 | XR_ITS ---
EXAMINATION: XR chest 2V DATE: 12/24/2024 10:37 INDICATION: Cough. TECHNIQUE: Frontal and lateral views of the chest were obtained. COMPARISON: Chest single view 11/27/2023 FINDINGS: There is no pneumonia, pleural effusion, or pneumothorax. The heart size is normal. IMPRESSION: 1. No acute cardiopulmonary disease. Reviewed, dictated and finalized at location A. [employer]IVE GENERAL MANAGER
[2024-12-24 10:15] VITALS: BP 125/80; PULSE 88; RESP 18; TEMP 36.7; O2SAT 96
--- NOTE | 2024-12-24 10:32 | ED.GENADULT ---
HPI - General Adult General Chief complaint: Upper Respiratory Infection Stated complaint: cough and tiredness Source: patient Mode of arrival: ambulatory Limitations: no limitations History of Present Illness HPI narrative: Pt presents for evaluation of a cough for the last three weeks. Cough is nonproductive. She also has sinus congestiona rhinorrhea. She is not sure whether she has experienced any SOB. She denies fever or chills. She had nausea and vomiting at the time of symptom onset but those symptoms have resolved. She had diarrhea this morning. She has been taking tessalon and using an albuterol inhaler. She is frustrated that her symptoms persist despite use of medications. She smokes 1/2 ppd. Her cough is keeping her up at night. Her lack of sleep has made her feel increasingly emotional. Related Data Home Medications ?Medication ?Instructions ?Recorded ?Confirmed ?Last Taken ?Type atorvastatin 40 mg tablet 40 mg PO QHS 04/03/22 06/09/24 01/30/23 15:00 History cetirizine 10 mg tablet 10 mg PO DAILY 04/03/22 06/09/24 01/30/23 History 0800 omeprazole 40 mg capsule,delayed 40 mg PO DAILY 04/03/22 06/09/24 01/30/23 08:00 History release albuterol sulfate 90 mcg/actuation 2 puff inhalation QID PRN Wheezing 08/06/23 06/09/24 Unknown History aerosol inhaler citalopram 40 mg tablet 40 mg PO DAILY 06/09/24 06/09/24 Unknown History Allergies Allergy/AdvReac Type Severity Reaction Status Date / Time divalproex sodium Allergy Unknown Unknown Verified 11/30/24 03:05 phenytoin Allergy Unknown Other Verified 11/30/24 03:05 Review of Systems Review of Systems: CONSTITUTIONAL: Denies fever, chills, or sweats. EYES: Denies visual changes, redness, or discharge. ENT: reports sinus congestion and rhinorrhea. Denies sore throat CARDIOVASCULAR: Denies chest pain, palpitations, or edema. RESPIRATORY: reports cough. She is not sure whether she has experienced shortness of breath GASTROINTESTINAL: reports nausea and vomiting at the time of symptom onset, since resolved. Reports diarrhea this morning. GENITOURINARY: Denies dysuria or hematuria. SKIN: Denies rash or itching. MUSCULOSKELETAL: Denies back pain, joint pain, or myalgia. NEUROLOGIC: Denies headache, numbness, dizziness, or weakness. PSYCHIATRIC: Denies anxiety or depression. [facility] Past Medical History Medical History Benign essential tremor Hyperlipidemia Kidney stones Fracture of medial cuneiform bone of right foot (02/05/23) Seasonal allergies Arthritis Anxiety Depression Traumatic brain injury At age 14. Generalized anxiety disorder Seizure disorder On Keppra and primidone. Surgical History Surgical History History of arthroscopy of left knee History of lithotripsy Family History Family History Sibling Gunshot wound Mother Malignant neoplasm Lupus Father Diabetes mellitus Atrial fibrillation Hyperlipidemia Lung cancer Other Arthritis Hypertension Social History Social History Social History: Surrogate medical decision maker: Efraín Hughes, son. Code status: Full code. Smoking packs per day: 0.50 Smoking cigarettes per day: 10.0 Years smoked: 30 Smoking pack-years: 15.00 Smoking status: Current every day smoker Tobacco type: cigarettes Second hand tobacco smoke exposure: No Alcohol intake: current Drinks per week: 14 Alcohol use details: Two tall boys a day. Substance use: current Substance use type: does not use Lack of Transportation: No Lack of Food: Never True Current Housing: I Have Housing Concerned About Future Housing: No Difficulty Paying Gas/Electric Bills: No Difficulty Paying for Meds: No Currently Unemployed: No Education: Decline to Answer Difficulty w/ Childcare or Family Care: No Living arrangements: with family Occupation/Education: unemployed Spiritual care concerns: No Exam Narrative: GENERAL: Well-appearing, well-nourished, and in no acute distress. HEAD: Normocephalic, atraumatic. EYES: PERRLA and EOMI. ENT: Nares clear, no rhinorrhea or epistaxis. Mucous membranes moist. Oropharynx without tonsillar hypertrophy exudate or other lesions. Bilateral TMs pearly lan nonbulging NECK: Supple. No adenopathy or masses. No carotid bruits or JVD CHEST: Clear to auscultation. No respiratory distress. No wheezes rales or rhonchi HEART: Regular rate and rhythm. No murmur heard. Normal peripheral pulses. ABDOMEN: Soft, nontender, nondistended, normal active bowel sounds. EXTREMITIES: Normal range of motion. No edema. SKIN: Warm, dry, no rash. NEURO: No focal deficits. Alert and oriented x3. PSYCH: Normal mood and affect. Course Course Emergency Course: This is a 54-year-old female who presented for evaluation of a cough for the last 3 weeks. Chest x-ray negative. She meets criteria for bacterial sinusitis based upon duration of time in which she has been symptomatic. She states in the past azithromycin is most effective for her. Increase hydration. [id number] agents for symptom management. Follow up with primary provider. Go to the ER for worsening symptoms. Pt in agreement with plan of care. Level of Care: Express Care Visit Vital Signs Vital signs: Vital Signs Temperature 36.7 C 12/24/24 10:15 Pulse Rate 88 12/24/24 10:15 Respiratory Rate 18 12/24/24 10:15 Blood Pressure 125/80 12/24/24 10:15 Pulse Oximetry 96 12/24/24 10:15 Oxygen Delivery Room Air 12/24/24 10:15 Temperature 36.7 C 12/24/24 10:15 Pulse Rate 88 12/24/24 10:15 Respiratory Rate 18 12/24/24 10:15 Blood Pressure 125/80 12/24/24 10:15 Pulse Oximetry 96 12/24/24 10:15 Oxygen Delivery Room Air 12/24/24 10:15 Medical Decision Making Vital Signs Vital Signs: Vital Signs Temperature 36.7 C 12/24/24 10:15 Pulse Rate 88 12/24/24 10:15 Respiratory Rate 18 12/24/24 10:15 Blood Pressure 125/80 12/24/24 10:15 Pulse Oximetry 96 12/24/24 10:15 Oxygen Delivery Room Air 12/24/24 10:15 Temperature 36.7 C 12/24/24 10:15 Pulse Rate 88 12/24/24 10:15 Respiratory Rate 18 12/24/24 10:15 Blood Pressure 125/80 12/24/24 10:15 Pulse Oximetry 96 12/24/24 10:15 Oxygen Delivery Room Air 12/24/24 10:15 Imaging Data Radiologist's impression: EXAMINATION: XR chest 2V DATE: 12/24/2024 10:37 INDICATION: Cough. TECHNIQUE: Frontal and lateral views of the chest were obtained. COMPARISON: Chest single view 11/27/2023 FINDINGS: There is no pneumonia, pleural effusion, or pneumothorax. The heart size is normal. IMPRESSION: 1. No acute cardiopulmonary disease. Discharge Plan Discharge Clinical Impression: Sinusitis Patient Disposition: Home, Self-Care Condition: Stable Instructions: Antibiotic Form, Sinusitis (ED) Patient Language: Albanian Prescriptions: New azithromycin 250 mg tablet See Rx Instructions .ROUTE .COMPLEX Qty: 6 0RF Rx Instructions: For 250 mg dose pack: take 500 mg today (day 1), then 250 mg for 4 days (days 2-5) benzonatate 200 mg capsule 200 mg PO TID PRN (Reason: cough) Qty: 30 0RF No Action atorvastatin 40 mg tablet 40 mg PO QHS cetirizine 10 mg tablet 10 mg PO DAILY omeprazole 40 mg capsule,delayed release(DR/EC) 40 mg PO DAILY levetiracetam 750 mg tablet See Rx Instructions .ROUTE .COMPLEX Qty: 180 3RF Dose Instruction: TAKE 1 TABLET BY MOUTH TWICE DAILY Rx Instructions: TAKE 1 TABLET BY MOUTH TWICE DAILY citalopram 40 mg tablet 40 mg PO DAILY Patient Comments: PCP chlordiazepoxide HCl 25 mg capsule 25 mg PO Q8-12H Qty: 15 0RF Rx Instructions: Day 1: 50mg q6h Day 2: 25mg q6h Day 3: 25mg q12h Day 4: 25mg at night (Rx fifteen 25mg tabs) chlordiazepoxide HCl 25 mg capsule 25 mg PO BID PRN (Reason: alcohol withdrawal) Qty: 14 0RF Rx Instructions: Day 1: 50mg every 6 hours as needed. Day 2: 50mg every 8 hours as needed. Day 3: 50mg every 12 hours as needed. Day 4: 25mg every 12-24 hours as needed, then discontinue albuterol sulfate 90 mcg/actuation HFA aerosol inhaler 2 puff INHALATION QID PRN (Reason: Wheezing) acetaminophen [Pain Reliever (acetaminophen)] 325 mg tablet 650 mg PO ONCE PRN (Reason: pain) Qty: 20 0RF naproxen 500 mg tablet 500 mg PO BID PRN (Reason: pain) Qty: 20 0RF ibuprofen 800 mg tablet 800 mg PO TID PRN (Reason: pain) 7 Days Qty: 21 0RF acetaminophen 500 mg tablet 1,000 mg PO TID PRN (Reason: sylvester) 7 Days Qty: 42 0RF cephalexin 500 mg capsule 500 mg PO Q12H Qty: 14 0RF ibuprofen 800 mg tablet 800 mg PO TID PRN (Reason: pain) 7 Days Qty: 21 0RF acetaminophen 500 mg tablet 1,000 mg PO TID PRN (Reason: sylvester) 7 Days Qty: 42 0RF methocarbamol 750 mg tablet 1,500 mg PO TID Qty: 30 0RF lidocaine 5 % adhesive patch,medicated 1 patch topical DAILY Qty: 15 0RF Rx Instructions: leave on most painful area for up to 12 hrs cephalexin 500 mg capsule 500 mg PO Q12H Qty: 10 0RF lamotrigine 200 mg tablet 300 mg PO BID Qty: 300 3RF primidone 250 mg tablet See Rx Instructions .ROUTE .COMPLEX Qty: 90 6RF Dose Instruction: TAKE 1 AND ONE-HALF TABLETS IN THE MORNING AND EVENING Rx Instructions: TAKE 1 AND ONE-HALF TABLETS IN THE MORNING AND EVENING Follow-up/Referrals: Mary,Ksenia Burgess, SALES APPRENTICE [Primary Care Provider] - Time of Disposition: 10:59
--- OUTSIDE RECORDS SUMMARY | 2024-12-24 10:50 | XMS_ITS | Clinical Summary ---
Author Organization [facility] Address [address] [place] [id number] Care Team Providers Care Self Pay Representative Name Role Phone Unavailable Primary Care Provider Unavailabl e Social History Tobacco Use Types Packs/Day Years Used Date Smoking Tobacco: Never Assessed Comments Unknown Sex and Gender Information Value Date Recorded Sex Assigned at Not on file Legal Sex Female 7:32 AM CDT Gender Identity Not on file Sexual Orientation Not on file Plan of Treatment Health Maintenance Due Date Last Done Comments Cervical Cancer Screening Pa p Smear (Age 30 to 64) Every 3 Years 1971 Colorectal Cancer Screening Colonoscopy (10 Years) 1971 Annual Physical 1974 Hepatitis C 1989 DTaP, Tdap and Td Vaccines ( 1 - Tdap) 1990 Hepatitis B Vaccines (1 of 3 - 19+ 3-dose series) 1990 Cervical Cancer Screening Pa p with HPV Testing (Age 30 to 64) Every 5 Years 2001 Cervical Cancer Screening with HPV 2001 Mammogram Screening 2011 Zoster Vaccines (1 of 2) 2021 COVID-19 Vaccine (2023-2 5 season) 2024 Influenza Adult (#1) 2024 Meningococcal B Vaccine Aged Out No l onger eligible based on patient's age to complete this topic Meningococcal Vaccine Aged Out No jacoby charlie eligible based on patient's age to complete this topic Pneumococcal Vaccine: Pediat rics (0 to 5 Years) and At-Risk Patients (6 to 64 Years) Aged Out No longer eligible b ased on patient's age to complete this topic RSV Immunizations Under 20 Months Aged Out No longer eligible based on patient's age to complete this topic
--- OUTSIDE RECORDS SUMMARY | 2024-12-24 10:52 | XMS_ITS | Data Portability ---
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 30.4 kg/m2 74964.6 1 g 97.2 [degF] 90 /min 24 /min 0 95 % 95 % 118 mm[Hg] 70 mm[Hg] Bethany Asencio RN [facility] [employer] [facility] 4 10:34:09 Date Recorded Body height Body mass index (BMI) Body weight Provider Name and Address Organization Details Last Updated DateTime 10/28/2024 162.56 cm 31.2 kg/m2 46214.81 g Diann LACEY Mccollum [facility] [employer] [facility] 10/28/2024 13:30:05 Date Recorded Body height Body mass index (BMI) Body weight Body temperature Heart rate Respiratory rate Oxygen saturation Oxygen saturation in Arterial blood by Pulse oximetry Pain severity - 0-10 verbal numeric rating [Score] - Reported Systolic blood pressure Diastolic blood pressure Provider Name and Address Organization Details Last Updated DateTime 4 162.56 cm 31.3 kg/m2 39018.5 1 g 97.5 [degF] 88 /min 20 /min 96 % 96 % 10 134 mm[Hg] 90 mm[Hg] Bethany Asencio RN [facility] [employer] [facility] 4 11:43:28 Social History Question Answer Notes LastModified by Organizat ion Details LastModified Time Tobacco Smoking Status Current Every Day Smoker Not Available [employer] 01/15/2023 10:42:00 Do You Have An Advance Directive? No Information not available 02/13/2023 What Is Your Level Of Alcohol Consumption? Occasional [id number] Information not available 01/15/2023 Is Blood Transfusion Acceptable In An Emergency? Yes Information not available 02/13/2023 What Is Your Level Of Caffeine Consumption? Moderate [id number] Information not available 01/15/2023 How Much Tobacco Do You Chew? None [id number] Information not available 01/15/2023 What Is Your Code Status? Full Code Information not available 02/13/2023 In The 14 Days Before Symptom Onset, Have You Had Close Contact With A Laboratory-confi rmed COVID-19 While That Case Was Ill? No [id number] Information not available 01/15/2023 In The 14 Days Before Symptom Onset, Have You Had Close Contact With A Person Who Is Under Investigation For COVID-19 While That Person Was Ill? No [id number].[id number] Information not available 01/15/2023 Are You Currently Employed? Yes Information not available 02/13/2023 What Type Of Diet Are You Following? REGULAR [id number] Information not available 01/15/2023 Which Illicit Or Recreational Drugs Have You Used? None [id number] Information not available 01/15/2023 Do You Or Have You Ever Used E-cigarettes Or Vape? 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 Yes Information not available 02/13/2023 Do You Use Insect Repellent Routinely? No Information not available 02/13/2023 Where Do You Live? Apartment Information not available 02/13/2023 Do You Have A Medical Power Of Solar Energy Installation Manager? No Information not available 02/13/2023 How Many Children Do You Have? 1 Information not available 02/13/2023 Do You Have Any Pets? Yes Information not available 02/13/2023 What Is Your Relationship Status? Single Information not available 02/13/2023 Do You Use Your Seat Belt Or Car Seat Routinely? Yes Information not available 02/13/2023 Do You Have Smoke And Carbon Monoxide Detectors In Your Home? Yes NO CARBON MONOXIDE Information not available 02/04/2024 Are You Passively Exposed To Smoke? Yes Information not available 02/04/2024 Do You Or Have You Ever Used Smokeless Tobacco? Never Used Smokeless Tobacco [id number] Information not available 01/15/2023 Are There Any Smokers In Your House? No Information not available 02/04/2024 How Much Tobacco Do You Smoke? 0.5 PPD [id number].[id number] [id number] Information not available 01/15/2023 Do You Participate In Social Media? Yes Information not available 02/13/2023 Do You Feel Stressed (tense, Restless, Nervous, Or Anxious, Or Unable To Sleep At Night)? [id number] Information not available 10/29/2024 Do You Use Any Illicit Or Recreational Drugs? No Information not available 02/13/2023 Do You Use Sunscreen Routinely? No Information not available 02/13/2023 How Many Years Have You Smoked Tobacco? 30 [email or web address] Information not available 10/28/2024 Have You Recently Traveled Abroad? No Information not available 02/13/2023 Sex: Unknown Functional Status Question Answer Note LastModified by Organizat ion Details LastModified Time What is your exercise level? None [id number] Information not available 01/15/2023 Mental Status None recorded. Family History Relationship Description Onset Age of this Age Resolved Age Notes LastModified by Organization Details LastModified Time Unspecified Relation Family history of stroke [email or web address] Not available 2023 13:32:14 Unspecified Relation Hypertensive disorder [email or web address] Not available 2023 13:32:25 Unspecified Relation Diabetes mellitus [email or web address] Not available 2023 13:32:33 Notes:cancer-unspecified rel ation lupus- mother Medical History Condition Response ARTHRITIS Y ALLERGIES/HAYFEVER Y OBESITY Y ANXIETY DISORDER Y DEPRESSION (INCLUDING POST ) Y HYPERTENSION Y HIGH CHOLESTEROL / HYPERLIPIDEMIA Y Gynecological History Statement/Question Response If Post Menopausal, Age at Menopause 51 Date of Last Colonoscopy Most Recent Bone Density Date of LMP Sexually Active? N STIs/STDs N Date of Last Pap Smear Most Recent Mammogram Breast Problems no Discharge no Obstetrics History GPAL:G 0 P 0 0 0 0 Immunizations Vaccine Type Date Status Note Provider Nam e and Address Organization Details Recorded Time SARS-COV-2 (COVID-19) vaccine, UNSPECIFIED completed Not Available [employer] 01/15/2023 10:52:11 Tdap 6 completed Not Available [facility] 01/15/2023 10:52:11 Influenza, split virus, trivalent, preservative 3 completed Not Available [facility] 01/15/2023 10:52:12 Past Encounters Encounter ID Performer Location Encounter Start Date Encounter Closed Date Diagnosis/Indication Diagnosis SNOMED-CT Code Diagnosis ICD10 Code Diagnosis Note [id number] [facility] [address] [place] [id number] 1 05/25/2021 00:00:00 05/25/2021 09:58:09 [id number] [facility] [address] [place] [address] 76211-656 1 05/01/2022 00:00:00 05/01/2022 13:15:[id number] [address] 1 05/30/2022 00:00:00 05/30/2022 15:38:11 [id number] [facility] [address] [place] [address]-976 1 08/09/2022 00:00:00 08/09/2022 14:55:07 [id number] Bethany Cannon NP [facility] [address] [place] [address] [id number] 1 02/13/2023 15:31:46 02/13/2023 17:16:50 Fracture of foot 92472070 S92.901A Referring to ortho. Get walker and stay off right foot. Partial th ickness burn of forearm 66053968 T22.211A Silvadene cream to right forearm, nonstick pad. Use until healed. Alcoholism 7392979 F10.2 0 States she has stopped this week and went to meetings. Pain of le ft shoulder joint 1836307388 4816439 M25.512 xray left shoulder. Pain of le ft knee joint 7381026734 54568 M25.562 Continue knee brace. Screening for malignant neoplasm of breast 908345764 Z12.39 mammogram due. Wheezing 77146750 R06.2 Albuterol inhaler Allergic rhinitis 390906 04 J30.9 Cetirizine 10 mg po daily. [id number] [facility] Nair [address] [address] 1 02/04/2024 15:32:00 02/04/2024 17:15:45 Bilateral shoulder joint pain 5096406250 4510642 M25.511 X-rays ordered, discussed possibilit y of physical therapy, she would like MRIs. Referred to ortho Pain of bi lateral knee joints 0475226672 03790 M25.561 X-rays ordered, discussed possibilit y of physical therapy, she would like MRIs. Referred to ortho Pain of le ft knee joint 2469866076 46415 M25.562 X-rays ordered, discussed possibilit y of physical therapy, she would like MRIs. Referred to ortho Pain of le ft shoulder joint 5101445144 7672942 M25.512 X-rays ordered, discussed possibilit y of physical therapy, she would like MRIs. Referred to ortho Cigarette smoker 8078985 7 F17.210 Wheezing 81423766 R06.2 Stable. 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 Screening mammography 24 317847 Z12.31 Screening for malignant neoplasm of colon 999038249 Z12.11 Multiple joint pain 3567 8005 M25.50 Discussed possibilit y of rheumatolo gic condition due to numerous large joint complaints . Inflammato ry markers ordered. [id number] VERN Nair [address] [address] 1 08/20/2024 10:33:48 08/20/2024 11:16:54 Liver enzymes level above reference range 834830781 R74.8 Chronic cough 36405289 R 05.3 Asthma 448130822 J45.90 9 [id number] V[facility] Nair [address] [address] 1 08/27/2024 10:22:28 08/27/2024 11:17:45 Removal of suture 53391185 Z48.02 9 sutures removed from right knee. Slight erythema, will extend abx therapy. Patient advised to utilize triple antibiotic ointment and keep covered. Clean with antibacter ial soap and warm water only Osteopenia 866134420 M85 .80 [id number] GRECIA Calixto [facility] [place] [address] [place] [address] 10/28/2024 13:15:59 10/28/2024 14:13:50 Pain of bilateral knee joints 1456632364 11904 M25.561 M25.562 Bilateral osteoarthritis of knees 4605334026 71442 M17.0 [id number] VERN Nair S_G [address] [address] 1 10/29/2024 11:29:41 10/29/2024 12:10:20 Bilateral knee pain 5277029355 7766319 M25.561 M25.562 Advised to continue FU with Dr Carias as directed Mild inter mittent asthma 538709885 J45.20 Current utilizing albuterol 2-3 times per day, Will add symbicort daily Alcohol abuse 77185636 F 10.10 Health Concerns Section Related Observation LastModified by Organization Detai ls LastModified Time None Recorded Concern Status LastModified by Organization Details LastModified Time None Recorded Advance Directives Directive N: Payers Encounter Date Sequence Insurance Name Policy Number Policy Engle Covered Member ID Engle Member ID Guarantor Name 02/04/2024 1 [facility] (MEDICAID HMO) [id number] Kaylie Saul [id number] Kaylie Saul 08/20/2024 1 [facility] (MEDICAID HMO) [id number] Kaylie Saul [id number] Kaylie Saul 08/27/2024 1 [facility] (MEDICAID HMO) [id number] Kaylie Saul [id number] Kaylie Saul 10/28/2024 1 [facility] (MEDICAID HMO) [id number] Kaylie Saul [id number] Kaylie Saul 10/29/2024 1 [facility] (MEDICAID HMO) [id number] Kaylie Hughes [id number] Kaylie Hughes Notes Date Note Type Note Provider Name and Address Organization Details Recorded Time 02/04/2024 text/html Kaylie Hughes is a 53 year old female here to establish care. She was previously under the care of Bethany Cannon DNP who is no longer with this clinic. She would like to discuss chronic bilateral shoulder pain. In the past, this pain has been x-rayed and no abnormalities were identified. She has not seen ortho or physical therapy. Since the previous x-rays, she has reinjured her shoulders with a fall in the bathtub. She feels bilateral knees are swollen. She does not recall an injury but is having limited range of motion. The patient has epilepsy managed by Dr Nunn (Neurology). She will see her 03/04/2024. She is currently taking lamotrigine 200 mg PO QID, levetiracetam 750 mg PO BID, and primidone 250 mg am and 125 mg pm daily. Her last seizure was 3 days ago. She does not currently have her lamotrigine. She has seasonal allergies and asthma. She utilizes cetirizine 10 mg PO daily and albuterol inhaler. She has anxiety. She takes citalopram 40 mg PO daily. . She has hyperlipidemia. She is taking atorvastatin 40 mg PO HS. Her last lipid panel is unknown. We will order today. She has acid reflux. She is taking omeprazole 40mg PO daily and feels her symptoms are well controlled. Flu Shot: declined.COVID vaccines: 2020, 2020Tdap: 2016Shingrix: recommendedHep C Screening:Mammogram: orderedWWE: dueColonoscopy: referral placedLDCT: Ordered VERN Nair [address] [facility] [address], [place], [address], [facility] [employer] 02/04/2024 17:14:22 08/20/2024 text/html Kaylie Hughes is a 54 year old female patient here today for multiple complaints She has [address] on her rt knee from a fall on 08/18/24. She is taking cephalexin 500 mg BID x 7 days She has a chronic cough that is keeping her up all night. This current cough is worse than any she's had before. She feels like she is gagging. States she hasn't been able to sleep for approx 3 months. Has been taking tessalon pearls but not working. She has concerns she may have lung cancer. She states her throat is hoarse Patient states she had a bone density scan last week and had osteoporosis, these results are not available to me. She would like to check her liver function today She believes she has early onset dementia. She states that her past neurologist told her verbally but did not want to put it in her chart. She now sees Dr. Ly through Ahsan Mooney, PROPERTY UTILIZATION OFFICER [address], [place], [address], [employer] 08/20/2024 11:09:33 08/27/2024 text/html Kaylie Hughes is a 54 year old female here today for suture removal of the right knee. 9 Sutures were placed on 08/18/24. She has been taking Keflex 500 mg BID since. She will finish that script today.Patient states she has been drenching in peroxide twice daily and keeping covered with A&D ointment. Advised pt to stop this and wash daily with antibacterial soap and warm water gently and keep covered with triple antibiotic ointment. Medial aspect of sutures is slightly erythamatous and warm. Results of past Dexa received, pt has osteopenia Reji Mooney, VERN [address], [place], [address], [employer] 08/27/2024 11:05:50 10/28/2024 text/html the patient is a 54-year-old female who presents with bilateral knee pain. She states she has had pain in both knees for many years even when she was very young. She reports a remote history of a right knee injury she was told at 1 point she may have torn a stabilizing ligament in the right knee but she is not sure of the exact diagnosis. This was 30 years ago. She has aching pain that she reports a 10 on a scale 1-10 she has had no other specific trauma or injury recently other than in August when she tripped and fell landing on her right knee on a glass table and had a couple of lacerations over the anterior and anterior lateral portion of the knee these have healed well otherwise looked good. No evidence of weakness no infection is noted no effusion or swelling. She has tenderness on the medial and lateral joint lines generalized in nature with crepitation through the arc of motion. She has trouble squatting kneeling going up and down stairs if she stands or walks for too long of a time this aggravates both knees as well. She has start-up pain and can not exercise states both knees bother her all the time lately. She has had no recent treatment for either knee she is soon she has some osteoarthritis in both knees. She played sports for many years. She comes in today for initial evaluation treatment of bilateral knee pain as described. New past medical history sheet was reviewed and signed on the intake sheet of today's date drug allergies current medications family social history previous surgical history 10 point review of systems was reviewed and discussed in detail today with the patient. GRECIA Calixto [address], [address], [place], [address], [employer] 10/28/2024 15:01:52 10/29/2024 text/html Staci Hughes is a 54 year old female patient here today for VIRAL knee pain She saw Dr. Carias yesterday and had cortisone shots in VIRAL knees. Concerns that she does not feel better today. Concerns with asthma. States she is requiring her albuterol 2-3 times daily Needs refill on omeprazole VERN Nair [address], [address], [place], [address], [employer] 10/29/2024 12:09:24 OBGyn Episode No OBEpisode recorded.
== END 2024-12-24 11:05 | disposition home or self-care (01) ==
PROVIDERS: Emergency Provider Nurse Practitioner
DX: J32.9 Chronic sinusitis, unspecified (principal); F17.210 Nicotine dependence, cigarettes, uncomplicated; G40.909 Epilepsy, unspecified, not intractable, without status epilepticus; E78.5 Hyperlipidemia, unspecified; M19.90 Unspecified osteoarthritis, unspecified site; F41.9 Anxiety disorder, unspecified; F32.A Depression, unspecified; Z87.820 Personal history of traumatic brain injury
CPT/HCPCS: 71046; 99213; G0463

== ENCOUNTER 2025-01-24 10:05 | Outpatient (CLI) | payer OTHER, SELFPAY ==
--- NOTE | ~2025-01-24 | MM_ITS ---
EXAMINATION: MM diagnostic leonid LT w danay HISTORY: Left breast asymmetry TECHNIQUE: Additional 3-D tomosynthesis images of the left breast were performed and synthetic 2-D im ages were generated. CAD analysis was submitted and interpreted. COMPARISON: 12/20/2024, 11/26/2017 BREAST PARENCHYMAL COMPOSITION:Not Dense. There are scattered areas of fibroglandular density. FINDINGS: Left breast asymmetry effaces with spot compression. No persistent mass lesion or distortio n. No suspicious microcalcification. IMPRESSION: No mammographic evidence for malignancy. BI-RADS Category 1: Negative Reviewed, dictated and finalized at location .
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
--- OUTSIDE RECORDS SUMMARY | 2025-01-24 11:50 | XMS_ITS | Clinical Summary ---
Author Organization [facility] Address [address] [place] [id number] Care Team Providers Care Valet Cashier Name Role Phone Unavailable Primary Care Provider [...]
== END 2025-01-24 10:06 | disposition home or self-care (01) ==
LOC: ANHIMG 10:08
DX: R92.8 Other abnormal and inconclusive findings on diagnostic imaging of breast (principal)
CPT/HCPCS: 77061; 77065; G0279

== ENCOUNTER 2025-07-28 08:56 | Outpatient (CLI) | payer OTHER, SELFPAY ==
[2025-07-28 10:15] LABS: Alanine Aminotransferase 16 U/L (6-35); Albumin Level 4.8 g/dL (3.5-5.1); Alkaline Phosphatase 104 U/L (38-126); Anion Gap 10 mmol/L (4-12); Aspartate Amino Transferase 34 U/L (14-36); Bilirubin,Total 0.3 mg/dL (0.2-1.3); Blood Urea Nitrogen 7 mg/dL (7-17); Calcium 9.9 mg/dL (8.4-10.2); Carbon Dioxide 29 mmol/L (22-30); Chloride 100 mmol/L (98-107); Estimated Glomerular Filt Rate > 60; Glucose 86 mg/dL (65-110); Potassium 4.2 mmol/L (3.4-5.0); Sodium 139 mmol/L (137-145); Total Protein 8.0 g/dL (6.3-8.2)
[2025-07-28 12:40] LABS: Hematocrit 42.6 % (37.0-47.0); Hemoglobin 14.8 g/dL (12.0-15.0); Immature Granulocyte Percent A 0.2 % (0-0.5); Lymphocytes Absolute Auto 2.13 K/mm3 (0.9-3.2); Mean Corpuscular HGB Conc 34.7 g/dl (32-36); Mean Corpuscular Hemoglobin 33.7 pg (26-34); Mean Corpuscular Volume 97.0 fl (80-100); Nucleated Red Blood Cells Absolute Auto 0.000 K/mm3 (0.0-0.012); Nucleated Red Blood Cells Perc 0.0 % (0.0-0.2); Platelet Count Result 246 k/mm3 (150-375); Red Blood Count 4.39 M/mm3 (4.2-5.4); White Blood Count 5.4 K/mm3 (4.5-10.0)
== END 2025-07-28 08:57 | disposition home or self-care (01) ==
PROVIDERS: PCP Nurse Practitioner Family
DX: R79.89 Other specified abnormal findings of blood chemistry (principal)
CPT/HCPCS: 36415; 80053; 82248; 82390; 85025; 86015; 86803

== ENCOUNTER 2025-09-22 07:38 | Outpatient (CLI) | payer OTHER, SELFPAY ==
--- NOTE | ~2025-09-22 | CT_ITS ---
EXAMINATION:CT lung screening DATE: 09/22/2025 07:54 INDICATION: Personal history of nicotine dependence. TECHNIQUE: Computed tomography (CT) of the chest was performed without intravenous contrast. Automated exposure control and iterative reconstruction technique were employed. The dose-length product (DLP) was 64.24 mGy-cm. COMPARISON: CT 08/08/2023 FINDINGS: The lungs demonstrate minimal atelectasis. There is a 2 mm nodule in right upper lobe. There is a 2 mm nodule in right upper lobe. No pleural effusion. The heart size is normal. No pericardial effusion. There is mild thoracic spondylosis. IMPRESSION: 1. Lung-RADS category 2: Benign appearance or behavior. Continue annual screening with noncontrast low-dose chest CT in 12 months. Reviewed, dictated and finalized at location E. /MOULD OPERATOR IMPRESSION: 1. Lung-RADS category 2: Benign appearance or behavior. Continue annual screeni ng with noncontrast low-dose chest CT in 12 months.
--- OUTSIDE RECORDS SUMMARY | 2025-09-22 16:33 | XMS_ITS | Clinical Summary ---
Author Organization [facility] Address [address] [place] [address] Care Team Providers Care Sander And Polisher Name Role Phone Unavailable Primary Care Provider [...] Screening with HPV 2001 Mammogram Screening 2011 Pneumococcal Vaccine: 50+ Ye ars (1 of 1 - PCV) 2021 Zoster Vaccines (1 of 2) 2021 PHQ-2 (Physician [place]) 11/17/2024 COVID-19 Vaccine (1 - 2024-2 6 season) 2025 Influenza Adult (#1) 2025 Hepatitis A Vaccines Aged Out No long er eligible based on patient's age to complete this topic Meningococcal B Vaccine Aged Out No l onger eligible based on patient's age to complete this topic Meningococcal Vaccine Aged Out No jacoby charlie eligible based on patient's age to complete this topic RSV Immunizations Under 20 Months Aged Out No longer eligible based on patient's age to complete this topic Insurance [employer]
== END 2025-09-22 07:39 | disposition home or self-care (01) ==
PROVIDERS: PCP Family Medicine; Visit Provider Family Medicine
DX: Z12.2 Encounter for screening for malignant neoplasm of respiratory organs (principal); Z87.891 Personal history of nicotine dependence
CPT/HCPCS: 71271

== ENCOUNTER 2025-11-07 09:41 | Emergency (ER) | payer OTHER, SELFPAY ==
--- NOTE | ~2025-11-07 | XR_ITS ---
Examination: XR foot RT min 3V Clinical History: pain Comparison: Right foot 02/12/2023 Technique: 4 views right foot Findings/impression: No acute abnormality identified- 1. No acute fracture or dislocation. 2. Unchanged postoperative changes first metatarsal and proximal phalanx. 3. Chronic healed fracture medial cuneiform. Reviewed, dictated and finalized at location R. TICS FABRICATOR
[2025-11-07 09:46] VITALS: BP 110/71; PULSE 80; RESP 16; TEMP 36.6; O2SAT 100
--- NOTE | 2025-11-07 10:39 | ED_ITS ---
HPI - Extremity Injury (Lower) General Chief Complaint: Extremity Injury, Lower Stated Complaint: right foot injury Time Seen by Provider: 11/07/25 10:27 Source: patient Mode of arrival: ambulatory Limitations: no limitations History of Present Illness HPI Narrative: Patient is a 55-year-old female who presents the ED with report of right foot pain. Patient reports she tripped and rolled her right foot on a a tree gum ball 1.5 weeks ago. Complains of pain to right lateral foot, worse with ambulation. She has been able to ambulate. Has not taken anything for pain. Denies numbness. Related Data Allergies Allergy/AdvReac Type Severity Reaction Status Date / Time divalproex sodium Allergy Unknown Unknown Verified 11/07/25 09:50 phenytoin Allergy Unknown Other Verified 11/07/25 09:50 Review of Systems Review of Systems: All systems reviewed & are unremarkable except as noted in HPI. All systems reviewed & are unremarkable except as noted in HPI and below PMFSH Past Medical History Medical History Vitamin D3 deficiency Benign essential tremor Hyperlipidemia Kidney stones Fracture of medial cuneiform bone of right foot (02/05/23) Seasonal allergies Arthritis Anxiety Depression Traumatic brain injury At age 14. Generalized anxiety disorder Seizure disorder On Keppra and primidone. Surgical History Surgical History History of arthroscopy of left knee History of lithotripsy Family History Family History Sibling Gunshot wound Mother Malignant neoplasm Lupus Father Diabetes mellitus Atrial fibrillation Hyperlipidemia Lung cancer Other Arthritis Hypertension Social History Social History Social History: Surrogate medical decision maker: Efraín Hughes, krysten. Code status: Full code. Smoking packs per day: 0.50 Smoking cigarettes per day: 10.0 Years smoked: 30 Smoking pack-years: 15.00 Smoking status: Current every day smoker Tobacco type: cigarettes Second hand tobacco smoke exposure: No Alcohol intake: former Substance use type: does not use Lack of Transportation: No Lack of Food: Never True Current Housing: I Have Housing Concerned About Future Housing: No Difficulty Paying Gas/Electric Bills: No Difficulty Paying for Meds: No Currently Unemployed: No Education: Decline to Answer Difficulty w/ Childcare or Family Care: No Living arrangements: with family Occupation/Education: unemployed Spiritual care concerns: No Exam Narrative: GENERAL: Well appearing, well-nourished, non-toxic, in no acute distress. HEAD: Normocephalic, atraumatic. RESPIRATORY: Airway patent, respirations nonlabored. CARDIOVASCULAR: Regular rate and rhythm. Pedal pulses intact and easily palpable MUSCULOSKELETAL: Moves all extremities. No gross deformities. TTP over R lateral dorsal foot, over 5th MT region. No bruising or swelling. Sensation intact SKIN: Warm, dry, normal color. NEURO: A&O X3. Speech clear. No ataxic movements. PSYCHIATRIC: Appropriate mood and affect. Normal interaction. Course Vital Signs Vital signs: Vital Signs Temperature 97.8 F 11/07/25 09:46 Pulse Rate 80 11/07/25 09:46 Respiratory Rate 16 11/07/25 09:46 Blood Pressure 110/71 11/07/25 09:46 Pulse Oximetry 100 11/07/25 09:46 Oxygen Delivery Room Air 11/07/25 09:46 Temperature 97.8 F 11/07/25 09:46 Pulse Rate 78 11/07/25 10:56 Respiratory Rate 15 11/07/25 10:56 Blood Pressure 112/73 11/07/25 10:56 Pulse Oximetry 99 11/07/25 10:56 Oxygen Delivery Room Air 11/07/25 09:46 [facility] MDM Narrative Medical decision making narrative: Patient?s injury is consistent with musculoskeletal etiology. No signs of neurologic or vascular compromise on physical examination. Compartments are soft without signs of compartment syndrome. XR without evidence of fracture, does show old fracture which patient is aware of. Pain is consistent with foot sprain/contusion. Patient is felt to be stable for discharge home and further outpatient management and treatment. Given sesar bandage, post op shoe. Given podiatry info for f/u. Given return precautions. Discharged in stable condition. Differential Diagnosis Differential Diagnosis: foot sprain, foot contusion, foot fracture, ankle fracture Medical Records I have reviewed the following patient records and this information was taken into consideration when formulating the assessment and plan.: previous labs, previous ER visits, previous hospitalizations and previous clinic visits Imaging Data Attestation: I personally reviewed and interpreted this imaging study as follows: Radiologist's impression: XR R Foot: Findings/impression: No acute abnormality identified- 1. No acute fracture or dislocation. 2. Unchanged postoperative changes first metatarsal and proximal phalanx. 3. Chronic healed fracture medial cuneiform. Discharge Plan Discharge Clinical Impression: Contusion of right foot Qualifiers: Encounter type: initial encounter Qualified Code(s): S90.31XA - Contusion of right foot, initial encounter Patient Disposition: Home Condition: Stable Instructions: Antibiotic Form, Foot Contusion (ED) Additional Instructions: Utilize Sesar bandage, postop shoe for comfort/support. Continue Tylenol/ibuprofen, ice as needed for pain. Follow-up with podiatry for further evaluation if needed. Return for new or worsening concerns. Patient Language: Malaysian Prescriptions: No Action lamotrigine 200 mg tablet 300 mg PO BID Qty: 300 3RF levetiracetam 750 mg tablet See Rx Instructions .ROUTE .COMPLEX Qty: 180 3RF Dose Instruction: TAKE 1 TABLET BY MOUTH TWICE DAILY Rx Instructions: TAKE 1 TABLET BY MOUTH TWICE DAILY primidone 250 mg tablet See Rx Instructions .ROUTE .COMPLEX Qty: 90 6RF Dose Instruction: TAKE 1 AND ONE-HALF TABLETS IN THE MORNING AND EVENING Rx Instructions: TAKE 1 AND ONE-HALF TABLETS IN THE MORNING AND EVENING Follow-up/Referrals: Cathy Larson DPM [Physician, Podiatry] Remberto,MD Meño [Primary Care Provider, Unknown] Time of Disposition: 10:40
--- OUTSIDE RECORDS SUMMARY | 2025-11-07 10:50 | XMS_ITS | Clinical Summary ---
Author Organization [facility] Address [address] [place] [address] Care Team Providers Care Stull Hewer Name Role Phone Unavailable Primary Care Provider [...] Vaccines (1 of 2) 2021 PHQ-2 (Physician [place]) 11/17/2024 COVID-19 Vaccine (1 - 2024-2 6 [...]
[2025-11-07 10:56] VITALS: BP 112/73; PULSE 78; RESP 15; O2SAT 99
--- OUTSIDE RECORDS SUMMARY | 2025-11-07 12:26 | XMS_ITS | Clinical Summary ---
Author Organization [facility] Address [address] [place] [address] Care Team Providers Care Director Case Name Role Phone Unavailable Primary Care Provider [...] Vaccines (1 of 2) 2021 PHQ-2 (Physician [place]) 11/17/2024 COVID-19 Vaccine (1 - 2024-2 6 [...]
== END 2025-11-07 10:57 | disposition home or self-care (01) ==
PROVIDERS: Emergency Provider Physician Assistant; PCP Family Medicine
DX: S90.31XA Contusion of right foot, initial encounter (principal); E78.5 Hyperlipidemia, unspecified; G43.909 Migraine, unspecified, not intractable, without status migrainosus; F17.210 Nicotine dependence, cigarettes, uncomplicated; X50.0XXA Overexertion from strenuous movement or load, initial encounter
CPT/HCPCS: 73630; 99283

== ENCOUNTER 2025-11-15 16:47 | Emergency (ER) | payer OTHER, SELFPAY ==
--- NOTE | 2025-11-15 16:58 | ED_ITS ---
HPI - Skin/Abscess/Foreign Bdy General Chief complaint: Skin/Abscess/Foreign Body Stated complaint: Skin Issues Time Seen by Provider: 11/15/25 16:58 Source: patient Mode of arrival: ambulatory Limitations: no limitations History of Present Illness HPI narrative: Kaylie is a 55-year-old female patient presenting to the clinic today with complaints of possible wound infection to her right upper back. She reports she had a biopsy of a mole completed on Friday of this week. Her sister change her dressing and thought the wound may it looked infected. No drainage coming from the wound. She denies any fevers, chills, body aches. She denies any pain at the surgical site. Related Data Allergies Allergy/AdvReac Type Severity Reaction Status Date / Time divalproex sodium Allergy Unknown Unknown Verified 11/15/25 16:49 phenytoin Allergy Unknown Other Verified 11/15/25 16:49 Review of Systems Review of Systems: Pertinent positives per HPI. Patient denies any fever, chills, rash, headache, visual changes, dizziness, cough, runny nose, sore throat, shortness of breath, chest pain, palpitations, nausea, vomiting, diarrhea, constipation, abdominal pain, or any urinary issues. [facility] Past Medical History Medical History Vitamin D3 deficiency Benign essential tremor Hyperlipidemia Kidney stones Fracture of medial cuneiform bone of right foot (02/05/23) Seasonal allergies Arthritis Anxiety Depression Traumatic brain injury At age 14. Generalized anxiety disorder Seizure disorder On Keppra and primidone. Surgical History Surgical History History of arthroscopy of left knee History of lithotripsy Family History Family History Sibling Gunshot wound Mother Malignant neoplasm Lupus Father Diabetes mellitus Atrial fibrillation Hyperlipidemia Lung cancer Other Arthritis Hypertension Social History Social History Social History: Surrogate medical decision maker: Efraín Hugehs, krysten. Code status: Full code. Smoking packs per day: 0.50 Smoking cigarettes per day: 10.0 Years smoked: 30 Smoking pack-years: 15.00 Smoking status: Current every day smoker Tobacco type: cigarettes Second hand tobacco smoke exposure: No Alcohol intake: former Substance use type: does not use Lack of Transportation: No Lack of Food: Never True Current Housing: I Have Housing Concerned About Future Housing: No Difficulty Paying Gas/Electric Bills: No Difficulty Paying for Meds: No Currently Unemployed: No Education: Decline to Answer Difficulty w/ Childcare or Family Care: No Living arrangements: with family Occupation/Education: unemployed Spiritual care concerns: No Comments At the time of my signature, I reviewed and agree with the nursing past medical, surgical, social, and family history. There is no relevant family history pertinent to the patient complaint. Exam Narrative: General: Well-developed, well nourished, in no apparent distress Head: Normocephalic, atraumatic. Cardio: Regular rate and rhythm, s1 and s2 normal, no murmur appreciated. Resp: Clear to auscultation bilaterally, no rhonchi, rales, wheezing or rubs. Integumentary: [place], warm, and dry, open wound with some slough tissue- mild redness to the edges of the wound without drainage, erythema, or induration- wound measures 2x1.5cm Course Course Level of Care: Express Care Visit Vital Signs Vital signs: Vital Signs Temperature 36.6 C 11/15/25 16:59 Pulse Rate 45 L 11/15/25 16:59 Respiratory Rate 18 11/15/25 16:59 Blood Pressure 112/72 11/15/25 16:59 Pulse Oximetry 100 11/15/25 16:59 Oxygen Delivery Room Air 11/15/25 16:59 Temperature 36.6 C 11/15/25 16:59 Pulse Rate 45 L 11/15/25 16:59 Respiratory Rate 18 11/15/25 16:59 Blood Pressure 112/72 11/15/25 16:59 Pulse Oximetry 100 11/15/25 16:59 Oxygen Delivery Room Air 11/15/25 16:59 [facility] MDM Narrative Medical decision making narrative: At the time of visit patient is resting comfortably on the exam table. Patient appears to be nontoxic. Complaints of possible wound infection to her right upper back. She reports she had a biopsy of a mole completed on Friday of this week. Her sister change her dressing and thought the wound may it looked infected. No drainage coming from the wound. She denies any fevers, chills, body aches. She denies any pain at the surgical site.open wound with some slough tissue- mild redness to the edges of the wound without drainage, erythema, or induration-wound measures 2x1.5cm Plan: I suspect patient has open surgical wound to the right upper back without sign of infection. Follow-up with her PCP or surgeon in 2- 3 days for wound check. Supportive measures were discussed with the patient and they voiced understanding discharge instructions and agrees to treatment plan. Return precautions reviewed Differential Diagnosis Differential Diagnosis: Differential diagnostic considerations for skin/abscess/foreign body issues include abscess of skin or subcutaneous tissue, viral exanthem, dermatophytosis, urticaria, herpes zoster, allergic reaction to drug, cellulitis, eczema, insect bites, impetigo, contact dermatitis, vasculitis. Discharge Plan Discharge Clinical Impression: Open wound of back without complication Qualifiers: Encounter type: initial encounter Laterality: right Qualified Code(s): S21.201A - Unspecified open wound of right back wall of thorax without penetration into thoracic cavity, initial encounter Patient Disposition: Home Condition: Stable Instructions: Antibiotic Form, Wound Healing and Your Diet (ED) Additional Instructions: No obvious sign of wound infection in the clinic today Keep wound clean and dry Wash daily with soap and water pat dry Stop smoking Follow-up with your primary care doctor or the surgeon who performed the procedure in 2- 3 days for wound check Patient Language: Luxembourgish Prescriptions: No Action lamotrigine 200 mg tablet 300 mg PO BID Qty: 300 3RF levetiracetam 750 mg tablet See Rx Instructions .ROUTE .COMPLEX Qty: 180 3RF Dose Instruction: TAKE 1 TABLET BY MOUTH TWICE DAILY Rx Instructions: TAKE 1 TABLET BY MOUTH TWICE DAILY primidone 250 mg tablet See Rx Instructions .ROUTE .COMPLEX Qty: 90 6RF Dose Instruction: TAKE 1 AND ONE-HALF TABLETS IN THE MORNING AND EVENING Rx Instructions: TAKE 1 AND ONE-HALF TABLETS IN THE MORNING AND EVENING Follow-up/Referrals: Remberto,MD Meño [Primary Care Provider, Unknown] Time of Disposition: 17:13 Quality NIHSS Nursing Documentation ED NIHSS nursing documentation: reviewed/agree
[2025-11-15 16:59] VITALS: BP 112/72; PULSE 45; RESP 18; TEMP 36.6; O2SAT 100
== END 2025-11-15 17:15 | disposition home or self-care (01) ==
PROVIDERS: Emergency Provider Nurse Practitioner Family; PCP Family Medicine
DX: Z48.01 Encounter for change or removal of surgical wound dressing (principal); F17.210 Nicotine dependence, cigarettes, uncomplicated; G40.909 Epilepsy, unspecified, not intractable, without status epilepticus; E78.5 Hyperlipidemia, unspecified
CPT/HCPCS: 99212; G0463